=== PATIENT | female | born 1960 | race Caucasian/White ===

== ENCOUNTER 2018-02-17 20:31 | Emergency (ER) | payer BC ==
[2018-02-17 20:50] VITALS: BP 180/86; PULSE 92; RESP 16; TEMP 97
--- NOTE | 2018-02-17 21:31 | XR ---
EXAMINATION TYPE: XR ankle complete RT DATE OF EXAM: 02/17/2018 COMPARISON: NONE HISTORY: Ankle pain TECHNIQUE: 3 views FINDINGS: Ankle mortise is anatomic. I see no fracture nor dislocation. Joint spaces are normal. Ther e are no pathologic calcifications. IMPRESSION: Negative right ankle exam.
--- NOTE | 2018-02-17 21:41 | ED ---
General Adult HPI - General Chief complaint: Extremity Injury, Lower Stated complaint: foot injury Time Seen by Provider: 02/17/18 21:01 Source: patient, RN notes reviewed Mode of arrival: ambulatory Limitations: no limitations - History of Present Illness Initial comments: Patient is a 57-year-old female presenting to the emergency room today with chief complaint of an injury to the right ankle that occurred just prior to arrival. She states she stepped in a hole rolling the right ankle. Patient states that she has had some pain to the lateral aspect. She denies any other injury or complaint. Patient denies any recent fever, chills, shortness of breath, chest pain, back pain, abdominal pain, nausea or vomiting, headaches or visual changes, or any other complaints. - Related Data Previous Rx's Medication Instructions Recorded Cyclobenzaprine [Flexeril] 1 - 2 tab PO TID #20 tablet 11/07/15 Ibuprofen [Motrin] 600 mg PO Q6HR PRN #40 day 11/07/15 Ibuprofen [Motrin] 600 mg PO Q6HR PRN #40 day 02/17/18 Allergies Allergy/AdvReac Type Severity Reaction Status Date / Time No Known Allergies Allergy Verified 02/17/18 20:50 Review of Systems ROS Statement: Those systems with pertinent positive or pertinent negative responses have been documented in the HPI. ROS Other: All systems not noted in ROS Statement are negative. Past Medical History Past Medical History: No Reported History History of Any Multi-Drug Resistant Organisms: None Reported Additional Past Surgical History / Comment(s): ovary removed Past Psychological History: No Psychological Hx Reported Smoking Status: Current every day smoker Past Alcohol Use History: None Reported Past Drug Use History: None Reported General Exam - General Exam Comments Initial Comments: General: The patient is awake and alert, in no distress, and does not appear acutely ill. Neck: The neck is supple, there is no tenderness or JVD. Cardiovascular: There is a regular rate and rhythm. No murmur, rub or gallop is appreciated. Respiratory: Lungs are clear to auscultation, respirations are non-labored, breath sounds are equal. No wheezes, stridor, rales, or rhonchi. Musculoskeletal: Patient does have some mild swelling to the lateral aspect of the right ankle. She has some mild tenderness over the lateral malleolus. No tenderness down into the right foot. No tenderness to the right knee. Increased tenderness to the right ATFL. Sensations intact. Pulses equal 2+. Neurological: A&O x 3. CN II-XII intact, There are no obvious motor or sensory deficits. Coordination appears grossly intact. Speech is normal. Skin: Skin is warm and dry and no rashes or lesions are noted. Psychiatric: Normal mood and affect. Limitations: no limitations Course Vital Signs 02/17/18 20:47 Temperature 97 F L Pulse Rate 92 Respiratory 16 Rate Blood Pressure 180/86 O2 Sat by Pulse 97 Oximetry Medical Decision Making - Medical Decision Making Patient's x-rays negative. Patient is tender in the ATFL. Advised ankle sprain. Advised to use John wrap. Advised follow-up in 7-10 days for repeat x- rays. Disposition Clinical Impression: Ankle sprain Disposition: HOME SELF-CARE Condition: Good Instructions: Ankle Sprain (ED) Additional Instructions: Please use John wrap on up and moving around. Please do not sleep with this on. Please continue to ice elevate the affected area at least 4 times daily for 20 minutes at a time. Please use ibuprofen for pain. Please follow-up in 7-10 days for repeat x-rays if symptoms persist. Please treatments or for any other concerns. Prescriptions: Ibuprofen [Motrin] 600 mg PO Q6HR PRN #40 day PRN Reason: Pain Referrals: Tim Johnson MD [Primary Care Provider] - 1-2 days Time of Disposition: 21:40
== END 2018-02-17 21:50 | disposition home or self-care (01) ==
LOC: EC 20:31
DX: S93.401A Sprain of unspecified ligament of right ankle, initial encounter (principal); F17.200 Nicotine dependence, unspecified, uncomplicated; X50.1XXA Overexertion from prolonged static or awkward postures, initial encounter
CPT/HCPCS: 99283

== ENCOUNTER 2018-04-25 23:08 | Emergency (ER) | payer BC ==
[2018-04-25 23:23] VITALS: RESP 18
[2018-04-25] MEDS ORDERED: KETOROLAC 60 MG/2 ML VIAL IM STA (23:24)
--- NOTE | 2018-04-25 23:27 | ED ---
General Adult HPI - General Chief complaint: Abdominal Pain Stated complaint: Abd Pain Time Seen by Provider: 04/25/18 23:15 Source: patient, RN notes reviewed Mode of arrival: ambulatory Limitations: no limitations - History of Present Illness Initial comments: This is a 57-year-old female presents emergency Department complaining of right lateral rib pain. Patient states started about 3 days ago after she moved some furniture work. Patient states the pain seems be getting worse not better. Patient denies any shortness of breath patient denies any fever chills. Patient states the pain is worse when she lies flat but when she standing she has no pain at all. Patient states pressing on the ribs also hurts. Patient denies any abdominal pain patient denies nausea vomiting diarrhea. Patient denies any rashes or redness. Patient denies any recollection of direct trauma to that area.patient denies any anterior chest pain - Related Data Previous Rx's Medication Instructions Recorded Cyclobenzaprine [Flexeril] 1 - 2 tab PO TID #20 tablet 11/07/15 Ibuprofen [Motrin] 600 mg PO Q6HR PRN #40 day 11/07/15 Ibuprofen [Motrin] 600 mg PO Q6HR PRN #40 day 02/17/18 Cyclobenzaprine [Flexeril] 10 mg PO TID #20 tab 04/26/18 Ibuprofen [Motrin] 600 mg PO Q6HR PRN #20 tab 04/26/18 Allergies Allergy/AdvReac Type Severity Reaction Status Date / Time No Known Allergies Allergy Verified 04/25/18 23:23 Review of Systems ROS Statement: Those systems with pertinent positive or pertinent negative responses have been documented in the HPI. ROS Other: All systems not noted in ROS Statement are negative. Past Medical History Past Medical History: No Reported History History of Any Multi-Drug Resistant Organisms: None Reported Additional Past Surgical History / Comment(s): ovary removed Past Psychological History: No Psychological Hx Reported Smoking Status: Current every day smoker Past Alcohol Use History: None Reported Past Drug Use History: None Reported General Exam - General Exam Comments Initial Comments: GENERAL: Patient is well-developed and well-nourished. Patient is nontoxic and well- hydrated and is in mild distress. ENT: Neck is soft and supple. No significant lymphadenopathy is noted. Oropharynx is clear. Moist mucous membranes. Neck has full range of motion without eliciting any pain. EYES: The sclera were anicteric and conjunctiva were pink and moist. Extraocular movements were intact and pupils were equal round and reactive to light. Eyelids were unremarkable. PULMONARY: Unlabored respirations. Good breath sounds bilaterally. No audible rales rhonchi or wheezing was noted. CARDIOVASCULAR: There is a regular rate and rhythm without any murmurs gallops or rubs. Patient has tenderness along the lateral right chest wall. No swelling bruising or rashes noted ABDOMEN: Soft and nontender with normal bowel sounds. No palpable organomegaly was noted. There is no palpable pulsatile mass. SKIN: Skin is clear with no lesions or rashes and otherwise unremarkable. NEUROLOGIC: Patient is alert and oriented x3. Cranial nerves II through XII are grossly intact. Motor and sensory are also intact. Normal speech, volume and content. Symmetrical smile. MUSCULOSKELETAL: Normal extremities with adequate strength and full range of motion. No lower extremity swelling or edema. No calf tenderness. LYMPHATICS: No significant lymphadenopathy is noted PSYCHIATRIC: Normal psychiatric evaluation. Normal interpersonal interactions appears functionally intact in deals appropriately with others. No signs of depression. No signs of anxiety. Limitations: no limitations Course Vital Signs 04/25/18 23:18 Temperature 97.6 F Pulse Rate 114 H Respiratory 18 Rate Blood Pressure 158/81 O2 Sat by Pulse 94 L Oximetry Medical Decision Making - Medical Decision Making X-ray shows no acute abnormality. Patient states the Toradol helped her she again denies any chest pain shortness of breath fever chills cough. Disposition Clinical Impression: Chest wall pain Disposition: HOME SELF-CARE Condition: Good Instructions: Chest Wall Pain (ED) Prescriptions: Cyclobenzaprine [Flexeril] 10 mg PO TID #20 tab Ibuprofen [Motrin] 600 mg PO Q6HR PRN #20 tab PRN Reason: For pain Is patient prescribed a controlled substance at d/c from ED?: No Referrals: None,Stated [Primary Care Provider] - 1-2 days Time of Disposition: 00:32
[2018-04-26] MEDS ORDERED: CYCLOBENZAPRINE 10MG STARTER 3 TAB BTL PO STA (00:33)
[2018-04-26] MEDS ORDERED: ACET/COD 300 MG/30 MG STARTER PACK 6 TAB BTL PO STA (00:33)
--- NOTE | 2018-04-26 00:34 | XR ---
EXAMINATION TYPE: XR chest 2V DATE OF EXAM: 04/26/2018 COMPARISON: 08/11/2012 HISTORY: Right upper quadrant pain. Difficulty breathing TECHNIQUE: Frontal and lateral views of the chest are obtained. FINDINGS: There is a wedge-shaped 4 cm infiltrate at the right costophrenic angle. The other lung fi elds are clear. Heart and mediastinum are normal. There is no heart failure. Bony thorax is intact. IMPRESSION: Right lower lobe pneumonia. Normal heart. Pneumonia appears new compared to old exam. Mi nimal scarring noted in the pleura at the right lung apex.
[2018-04-26 00:37] VITALS: BP 153/85; PULSE 96; TEMP 98.1
== END 2018-04-26 00:47 | disposition home or self-care (01) ==
LOC: EC 23:08
DX: R07.89 Other chest pain (principal); R07.81 Pleurodynia; F17.200 Nicotine dependence, unspecified, uncomplicated
CPT/HCPCS: 71046; 99284; 96372; J1885

== ENCOUNTER 2018-05-01 16:48 | Inpatient (IN) | payer BC ==
[2018-05-01] MEDS ORDERED: KETOROLAC 30 MG/ML 1 ML VIAL IVP STA (17:46)
[2018-05-01] MEDS ORDERED: ACETAMINOPHEN TAB 500 MG TAB PO STA (17:46)
[2018-05-01] MEDS ORDERED: SODIUM CHLORIDE 0.9% 1,000 ML IV ONE (17:46)
[2018-05-01] MEDS ORDERED: IPRATROPIUM-ALBUTEROL 3 ML NEB INHALATION STA (17:46)
--- NOTE | 2018-05-01 18:03 | ED ---
Chest Pain HPI - General Chief Complaint: Chest Pain Stated Complaint: chest muscle pain Time Seen by Provider: 05/01/18 17:40 Source: patient Mode of arrival: wheelchair Limitations: no limitations - History of Present Illness Initial Comments: 57-year-old female patient presents to the emergency department today for evaluation of chest pain and shortness of breath. Patient states that she has been having symptoms since Saturday. States that she was seen and evaluated here and diagnosed with chest wall pain given ibuprofen and muscle relaxers. Patient states that she is out of those medications and her pain has worsened. States it is mostly on the right side that wraps around to her back. States she has been coughing up yellow sputum. States that she feels like she is having muscle spasms. She states that she has a headache today and has had chills. She denies any sweats, nausea, or vomiting. Denies abdominal pain. Patient denies any recent rash, diarrhea, constipation, back pain, numbness, tingling, dizziness, weakness, hematuria, dysuria, urinary urgency, urinary frequency, headache, visual changes, or any other complaints. - Related Data Previous Rx's Medication Instructions Recorded Cyclobenzaprine [Flexeril] 10 mg PO TID #20 tab 04/26/18 Ibuprofen [Motrin] 600 mg PO Q6HR PRN #20 tab 04/26/18 Allergies Allergy/AdvReac Type Severity Reaction Status Date / Time No Known Allergies Allergy Verified 05/01/18 17:56 Review of Systems ROS Statement: Those systems with pertinent positive or pertinent negative responses have been documented in the HPI. ROS Other: All systems not noted in ROS Statement are negative. EKG Findings - EKG Comments: EKG Findings:: EKG obtained at 1709 shows sinus tachycardia with a right bundle branch block. Ventricular rate is 121, KS interval 168, QR bahai 126, QT 304, QTC 431. Past Medical History Past Medical History: No Reported History History of Any Multi-Drug Resistant Organisms: None Reported Additional Past Surgical History / Comment(s): ovary removed Past Psychological History: No Psychological Hx Reported Smoking Status: Current every day smoker Past Alcohol Use History: None Reported Past Drug Use History: None Reported General Exam Limitations: no limitations General appearance: alert, in no apparent distress, other (This is a thin appearing adult female patient appears in mild respiratory distress. Vital signs upon presentation are temperature 100.6F oral, pulse 117, respirations 36 , blood pressure 145/83, pulse ox 90% on room air.) Eye exam: Present: normal appearance, PERRL, EOMI. Absent: scleral icterus, conjunctival injection, periorbital swelling ENT exam: Present: normal exam, normal oropharynx, mucous membranes moist Respiratory exam: Present: respiratory distress (Mild), wheezes (Tight expiratory wheezing noted throughout all posterior lung crawley), chest wall tenderness, other (Tachypnea). Absent: normal lung sounds bilaterally, rales, rhonchi, stridor Cardiovascular Exam: Present: normal rhythm, tachycardia, normal heart sounds. Absent: systolic murmur, diastolic murmur, rubs, gallop, clicks GI/Abdominal exam: Present: soft, normal bowel sounds. Absent: distended, tenderness, guarding, rebound, rigid Neurological exam: Present: alert, oriented X3, CN II-XII intact Psychiatric exam: Present: normal affect, normal mood Skin exam: Present: warm, dry, intact, normal color. Absent: rash Course Vital Signs 05/01/18 05/01/18 05/01/18 16:53 17:32 17:37 Temperature 99.4 F 100.6 F H Pulse Rate 117 H 123 H Respiratory 18 36 H Rate Blood Pressure 145/83 O2 Sat by Pulse 90 L Oximetry 05/01/18 05/01/18 05/01/18 18:09 18:17 18:50 Temperature Pulse Rate 118 H 121 H 114 H Respiratory 22 22 34 H Rate Blood Pressure 139/92 O2 Sat by Pulse 92 L Oximetry Chest Pain MDM - MDM 57-year-old female patient presented to the emergency department today for evaluation of right-sided chest pain and shortness of breath. Patient is febrile, tachycardic and tachypneic upon presentation. Tight expiratory wheezing was noted throughout all posterior lung crawley. A chest x-ray was obtained and did show right-sided pneumonia with pleural effusion. EKG showed sinus tachycardia with a right bundle branch block. Labs did show an elevated white blood cell count, normal lactic acid. Patient also had a mild elevation of her liver enzymes and elevated alk phos, we will obtain abdominal ultrasound in the morning. Patient was started on IV Rocephin and Levaquin. Given antipyretic medication. She'll be admitted to Dr. Marina. We will consult pulmonology. Patient was updated regarding findings and planned she is agreeable. RADIOLOGY:Two-view x-ray of the chest was obtained. There is moderate right pleural effusion. There is probably consolidation in the right lower lobe. Left lung is clear. There is no heart failure. There are chest leads. Heart size is normal. There is mild pleural thickening at the lung apices. Impression by Dr. Matt shows significant increased consolidation in pleural fluid in the right lower lobe compared to last exam. No heart failure. Disposition Clinical Impression: Pneumonia involving right lung, Pleural effusion, right Disposition: ADMITTED IP TO THIS HOSP Condition: Serious Referrals: None,Stated [Primary Care Provider] - 1-2 days Decision to Admit Reason: Admit from EC Decision Date: 05/01/18 Decision Time: 19:39
[2018-05-01] MEDS ORDERED: MORPHINE SULFATE 2 MG/ML SYRINGE IVP STA (18:04)
[2018-05-01] MEDS ORDERED: methylPREDNISolone SOD SUCCI 125 MG/2 ML VIAL IV STA (18:10)
[2018-05-01] MEDS ORDERED: LEVOFLOXACIN 750MG-D5W PMX 750 MG in DEXTROSE/WATER 1 150ML.BAG IVPB STA (18:10)
[2018-05-01] MEDS ORDERED: cefTRIAXone IN SWFI 1,000 MG/10 ML SYRINGE IVP STA (18:13)
--- NOTE | 2018-05-01 18:22 | XR ---
EXAMINATION TYPE: XR chest 2V DATE OF EXAM: 05/01/2018 COMPARISON: 04/26/2018 HISTORY: Chest pain TECHNIQUE: Frontal and lateral views of the chest are obtained. FINDINGS: There is moderate right pleural effusion. There is probably consolidation in the right low er lobe. Left lung is clear. There is no heart failure. There are chest leads. Heart size is normal. There is mild pleural thickening at the lung apices. IMPRESSION: There is significant increased consolidation and pleural fluid in the right lower lobe c ompared to last exam. No heart failure.
[2018-05-01 18:42] LABS: Basophils # (A) 0.1 k/uL (0-0.2); Basophils % (A) 0 %; Eosinophils # (A) 0.2 k/uL (0-0.7); Eosinophils % (A) 1 %; HCT 38.6 % (34.0-46.0); HGB 13.2 gm/dL (11.4-16.0); Lymphocytes # (A) 0.8 k/uL (1.0-4.8); Lymphocytes % (A) 5 %; MCHC 34.1 g/dL (31.0-37.0); MCV 90.9 fL (80.0-100.0); Mean Platelet Volume 7.1; Monocytes # (A) 0.6 k/uL (0-1.0); Monocytes % (A) 3 %; Neutrophils # (A) 15.4 k/uL (1.3-7.7); Neutrophils % (A) 90 %; Platelet Count 489 k/uL (150-450); RBC 4.25 m/uL (3.80-5.40); RDW 12.9 % (11.5-15.5); WBC 17.1 k/uL (3.8-10.6)
[2018-05-01 19:21] LABS: ALT 97 U/L (9-52); AST 53 U/L (14-36); Alkaline Phosphatase 301 U/L (38-126); Anion Gap 13 mmol/L; Blood Urea Nitrogen 13 mg/dL (7-17); Calcium 8.8 mg/dL (8.4-10.2); Carbon Dioxide 24 mmol/L (22-30); Chloride 99 mmol/L (98-107); Glucose 101 mg/dL (74-99); INR 1.1 (<1.2); Potassium 3.8 mmol/L (3.5-5.1); Prothrombin Time 10.7 sec (9.0-12.0); Sodium 136 mmol/L (137-145); Total Bilirubin 0.6 mg/dL (0.2-1.3); Total Protein 5.7 g/dL (6.3-8.2)
[2018-05-01] MEDS ORDERED: NALOXONE 0.4 MG/ML 1 ML VIAL IV PRN (19:23)
[2018-05-01] MEDS ORDERED: ACETAMINOPHEN TAB 325 MG TAB PO PRN (19:31)
[2018-05-01 19:32] LABS: Creatine Kinase 52 U/L (30-135)
[2018-05-01 19:45] LABS: Creatine Kinase MB 0.4 ng/mL (0.0-2.4); Troponin I <0.012 ng/mL (0.000-0.034)
[2018-05-01] MEDS ORDERED: IPRATROPIUM-ALBUTEROL 3 ML NEB INHALATION PRN (21:24)
[2018-05-01] MEDS ORDERED: TEMAZEPAM 15 MG CAP PO PRN (21:24)
[2018-05-01] MEDS ORDERED: IBUPROFEN 600 MG TAB PO PRN (21:27)
[2018-05-01] MEDS: SODIUM CHLORIDE 0.9% 1,000 ML IV SCH (21:33)
[2018-05-01] MEDS: HEPARIN SODIUM,PORCINE 5,000 UNIT/ML 1 ML VIAL SQ SCH (21:56)
[2018-05-01] MEDS: CYCLOBENZAPRINE 10 MG TAB PO SCH (21:56)
[2018-05-01] MEDS ORDERED: AZITHROMYCIN 500 MG in DEXTROSE 5% IN WATER 250 ML IVPB SCH ×2 (22:00)
--- NOTE | 2018-05-01 22:16 | HP ---
HISTORY AND PHYSICAL DATE OF SERVICE: 05/01/2018 CHIEF COMPLAINT: Cough with sputum, muscle spasms, chest pain. HISTORY OF PRESENT ILLNESS: This 57-year-old woman with a past medical past history of oophorectomy, otherwise no other significant medical issues, not being followed by any primary physician, has not been feeling well over the past several days. The patient initially had a soreness of the chest and muscle pain spasms. The patient was taking ibuprofen for the same. The patient had increasing cough with yellow sputum. The patient also has muscle spasms. Because of increasing complaints, patient came to [facility] and was admitted for further evaluation and treatment. There is no history of fevers or rigors. No history of headache, loss of consciousness or seizures. Chest x-ray showed multilobular pneumonia on the right side with significant parapneumonic effusion also. Patient admitted for further evaluation and treatment. Patient is a smoker. There is no history any headache, loss of consciousness or seizures. PAST MEDICAL HISTORY: History of oophorectomy. MEDICATIONS: Prior to admission, include Motrin and Flexeril. ALLERGIES: None. FAMILY HISTORY: No history of heart disease or strokes in the family. SOCIAL HISTORY: History of smoking on a daily basis. No history of alcohol intake. REVIEW OF SYSTEMS: ENT: No diminished hearing or vision. CARDIOVASCULAR: As mentioned. RESPIRATORY: As mentioned earlier. GI: No nausea and vomiting. : No dysuria or hematuria. NERVOUS SYSTEM: No numbness or weakness. ALLERGY: No history of asthma or hayfever. MUSCULOSKELETAL: As mentioned earlier. HEMATOLOGY: No history of anemia. ENDOCRINE: No history of diabetes, hypothyroidism. CONSTITUTIONAL: As mentioned. DERMATOLOGY: Negative. RHEUMATOLOGY: Negative. PSYCHIATRY: As mentioned earlier. PHYSICAL EXAMINATION: Alert oriented x2. Pulse is 114, blood pressure 130/92, respirations 34, temperature 98.2, pulse ox 98% on 2 L. HEENT: Conjunctivae normal. Oral mucosa moist moist. NECK: No jugular venous distention. No lymph node enlargement. Breathing efforts are markedly increased. CARDIOVASCULAR SYSTEM: S1 and S2. No S3 or S4. RESPIRATORY: Breath sounds diminished at the bases. Bilateral scattered rhonchi and crackles. Expiratory wheezing also present. ABDOMEN: Soft, nontender. No mass palpable. LEGS: No edema, no swelling. NERVOUS SYSTEM: Higher functions as mentioned earlier. Moves all 4 limbs. No focal motor or sensory deficits. LYMPHATICS: No masses in the neck, axillae or groin. SKIN: No ulcer, rash, bleeding. LABS: WBC 17.1, hemoglobin 13.2, sodium is 136, AST 53, ALT is 97. ASSESSMENT: 1. Acute right lower lobe multifocal pneumonia with parapneumonic effusion and possible sepsis. 2. Increased WBC. 3. Hyponatremia. 4. Increased AST and ALT; rule out hepatitis. 5. History of oophorectomy. 6. History of nicotine dependence. RECOMMENDATIONS AND DISCUSSION: This 57-year-old woman who presented with multiple complicated medical issues. We will monitor the patient closely. Continue the current management and symptomatic treatment. We will initiate broad-spectrum IV antibiotics in the form IV Rocephin and Zithromax. Obtain cultures including sputum cultures. The possibility of mycoplasma and Legionella pneumonia will also being excluded. We will consult Dr. Kyle for evaluation and help with treatment. I would also recommend a CT scan of the chest because of the extensive nature of the pneumonia. Otherwise, DVT prophylaxis, symptomatic treatment, bronchodilators, ensure oxygenation. See orders for details. Overall prognosis is extremely guarded. Smoking cessation has been advised. The patient understands. Further recommendations to follow. MMODL / IJN: [id number] /
[2018-05-02] MEDS: KETOROLAC 30 MG/ML 1 ML VIAL IVP PRN (05:30)
[2018-05-02 05:39] LABS: Appearance,Urine Clear (Clear); Bilirubin,Urine Negative (Negative); Blood,Urine Small (Negative); Color,Urine Yellow; Glucose,Urine (UA) Negative (Negative); Ketones,Urine Negative (Negative); Leukocyte Esterase,Urine Negative (Negative); Mucus,Urine Occasional /hpf; Nitrite,Urine Negative (Negative); PH, Urine 5.5 (5.0-8.0); Protein,Urine Negative (Negative); RBC,Urine 1 /hpf (0-5); Specific Gravity,Urine 1.006 (1.001-1.035); Squamous Epithelial Cell,Urine 1 /hpf (0-4); Urobilinogen,Urine <2.0 mg/dL (<2.0); WBC,Urine 2 /hpf (0-5)
[2018-05-02 05:49] LABS: Amphetamine Screen,Urine Detected (NotDetected); Barbiturate Screen,Urine Not Detected (NotDetected); Benzodiazepines Screen,Urine Not Detected (NotDetected); Cocaine Screen,Urine Not Detected (NotDetected); Methadone Screen, Urine Not Detected (NotDetected); Opiate Screen,Urine Detected (NotDetected); Oxycodone Screen, Urine Not Detected (NotDetected); Phencyclidine Screen,Urine Not Detected (NotDetected); Tricyclic Antidepressant,Urine Not Detected (NotDetected); Urn Cannabinoid Scrn Not Detected (NotDetected)
[2018-05-02] MEDS: IPRATROPIUM-ALBUTEROL 3 ML NEB INHALATION SCH ×4 (07:27→19:45)
[2018-05-02] MEDS ORDERED: BUDESONIDE 1 MG/2 ML NEBU INHALATION SCH (08:00)
[2018-05-02] MEDS ORDERED: FORMOTEROL FUMARATE 20 MCG/2 ML NEBU INHALATION SCH (08:00)
--- NOTE | 2018-05-02 08:46 | US ---
EXAMINATION TYPE: US liver DATE OF EXAM: 05/02/2018 COMPARISON: NONE CLINICAL HISTORY: high lft- include gall bladder also. EXAM MEASUREMENTS: Liver Length: 14.8 cm Gallbladder Wall: 0.4 cm CBD: 0.6 cm Right Kidney: 10.7 x 5.2 x 4.8 cm Technically difficult study causing limitations, patient has SOB, shaking and is unable to hold her b reath well. Pancreas: partially obscured by bowel gas, portions visualized wnl Liver: wnl Gallbladder: wall appears thickened, limited visualization Evidence for sonographic Holcomb's sign: CBD: wnl Right Kidney: lower pole obscured by overlying bowel gas Large loculated pleural effusion noted. IMPRESSION: 1. Limited examination. 2. Large pleural effusion. 3. Thickening of the gallbladder wall. Correlate for acute cholecystitis.
[2018-05-02 09:09] LABS: Basophils # (A) 0.1 k/uL (0-0.2); Basophils % (A) 0 %; Eosinophils % (A) 0 %; HCT 40.1 % (34.0-46.0); HGB 12.9 gm/dL (11.4-16.0); Hypochromasia Slight; Lymphocytes # (A) 1.3 k/uL (1.0-4.8); Lymphocytes % (A) 6 %; MCHC 32.2 g/dL (31.0-37.0); Monocytes # (A) 0.6 k/uL (0-1.0); Monocytes % (A) 3 %; Neutrophils # (A) 18.7 k/uL (1.3-7.7); Neutrophils % (A) 90 %; Platelet Count 424 k/uL (150-450); RBC 4.17 m/uL (3.80-5.40); RDW 12.7 % (11.5-15.5); WBC 20.9 k/uL (3.8-10.6)
[2018-05-02 09:32] LABS: ALT 90 U/L (9-52); AST 37 U/L (14-36); Albumin 3.1 g/dL (3.5-5.0); Alkaline Phosphatase 281 U/L (38-126); Anion Gap 16 mmol/L; Blood Urea Nitrogen 17 mg/dL (7-17); Calcium 9.3 mg/dL (8.4-10.2); Carbon Dioxide 20 mmol/L (22-30); Chloride 106 mmol/L (98-107); Glucose 130 mg/dL (74-99); Sodium 142 mmol/L (137-145); Total Bilirubin 0.6 mg/dL (0.2-1.3); Total Protein 6.2 g/dL (6.3-8.2)
[2018-05-02] MEDS ORDERED: RX INFO: IV CONTRAST WAS GIVEN 1 EACH MISC MISCELLANE PRN (09:34)
[2018-05-02] MEDS: NICOTINE 14MG/24HR PATCH TRANSDERM SCH (09:39)
[2018-05-02] MEDS: CYCLOBENZAPRINE 10 MG TAB PO SCH ×3 (09:39→21:04)
[2018-05-02] MEDS: PANTOPRAZOLE 40 MG TABLET PO SCH (09:39)
[2018-05-02] MEDS: cefTRIAXone IN SWFI 1,000 MG/10 ML SYRINGE IVP SCH (09:39)
[2018-05-02] MEDS: HEPARIN SODIUM,PORCINE 5,000 UNIT/ML 1 ML VIAL SQ SCH ×2 (09:39→21:07)
[2018-05-02] MEDS: SODIUM CHLORIDE 0.9% 1,000 ML IV SCH ×2 (09:40→23:34)
[2018-05-02] MEDS: HYDROcodone/APAP 5-325MG 1 EACH TAB PO PRN ×2 (09:55→19:46)
--- NOTE | 2018-05-02 12:08 | CT ---
EXAMINATION TYPE: CT chest w con DATE OF EXAM: 05/02/2018 COMPARISON: Chest CT August 14, 2012. Chest x-rays April 26 and May 01, 2018. Liver ultrasound April 122017 HISTORY: Pneumonia. Right lung opacity/effusion. CT DLP: 582 mGycm. Automated Exposure Control for Dose Reduction was Utilized. TECHNIQUE: CT scan of the thorax is performed following with IV Contrast, patient injected with 100 ml mL of Isovue 300. FINDINGS: LUNGS: There is background underlying mild to moderate emphysematous change most prominent in right u pper lobe redemonstrated. There is moderate size nonsimple right pleural effusion with anterior and l ateral component in the right lung base. There is associated compressive atelectasis inferiorly and c entrally extending to right hilar region. There is more dependent moderate right pleural fluid collec tion in the upper lung with associated compressive atelectasis. Left lower lung shows dependent atele ctasis and/or consolidation near diaphragm with tiny effusion. No pneumothorax is seen bilaterally. T racheobronchial tree is patent. MEDIASTINUM: There are prominent but subcentimeter paratracheal, pericarinal, subcarinal, and right h ilar lymph nodes. No cardiomegaly or pericardial effusion is seen. Coronary artery calcification i s seen which is noted marker for coronary artery disease. OTHER: There is slight S-shaped scoliosis present. Mild multilevel spurring and spine is present. IMPRESSION: Over last several x-rays there is worsening moderate right-sided pleural fluid collection which does not completely layer dependently with associated atelectasis and/or consolidation on back ground of mild to moderate underlying emphysematous change. Favor infectious etiology
[2018-05-02] MEDS ORDERED: VANCOMYCIN 1,250 MG in SODIUM CHLORIDE 0.9% 250 ML IVPB STA (12:46)
[2018-05-02] MEDS ORDERED: VANCOMYCIN IV PER PHARMACY 1 EACH MISC MISCELLANE PRN (12:46)
[2018-05-02] MEDS ORDERED: LIDOCAINE 2% INJ 20 MG/ML (20 ML MDV) SQ STA (12:53)
[2018-05-02] MEDS ORDERED: LIDOCAINE 2% (PF) 20 MG/ML 2 ML AMP SQ STA (12:57)
[2018-05-02] MEDS ORDERED: LORazepam 0.5 MG TAB PO PRN (13:21)
[2018-05-02] MEDS ORDERED: LORazepam 2 MG/ML INJ IV STA (13:22)
[2018-05-02] MEDS: SYMBICORT 160-4.5 MCG INHALER INHALATION SCH ×2 (13:48→19:45)
--- NOTE | 2018-05-02 15:11 | PCN ---
PROCEDURE NOTE PREOPERATIVE DIAGNOSIS: Pneumonia with parapneumonic effusion. POSTOPERATIVE DIAGNOSIS: Pneumonia with parapneumonic effusion. PROCEDURE: Right-sided thoracentesis. PROCEDURE DESCRIPTION: A time-out was completed verifying correct patient, procedure, site, positioning , and implant (s) or special equipment if applicable. Ultrasound guidance was not used and appropriate fluid pocket was identified and marked. Patient was positioned, prepped and draped in usual sterile fashion. Lidocaine was used to anesthetize the area. A thoracentesis catheter was introduced into the pleural space and fluid was removed. Blood loss was none. A chest x-ray was ordered to evaluate for pneumothorax and will follow. Total Fluid Removed: 450 mL Color of Fluid: Turbid, dark yellowish pleural fluid Fluid @@was/was not sent for appropriate laboratory tests. Patient tolerated the procedure well and there were no bedside complications. MMODL / IJN: [id number] /
--- NOTE | 2018-05-02 15:24 | P.CNPUL ---
History of Present Illness Consult date: 05/02/18 Reason for consult: dyspnea, COPD, pneumonia History of present illness: 57-year-old female patient a chronic smoker who presented to [facility] department she days back. Pleuritic severe right-sided chest pain. The patient was told to have some soreness of the chest and muscle spasm and she was given ibuprofen. Subsequently she started having chills no documented temperature and she was comfortable not increased yellowish sputum. Her pain progressively got worse and started developing worsening shortness of breath. For that reason she came into the hospital and repeat chest x-ray was done that showed increased opacity in the right lower lobe in addition to multilobar pneumonia involving the right lung. There was evidence of parapneumonic effusion. No altered mentation. No signs of any septicemia. No hypotension. No signs of any respiratory failure. Based on x-ray findings, I ordered a CAT scan of the chest and I found a moderate amount of right sided pleural fluid collection which does not completely layer dependently and this suggests some degree of loculation in addition to some background mild to moderate underlying emphysematous change. The patient has some compressive atelectasis of the right lung base area. Based on all this, I performed a bedside thoracentesis and a total of 4 50 mL of turbid dark yellowish pleural fluid was aspirated without any major difficulties. The fluid was sent for analysis., This patient a combination of Rocephin and vancomycin for now. Her pain is subsided and patient is having less of a pleuritic chest pain on the right. No hemoptysis. Patient's urine drug screen is positive for opiates, amphetamine and methamphetamine. Urinalysis is negative. The white cell count is at 20.9. 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 No sick contacts. As mentioned she is smoking and she does not utilize any form of respiratory medications. Mild chronic exertional dyspnea. Review of Systems Constitutional: Reports chills, Reports fatigue, Reports lethargy Eyes: denies blurred vision, denies bulging eye, denies decreased vision Ears: deny: decreased hearing, ear discharge, earache, tinnitus Ears, nose, mouth and throat: Denies headache, Denies sore throat Cardiovascular: Reports dyspnea on exertion, Reports shortness of breath Respiratory: Reports cough, Reports dyspnea, Reports respiratory infections Gastrointestinal: Denies abdominal pain, Denies diarrhea, Denies nausea, Denies vomiting Genitourinary: Denies dysuria, Denies hematuria Musculoskeletal: Denies myalgias Musculoskeletal: absent: ankle pain, ankle stiffness, ankle swelling Integumentary: Denies pruritus, Denies rash Neurological: Denies numbness, Denies weakness Psychiatric: Denies anxiety, Denies depression Endocrine: Denies fatigue, Denies weight change Hematologic/Lymphatic: Reports as per HPI Allergic/Immunologic: Reports as per HPI Past Medical History Past Medical History: No Reported History, COPD History of Any Multi-Drug Resistant Organisms: None Reported Additional Past Surgical History / Comment(s): ovary removed Past Anesthesia/Blood Transfusion Reactions: No Reported Reaction Past Psychological History: No Psychological Hx Reported Smoking Status: Current every day smoker Past Alcohol Use History: None Reported Past Drug Use History: None Reported Medications and Allergies Home Medications Medication Instructions Recorded Confirmed Type Cyclobenzaprine [Flexeril] 10 mg PO TID #20 tab 04/26/18 05/01/18 Rx Ibuprofen [Motrin] 600 mg PO Q6HR PRN #20 tab 04/26/18 05/01/18 Rx Allergies Allergy/AdvReac Type Severity Reaction Status Date / Time No Known Allergies Allergy Verified 05/01/18 17:56 Physical Exam Vitals: Vital Signs Temp Pulse Pulse Resp BP BP Pulse Ox 05/02/18 15:08 97.4 F L 115 H 20 159/67 92 L 05/02/18 12:10 100 05/02/18 11:59 100 05/02/18 08:00 90 18 05/02/18 07:47 92 05/02/18 07:41 104 H 05/02/18 07:27 96 05/02/18 06:28 98.2 F 90 18 133/77 90 L 05/01/18 21:02 97.1 F L 96 18 113/59 92 L 05/01/18 19:51 98.9 F 107 H 21 119/70 94 L 05/01/18 18:50 114 H 34 H 139/92 92 L 05/01/18 18:17 121 H 22 05/01/18 18:09 118 H 22 05/01/18 17:37 100.6 F H 123 H 05/01/18 17:32 36 H 05/01/18 16:53 99.4 F 117 H 18 145/83 90 L Intake and Output 05/02/18 05/02/18 05/02/18 06:59 14:59 22:59 Intake Total 0 400 Output Total 1800 Balance -1800 400 Intake: Oral 0 400 Output: Urine 1800 Other: # Voids 3 Weight 71 kg Gen. appearance she is calm and comfortable likely distress Head exam was generally normal. There was no scleral icterus or corneal arcus. Mucous membranes were moist. Neck was supple and without jugular venous distension, thyromegaly, or carotid bruits. Carotids were easily palpable bilaterally. There was no adenopathy. Lungs sounds are showing marked diminished breath on the right lung base along with dullness to percussion. Minimal crackles in the lung bases bilaterally more so on the right. No wheezes. No rhonchi. Abdominal exam revealed normal bowel sounds. The abdomen was soft, non-tender, and without masses, organomegaly, or appreciable enlargement of the abdominal aorta Examination of the extremities revealed easily palpable radial, femoral and pedal pulses. There was no cyanosis, clubbing or edema. Examination of the skin revealed no evidence of significant rashes, suspicious appearing nevi or other concerning lesions. Neurologically awake and alert and there is no focal neurological deficits. Results - Laboratory Findings CBC and BMP: 05/02/18 08:25 05/02/18 08:25 PT/INR, D-dimer PT 10.7 sec (9.0-12.0) 05/01/18 18:44 INR 1.1 (<1.2) 05/01/18 18:44 Abnormal lab findings: Abnormal Labs 05/01/18 05/01/18 05/02/18 18:25 18:44 05:28 WBC 17.1 H Plt Count 489 H Neutrophils # 15.4 H Lymphocytes # 0.8 L Sodium 136 L Carbon Dioxide Glucose 101 H AST 53 H ALT 97 H Alkaline Phosphatase 301 H Total Protein 5.7 L Albumin 3.0 L Urine Blood Small H Urine Mucus Occasional H Urine Opiates Screen Detected H Ur Amphetamines Screen Detected H U Methamphetamines Scrn Detected H 05/02/18 05/02/18 08:25 08:25 WBC 20.9 H Plt Count Neutrophils # 18.7 H Lymphocytes # Sodium Carbon Dioxide 20 L Glucose 130 H AST 37 H ALT 90 H Alkaline Phosphatase 281 H Total Protein 6.2 L Albumin 3.1 L Urine Blood Urine Mucus Urine Opiates Screen Ur Amphetamines Screen U Methamphetamines Scrn - Diagnostic Findings Chest x-ray: image reviewed CT scan - chest: image reviewed Assessment and Plan Plan: 1 Extensive right lung multilobar pneumonia, likely bacterial, acute, complicated by development of parapneumonic effusion with early loculations and compressive atelectasis 2 acute hypoxic respiratory failure secondary to above 3 acute leukocytosis secondary to above 4 COPD 5 urine drug screen for opiates, amphetamine and methamphetamine's 6 abnormal LFTs 7 smoker Plan Very much concerned of a pneumococcal pneumonia with parapneumonic effusion. There is early loculation of the right-sided pleural effusion. A thoracentesis was done and the pleural fluid was cloudy him a possibly complicated. A total of 450 mL of fluid was aspirated from the right lung without any complication. Chest x-ray still pending. Continue Rocephin and vancomycin. Consider repeating the CAT scan within next 48 hours and assess the need for further drainage being a percutaneous with small bore chest tubes or even thoracoscopy needed. We'll continue to follow. Extremities to the patient and she understands. We'll be awaiting results of the pleural fluid culture. Send blood culture. Send sputum culture. Provide the patient incentive spirometer. We'll continue to follow.
--- NOTE | 2018-05-02 15:34 | XR ---
EXAMINATION TYPE: XR chest 1V portable DATE OF EXAM: 05/02/2018 COMPARISON: 05/01/2018 INDICATION: Status post right thoracentesis TECHNIQUE: Single frontal view of the chest is obtained. FINDINGS: The heart size is indistinct. The pulmonary vasculature is normal. There appears to be increasing right pleural effusion. No pneumothorax is evident. IMPRESSION: 1. Right pleural effusion appears increased on the right. No pneumothorax is evident.
[2018-05-02 15:40] LABS: Appearance,BF Bloody; Nucleated Cells, Body Fluid 1500 /uL; RBC, Body Fluid 10100 /uL
[2018-05-02 15:45] LABS: Mononuclear WBC,Body Fluid 7 %; Polynuclear WBC,Body Fluid 89 %; Total Cells Counted,Body Fluid 100
[2018-05-02] MEDS ORDERED: LORazepam 2 MG/ML INJ IV PRN (16:01)
--- NOTE | 2018-05-02 17:24 | P.PN ---
Subjective Progress Note Date: 05/02/18 Progress note being dictated for Dr. Marina Interval history: This 57-year-old female admitted with right lower lobe multifocal pneumonia with parapneumonic effusion, possible sepsis, elevated LFTs and multiple other medical issues. Evaluated by pulmonary with recommendations noted. Drug screen positive for opiates, amphetamines and methamphetamines. Significant shakiness, denies alcohol consumption/abuse. Sodium improved. WBC up to 20, and steroids. Chest x-ray reports increasing right pleural effusion. Liver ultrasound Limited study secondary to patient's shaking, shortness of breath, reporting large pleural effusion, thickening of gallbladder wall, possible acute cholecystitis. Chest CT reporting worsening moderate right-sided pleural effusion collection/loculation with associated compressive atelectasis and/or consolidation, suspect infectious etiology, mild- to-moderate emphysematous change. Underwent right-sided thoracentesis with 450 MLS cloudy dark yellow pleural fluid removed. Tolerated procedure well. Pain improved. Maintained on vancomycin and Rocephin. Review of systems: CONSTITUTIONAL: No fever, positive fatigue. HEENT: No recent visual problems or hearing problems. Denied any sore throat. CARDIOVASCULAR: No chest pain, orthopnea, PND, no palpitations, no syncope. PULMONARY: Short of breath ,Positive exertional dyspnea, GASTROINTESTINAL: No diarrhea, no nausea, no vomiting, no abdominal pain. Normoactive bowel sounds. NEUROLOGICAL: No headaches, no weakness, no numbness. HEMATOLOGICAL: Denies any bleeding or petechiae. GENITOURINARY: Denies any burning micturition, frequency, or urgency. MUSCULOSKELETAL/RHEUMATOLOGICAL: Denies any joint pain, swelling, or any muscle pain. ENDOCRINE: Denies any polyuria or polydipsia. PSYCHIATRIC: No anxiety, no depression The rest of the 14 point review of systems is negative Active Medications Acetaminophen (Tylenol Tab) 650 mg PO Q6HR PRN PRN Reason: Mild Pain or Fever > 100.5 Hydrocodone Bitart/Acetaminophen (Schulter 5-325) 1 each PO Q6HR PRN PRN Reason: Moderate Pain Last Admin: 05/02/18 09:55 Dose: 1 each Albuterol/Ipratropium (Duoneb 0.5 Mg-3 Mg/3 Ml Soln) 3 ml INHALATION RT-QID CHRISTINE Last Admin: 05/02/18 15:48 Dose: 3 ml Albuterol/Ipratropium (Duoneb 0.5 Mg-3 Mg/3 Ml Soln) 3 ml INHALATION RT-TID PRN PRN Reason: Shortness Of Breath Or Wheezing Alprazolam (Xanax) 0.25 mg PO TID PRN PRN Reason: Anxiety Budesonide/Formoterol Fumarate (Symbicort 160-4.5 Mcg Inhaler) 2 puff INHALATION RT-BID [facility] Last Admin: 05/02/18 13:48 Dose: Not Given Ceftriaxone Sodium (Rocephin) 1,000 mg IVP Q24HR [facility] Last Admin: 05/02/18 09:39 Dose: 1,000 mg Cyclobenzaprine HCl (Flexeril) 10 mg PO TID [facility] Last Admin: 05/02/18 15:42 Dose: 10 mg Heparin Sodium (Porcine) (Heparin) 5,000 unit SQ Q12HR [facility] Last Admin: 05/02/18 09:39 Dose: 5,000 unit Sodium Chloride (Saline 0.9%) 1,000 mls @ 75 mls/hr IV .[id number] [facility] Last Admin: 05/02/18 09:40 Dose: 75 mls/hr Vancomycin HCl 1,250 mg/ (Sodium Chloride) 250 mls @ 125 mls/hr IVPB Q12H [facility] Ketorolac Tromethamine (Toradol) 30 mg IVP Q6HR PRN PRN Reason: Moderate Pain Stop: 05/06/18 19:32 Last Admin: 05/02/18 05:30 Dose: 30 mg Lorazepam (Ativan) 1 mg IV Q4HR PRN PRN Reason: Anxiety Miscellaneous Information (Rx Info: Iv Contrast Was Given) 1 each MISCELLANE DAILY PRN PRN Reason: Per Protocol Stop: 05/04/18 09:34 Naloxone HCl (Narcan) 0.2 mg IV Q2M PRN PRN Reason: Opioid Reversal Nicotine (Habitrol 14mg/24hr Patch) 1 patch TRANSDERM DAILY [facility] Last Admin: 05/02/18 09:39 Dose: 1 patch Pantoprazole Sodium (Protonix) 40 mg PO [id number] [facility] Last Admin: 05/02/18 09:39 Dose: 40 mg Temazepam (Restoril) 15 mg PO HS PRN PRN Reason: Insomnia Objective - Vital Signs Vital signs: Vital Signs Temp 97.4 F L 05/02/18 15:08 Pulse 115 H 05/02/18 15:08 Resp 20 05/02/18 15:08 BP 159/67 05/02/18 15:08 Pulse Ox 92 L 05/02/18 15:08 Intake & Output 05/01/18 05/02/18 05/02/18 18:59 06:59 18:59 Intake Total 0 400 Output Total 1800 Balance -1800 400 Weight 65.771 kg 71 kg Intake: Oral 0 400 Output: Urine 1800 Other: # Voids 0 3 - Labs CBC & Chem 7: 05/02/18 08:25 05/02/18 08:25 Labs: Abnormal Lab Results - Last 24 Hours (Table) 05/01/18 05/01/18 05/02/18 Range/Units 18:25 18:44 05:28 WBC 17.1 H (3.8-10.6) k/uL Plt Count 489 H (150-450) k/uL Neutrophils # 15.4 H (1.3-7.7) k/uL Lymphocytes # 0.8 L (1.0-4.8) k/uL Sodium 136 L (137-145) mmol/L Carbon Dioxide (22-30) mmol/L Glucose 101 H (74-99) mg/dL AST 53 H (14-36) U/L ALT 97 H (9-52) U/L Alkaline Phosphatase 301 H (38-126) U/L Total Protein 5.7 L (6.3-8.2) g/dL Albumin 3.0 L (3.5-5.0) g/dL Urine Blood Small H (Negative) Urine Mucus Occasional H (None) /hpf Urine Opiates Screen Detected H (NotDetected) Ur Amphetamines Screen Detected H (NotDetected) U Methamphetamines Scrn Detected H (NotDetected) 05/02/18 05/02/18 Range/Units 08:25 08:25 WBC 20.9 H (3.8-10.6) k/uL Plt Count (150-450) k/uL Neutrophils # 18.7 H (1.3-7.7) k/uL Lymphocytes # (1.0-4.8) k/uL Sodium (137-145) mmol/L Carbon Dioxide 20 L (22-30) mmol/L Glucose 130 H (74-99) mg/dL AST 37 H (14-36) U/L ALT 90 H (9-52) U/L Alkaline Phosphatase 281 H (38-126) U/L Total Protein 6.2 L (6.3-8.2) g/dL Albumin 3.1 L (3.5-5.0) g/dL Urine Blood (Negative) Urine Mucus (None) /hpf Urine Opiates Screen (NotDetected) Ur Amphetamines Screen (NotDetected) U Methamphetamines Scrn (NotDetected) Microbiology - Last 24 Hours (Table) 05/02/18 05:28 Urine Culture - Preliminary Urine,Clean Catch Assessment and Plan Assessment: 1. Acute extensive right lower lobe multifocal pneumonia with parapneumonic effusion, compressive atelectasis and possible sepsis. Chest CT reporting worsening moderate right-sided pleural effusion collection/loculation with associated compressive atelectasis and/or consolidation, suspect infectious etiology, [id number] emphysematous change.Status post right paracentesis. 2. Leukocytosis secondary to the above 3. Acute hypoxic respiratory failure secondary to #1 4. Elevated LFTs, rule out hepatitis 5. Ongoing nicotine dependence 6. Drug screen positive for opiates, amphetamines and methamphetamines Plan: Continue on current medication regime ,monitoring and symptomatic treatment. Maintain IV antibiotics of vancomycin and Rocephin. Pleural fluid cultures pending. Follow-up CT pending. Perforomist and Pulmicort discontinued , given patient's significant shakiness. Symbicort added to med regime. Denies alcohol abuse/consumption. PRN Ativan added to med regime for anxiety. Aggressive pulmonary toileting with incentive spirometer reinforced. Follow closely with pulmonary. The impression and plan of care has been dictated as directed. : I performed a history and examination of this patient, discussed the same with the dictator. I agree with the dictator's note ,documented as a scribe. Any additional findings or plans will be noted.
[2018-05-02 17:54] LABS: Hepatitis A Antibody IgM Non-Reactive (Non-Reactive); Hepatitis B Core IgM Non-Reactive (Non-Reactive)
[2018-05-02 18:45] LABS: Total Protein, Body Fluid 4200 mg/dL
[2018-05-02] MEDS ORDERED: LEVOFLOXACIN 750MG-D5W PMX 750 MG in DEXTROSE/WATER 1 150ML.BAG IVPB SCH (19:00)
[2018-05-02] MEDS: ALPRAZolam 0.25 MG TAB PO PRN (21:04)
[2018-05-02] MEDS: VANCOMYCIN 1,250 MG in SODIUM CHLORIDE 0.9% 250 ML IVPB SCH (23:39)
[2018-05-03] MEDS: ALPRAZolam 0.25 MG TAB PO PRN ×2 (06:25→20:47)
[2018-05-03] MEDS: HYDROcodone/APAP 5-325MG 1 EACH TAB PO PRN ×2 (06:26→20:46)
[2018-05-03] MEDS: KETOROLAC 30 MG/ML 1 ML VIAL IVP PRN (07:01)
[2018-05-03] MEDS: METOPROLOL TARTRATE 12.5 MG TAB PO SCH ×2 (07:38→20:47)
[2018-05-03] MEDS: NICOTINE 14MG/24HR PATCH TRANSDERM SCH (08:03)
[2018-05-03] MEDS: PANTOPRAZOLE 40 MG TABLET PO SCH (08:03)
[2018-05-03] MEDS: CYCLOBENZAPRINE 10 MG TAB PO SCH ×3 (08:04→20:46)
[2018-05-03] MEDS: HEPARIN SODIUM,PORCINE 5,000 UNIT/ML 1 ML VIAL SQ SCH ×2 (08:04→20:47)
[2018-05-03] MEDS: cefTRIAXone IN SWFI 1,000 MG/10 ML SYRINGE IVP SCH (08:04)
[2018-05-03] MEDS: IPRATROPIUM-ALBUTEROL 3 ML NEB INHALATION SCH ×4 (08:32→19:19)
[2018-05-03] MEDS: SYMBICORT 160-4.5 MCG INHALER INHALATION SCH ×2 (08:33→19:19)
[2018-05-03 08:53] LABS: Anion Gap 7 mmol/L; Blood Urea Nitrogen 15 mg/dL (7-17); Calcium 8.1 mg/dL (8.4-10.2); Carbon Dioxide 25 mmol/L (22-30); Chloride 108 mmol/L (98-107); Glucose 99 mg/dL (74-99); Potassium 3.6 mmol/L (3.5-5.1); Sodium 140 mmol/L (137-145)
[2018-05-03] MEDS ORDERED: METOPROLOL TARTRATE 12.5 MG TAB PO SCH (09:00)
[2018-05-03 09:01] LABS: Basophils % (A) 0 %; Eosinophils # (A) 0.2 k/uL (0-0.7); Eosinophils % (A) 1 %; HCT 32.1 % (34.0-46.0); HGB 10.7 gm/dL (11.4-16.0); Lymphocytes % (A) 6 %; MCH 30.6 pg (25.0-35.0); MCHC 33.4 g/dL (31.0-37.0); MCV 91.6 fL (80.0-100.0); Monocytes # (A) 0.8 k/uL (0-1.0); Monocytes % (A) 5 %; Neutrophils # (A) 14.7 k/uL (1.3-7.7); Neutrophils % (A) 88 %; Platelet Count 403 k/uL (150-450); RBC 3.51 m/uL (3.80-5.40); WBC 16.8 k/uL (3.8-10.6)
--- NOTE | 2018-05-03 11:44 | P.PN ---
Subjective Progress Note Date: 05/03/18 Principal diagnosis: 57-year-old female patient a chronic smoker who presented to [facility] department she days back. Pleuritic severe right-sided chest pain. The patient was told to have some soreness of the chest and muscle spasm and she was given ibuprofen. Subsequently she started having chills no documented temperature and she was comfortable not increased yellowish sputum. Her pain progressively got worse and started developing worsening shortness of breath. For that reason she came into the hospital and repeat chest x-ray was done that showed increased opacity in the right lower lobe in addition to multilobar pneumonia involving the right lung. There was evidence of parapneumonic effusion. No altered mentation. No signs of any septicemia. No hypotension. No signs of any respiratory failure. Based on x-ray findings, I ordered a CAT scan of the chest and I found a moderate amount of right sided pleural fluid collection which does not completely layer dependently and this suggests some degree of loculation in addition to some background mild to moderate underlying emphysematous change. The patient has some compressive atelectasis of the right lung base area. Based on all this, I performed a bedside thoracentesis and a total of 4 50 mL of turbid dark yellowish pleural fluid was aspirated without any major difficulties. The fluid was sent for analysis., This patient a combination of Rocephin and vancomycin for now. Her pain is subsided and patient is having less of a pleuritic chest pain on the right. No hemoptysis. Patient's urine drug screen is positive for opiates, amphetamine and methamphetamine. Urinalysis is negative. The white cell count is at 20.9. 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 No sick contacts. As mentioned she is smoking and she does not utilize any form of respiratory medications. Mild chronic exertional dyspnea. The patient is seen again today 05/03/2018 in follow-up on the regular medical floor. She is currently resting quite comfortably in bed. She did have significant pain and shortness of breath while being up to the bathroom earlier this morning. Her pain is currently well controlled. She denies any worsening shortness of breath. Still dyspneic with minimal exertion. He is currently maintaining O2 saturations in the low 90s on 3 L/m per nasal cannula. She's been afebrile. Slightly tachycardic. Pleural fluid analysis is exudative in nature. Cultures are pending. She is currently on vancomycin and ceftriaxone. Objective - Vital Signs Vital signs: Vital Signs Temp 98.6 F 05/03/18 05:51 Pulse 101 H 05/03/18 08:45 Resp 18 05/03/18 08:33 BP 152/79 05/03/18 05:51 Pulse Ox 90 L 05/03/18 05:51 Intake & Output 05/02/18 05/03/18 05/03/18 18:59 06:59 18:59 Intake Total 400 Balance 400 Intake: Oral 400 Other: # Voids 3 1 - Exam GENERAL EXAM: Alert, active, comfortable in no apparent distress. HEAD: Normocephalic. EYES: Normal reaction of pupils, equal size. NOSE: Clear with pink turbinates. THROAT: No erythema or exudates. NECK: No masses, no JVD. CHEST: No chest wall deformity. LUNGS: Diminished in the right lung base. Few scattered rhonchi. CVS: S1 and S2 normal with no audible murmur, regular rhythm. ABDOMEN: No hepatosplenomegaly, normal bowel sounds, no guarding or rigidity. SPINE: No scoliosis or deformity SKIN: No rashes CENTRAL NERVOUS SYSTEM: No focal deficits, tone is normal in all 4 extremities. EXTREMITIES: There is no peripheral edema. No clubbing, no cyanosis. Peripheral pulses are intact. - Labs CBC & Chem 7: 05/03/18 08:25 05/03/18 08:25 Labs: Abnormal Lab Results - Last 24 Hours (Table) 05/03/18 05/03/18 Range/Units 08:25 08:25 WBC 16.8 H (3.8-10.6) k/uL RBC 3.51 L (3.80-5.40) m/uL Hgb 10.7 L (11.4-16.0) gm/dL Hct 32.1 L (34.0-46.0) % Neutrophils # 14.7 H (1.3-7.7) k/uL Chloride 108 H (98-107) mmol/L Calcium 8.1 L (8.4-10.2) mg/dL Microbiology - Last 24 Hours (Table) 05/02/18 05:28 Urine Culture - Final Urine,Clean Catch 05/02/18 13:45 Gram Stain - Preliminary Pleural Fluid Body Fluid Culture - Preliminary 05/01/18 18:25 Blood Culture - Preliminary Blood No Growth after 24 hours Assessment and Plan Assessment: Assessment: 1 Extensive right lung multilobar pneumonia, likely bacterial, acute, complicated by development of parapneumonic effusion with early loculations and compressive atelectasis 2 acute hypoxic respiratory failure secondary to above 3 acute leukocytosis secondary to above 4 COPD 5 urine drug screen for opiates, amphetamine and methamphetamine's 6 abnormal LFTs 7 smoker Plan: The patient was seen and evaluated by Dr. Kyle. She is improved today as compared to yesterday. She did have some difficulty settling back down after being up to the bathroom secondary to significant pain and shortness of breath. She may need to be transferred up to the selective care unit. We'll continue to follow her closely. We'll continue with current antibiotics including vancomycin and Rocephin. Continue bronchodilators. We will increase her activity as tolerated. We'll repeat a chest x-ray in the a.m. We'll continue to follow. I, the cosigning physician, performed a history & physical examination of the patient. Lungs sounds scattered rhonchi, diminished in the right base. Maintaining good O2 saturations in the 90s on 2 L/m per nasal cannula I discussed the assessment and plan of care with my nurse practitioner, Melody Monterroso. I attest to the above note as dictated by her.
[2018-05-03] MEDS: SODIUM CHLORIDE 0.9% 1,000 ML IV SCH (12:52)
[2018-05-03] MEDS: VANCOMYCIN 1,250 MG in SODIUM CHLORIDE 0.9% 250 ML IVPB SCH (12:52)
--- NOTE | 2018-05-03 14:38 | XR ---
EXAMINATION TYPE: XR chest 2V DATE OF EXAM: 05/03/2018 COMPARISON: 05/02/2018 HISTORY: 57-year-old female intermittent respiratory distress TECHNIQUE: AP and lateral views FINDINGS: Increasing opacification throughout the right hemithorax. A meniscus is seen at the midlung level. Sm all left pleural effusion new from prior. Mild diffuse interstitial prominence. Right heart margin ob scured by adjacent pleural parenchymal disease. IMPRESSION: Worsening moderate to large right pleural effusion with underlying atelectasis and/or consolidation. New small left pleural effusion with adjacent atelectasis and/or consolidation.
--- NOTE | 2018-05-03 20:57 | PN ---
PROGRESS NOTE DATE OF SERVICE: 05/03/2018 This 57-year-old woman who was admitted with acute extensive right lower lobe pneumonia also had a pleural effusion. The patient also had a CT scan which showed moderate right-sided pleural effusion. During the thoracocentesis, about 450 mL of turbid dark yellowish fluid was aspirated by Dr. Kyle. The fluid cultures are pending at this time. The increased, seems to be an exudate at this time. The patient also has respiratory difficulty this morning. Hepatitis panel is negative. LFTs are elevated. PAST MEDICAL HISTORY: Reviewed. REVIEW OF SYSTEMS: CARDIOVASCULAR SYSTEM: No angina or palpitations. RESPIRATORY: As mentioned earlier. GI: As mentioned earlier. : No nausea or vomiting. NERVOUS: No numbness or weakness. CURRENT MEDICATIONS ARE: Reviewed and include: 1. Tylenol 650 q.6h p.r.n. 2. [place] 5 mg p.o. daily. 3. DuoNeb q.i.d. and p.r.n. 4. Xanax 0.5 t.i.d. 5. Symbicort 160/4.5 2 puffs b.i.d. 6. Rocephin 1 g daily. 7. Flexeril 10 mg daily. 8. Heparin 5000 daily. 9. Ativan. 10.Lopressor. 11.Narcan. 12.Protonix. 13.Restoril. 14.Vancomycin. PHYSICAL EXAM: Patient is alert, oriented x3. The pulse is 107. Blood pressure 168/91, respiration 18, temperature 98.4, pulse ox 96% on room air. HEENT: Conjunctivae normal. Oral mucosa moist. NECK is no jugular venous distention. No carotid bruit. No lymph node enlargement. CARDIOVASCULAR: S1, S2 muffled. RESPIRATORY: Breath sounds diminished in the bases. Bilateral scattered rhonchi and crackles. ABDOMEN is soft, nontender. No mass palpable. LEGS: No edema. No swelling. CENTRAL NERVOUS SYSTEM: Higher functions as mentioned earlier. Moves all 4 limbs, no focal motor or sensory deficits. Lymphatics: No lymph nodes palpable in the neck, axillae or groin. SKIN: No ulcer, rash or bleeding. LABS: At this time shows WBC 16.8, hemoglobin 10.7. ASSESSMENT: 1. Acute extensive right lower pneumonia multifocal with parapneumonic effusion with compressive atelectasis with possible sepsis present on admission. 2. Status post right thoracocentesis and pleural fluid drainage. 3. Leukocytosis. 4. Acute hypoxic respiratory failure. 5. Elevated LFTs, improving. 6. Ongoing continued nicotine dependence. 7. Drug screen positive for opiates, amphetamines, methamphetamines. RECOMMENDATIONS AND DISCUSSION: Recommend to continue current medications, management and symptomatic treatment. Otherwise, at this time, I would recommend continue the bronchodilators. Continue with broad-spectrum IV antibiotics. Follow the cultures. Guarded prognosis because of multiple complex medical issues. Further recommendations to follow. MMODL / IJN: [id number] / MTDD
--- NOTE | 2018-05-03 21:44 | XR ---
EXAMINATION TYPE: XR chest 1V portable DATE OF EXAM: 05/03/2018 Comparison: Earlier today Clinical History: 57 year-old female shortness of breath, difficulty in breathing Findings: Right heart margin and obscured by adjacent pleural parenchymal disease. Continued moderate to large right pleural effusion with a prominent hazy density extending up to the apex. Overall aeration is re latively similar. A small left pleural effusion with prominent retrocardiac opacity also remains. Impression: 1. Continued moderate to large right pleural effusion with atelectasis and consolidation throughout t he right lung. 2. Continued small left pleural effusion with prominent retrocardiac atelectasis and/or consolidation .
[2018-05-03 21:50] LABS: Glucose,Whole Blood 102 mg/dL (75-99)
[2018-05-03 21:59] LABS: Basophils % (A) 0 %; Eosinophils # (A) 0.2 k/uL (0-0.7); Eosinophils % (A) 1 %; HCT 34.9 % (34.0-46.0); HGB 11.6 gm/dL (11.4-16.0); Lymphocytes # (A) 1.5 k/uL (1.0-4.8); Lymphocytes % (A) 8 %; MCH 30.4 pg (25.0-35.0); MCHC 33.2 g/dL (31.0-37.0); MCV 91.5 fL (80.0-100.0); Mean Platelet Volume 6.7; Monocytes # (A) 0.9 k/uL (0-1.0); Monocytes % (A) 5 %; Neutrophils # (A) 15.7 k/uL (1.3-7.7); Neutrophils % (A) 85 %; Platelet Count 493 k/uL (150-450); RBC 3.81 m/uL (3.80-5.40); RDW 12.9 % (11.5-15.5); WBC 18.5 k/uL (3.8-10.6)
[2018-05-03 22:05] LABS: Alkaline Phosphatase 232 U/L (38-126); Anion Gap 11 mmol/L; Blood Urea Nitrogen 11 mg/dL (7-17); Carbon Dioxide 23 mmol/L (22-30); Chloride 105 mmol/L (98-107); Glucose 100 mg/dL (74-99); Magnesium 1.8 mg/dL (1.6-2.3); Potassium 3.3 mmol/L (3.5-5.1); Sodium 139 mmol/L (137-145)
[2018-05-03] MEDS: DILTIAZEM 50 MG in SODIUM CHLORIDE 0.9% 40 ML IV SCH (23:09)
[2018-05-03 23:13] LABS: ABG Base Excess 1.5 mmol/L; ABG HCO3 25 mmol/L (21-25); ABG Oxygen Saturation 95.2 % (94-97); ABG PCO2 33 mmHg (35-45); ABG PH 7.49 (7.35-7.45); ABG PO2 70 mmHg (83-108); ABG TCO2 26 mmol/L (19-24)
[2018-05-04] MEDS: LEVOFLOXACIN 750MG-D5W PMX 750 MG in DEXTROSE/WATER 1 150ML.BAG IVPB SCH ×2 (00:50→22:35)
[2018-05-04] MEDS: VANCOMYCIN 1,250 MG in SODIUM CHLORIDE 0.9% 250 ML IVPB SCH ×3 (00:59→21:10)
[2018-05-04] MEDS: PIPERACILLIN-TAZOBACTAM 3.375 GM in DEXTROSE/WATER 1 50ML.BAG IVPB SCH ×4 (02:00→23:00)
[2018-05-04 04:51] LABS: Basophils % (A) 0 %; Eosinophils # (A) 0.2 k/uL (0-0.7); Eosinophils % (A) 1 %; HCT 31.2 % (34.0-46.0); HGB 10.2 gm/dL (11.4-16.0); Lymphocytes # (A) 1.3 k/uL (1.0-4.8); Lymphocytes % (A) 7 %; MCH 30.4 pg (25.0-35.0); MCHC 32.7 g/dL (31.0-37.0); Mean Platelet Volume 6.8; Monocytes # (A) 0.9 k/uL (0-1.0); Monocytes % (A) 5 %; Neutrophils # (A) 16.1 k/uL (1.3-7.7); Neutrophils % (A) 86 %; Platelet Count 464 k/uL (150-450); RBC 3.35 m/uL (3.80-5.40); RDW 13.3 % (11.5-15.5); WBC 18.7 k/uL (3.8-10.6)
[2018-05-04 04:55] LABS: Anion Gap 7 mmol/L; Blood Urea Nitrogen 12 mg/dL (7-17); Calcium 8.2 mg/dL (8.4-10.2); Carbon Dioxide 23 mmol/L (22-30); Chloride 107 mmol/L (98-107); Glucose 111 mg/dL (74-99); Sodium 137 mmol/L (137-145)
[2018-05-04] MEDS: SYMBICORT 160-4.5 MCG INHALER INHALATION SCH ×2 (07:13→19:12)
[2018-05-04] MEDS: IPRATROPIUM-ALBUTEROL 3 ML NEB INHALATION SCH ×4 (07:13→19:12)
--- NOTE | 2018-05-04 07:24 | XR ---
EXAMINATION TYPE: XR chest 1V portable DATE OF EXAM: 05/04/2018 Comparison: 05/03/2018 Clinical History: 57-year-old female Right pleural effusion Findings: Right heart margin remains obscured by adjacent pleural and parenchymal disease. Continued moderate t o large right pleural effusion with additional hazy density extending throughout the right lung. Geena lar small left pleural effusion with prominent retrocardiac opacity. Impression: 1. Overall stable exam with moderate to large right pleural effusion with atelectasis and consolidati on throughout the remainder of the right lung. 2. Also, continued small left pleural effusion with dense retrocardiac atelectasis and/or consolidati on.
[2018-05-04] MEDS: METOPROLOL TARTRATE 12.5 MG TAB PO SCH ×2 (08:22→21:08)
[2018-05-04] MEDS: HEPARIN SODIUM,PORCINE 5,000 UNIT/ML 1 ML VIAL SQ SCH ×2 (08:22→21:08)
[2018-05-04] MEDS: CYCLOBENZAPRINE 10 MG TAB PO SCH ×3 (08:22→21:18)
[2018-05-04] MEDS: NICOTINE 14MG/24HR PATCH TRANSDERM SCH (08:22)
[2018-05-04] MEDS: HYDROcodone/APAP 5-325MG 1 EACH TAB PO PRN ×2 (08:23→17:29)
[2018-05-04] MEDS: PANTOPRAZOLE 40 MG TABLET PO SCH (08:23)
[2018-05-04] MEDS ORDERED: LIDOCAINE 1% INJ 10MG/ML (20 ML MDV) SQ ONE (10:20)
--- NOTE | 2018-05-04 10:37 | CT ---
EXAMINATION TYPE: CT chest wo con DATE OF EXAM: 05/04/2018 COMPARISON: 05/02/2018 HISTORY: 57-year-old female increasing Pleural effusion TECHNIQUE: Contiguous axial scanning of the chest without IV contrast. Coronal and sagittal reconstru ctions performed. CT DLP: 635 mGycm Automated exposure control for dose reduction was used. FINDINGS: Heart is normal size with trace pericardial thickening/fluid. Mass effect causing slight leftward dis placement of the heart. Mild coronary vessel calcifications. Aorta normal caliber with mild atherosclerotic arch calcifications and conventional arch vessel branc fabi anatomy. A few scattered prominent mediastinal lymph nodes measure up to 9 mm in the precarinal region. No he dence of thoracic lymphadenopathy by CT size criteria. Redemonstrated right-sided pleural effusion. This is moderate to large in size, slightly increased as compared to 05/02/2018. The effusion appears complex and loculated with scalloped margins and causes collapse of the right middle and right lower lobes. There is also prominent segmental atelectasis of the right upper lobe adjacent to the pleural effusion. A focal area of slight hyperdensity at the posterior right base effusion, axial image 50. Some hetero geneous density within the fluid anteriorly and laterally, for example, axial image 41 could potentia lly represent some hemorrhage. Small left pleural effusion with adjacent segmental atelectasis of the posterior basilar left lower l obe. Some patchy groundglass is present in the lingula and scattered within the left upper lobe. Background of COPD. Calcified granulomas within the spleen. Bones: No osseous destructive process. IMPRESSION: 1. COMPLEX LOCULATED APPEARING MODERATE TO LARGE RIGHT-SIDED PLEURAL EFFUSION. THIS IS SLIGHTLY INCRE ASED FROM 05/02/2018. THERE MAY BE SOME NEW HEMORRHAGE INTO THE FLUID, REFER TO AXIAL IMAGES 41 AND 50 . 2. THE EFFUSION CAUSES CONTINUED COLLAPSE OF THE RIGHT MIDDLE AND RIGHT LOWER LOBES. 3. NEW SMALL LEFT PLEURAL EFFUSION WITH PROMINENT ADJACENT ATELECTASIS. 4. NEW PATCHY GROUNDGLASS INFILTRATES WITHIN THE LINGULA AND LEFT UPPER LOBE. CORRELATE TO EXCLUDE IN FECTIOUS INFILTRATES.
[2018-05-04] MEDS ORDERED: VANCOMYCIN TROUGH DUE 1 EACH MISC MISCELLANE ONE (12:00)
--- NOTE | 2018-05-04 13:12 | XR ---
EXAMINATION TYPE: XR chest 1V portable DATE OF EXAM: 05/04/2018 COMPARISON: CT chest 05/04/2018, chest x-ray 05/04/2018 earlier exam INDICATION: Previous abnormal chest. Chest tube placement TECHNIQUE: Single frontal view of the chest is obtained. FINDINGS: The heart size is normal. The pulmonary vasculature is normal. There is a moderate right pleural effusion. Small left pleural effusion is present. Findings appear s imilar to comparison. IMPRESSION: 1. Moderate right and small left pleural effusions. No pneumothorax is evident. Chest tube is not pre sent on this examination.
[2018-05-04] MEDS: DILTIAZEM 50 MG in SODIUM CHLORIDE 0.9% 40 ML IV SCH ×2 (13:42→21:19)
--- NOTE | 2018-05-04 13:58 | P.PN ---
Subjective Progress Note Date: 05/04/18 57-year-old female patient a chronic smoker who presented to [facility] department she days back. Pleuritic severe right-sided chest pain. The patient was told to have some soreness of the chest and muscle spasm and she was given ibuprofen. Subsequently she started having chills no documented temperature and she was comfortable not increased yellowish sputum. Her pain progressively got worse and started developing worsening shortness of breath. For that reason she came into the hospital and repeat chest x-ray was done that showed increased opacity in the right lower lobe in addition to multilobar pneumonia involving the right lung. There was evidence of parapneumonic effusion. No altered mentation. No signs of any septicemia. No hypotension. No signs of any respiratory failure. Based on x-ray findings, I ordered a CAT scan of the chest and I found a moderate amount of right sided pleural fluid collection which does not completely layer dependently and this suggests some degree of loculation in addition to some background mild to moderate underlying emphysematous change. The patient has some compressive atelectasis of the right lung base area. Based on all this, I performed a bedside thoracentesis and a total of 4 50 mL of turbid dark yellowish pleural fluid was aspirated without any major difficulties. The fluid was sent for analysis., This patient a combination of Rocephin and vancomycin for now. Her pain is subsided and patient is having less of a pleuritic chest pain on the right. No hemoptysis. Patient's urine drug screen is positive for opiates, amphetamine and methamphetamine. Urinalysis is negative. The white cell count is at 20.9. 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 No sick contacts. As mentioned she is smoking and she does not utilize any form of respiratory medications. Mild chronic exertional dyspnea. The patient is seen again today 05/03/2018 in follow-up on the regular medical floor. She is currently resting quite comfortably in bed. She did have significant pain and shortness of breath while being up to the bathroom earlier this morning. Her pain is currently well controlled. She denies any worsening shortness of breath. Still dyspneic with minimal exertion. He is currently maintaining O2 saturations in the low 90s on 3 L/m per nasal cannula. She's been afebrile. Slightly tachycardic. Pleural fluid analysis is exudative in nature. Cultures are pending. She is currently on vancomycin and ceftriaxone. On 05/04/2018 and seeing this patient for a follow-up. The patient has an extensive right lung pneumonia with a complicated loculated parapneumonic effusion. The patient was being covered with a combination of Rocephin and vancomycin. Note that the patient was in the medical floor and overnight the patient got transferred to the ICU as the patient was becoming more short of breath, hypoxic, tachycardic and hypoxic. The patient is currently on 10 L of oxygen nasal cannula. Overnight the patient became tachycardic and she was having runs of SVT. She was placed on Cardizem drip at 5 g and hours and currently heart rate in the mid 90s. She remains in a sinus mechanism. Her chest x-ray was done yesterday and this morning and it shows extensive consolidation in addition to pleural effusion which is loculated in the right lung occupying the lower two thirds of the lung base. Based on this, the patient was brought in in terms of antibiotic coverage and the patient was placed on a combination of Zosyn and Levaquin and vancomycin. The patient had another CAT scan of the chest that showed complex loculated appearing moderate to large right-sided pleural effusion and this has slightly increased from the previous CAT scan of 05/02/2018. The right middle lobe and the right lower lobe is extensively collapse. Is a small left-sided pleural effusion in addition. The patient had a another thoracentesis and ICU and a total of 450 mL of turbid dark exudative pleural effusion was drained from the right lung. No complications. No pneumothorax. No positive cultures from the pleural fluid noted in the blood. Consultation was placed oral thoracic surgery regarding the possibility of a video-assisted thoracoscopic evaluation and decortication. Mentation is well-preserved the patient is alert and awake. Appetite is diminished. No altered mentation. No nausea or vomiting. Chest pain is subsided compared to yesterday. The patient short of breath with limited amount of activity. She is not using excessive muscle breathing at rest. Objective - Vital Signs Vital signs: Vital Signs Temp 98 F 05/04/18 12:00 Pulse 103 H 05/04/18 13:00 Resp 22 05/04/18 13:00 BP 135/67 05/04/18 13:00 Pulse Ox 99 05/04/18 13:00 Intake & Output 05/03/18 05/04/18 05/04/18 18:59 06:59 18:59 Intake Total 520 170 Output Total 0 500 Balance 520 -330 Weight 76.4 kg Intake: IV 520 120 Levofloxacin 750Mg-D5w 100 Pmx 750 mg In Dextrose/ Water 1 150ml.bag @ 100 mls/hr IVPB Q24H [facility] Rx#: [id number] NS KVO 120 70 Piperacillin-Tazobactam 3 50 50 .375 gm In Dextrose/Water 1 50ml.bag @ 12.5 mls/hr IVPB Q8HR [facility] Rx#: [id number] Vancomycin 1,250 mg In 250 Sodium Chloride 0.9% 250 ml @ 125 mls/hr IVPB Q12H [facility] Rx#:[id number] Intake, IV Titration 50 Amount Diltiazem 50 mg In Sodium 50 Chloride 0.9% 40 ml @ 5 MG/HR 5 mls/hr IV .Q10H [facility] Rx#:[id number] Output: Chest Tube Drainage 500 Right Posterior Chest 500 Urine 0 Other: Voiding Method Bedpan # Voids 2 0 1 - Exam GENERAL EXAM: Alert, active, comfortable in no apparent distress. HEAD: Normocephalic. EYES: Normal reaction of pupils, equal size. NOSE: Clear with pink turbinates. THROAT: No erythema or exudates. NECK: No masses, no JVD. CHEST: No chest wall deformity. LUNGS: Diminished in the right lung base. Few scattered rhonchi. The patient has dullness to percussion marked diminished breath sounds in the mid and the right lower lung field CVS: S1 and S2 normal with no audible murmur, regular rhythm. ABDOMEN: No hepatosplenomegaly, normal bowel sounds, no guarding or rigidity. SPINE: No scoliosis or deformity SKIN: No rashes CENTRAL NERVOUS SYSTEM: No focal deficits, tone is normal in all 4 extremities. EXTREMITIES: There is no peripheral edema. No clubbing, no cyanosis. Peripheral pulses are intact. - Labs CBC & Chem 7: 05/04/18 04:05 05/04/18 04:05 Labs: Abnormal Lab Results - Last 24 Hours (Table) 05/03/18 05/03/18 05/03/18 Range/Units 21:31 21:31 21:47 WBC 18.5 H (3.8-10.6) k/uL RBC (3.80-5.40) m/uL Hgb (11.4-16.0) gm/dL Hct (34.0-46.0) % Plt Count 493 H (150-450) k/uL Neutrophils # 15.7 H (1.3-7.7) k/uL ABG pH (7.35-7.45) ABG pCO2 (35-45) mmHg ABG pO2 (83-108) mmHg ABG Total CO2 (19-24) mmol/L Potassium 3.3 L (3.5-5.1) mmol/L Glucose 100 H (74-99) mg/dL POC Glucose (mg/dL) 102 H (75-99) mg/dL Calcium 8.0 L (8.4-10.2) mg/dL Alkaline Phosphatase 232 H (38-126) U/L 05/03/18 05/04/18 05/04/18 Range/Units 23:02 04:05 04:05 WBC 18.7 H (3.8-10.6) k/uL RBC 3.35 L (3.80-5.40) m/uL Hgb 10.2 L (11.4-16.0) gm/dL Hct 31.2 L (34.0-46.0) % Plt Count 464 H (150-450) k/uL Neutrophils # 16.1 H (1.3-7.7) k/uL ABG pH 7.49 H (7.35-7.45) ABG pCO2 33 L (35-45) mmHg ABG pO2 70 L (83-108) mmHg ABG Total CO2 26 H (19-24) mmol/L Potassium (3.5-5.1) mmol/L Glucose 111 H (74-99) mg/dL POC Glucose (mg/dL) (75-99) mg/dL Calcium 8.2 L (8.4-10.2) mg/dL Alkaline Phosphatase (38-126) U/L Microbiology - Last 24 Hours (Table) 05/03/18 14:10 Gram Stain - Preliminary Sputum Sputum Culture - Preliminary 05/01/18 18:25 Blood Culture - Preliminary Blood No Growth after 48 hours 05/02/18 13:45 Gram Stain - Preliminary Pleural Fluid Body Fluid Culture - Preliminary 05/02/18 05:28 Urine Culture - Final Urine,Clean Catch Assessment and Plan Plan: 1 right lung multilobar pneumonia, likely bacterial, acute, complicated by development of parapneumonic effusion with early loculations and compressive atelectasis. The patient of the initial thoracentesis that confirmed the presence of an exudate with high LDH and protein and the total amount of fluid removed was 450 mL. I repeated this thoracentesis today and another pocket of 450 mL of pleural fluid was again aspirated. Reviewed the CAT scan of the chest. There is a complex loculated pleural effusion on the right and the patient would likely need a surgical intervention, video-assisted thoracoscopic surgery with possible decortication. A consultation will be placed for thoracic surgery. Meanwhile the patient will be continued on a combination of Zosyn, Levaquin and vancomycin. While the cultures of been negative for now. 2 acute hypoxic respiratory failure secondary to above with worsening of the oxygenation status over the past 24 hours. 3 acute leukocytosis secondary to above 4 COPD 5 urine drug screen for opiates, amphetamine and methamphetamine's 6 abnormal LFTs 7 smoker 8 sinus tachycardia currently on a Cardizem drip at 5 mg an hour. Plan Very much concerned of a pneumococcal pneumonia with parapneumonic effusion. There is early loculation of the right-sided pleural effusion. I have performed 2 separate thoracentesis and a combined amount of fluid of 900 mL was aspirated which is turbid dark yellowish thick and viscous in nature. The LDH and the protein is elevated and the fluid and this is a complicated parapneumonic effusion. Will need a surgical evaluation for possible video- assisted thoracoscopic surgery. The pigtail catheter itself will not be enough to drain this parapneumonic effusion on the right. Continue on high flow oxygen. Continue same antibiotic coverage. Keep Cardizem drip for another 24 hours. We'll continue to follow. The patient will be staying in the intensive care units for now.
--- NOTE | 2018-05-04 14:51 | P.GSCN ---
History of Present Illness Consult date: 05/04/18 Reason for Consult: loculated right pleural effusion, extensive right lung multilobar pneumonia. Requesting physician: Puma Kyle History of present illness: The cystic 57-year-old female who does not follow with the primary care physician on a regular basis. She has a past medical history significant for tobacco dependence smokes about 1-1/2 packs of cigarettes per day and history of right oophorectomy. Recently the patient has had complaints of right chest muscle spasms, progressive shortness of breath, nausea, headache, chills and fever of 101.6F. She denies any complaints of vomiting, diarrhea, rash, visual disturbances, dizziness or syncope. She reports on 04/25/2018 she presented to [facility] emergency department with complaints of right-sided chest pain, progressive shortness of breath, productive cough and right chest muscle spasms. Subsequentlu she was discharged home with NSAIDs. She continued to have complaints of right chest wall pain with muscle spasms and progressive shortness of breath. Subsequently she presented to the emergency department on 05/01/2016 with the above mentioned complaints. A chest x-ray was completed which showed significant increased consolidation and pleural fluid in the right lower lobe. For further evaluation the patient underwent a CT scan of her chest which demonstrated a worsening moderate right- sided pleural effusion which does not completely layer dependently and was suggestive of some degree of loculation. She was subsequently seen by Dr. Kyle from pulmonary medicine and underwent a bedside thoracentesis with 450 mL of turbid dark yellowish fluid aspirated, with her pleural fluid analysis being exudative in nature. Pleural fluid cultures remain pending. Her admission labs showed a WBC count of 17.1, AST 53, ALT 97, and alkaline phosphatase 301. A urine drug screen was also completed which showed to be positive for opiates, amphetamine, and methamphetamine. Due to the above mentioned presenting symptoms, chest x-ray and computed tomography scan results a consult was placed for Dr. Kim from cardiothoracic surgery to evaluate the patient for potential VATS with decortication. Review of Systems A 14 point review of systems was completed and was negative except as mentioned in HPI. Past Medical History Past Medical History: No Reported History, COPD History of Any Multi-Drug Resistant Organisms: None Reported Additional Past Surgical History / Comment(s): Right oophorectomy, right chest cyst removal. Past Anesthesia/Blood Transfusion Reactions: No Reported Reaction Past Psychological History: No Psychological Hx Reported Smoking Status: Current every day smoker (Smokes about 1-1/2 packs per day.) Past Alcohol Use History: None Reported Past Drug Use History: None Reported - Past Family History Mother Family Medical History: Diabetes Mellitus, Hyperlipidemia, Hypertension, Pneumonia Additional Family Medical History / Comment(s): Past week at age 74 from complications from pneumonia Father Family Medical History: Diabetes Mellitus, Myocardial Infarction ([place]) (Past weight age 45 from a myocardial infarction.) Son(s) Family Medical History: Pulmonary Embolus (Past awake at age 26 from pulmonary embolus) Medications and Allergies Home Medications Medication Instructions Recorded Confirmed Type Cyclobenzaprine [Flexeril] 10 mg PO TID #20 tab 04/26/18 05/01/18 Rx Ibuprofen [Motrin] 600 mg PO Q6HR PRN #20 tab 04/26/18 05/01/18 Rx Allergies Allergy/AdvReac Type Severity Reaction Status Date / Time No Known Allergies Allergy Verified 05/01/18 17:56 Surgical - Exam Vital Signs Temp Pulse Resp BP Pulse Ox 99.4 F 117 H 18 145/83 90 L 05/01/18 16:53 05/01/18 16:53 05/01/18 16:53 05/01/18 16:53 05/01/18 16:53 - General No acute distress. well developed, well nourished, no distress, no pain - Eyes PERRL, normal ocular movement - ENT normal pinna, normal nares, normal mucosa, no hearing loss, no congestion, poor custodial - Neck Neck is supple, no lymphadenopathy. no masses, no bruits, no venous distension - Respiratory Lung sounds with few scattered rhonchi, diminished to her right lower lobe. Respirations are symmetrical and nonlabored. Oxygen saturation are 95% on 8 L high flow nasal cannula. - Cardiovascular Regular rhythm with tachycardic rate. S1 and S2 present, negative for S3, gallop or murmur. Bedside telemetry showing sinus tachycardia heart rate 107. No edema present. - Abdomen Abdomen is soft, nontender and nondistended. No organomegaly. No guarding or rigidity. Active bowel sounds all 4 abdominal quadrants. - Genitourinary Deferred - Rectum Deferred - Integumentary Skin is warm and dry. No clubbing or cyanosis present. No Rashes or abnormal pigmentation present. no rash, no growths, no abnormal pigmentation - Neurologic normal coordination, normal sensation - Musculoskeletal normal gait, normal posture - Psychiatric oriented to time, oriented to person, oriented to place, speech is normal, memory intact Results - Labs 05/04/18 04:05 05/04/18 04:05 Abnormal Lab Results - Last 24 Hours (Table) 05/03/18 05/03/18 05/03/18 Range/Units 21:31 21:31 21:47 WBC 18.5 H (3.8-10.6) k/uL RBC (3.80-5.40) m/uL Hgb (11.4-16.0) gm/dL Hct (34.0-46.0) % Plt Count 493 H (150-450) k/uL Neutrophils # 15.7 H (1.3-7.7) k/uL ABG pH (7.35-7.45) ABG pCO2 (35-45) mmHg ABG pO2 (83-108) mmHg ABG Total CO2 (19-24) mmol/L Potassium 3.3 L (3.5-5.1) mmol/L Glucose 100 H (74-99) mg/dL POC Glucose (mg/dL) 102 H (75-99) mg/dL Calcium 8.0 L (8.4-10.2) mg/dL Alkaline Phosphatase 232 H (38-126) U/L 05/03/18 05/04/18 05/04/18 Range/Units 23:02 04:05 04:05 WBC 18.7 H (3.8-10.6) k/uL RBC 3.35 L (3.80-5.40) m/uL Hgb 10.2 L (11.4-16.0) gm/dL Hct 31.2 L (34.0-46.0) % Plt Count 464 H (150-450) k/uL Neutrophils # 16.1 H (1.3-7.7) k/uL ABG pH 7.49 H (7.35-7.45) ABG pCO2 33 L (35-45) mmHg ABG pO2 70 L (83-108) mmHg ABG Total CO2 26 H (19-24) mmol/L Potassium (3.5-5.1) mmol/L Glucose 111 H (74-99) mg/dL POC Glucose (mg/dL) (75-99) mg/dL Calcium 8.2 L (8.4-10.2) mg/dL Alkaline Phosphatase (38-126) U/L Microbiology - Last 24 Hours (Table) 05/03/18 14:10 Gram Stain - Preliminary Sputum Sputum Culture - Preliminary 05/01/18 18:25 Blood Culture - Preliminary Blood No Growth after 48 hours 05/02/18 13:45 Gram Stain - Preliminary Pleural Fluid Body Fluid Culture - Preliminary 05/02/18 05:28 Urine Culture - Final Urine,Clean Catch Diabetes panel 05/03/18 05/04/18 Range/Units 21:31 04:05 Sodium 139 137 (137-145) mmol/L Potassium 3.3 L 4.0 (3.5-5.1) mmol/L Chloride 105 107 (98-107) mmol/L Carbon Dioxide 23 23 (22-30) mmol/L BUN 11 12 (7-17) mg/dL Creatinine 0.67 0.60 (0.52-1.04) mg/dL Glucose 100 H 111 H (74-99) mg/dL Calcium 8.0 L 8.2 L (8.4-10.2) mg/dL Alkaline Phosphatase 232 H (38-126) U/L Calcium panel 05/03/18 05/04/18 Range/Units 21:31 04:05 Calcium 8.0 L 8.2 L (8.4-10.2) mg/dL Phosphorus 4.0 (2.5-4.5) mg/dL Pituitary panel 05/03/18 05/04/18 Range/Units 21:31 04:05 Sodium 139 137 (137-145) mmol/L Potassium 3.3 L 4.0 (3.5-5.1) mmol/L Chloride 105 107 (98-107) mmol/L Carbon Dioxide 23 23 (22-30) mmol/L BUN 11 12 (7-17) mg/dL Creatinine 0.67 0.60 (0.52-1.04) mg/dL Glucose 100 H 111 H (74-99) mg/dL Calcium 8.0 L 8.2 L (8.4-10.2) mg/dL Adrenal panel 05/03/18 05/04/18 Range/Units 21:31 04:05 Sodium 139 137 (137-145) mmol/L Potassium 3.3 L 4.0 (3.5-5.1) mmol/L Chloride 105 107 (98-107) mmol/L Carbon Dioxide 23 23 (22-30) mmol/L BUN 11 12 (7-17) mg/dL Creatinine 0.67 0.60 (0.52-1.04) mg/dL Glucose 100 H 111 H (74-99) mg/dL Calcium 8.0 L 8.2 L (8.4-10.2) mg/dL Alkaline Phosphatase 232 H (38-126) U/L - Imaging Chest x-ray: report reviewed, image reviewed CT scan - chest: report reviewed, image reviewed US - abdomen: report reviewed Assessment and Plan (1) COPD (chronic obstructive pulmonary disease) Current Visit: Yes Status: Acute Code(s): J44.9 - CHRONIC OBSTRUCTIVE PULMONARY DISEASE, UNSPECIFIED SNOMED Code(s): 88171242 (2) Leukocytosis (leucocytosis) Current Visit: Yes Status: Acute Code(s): D72.829 - ELEVATED WHITE BLOOD CELL COUNT, UNSPECIFIED SNOMED Code(s): 607884684 (3) Elevated LFTs Current Visit: Yes Status: Acute Code(s): R94.5 - ABNORMAL RESULTS OF LIVER FUNCTION STUDIES SNOMED Code(s): 164508719 (4) Nicotine dependence with current use Current Visit: Yes Status: Acute Code(s): F17.200 - NICOTINE DEPENDENCE, UNSPECIFIED, UNCOMPLICATED SNOMED Code(s): 297646366 (5) Pleural effusion, right Current Visit: Yes Status: Acute Code(s): J90 - PLEURAL EFFUSION, NOT ELSEWHERE CLASSIFIED SNOMED Code(s): 80503509 (6) Pneumonia involving right lung Current Visit: Yes Status: Acute Code(s): J18.9 - PNEUMONIA, UNSPECIFIED ORGANISM SNOMED Code(s): 533576348 (7) Chest wall pain Current Visit: No Status: Acute Code(s): R07.89 - OTHER CHEST PAIN SNOMED Code(s): 763537949 Plan: The patient was seen and examined. Her chart diagnostics were reviewed. Dr. Kim has discussed the case with Dr. Kyle. She underwent a right thoracentesis performed by Dr. Kyle today with 500 mL of cloudy turbid fluid removed. Importance of smoking cessation was discussed with the patient. The patient will be made nothing by mouth after midnight. She will be placed on the schedule for right video-assisted thoracoscopic surgery possible right thoracotomy with decortication to be performed by Dr. Shyanne Kim. Thank you Dr. Kyle for this consult and we look for to working with you in the care of your patient. Time with Patient: Greater than 30
--- NOTE | 2018-05-04 16:52 | PN ---
PROGRESS NOTE DATE OF SERVICE: 05/04/2018 This 57-year-old woman was admitted with significant pneumonia and as well as parapneumonic effusion also has features of complex loculated pleural effusion on the right. VATS procedure was recommended by Dr. Kyle. Cultures are pending at this time. This morning the patient took a turn for the worse. The patient has significant respiratory difficulty. The patient is transferred to ICU. Patient is given bronchodilators and the patient is on high-dose IV steroids also. Patient closely monitored. The cultures are negative so far as mentioned earlier. PAST MEDICAL HISTORY: Reviewed. REVIEW OF SYSTEMS: CARDIOVASCULAR: No angina or palpitations. RESPIRATORY: As mentioned earlier. GI: No nausea or vomiting. : No dysuria. NERVOUS SYSTEM: No numbness or weakness. ALLERGY/Immunology: No asthma or hayfever. Musculoskeletal as mentioned earlier. CURRENT MEDICATIONS ARE: Reviewed and include: 1. Tylenol 650 q.6h p.r.n. 2. [place] 5 mg q.6h. 3. DuoNeb q.i.d. and p.r.n. 4. Xanax 0.5 t.i.d. 5. Symbicort 160/4.5 2 puffs b.i.d. 6. Flexeril 10 mg p.o. t.i.d. 7. Cardizem drip. 8. Heparin. 9. Toradol. 10.Levaquin 750 daily. 11.Ativan. 12.Lopressor. 13.Narcan. 14.Habitrol 14 daily. 15.Zosyn 3.375 IV q8 hours. 16.Vancomycin IV. PHYSICAL EXAM: Patient is alert, oriented x3, pulse 101 blood pressure 133/60, respirations 21, temperature 98 degrees, pulse ox 94% on 8 L nasal cannula. HEENT: Conjunctivae normal. Oral mucosa moist. Neck is no jugular venous distention. No carotid bruit. No lymph node enlargement. Cardiovascular: S1, S2 muffled. Respiratory: Breath sounds diminished in the bases. Bilateral scattered rhonchi and crackles. ABDOMEN: Soft, nontender. No mass palpable. Legs: No edema. No swelling. Nervous system: Higher functions as mentioned earlier. Moves all four extremities. No focal motor and or sensory deficit. Lymphatics: No lymph nodes palpable in the neck, axilla or groin. Skin: No ulcer, rash, bleeding. LABS: At this time shows WBC 18.3, hemoglobin 10.3. ABGs noted. The pH is 7.49, pCO2 33. Cultures negative. Vancomycin level noted. NT proBNP level is only 1110. ASSESSMENT: 1. Acute extensive right middle lobe pneumonia with multifocal with parapneumonic effusion with possible empyema which is loculated with acute hypoxic respiratory failure and as well as sepsis present on admission. 2. Compressive atelectasis. 3. Status post right thoracocentesis and pleural fluid drainage. 4. Leukocytosis. 5. Elevated LFTs, improving. 6. Ongoing continued nicotine dependence. 7. Drug screen positive for opiates, amphetamines and methamphetamines. RECOMMENDATIONS AND DISCUSSION: Recommend to continue current medications, management and symptomatic treatment. Otherwise, continue with bronchodilators. Continue the antibiotics. Patient is on a combination of multiple antibiotics currently including Zosyn and vancomycin. Cardiothoracic Surgery has been consulted for possible VATS procedure. Closely follow with Dr. Kyle. BNP and a 2D echo was ordered to rule out the possibility of fluid overload. Prognosis guarded because of multiple complex medical issues. Further recommendations to follow. See orders for details. Discussed with the patient at length. MMODL / IJN: [id number] /
--- NOTE | 2018-05-05 00:25 | OP ---
OPERATIVE REPORT PROCEDURE: Thoracentesis. INDICATION: Right pleural effusion. A time-out was completed verifying correct patient, procedure, site, positioning, and implant (s) or special equipment if applicable. Ultrasound guidance was not used and appropriate fluid pocket was identified and marked. Patient was positioned, prepped and draped in usual sterile fashion. Lidocaine was used to anesthetize the area. A Thoracentesis catheter was introduced into the pleural space and fluid was removed. Blood loss was none. A chest x-ray was ordered to evaluate for pneumothorax. Total Fluid Removed 400 mL. Color of Fluid was dark, turbid, and yellowish in color. Fluid sent for appropriate laboratory tests. Patient tolerated the procedure well and there were no complications. Chest x-ray showed no pneumothorax. MMODL / IJN: [id number] /
[2018-05-05] MEDS: HYDROcodone/APAP 5-325MG 1 EACH TAB PO PRN (03:45)
[2018-05-05 04:00] LABS: Mycoplasma IgM Antibody 0.37 INDEX (<=0.90)
[2018-05-05 04:54] LABS: Basophils % (A) 0 %; Eosinophils # (A) 0.4 k/uL (0-0.7); Eosinophils % (A) 3 %; HGB 10.6 gm/dL (11.4-16.0); Lymphocytes # (A) 1.6 k/uL (1.0-4.8); Lymphocytes % (A) 11 %; MCH 29.9 pg (25.0-35.0); MCHC 32.2 g/dL (31.0-37.0); Mean Platelet Volume 6.8; Monocytes # (A) 0.9 k/uL (0-1.0); Monocytes % (A) 6 %; Neutrophils % (A) 79 %; Platelet Count 492 k/uL (150-450); RBC 3.55 m/uL (3.80-5.40); RDW 13.2 % (11.5-15.5); WBC 15.2 k/uL (3.8-10.6)
[2018-05-05 05:11] LABS: Anion Gap 8 mmol/L; Blood Urea Nitrogen 14 mg/dL (7-17); Calcium 8.5 mg/dL (8.4-10.2); Carbon Dioxide 24 mmol/L (22-30); Chloride 105 mmol/L (98-107); Glucose 102 mg/dL (74-99); Phosphorus 3.8 mg/dL (2.5-4.5); Potassium 3.6 mmol/L (3.5-5.1); Sodium 137 mmol/L (137-145)
[2018-05-05] MEDS: VANCOMYCIN 1,250 MG in SODIUM CHLORIDE 0.9% 250 ML IVPB SCH ×3 (05:59→20:39)
[2018-05-05] MEDS: DILTIAZEM 50 MG in SODIUM CHLORIDE 0.9% 40 ML IV SCH ×2 (06:39→15:51)
[2018-05-05] MEDS ORDERED: Potassium Replacement Protocol 1 EACH MISC MISCELLANE PRN (07:28)
[2018-05-05] MEDS: SYMBICORT 160-4.5 MCG INHALER INHALATION SCH ×2 (07:40→20:15)
[2018-05-05] MEDS: IPRATROPIUM-ALBUTEROL 3 ML NEB INHALATION SCH ×4 (07:40→20:15)
--- NOTE | 2018-05-05 07:47 | XR ---
EXAMINATION TYPE: XR chest 1V DATE OF EXAM: 05/05/2018 COMPARISON: 05/04/2018 INDICATION: Right pleural effusion TECHNIQUE: Single frontal view of the chest is obtained. FINDINGS: The heart size is normal. The pulmonary vasculature is normal. There is a moderate right pleural effusion which appears stable from comparison. Minimal left pleural effusion is present. IMPRESSION: 1. Stable right and minimal left pleural effusions.
[2018-05-05] MEDS: PIPERACILLIN-TAZOBACTAM 3.375 GM in DEXTROSE/WATER 1 50ML.BAG IVPB SCH ×2 (07:52→16:49)
[2018-05-05] MEDS: PANTOPRAZOLE 40 MG TABLET PO SCH (07:52)
[2018-05-05] MEDS: METOPROLOL TARTRATE 12.5 MG TAB PO SCH ×2 (08:03→20:50)
[2018-05-05] MEDS: HEPARIN SODIUM,PORCINE 5,000 UNIT/ML 1 ML VIAL SQ SCH ×2 (08:03→20:39)
[2018-05-05] MEDS: NICOTINE 14MG/24HR PATCH TRANSDERM SCH (08:03)
[2018-05-05] MEDS: CYCLOBENZAPRINE 10 MG TAB PO SCH ×3 (08:03→23:00)
[2018-05-05] MEDS ORDERED: LIDOCAINE 2% SYG (PF) 100 MG/5 ML ONE (08:23)
[2018-05-05] MEDS ORDERED: MIDAZOLAM 2 MG/2 ML VIAL ONE (08:23)
[2018-05-05] MEDS ORDERED: VECURONIUM 10 MG VIAL IV ONE (08:23)
[2018-05-05] MEDS ORDERED: LIDOCAINE 1% INJ 10MG/ML (20 ML MDV) ONE (08:23)
[2018-05-05] MEDS ORDERED: GLYCOPYRROLATE 0.2 MG/ML 2 ML VIAL ONE (08:23)
[2018-05-05] MEDS ORDERED: fentaNYL (PF) 50 MCG/ML 2 ML AMP ONE (08:23)
[2018-05-05] MEDS ORDERED: HYDROmorphone (PF) 1 MG/ML ONE (08:23)
[2018-05-05] MEDS ORDERED: SUCCINYLCHOLINE CHLORIDE 100 MG/5 ML SYR IV ONE (08:23)
[2018-05-05] MEDS ORDERED: ePHEDrine SULFATE/0.9% NACL/PF 50 MG/5 ML SYRINGE IV ONE (08:23)
[2018-05-05] MEDS ORDERED: NEOSTIGMINE 1 MG/ML 10 ML VIAL ONE (08:23)
[2018-05-05] MEDS ORDERED: PROPOFOL 10 MG/ML 20 ML VIAL IV ONE (08:23)
[2018-05-05] MEDS ORDERED: PHENYLEPHRINE-0.9% NACL SYG 1 MG/10 ML SYRINGE ONE (08:23)
[2018-05-05] MEDS ORDERED: LACTATED RINGERS 1,000 ML IV ONE ×4 (09:18→13:30)
[2018-05-05] MEDS ORDERED: diphenhydrAMINE 50 MG/ML 1 ML VIAL IVP PRN (12:57)
[2018-05-05] MEDS ORDERED: NALOXONE 0.4 MG/ML 1 ML VIAL IV PRN (12:57)
[2018-05-05] MEDS ORDERED: NALBUPHINE 10 MG/ML VIAL (10ML MDV) IV PRN (12:57)
--- NOTE | 2018-05-05 13:05 | P.PN ---
Progress Note - Text A T6 epidural catheter was placed in the operating room at the end of surgery. Please see anesthetic record for procedure particular's. 10 mL of 0.25% ropivacaine was given as a bolus dose after catheter placement while still in the operating room.
[2018-05-05] MEDS ORDERED: BISACODYL 10 MG SUPP RECTAL PRN (13:27)
[2018-05-05] MEDS: PHENYLEPHRINE 40 MG in SODIUM CHLORIDE 0.9% 250 ML IV SCH ×2 (13:30→14:30)
--- NOTE | 2018-05-05 13:54 | XR ---
EXAMINATION TYPE: XR chest 1V DATE OF EXAM: 05/05/2018 COMPARISON: 05/05/2018 INDICATION: Postop thoracotomy TECHNIQUE: Single frontal view of the chest is obtained. FINDINGS: The heart size is normal. The pulmonary vasculature is normal. Small left pleural effusion is present. Right pleural effusion may be present. 2 right-sided chest tu bes are present. There is increased lung markings to the right lower lobe along the minor fissure. Ri ght pleural effusion is largely resolved. IMPRESSION: 1. 2 right-sided chest tubes. No pneumothorax is evident. Pleural effusion is largely resolved. Infil trate remains present. 2. Small left pleural effusion.
[2018-05-05] MEDS: ROPIVACAINE 400 MG, HYDROMORPHONE (PF) 5 MG in SODIUM CHLORIDE 0.9% 170 ML EPIDURAL PRN ×2 (14:30→16:00)
[2018-05-05] MEDS: POTASSIUM BICARBONATE/CIT AC 20 MEQ TABLET.EFF NG-TUBE SCH ×2 (14:58→15:03)
[2018-05-05] MEDS: DEXTROSE 5%-0.45% NACL 1,000 ML IV SCH (15:04)
[2018-05-05 15:50] LABS: INR 1.1 (<1.2); Partial Thromboplastin Time 23.7 sec (22.0-30.0); Prothrombin Time 10.5 sec (9.0-12.0)
--- NOTE | 2018-05-05 15:59 | P.PN ---
Subjective Progress Note Date: 05/05/18 Principal diagnosis: Right lung multilobar pneumonia, likely bacterial, complicated by development of a parapneumonic effusion with early loculations and compressive atelectasis, status post right thoracentesis with drainage of 500 amount of cloudy turbid fluid, postop day 1, and status post right VATS with decortication, postop day 0 57-year-old female patient a chronic smoker who presented to [facility] department she days back. Pleuritic severe right-sided chest pain. The patient was told to have some soreness of the chest and muscle spasm and she was given ibuprofen. Subsequently she started having chills no documented temperature and she was comfortable not increased yellowish sputum. Her pain progressively got worse and started developing worsening shortness of breath. For that reason she came into the hospital and repeat chest x-ray was done that showed increased opacity in the right lower lobe in addition to multilobar pneumonia involving the right lung. There was evidence of parapneumonic effusion. No altered mentation. No signs of any septicemia. No hypotension. No signs of any respiratory failure. Based on x-ray findings, I ordered a CAT scan of the chest and I found a moderate amount of right sided pleural fluid collection which does not completely layer dependently and this suggests some degree of loculation in addition to some background mild to moderate underlying emphysematous change. The patient has some compressive atelectasis of the right lung base area. Based on all this, I performed a bedside thoracentesis and a total of 4 50 mL of turbid dark yellowish pleural fluid was aspirated without any major difficulties. The fluid was sent for analysis., This patient a combination of Rocephin and vancomycin for now. Her pain is subsided and patient is having less of a pleuritic chest pain on the right. No hemoptysis. Patient's urine drug screen is positive for opiates, amphetamine and methamphetamine. Urinalysis is negative. The white cell count is at 20.9. 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 No sick contacts. As mentioned she is smoking and she does not utilize any form of respiratory medications. Mild chronic exertional dyspnea. The patient is seen again today 05/03/2018 in follow-up on the regular medical floor. She is currently resting quite comfortably in bed. She did have significant pain and shortness of breath while being up to the bathroom earlier this morning. Her pain is currently well controlled. She denies any worsening shortness of breath. Still dyspneic with minimal exertion. He is currently maintaining O2 saturations in the low 90s on 3 L/m per nasal cannula. She's been afebrile. Slightly tachycardic. Pleural fluid analysis is exudative in nature. Cultures are pending. She is currently on vancomycin and ceftriaxone. On 05/04/2018 and seeing this patient for a follow-up. The patient has an extensive right lung pneumonia with a complicated loculated parapneumonic effusion. The patient was being covered with a combination of Rocephin and vancomycin. Note that the patient was in the medical floor and overnight the patient got transferred to the ICU as the patient was becoming more short of breath, hypoxic, tachycardic and hypoxic. The patient is currently on 10 L of oxygen nasal cannula. Overnight the patient became tachycardic and she was having runs of SVT. She was placed on Cardizem drip at 5 g and hours and currently heart rate in the mid 90s. She remains in a sinus mechanism. Her chest x-ray was done yesterday and this morning and it shows extensive consolidation in addition to pleural effusion which is loculated in the right lung occupying the lower two thirds of the lung base. Based on this, the patient was brought in in terms of antibiotic coverage and the patient was placed on a combination of Zosyn and Levaquin and vancomycin. The patient had another CAT scan of the chest that showed complex loculated appearing moderate to large right-sided pleural effusion and this has slightly increased from the previous CAT scan of 05/02/2018. The right middle lobe and the right lower lobe is extensively collapse. Is a small left-sided pleural effusion in addition. The patient had a another thoracentesis and ICU and a total of 450 mL of turbid dark exudative pleural effusion was drained from the right lung. No complications. No pneumothorax. No positive cultures from the pleural fluid noted in the blood. Consultation was placed oral thoracic surgery regarding the possibility of a video-assisted thoracoscopic evaluation and decortication. Mentation is well-preserved the patient is alert and awake. Appetite is diminished. No altered mentation. No nausea or vomiting. Chest pain is subsided compared to yesterday. The patient short of breath with limited amount of activity. She is not using excessive muscle breathing at rest. On 05/05/2018 patient seen again in follow-up in the recovery room, she is status post right video-assisted thoracoscopy with decortication extensive right -sided pneumonia with parapneumonic loculated pleural effusion, postop day 0. She is somnolent, but easily arousable to verbal stimuli, she is currently on a simple mask, with FiO2 of 8 L, pulse ox of 92%, her pain is under reasonable control, and there is an epidural catheter in place. Postop patient became slightly hypotensive, and a liter of IV fluids, and Carlos-Synephrine drip is infusing at a rate of 2.6 mics per minute. Patient has 2 right-sided chest tubes to wall suction, and there is small amount of serosanguineous output, no air leak noted. Lung sounds are coarse scattered rhonchi. She denies afebrile , pleural fluid cultures are still pending, blood, sputum, and urine cultures are negative thus far. Patient continues on empiric antibiotics in the form of Levaquin, Zosyn and vancomycin. On nebulized bronchodilators, Symbicort. Follow-up chest x-ray post decortication was reviewed by Dr. Garza and showed 2 right-sided chest tubes, no pneumothorax, pleural effusion is largely resolved , infiltrate remains present, and a small left pleural effusion noted. Patient is awaiting transfer to a bed in the intensive care. Objective - Vital Signs Vital signs: Vital Signs Temp 98 F 05/05/18 13:00 Pulse 74 05/05/18 14:30 Resp 16 05/05/18 14:15 BP 114/63 05/05/18 14:30 Pulse Ox 16 L 05/05/18 14:30 Intake & Output 05/04/18 05/05/18 05/05/18 18:59 06:59 18:59 Intake Total 227.5 077.108 4812 Output Total 500 450 735 Balance -272.5 423.748 4995 Weight 74.9 kg Intake: IV 177.5 655.0 1999 Levofloxacin 750Mg-D5w 150 Pmx 750 mg In Dextrose/ Water 1 150ml.bag @ 100 mls/hr IVPB Q24H [facility] Rx#: [id number] NS KVO 90 80 40 Piperacillin-Tazobactam 3 87.5 50.0 .375 gm In Dextrose/Water 1 50ml.bag @ 12.5 mls/hr IVPB Q8HR [facility] Rx#: [id number] Vancomycin 1,250 mg In 375 Sodium Chloride 0.9% 250 ml @ 125 mls/hr IVPB Q12H [facility] Rx#:[id number] Intake, IV Titration 50 84.750 Amount Diltiazem 50 mg In Sodium 50 84.750 Chloride 0.9% 40 ml @ 5 MG/HR 5 mls/hr IV .Q10H [facility] Rx#:[id number] Output: Chest Tube Drainage 500 Right Posterior Chest 500 Urine 450 535 Estimated Blood Loss 200 Other: Voiding Method Bedpan Bedpan Bedpan # Voids 1 1 - Exam GENERAL EXAM: Somnolent, but easily arousable to verbal stimuli, currently on a simple oxygen mask, comfortable in no apparent distress. HEAD: Normocephalic. EYES: Normal reaction of pupils, equal size. NOSE: Clear with pink turbinates. THROAT: No erythema or exudates. NECK: No masses, no JVD. CHEST: No chest wall deformity. 2 right-sided chest tubes to wall suction with thin serosanguineous output, no evidence of air leak noted LUNGS: Coarse scattered rhonchi bilaterally, overall improved aeration noted on the right side compared to yesterday's exam. CVS: S1 and S2 normal with no audible murmur, regular rhythm. ABDOMEN: No hepatosplenomegaly, normal bowel sounds, no guarding or rigidity. SPINE: No scoliosis or deformity SKIN: No rashes CENTRAL NERVOUS SYSTEM: No focal deficits, tone is normal in all 4 extremities. EXTREMITIES: There is no peripheral edema. No clubbing, no cyanosis. Peripheral pulses are int - Labs CBC & Chem 7: 05/05/18 04:42 05/05/18 04:42 Labs: Abnormal Lab Results - Last 24 Hours (Table) 05/05/18 05/05/18 Range/Units 04:42 04:42 WBC 15.2 H (3.8-10.6) k/uL RBC 3.55 L (3.80-5.40) m/uL Hgb 10.6 L (11.4-16.0) gm/dL Hct 33.0 L (34.0-46.0) % Plt Count 492 H (150-450) k/uL Neutrophils # 12.0 H (1.3-7.7) k/uL Glucose 102 H (74-99) mg/dL Microbiology - Last 24 Hours (Table) 05/03/18 14:10 Gram Stain - Final Sputum Sputum Culture - Final 05/01/18 18:25 Blood Culture - Preliminary Blood No Growth after 72 hours 05/02/18 13:45 Gram Stain - Preliminary Pleural Fluid Body Fluid Culture - Preliminary Assessment and Plan Plan: Assessment: 1 right lung multilobar pneumonia, likely bacterial, acute, complicated by development of parapneumonic effusion with early loculations and compressive atelectasis, patient is status post right-sided video-assisted thoracoscopy decortication, stop day 0. Patient status post 2 right-sided thoracentesis, would removal of a total of 900 mL of parapneumonic pleural effusion fluid, pleural fluid cultures and other cultures are negative thus far, patient is empirically covered with a combination of Levaquin, Zosyn and vancomycin 2 acute hypoxic respiratory failure secondary to above with worsening of the oxygenation status over the past 24 hours. 3 acute leukocytosis secondary to above 4 COPD 5 urine drug screen for opiates, amphetamine and methamphetamine's 6 abnormal LFTs 7 smoker 8 sinus tachycardia currently on a Cardizem drip at 5 mg an hour. Plan Continue with current antibiotic coverage, until the final culture results are available. Maintain pain control, encourage deep breathing and coughing, incentive spirometry to the bedside. Patient has received a liter of lactated Ringer's IV bolus for postop hypotension, and is currently on Carlos-Synephrine drip, Melissa close hemodynamic monitoring, urine output. Monitor fever pattern, monitor mental status, labs, renal profile, electrolytes. Denies GI and DVT prophylaxis, monitor chest tube output, daily chest x-rays. Continue nebulized bronchodilators, continue to follow. I performed a history & physical examination of the patient and discussed their management with my nurse practitioner, Marissa Smith. I reviewed the nurse practitioner's note and agree with the documented findings and plan of care. Lung sounds are positive for scattered rhonchi bilaterally. The findings and the impression was discussed with the patient. I attest to the documentation by the nurse practitioner. Time with Patient: Greater than 30
--- NOTE | 2018-05-05 16:38 | OP ---
OPERATIVE REPORT DATE OF SURGERY: 05/05/2018 SURGEON: Dr. Shyanne Kim. LAW WRITER: Juancho Avila PREOPERATIVE DIAGNOSIS: Right-sided empyema. POSTOPERATIVE DIAGNOSIS: Right-sided empyema. PROCEDURE: Right thoracotomy for total right pleural and pulmonary decortication. INDICATION FOR PROCEDURE: The patient is a 57-year-old lady, a smoker with COPD, who presented with a one-week history of pleuritic chest pain. The patient was tapped twice by Pulmonary and she has been on antibiotic with consolidation and fluid in her right chest seen on CT scan. The patient is brought in today for decortication. We will start with a video thoracoscopic approach to assess the feasibility with potential conversion if needed. She understood the risks and agreed to proceed. DESCRIPTION OF PROCEDURE: The patient received a dose of Zosyn preoperatively. General double-lumen endotracheal anesthesia was induced uneventfully. The patient was placed in the left lateral decubitus position and all pressure points were padded. Axillary roll was placed. Position was held with a ayala bag. Sequential compression stockings were applied to both lower extremities. The chest and abdomen were prepped and draped using ChloraPrep. Ioban was used to cover the skin. The right lung was deflated and we initially accessed the pleural cavity with a small incision of around 1.5 cm at the level of the 7th intercostal space mid axillary line. Digital exploration revealed no adhesion at that level, and that allowed me to inserted a 10.5 pleural port. A 10 mm zero-degree thoracoscope was inserted and it appeared immediately that we were dealing with an advanced empyema with thick peels on the chest wall and the lungs which were adherent. I was able to free things anteriorly and was able to have an access incision at the level of the 5th intercostal space, anterior axillary line. Through that I was able to liberate part of the lungs. We made room posteriorly for another access incision at the level of the first intercostal space, posterior axillary line. With that, despite around 15 to 20 minutes basically suctioning the pleura and decorticating the chest wall, it was apparent up front that we needed to convert to a formal thoracotomy for decortication of the lung, as the peel was very friable and diffuse. So again we used the thoracoscope at this point to get to the part that would be hard to see in an open technique. The lung was all freed and the space between the right upper lobe and the right middle lobe was freed as well as the right middle lobe and the right lower lobe. However, right lower lobe was very adherent to the diaphragm. At this point we connected the anterior and posterior incision for a lateral thoracotomy. Access was obtained through the 5th intercostal space. A Tuffier retractor was used. I was able with digital dissection to basically free the middle lobe medially, and using sharp and blunt dissection I was able to free the right lower lobe from the diaphragm. At this point we proceeded with a tedious but almost complete decortication of the right middle lobe and the right lower lobe. The right upper lobe had minimal involvement and the pleura was not thickened. Thorough irrigation was performed. Expansion of the lung was controlled the posterior sulcus was well filled up. We placed a 28-Tristanian chest tube posteriorly with additional holes in its base via the camera port and I placed an anterior 28-Tristanian chest tube via separate stab incision, and both were affixed to the skin. Subsequently we approximated the rib with 4 intercostal Vicryl suture interrupted. The muscle layer was closed with a running Vicryl 0. Vicryl 2-0 for the subcutaneous tissue and Vicryl 4-0 for the skin in a subcuticular manner. The patient tolerated the procedure well and her saturation was around 90% with a PEEP of 10 and FiO2 of 100%. The patient will have an epidural placed before she is weaned and extubated. DEISY / EMORYN: [id number] /
[2018-05-05] MEDS ORDERED: MORPHINE SULFATE 2 MG/ML SYRINGE IVP PRN (19:33)
--- NOTE | 2018-05-05 19:49 | PN ---
PROGRESS NOTE DATE OF SERVICE: 05/05/2018 This 57-year-old woman who was admitted with acute extensive right middle lobe pneumonia also had significant pleural effusion which was loculated. The patient underwent VATS procedure as well as chest tube insertion by Dr. Kim. The patient underwent thoracotomy and decortication of the lung. The patient was extubated. Patient is being closely monitored in ICU at this time. Past medical history reviewed. REVIEW OF SYSTEMS: CARDIOVASCULAR SYSTEM: As mentioned earlier. RESPIRATORY SYSTEM: As mentioned earlier. GI: No nausea, vomiting. : No dysuria or retention. NERVOUS SYSTEM: No numbness, weakness. CURRENT MEDICATIONS: Current medications are reviewed and include: 1. Tylenol 650 q.6 p.r.n. 2. Annawan 5 mg q.6. 3. DuoNeb q.i.d. and p.r.n. 4. Xanax 0.25 t.i.d. 5. Dulcolax. 6. Symbicort 160/4.5 two puffs b.i.d. 7. Flexeril 10 mg daily. 8. IV fluids. 9. Diltiazem. 10.Benadryl 25 mg q.6 p.r.n. 11.Heparin 5000 units subcutaneously b.i.d. 12.Toradol 30 mg IV q.6. 13.Levaquin 750 IV daily. 14.Ativan 1 mg q.4 p.r.n. 15.Lopressor 12.5 mg daily. 16.Vancomycin IV. 17.Nubain. 18.Narcan . 19.Zofran. 20.Protonix 40 daily. 21.Phenylephrine. 22.Zosyn 3.375 IV q.8. 23.Ropivacaine. 24.Vancomycin. PHYSICAL EXAMINATION: Patient is alert, oriented x2. Pulse 80, blood pressure 130/72, respiration 18, temperature 97.9, pulse ox 92% on 15 L. HEENT: Conjunctivae normal. Oral mucosa moist. NECK: No jugular venous distention. No carotid bruit. No lymph node enlargement. CARDIOVASCULAR SYSTEM: S1, S2 muffled. RESPIRATORY SYSTEM: Breath sounds diminished at the bases. A few scattered rhonchi and crackles. Expiratory wheezing also present. Status post thoracotomy and decortication. Has [address] ABDOMEN: Soft, nontender. No mass palpable. LEGS: No edema. No swelling. NERVOUS SYSTEM: Higher functions as mentioned earlier. Moves all 4 limbs. No focal motor or sensory deficit. LYMPHATICS: No lymph node palpable in neck, axillae or groin. SKIN: No ulcer, rash, bleeding. LABS: WBC 15.2, hemoglobin 10.6. ASSESSMENT: 1. Acute extensive right middle lobe pneumonia, multi-focal, with parapneumonic effusion with possible empyema which is loculated with acute hypoxic respiratory failure as well as sepsis, present on admission. 2. Status post decortication and chest tube drainage. 3. Compressive atelectasis. 4. Leukocytosis. 5. Elevated liver function tests. 6. Continued ongoing nicotine dependence. 7. Drug screen positive for opiates, amphetamines and methamphetamines. RECOMMENDATIONS AND DISCUSSION: I would recommend to continue current medications, continue broad-spectrum IV antibiotics. Continue with the bronchodilators. Ensure oxygenation. Closely follow with Dr. Hester in ICU. Guarded prognosis because of multiple complex medical issues. Further recommendations to follow. MMODL / IJN: [id number] / WING
[2018-05-05] MEDS: LEVOFLOXACIN 750MG-D5W PMX 750 MG in DEXTROSE/WATER 1 150ML.BAG IVPB SCH (23:00)
[2018-05-06] MEDS: PIPERACILLIN-TAZOBACTAM 3.375 GM in DEXTROSE/WATER 1 50ML.BAG IVPB SCH ×3 (02:05→16:40)
[2018-05-06] MEDS ORDERED: VANCOMYCIN TROUGH DUE 1 EACH MISC MISCELLANE ONE (04:00)
[2018-05-06 04:22] LABS: Basophils % (A) 0 %; Eosinophils % (A) 0 %; HGB 9.3 gm/dL (11.4-16.0); Lymphocytes % (A) 6 %; MCHC 32.1 g/dL (31.0-37.0); MCV 93.5 fL (80.0-100.0); Mean Platelet Volume 7.7; Monocytes # (A) 0.8 k/uL (0-1.0); Monocytes % (A) 5 %; Neutrophils # (A) 13.4 k/uL (1.3-7.7); Neutrophils % (A) 88 %; Platelet Count 448 k/uL (150-450); RBC 3.11 m/uL (3.80-5.40); RDW 13.4 % (11.5-15.5); WBC 15.4 k/uL (3.8-10.6)
[2018-05-06 04:30] LABS: Anion Gap 7 mmol/L; Blood Urea Nitrogen 18 mg/dL (7-17); Calcium 8.2 mg/dL (8.4-10.2); Carbon Dioxide 27 mmol/L (22-30); Chloride 103 mmol/L (98-107); Glucose 129 mg/dL (74-99); Magnesium 2.2 mg/dL (1.6-2.3); Phosphorus 4.6 mg/dL (2.5-4.5); Potassium 4.5 mmol/L (3.5-5.1); Sodium 137 mmol/L (137-145)
[2018-05-06] MEDS: VANCOMYCIN 1,250 MG in SODIUM CHLORIDE 0.9% 250 ML IVPB SCH (04:58)
--- NOTE | 2018-05-06 07:35 | P.PN ---
Progress Note - Text 05/06 720 am 57-year-old female status post open thoracotomy by Dr. wiseman. Patient has an epidural for postop pain control running at 3 mL an hour. She has a VAS of 0 at rest. Plan to continue epidural infusion
--- NOTE | 2018-05-06 08:08 | XR ---
EXAMINATION TYPE: XR chest 1V DATE OF EXAM: 05/06/2018 HISTORY: Shortness of breath. COMPARISON: 05/05/2018 TECHNIQUE: Single view of the chest is submitted. FINDINGS: Demonstrated are scattered senescent parenchymal change. Right-sided chest tubes are unchanged in position . No evidence for sizable pneumothorax. Patchy basilar infiltrates persist although appear to be improving as does pulmonary venous congestio n and small effusions. The heart is stable. Hilar and mediastinal structures are within normal limits. Degenerative changes are seen of the dorsal spine. IMPRESSION: 1. Right-sided chest tubes are unchanged in position . No evidence for sizable pneumothorax. Patchy basilar infiltrates persist although appear to be improving as does pulmonary venous congestio n and small effusions.
[2018-05-06] MEDS: DILTIAZEM 50 MG in SODIUM CHLORIDE 0.9% 40 ML IV SCH ×3 (08:25→21:44)
[2018-05-06] MEDS: NICOTINE 14MG/24HR PATCH TRANSDERM SCH (08:32)
[2018-05-06] MEDS: ALPRAZolam 0.25 MG TAB PO PRN (08:32)
[2018-05-06] MEDS: CYCLOBENZAPRINE 10 MG TAB PO SCH ×2 (08:33→16:39)
[2018-05-06] MEDS: HEPARIN SODIUM,PORCINE 5,000 UNIT/ML 1 ML VIAL SQ SCH ×2 (08:33→20:21)
[2018-05-06] MEDS: METOPROLOL TARTRATE 12.5 MG TAB PO SCH ×2 (08:33→20:21)
[2018-05-06] MEDS: PANTOPRAZOLE 40 MG TABLET PO SCH (08:34)
[2018-05-06] MEDS: SYMBICORT 160-4.5 MCG INHALER INHALATION SCH ×2 (08:36→20:30)
[2018-05-06] MEDS: IPRATROPIUM-ALBUTEROL 3 ML NEB INHALATION SCH ×4 (08:36→20:30)
--- NOTE | 2018-05-06 10:13 | P.PN ---
Subjective Progress Note Date: 05/06/18 Principal diagnosis: Multilobar pneumonia and parapneumonic effusion requiring video assisted thoracoscopic decortication. Postoperative day #1 57-year-old female patient a chronic smoker who presented to [facility] department she days back. Pleuritic severe right-sided chest pain. The patient was told to have some soreness of the chest and muscle spasm and she was given ibuprofen. Subsequently she started having chills no documented temperature and she was comfortable not increased yellowish sputum. Her pain progressively got worse and started developing worsening shortness of breath. For that reason she came into the hospital and repeat chest x-ray was done that showed increased opacity in the right lower lobe in addition to multilobar pneumonia involving the right lung. There was evidence of parapneumonic effusion. No altered mentation. No signs of any septicemia. No hypotension. No signs of any respiratory failure. Based on x-ray findings, I ordered a CAT scan of the chest and I found a moderate amount of right sided pleural fluid collection which does not completely layer dependently and this suggests some degree of loculation in addition to some background mild to moderate underlying emphysematous change. The patient has some compressive atelectasis of the right lung base area. Based on all this, I performed a bedside thoracentesis and a total of 4 50 mL of turbid dark yellowish pleural fluid was aspirated without any major difficulties. The fluid was sent for analysis., This patient a combination of Rocephin and vancomycin for now. Her pain is subsided and patient is having less of a pleuritic chest pain on the right. No hemoptysis. Patient's urine drug screen is positive for opiates, amphetamine and methamphetamine. Urinalysis is negative. The white cell count is at 20.9. 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 No sick contacts. As mentioned she is smoking and she does not utilize any form of respiratory medications. Mild chronic exertional dyspnea. The patient is seen again today 05/03/2018 in follow-up on the regular medical floor. She is currently resting quite comfortably in bed. She did have significant pain and shortness of breath while being up to the bathroom earlier this morning. Her pain is currently well controlled. She denies any worsening shortness of breath. Still dyspneic with minimal exertion. He is currently maintaining O2 saturations in the low 90s on 3 L/m per nasal cannula. She's been afebrile. Slightly tachycardic. Pleural fluid analysis is exudative in nature. Cultures are pending. She is currently on vancomycin and ceftriaxone. On 05/04/2018 and seeing this patient for a follow-up. The patient has an extensive right lung pneumonia with a complicated loculated parapneumonic effusion. The patient was being covered with a combination of Rocephin and vancomycin. Note that the patient was in the medical floor and overnight the patient got transferred to the ICU as the patient was becoming more short of breath, hypoxic, tachycardic and hypoxic. The patient is currently on 10 L of oxygen nasal cannula. Overnight the patient became tachycardic and she was having runs of SVT. She was placed on Cardizem drip at 5 g and hours and currently heart rate in the mid 90s. She remains in a sinus mechanism. Her chest x-ray was done yesterday and this morning and it shows extensive consolidation in addition to pleural effusion which is loculated in the right lung occupying the lower two thirds of the lung base. Based on this, the patient was brought in in terms of antibiotic coverage and the patient was placed on a combination of Zosyn and Levaquin and vancomycin. The patient had another CAT scan of the chest that showed complex loculated appearing moderate to large right-sided pleural effusion and this has slightly increased from the previous CAT scan of 05/02/2018. The right middle lobe and the right lower lobe is extensively collapse. Is a small left-sided pleural effusion in addition. The patient had a another thoracentesis and ICU and a total of 450 mL of turbid dark exudative pleural effusion was drained from the right lung. No complications. No pneumothorax. No positive cultures from the pleural fluid noted in the blood. Consultation was placed oral thoracic surgery regarding the possibility of a video-assisted thoracoscopic evaluation and decortication. Mentation is well-preserved the patient is alert and awake. Appetite is diminished. No altered mentation. No nausea or vomiting. Chest pain is subsided compared to yesterday. The patient short of breath with limited amount of activity. She is not using excessive muscle breathing at rest. On 05/05/2018 patient seen again in follow-up in the recovery room, she is status post right video-assisted thoracoscopy with decortication extensive right -sided pneumonia with parapneumonic loculated pleural effusion, postop day 0. She is somnolent, but easily arousable to verbal stimuli, she is currently on a simple mask, with FiO2 of 8 L, pulse ox of 92%, her pain is under reasonable control, and there is an epidural catheter in place. Postop patient became slightly hypotensive, and a liter of IV fluids, and Carlos-Synephrine drip is infusing at a rate of 2.6 mics per minute. Patient has 2 right-sided chest tubes to wall suction, and there is small amount of serosanguineous output, no air leak noted. Lung sounds are coarse scattered rhonchi. She denies afebrile , pleural fluid cultures are still pending, blood, sputum, and urine cultures are negative thus far. Patient continues on empiric antibiotics in the form of Levaquin, Zosyn and vancomycin. On nebulized bronchodilators, Symbicort. Follow-up chest x-ray post decortication was reviewed by Dr. Garza and showed 2 right-sided chest tubes, no pneumothorax, pleural effusion is largely resolved , infiltrate remains present, and a small left pleural effusion noted. Patient is awaiting transfer to a bed in the intensive care. Patient was reevaluated today on 05/06/2018, doing well, on nasal cannula, in no distress. T-max is 98.1, vital signs are stable. WBC count is down to 15.4 hemoglobin is 9.3 electrolytes and renal profile are normal. Chest x-ray showed right sided chest tubes in position, no evidence of pneumothorax, patchy basilar infiltrates persist. Patient feels much better today compared to how she felt in the last few days. Breathing easier, and in no distress. Objective - Vital Signs Vital signs: Vital Signs Temp 98.1 F 05/06/18 08:00 Pulse 89 05/06/18 09:00 Resp 29 H 05/06/18 09:00 BP 122/67 05/06/18 09:00 Pulse Ox 96 05/06/18 09:00 Intake & Output 05/05/18 05/06/18 05/06/18 18:59 06:59 18:59 Intake Total 2175.0 1533.0 464 Output Total 1180 725 167 Balance 995.0 808.0 297 Weight 79.1 kg Intake: IV 2175.0 1233.0 284 0.9 Normal saline for 33 9 pressure bag Dextrose 5%-0.45% NaCl 1, 150 600 150 000 ml @ 50 mls/hr IV . Q20H [facility] Rx#:[id number] Levofloxacin 750Mg-D5w 150 Pmx 750 mg In Dextrose/ Water 1 150ml.bag @ 100 mls/hr IVPB Q24H [facility] Rx#: [id number] NS KVO 40 Piperacillin-Tazobactam 3 25.0 75.0 .375 gm In Dextrose/Water 1 50ml.bag @ 12.5 mls/hr IVPB Q8HR [facility] Rx#: [id number] Vancomycin 1,250 mg In 375 125 Sodium Chloride 0.9% 250 ml @ 125 mls/hr IVPB Q12H [facility] Rx#:[id number] Oral 300 180 Output: Chest Tube Drainage 170 140 40 Chest Tube Right 70 10 Posterior Chest Right Posterior Chest 170 70 30 Urine 810 585 127 Estimated Blood Loss 200 Other: Voiding Method Indwelling Catheter Indwelling Catheter ABP, PAP, CO, CI - Last Documented Arterial Blood Pressure 114/47 - Exam GENERAL EXAM: Awake, comfortable, in no distress. HEAD: Normocephalic. EYES: Normal reaction of pupils, equal size. NOSE: Clear with pink turbinates. THROAT: No erythema or exudates. NECK: No masses, no JVD. CHEST: No chest wall deformity. 2 right-sided chest tubes to wall suction with thin serosanguineous output, no evidence of air leak noted LUNGS: Coarse scattered rhonchi bilaterally, overall improved aeration noted on the right side compared to yesterday's exam. CVS: S1 and S2 normal with no audible murmur, regular rhythm. ABDOMEN: No hepatosplenomegaly, normal bowel sounds, no guarding or rigidity. SPINE: No scoliosis or deformity SKIN: No rashes CENTRAL NERVOUS SYSTEM: No focal deficits, tone is normal in all 4 extremities. EXTREMITIES: There is no peripheral edema. No clubbing, no cyanosis. Peripheral pulses are int - Labs CBC & Chem 7: 05/06/18 04:12 05/06/18 04:12 Labs: Abnormal Lab Results - Last 24 Hours (Table) 05/06/18 05/06/18 Range/Units 04:12 04:12 WBC 15.4 H (3.8-10.6) k/uL RBC 3.11 L (3.80-5.40) m/uL Hgb 9.3 L (11.4-16.0) gm/dL Hct 29.0 L (34.0-46.0) % Neutrophils # 13.4 H (1.3-7.7) k/uL BUN 18 H (7-17) mg/dL Glucose 129 H (74-99) mg/dL Calcium 8.2 L (8.4-10.2) mg/dL Phosphorus 4.6 H (2.5-4.5) mg/dL Microbiology - Last 24 Hours (Table) 05/05/18 12:00 Gram Stain - Preliminary Lung - Right Tissue Culture - Preliminary 05/01/18 18:25 Blood Culture - Preliminary Blood No Growth after 96 hours 05/05/18 12:00 Anaerobic Culture - Preliminary Lung - Right 05/03/18 14:10 Gram Stain - Final Sputum Sputum Culture - Final Assessment and Plan Assessment: 1 right lung multilobar pneumonia, likely gram-negative in nature, complicated by development of parapneumonic effusion with early loculations and compressive atelectasis, patient is status post right-sided video-assisted thoracoscopy decortication, stop day 1. Patient status post 2 right-sided thoracentesis, would removal of a total of 900 mL of parapneumonic pleural effusion fluid, pleural fluid cultures and other cultures are negative thus far, patient is empirically covered with a combination of Levaquin, Zosyn and vancomycin 2 acute hypoxic respiratory failure secondary to above, improving 3 acute leukocytosis secondary to above, improving 4 COPD 5 urine drug screen for opiates, amphetamine and methamphetamine's 6 abnormal LFTs 7 smoker 8 sinus tachycardia currently on a Cardizem drip at 5 mg an hour. Plan continue present supportive care measures, antibiotics, bronchodilators, incentive spirometry, GI and DVT prophylaxis, likely transfer out of the ICU in the next 24 hours. Time with Patient: Less than 30
--- NOTE | 2018-05-06 11:19 | ECHOF ---
Referral Reason:chf MEASUREMENTS -------- HEIGHT: 175.3 cm WEIGHT: 74.8 kg BP: 133/66 RVIDd: 2.4 cm (< 3.3) IVSd: 1.0 cm (0.6 - 1.1) LVIDd: 3.5 cm (3.9 - 5.3) LVPWd: 1.0 cm (0.6 - 1.1) IVSs: 1.4 cm LVIDs: 2.6 cm LVPWs: 1.4 cm LAESV Index (A-L): 26.71 ml/m Ao Diam: 3.4 cm (2.0 - 3.7) AV Cusp: 2.2 cm (1.5 - 2.6) LA Diam: 2.9 cm (2.7 - 3.8) EPSS: 0.3 cm MV E Keven: 1.03 m/s MV DecT: 305 ms MV A Keven: 1.27 m/s MV E/A Ratio: 0.82 RAP: 5.00 mmHg RVSP: 21.01 mmHg MV EF SLOPE: 121.51 mm/s (70 - 150) MV EXCURSION: 2.35 cm (> 18.000) FINDINGS -------- Resting bradycardia (HR<60bpm). This was a technically adequate study. The left ventricular size is normal. Left ventricular wall thickness is normal. Overall left vent ricular systolic function is low-normal with, an EF between 50 - 55 %. The right ventricle is normal in size and function. Normal LA size by volume 22+/-6 ml/m2. The right atrium is normal in size. Aortic valve is trileaflet and is mildly thickened. There is no evidence of aortic regurgitation. There is no evidence of aortic stenosis. The mitral valve leaflets are mildly thickened. There is trace to mild mitral regurgitation. Trace tricuspid regurgitation present. Right ventricular systolic pressure is normal at < 35 mmHg. There is no evidence of pulmonary hypertension. The pulmonic valve was not well visualized. The aortic root size is normal. Normal inferior vena cava with normal inspiratory collapse consistent with estimated right atrial pre ssure of 5 mmHg. There is no pericardial effusion. CONCLUSIONS -------- 1. Resting bradycardia (HR<60bpm). 2. This was a technically adequate study. 3. The left ventricular size is normal. 4. Left ventricular wall thickness is normal. 5. Overall left ventricular systolic function is low-normal with, an EF between 50 - 55 %. 6. Normal LA size by volume 22+/-6 ml/m2. 7. Aortic valve is trileaflet and is mildly thickened. 8. The mitral valve leaflets are mildly thickened. 9. There is trace to mild mitral regurgitation. 10. Trace tricuspid regurgitation present. 11. Right ventricular systolic pressure is normal at < 35 mmHg. 12. There is no evidence of pulmonary hypertension. 13. The pulmonic valve was not well visualized. 14. The aortic root size is normal. 15. There is no pericardial effusion. PHLEBOTOMY COORDINATOR: Vin Sanon RDCS
--- NOTE | 2018-05-06 11:44 | P.PN ---
Subjective Progress Note Date: 05/06/18 Principal diagnosis: Right-sided empyema, loculated right pleural effusion with extensive right lung multilobular pneumonia, history of tobacco dependence smokes about 1-1-1/2 packs of cigarettes per day. POD #1 right thoracotomy for total right pleural and pulmonary decortication. The patient is laying in bed with her head elevated. She is in no acute distress. She denies any complaints of shortness of breath at this time. She currently rates her pain 0 out of 10 on the pain scale. She is achieving 750 mL with encouragement on her incentive spirometry. Her epidural remains in place at 3 mL per hour. Objective - Vital Signs Vital signs: Vital Signs Temp 98.1 F 05/06/18 08:00 Pulse 96 05/06/18 10:00 Resp 16 05/06/18 10:00 BP 122/64 05/06/18 10:00 Pulse Ox 91 L 05/06/18 10:00 Intake & Output 05/05/18 05/06/18 05/06/18 18:59 06:59 18:59 Intake Total 2175.0 1533.0 529.5 Output Total 1180 725 222 Balance 995.0 808.0 307.5 Weight 79.1 kg Intake: IV 2175.0 1233.0 349.5 0.9 Normal saline for 33 12 pressure bag Dextrose 5%-0.45% NaCl 1, 150 600 200 000 ml @ 50 mls/hr IV . Q20H [facility] Rx#:[id number] Levofloxacin 750Mg-D5w 150 Pmx 750 mg In Dextrose/ Water 1 150ml.bag @ 100 mls/hr IVPB Q24H [facility] Rx#: [id number] NS KVO 40 Piperacillin-Tazobactam 3 25.0 75.0 12.5 .375 gm In Dextrose/Water 1 50ml.bag @ 12.5 mls/hr IVPB Q8HR [facility] Rx#: [id number] Vancomycin 1,250 mg In 375 125 Sodium Chloride 0.9% 250 ml @ 125 mls/hr IVPB Q12H [facility] Rx#:[id number] Oral 300 180 Output: Chest Tube Drainage 170 140 50 Chest Tube Right 70 20 Posterior Chest Right Posterior Chest 170 70 30 Urine 810 585 172 Estimated Blood Loss 200 Other: Voiding Method Indwelling Catheter Indwelling Catheter Indwelling Catheter ABP, PAP, CO, CI - Last Documented Arterial Blood Pressure 123/52 - Constitutional General appearance: Present: cooperative, no acute distress - Respiratory Details: Lung sounds with few scattered rhonchi throughout, diminished her right lobes. Respirations are symmetrical and nonlabored. Right pleural anterior and posterior chest tubes in place to low continuous wall suction -20 cm H2O. No air leak present. Chest tubes are draining thin serosanguineous drainage. Anterior chest tube drained 50 mL in the last 8 hours, 270 mL since surgery. Posterior chest tube drained 40 mL in the last 8 hours, 270 mL since surgery. She is achieving 750 mL on her incentive spirometry. Oxygen saturation are 94% on 4 L nasal cannula. - Cardiovascular Details: Regular rhythm and rate. S1 and S2 present, negative for S3, gallop or murmur. Bedside telemetry showing normal sinus rhythm heart rate 88. Sequential compression devices in place to her bilateral lower extremities. No edema present. - Gastrointestinal Gastrointestinal Comment(s): Abdomen is soft, nontender and nondistended. Hypoactive bowel sounds all 4 abdominal quadrants. Passing flatus. Tolerating oral intake. No guarding or rigidity. No organomegaly. - Genitourinary Genitourinary Comment(s): Alicea catheter for accurate I&O. Draining clear yellow urine. 425 ml output in the last 8 hours. - Integumentary Integumentary Comment(s): Skin is warm and dry. No clubbing or cyanosis present. Right thoracotomy incision clean dry and approximated. Scant serosanguineous drainage. No rashes or abnormal pigmentation present. - Neurologic Neurologic: Present: CNII-XII intact - Musculoskeletal Musculoskeletal: Present: gait normal, strength equal bilaterally - Psychiatric Psychiatric: Present: A&O x's 3, appropriate affect, intact judgment & insight - Allied health notes Allied health notes reviewed: nursing - Labs CBC & Chem 7: 05/06/18 04:12 05/06/18 04:12 Labs: Abnormal Lab Results - Last 24 Hours (Table) 05/06/18 05/06/18 Range/Units 04:12 04:12 WBC 15.4 H (3.8-10.6) k/uL RBC 3.11 L (3.80-5.40) m/uL Hgb 9.3 L (11.4-16.0) gm/dL Hct 29.0 L (34.0-46.0) % Neutrophils # 13.4 H (1.3-7.7) k/uL BUN 18 H (7-17) mg/dL Glucose 129 H (74-99) mg/dL Calcium 8.2 L (8.4-10.2) mg/dL Phosphorus 4.6 H (2.5-4.5) mg/dL Microbiology - Last 24 Hours (Table) 05/02/18 13:45 Gram Stain - Preliminary Pleural Fluid Body Fluid Culture - Preliminary Alpha Hemolytic Streptococcus 05/05/18 12:00 Gram Stain - Preliminary Lung - Right Tissue Culture - Preliminary 05/01/18 18:25 Blood Culture - Preliminary Blood No Growth after 96 hours 05/05/18 12:00 Anaerobic Culture - Preliminary Lung - Right 05/03/18 14:10 Gram Stain - Final Sputum Sputum Culture - Final - Imaging and Cardiology Chest x-ray: report reviewed, image reviewed Assessment and Plan (1) COPD (chronic obstructive pulmonary disease) Current Visit: Yes Status: Acute Code(s): J44.9 - CHRONIC OBSTRUCTIVE PULMONARY DISEASE, UNSPECIFIED SNOMED Code(s): 75944031 (2) Leukocytosis (leucocytosis) Current Visit: Yes Status: Acute Code(s): D72.829 - ELEVATED WHITE BLOOD CELL COUNT, UNSPECIFIED SNOMED Code(s): 475413535 (3) Elevated LFTs Current Visit: Yes Status: Acute Code(s): R94.5 - ABNORMAL RESULTS OF LIVER FUNCTION STUDIES SNOMED Code(s): 043412260 (4) Nicotine dependence with current use Current Visit: Yes Status: Acute Code(s): F17.200 - NICOTINE DEPENDENCE, UNSPECIFIED, UNCOMPLICATED SNOMED Code(s): 553760304 (5) Pleural effusion, right Current Visit: Yes Status: Acute Code(s): J90 - PLEURAL EFFUSION, NOT ELSEWHERE CLASSIFIED SNOMED Code(s): 15700232 (6) Pneumonia involving right lung Current Visit: Yes Status: Acute Code(s): J18.9 - PNEUMONIA, UNSPECIFIED ORGANISM SNOMED Code(s): 047187787 (7) Chest wall pain Current Visit: No Status: Acute Code(s): R07.89 - OTHER CHEST PAIN SNOMED Code(s): 068705030 Plan: 1. We will keep her right pleural chest tubes in place. We will place her chest tubes to water seal. 2. Encourage use of her incentive spirometry every hour while awake. 3. Continue epidural managed by anesthesia. 4. Pain control per when necessary orders. 5. GI and DVT prophylaxis. Continue sequential compression devices. 6. Increase activity as tolerated. PT and OT consulted. 7. May transferred to [address] [place] [address] care per cardiothoracic standpoint when okay with intensive care service. 8. Antibiotic management per pulmonary care service. 9. Pleural cytology results pending. 10. Further recommendations to follow based on patient's clinical course. Time with Patient: Greater than 30
[2018-05-06] MEDS: DEXTROSE 5%-0.45% NACL 1,000 ML IV SCH (13:28)
[2018-05-06] MEDS: VANCOMYCIN 1,500 MG in SODIUM CHLORIDE 0.9% 250 ML IVPB SCH ×2 (13:30→20:25)
[2018-05-06] MEDS: HYDROcodone/APAP 5-325MG 1 EACH TAB PO PRN (17:26)
[2018-05-06] MEDS: LEVOFLOXACIN 750 MG TAB PO SCH (20:21)
[2018-05-07] MEDS: CYCLOBENZAPRINE 10 MG TAB PO SCH ×4 (00:40→22:02)
[2018-05-07] MEDS: PIPERACILLIN-TAZOBACTAM 3.375 GM in DEXTROSE/WATER 1 50ML.BAG IVPB SCH ×3 (00:58→16:20)
--- NOTE | 2018-05-07 07:22 | XR ---
EXAMINATION TYPE: XR chest 1V DATE OF EXAM: 05/07/2018 CLINICAL HISTORY: Difficulty breathing and pleural effusion progress study. TECHNIQUE: Single AP portable upright view of the chest is obtained. COMPARISON: Chest x-ray from one day earlier and older studies. CT chest May 04, 2018 FINDINGS: There is background of chronic emphysematous change with parenchymal fibrosis bilaterally. There is redemonstration of small left pleural effusion with associated left basilar atelectasis and /or infiltrate. There is persistent small to moderate-sized right pleural fluid collection with assoc iated right basilar atelectasis and/or infiltrate. 2 right-sided chest tubes are redemonstrated proje cting superiorly. No sizable pneumothorax is seen. There is moderate biapical pleural/parenchymal sca rring. Osseous structures are demineralized. Cardiac silhouette size is stable and within normal limi ts. IMPRESSION: Overall stable findings from one day earlier, chronic emphysematous changes with parenc hymal fibrosis bilaterally, persistent small to moderate right greater than left inferior pleural flu id collections with associated bibasilar atelectasis and/or infiltrates. 2 right-sided chest tubes wi thout sizable pneumothorax.
[2018-05-07] MEDS ORDERED: IPRATROPIUM-ALBUTEROL 3 ML NEB ONE (09:00)
[2018-05-07] MEDS ORDERED: NICOTINE 14MG/24HR PATCH TRANSDERM ONE (09:00)
[2018-05-07] MEDS ORDERED: CYCLOBENZAPRINE 10 MG TAB ONE (09:00)
[2018-05-07] MEDS ORDERED: SYMBICORT 160-4.5 MCG INHALER INHALATION ONE (09:00)
[2018-05-07] MEDS ORDERED: PANTOPRAZOLE 40 MG TABLET PO ONE (09:00)
[2018-05-07] MEDS ORDERED: HEPARIN SODIUM,PORCINE 5,000 UNIT/ML 1 ML VIAL ONE (09:00)
[2018-05-07] MEDS ORDERED: HYDROcodone/APAP 5-325MG 1 EACH TAB ONE (09:00)
[2018-05-07] MEDS ORDERED: METOPROLOL TARTRATE 12.5 MG TAB ONE (09:00)
[2018-05-07] MEDS: VANCOMYCIN 1,500 MG in SODIUM CHLORIDE 0.9% 250 ML IVPB SCH ×3 (10:52→21:57)
[2018-05-07] MEDS: DEXTROSE 5%-0.45% NACL 1,000 ML IV SCH (10:52)
[2018-05-07] MEDS: DILTIAZEM 50 MG in SODIUM CHLORIDE 0.9% 40 ML IV SCH ×2 (10:52→17:35)
[2018-05-07] MEDS: SYMBICORT 160-4.5 MCG INHALER INHALATION SCH ×2 (10:52→19:42)
[2018-05-07] MEDS: PANTOPRAZOLE 40 MG TABLET PO SCH (10:52)
[2018-05-07] MEDS: IPRATROPIUM-ALBUTEROL 3 ML NEB INHALATION SCH ×4 (10:52→19:36)
[2018-05-07] MEDS: METOPROLOL TARTRATE 12.5 MG TAB PO SCH ×2 (10:53→20:51)
[2018-05-07] MEDS: NICOTINE 14MG/24HR PATCH TRANSDERM SCH (10:53)
[2018-05-07] MEDS: HEPARIN SODIUM,PORCINE 5,000 UNIT/ML 1 ML VIAL SQ SCH ×2 (10:53→20:54)
[2018-05-07 11:01] LABS: Calcium 8.4 mg/dL (8.4-10.2); Magnesium 2.1 mg/dL (1.6-2.3); Phosphorus 3.5 mg/dL (2.5-4.5); Potassium 4.2 mmol/L (3.5-5.1)
--- NOTE | 2018-05-07 11:01 | P.PN ---
Progress Note - Text Date: 05/07/2018 Time: 712 The patient is status post right thoracic decortication, postoperative day number 2 The patient has no complaints of nausea vomiting or headache. The patient does not complain of any lower extremity numbness or weakness. The epidural is running at[3] mL per hour. VAS 0-10. The epidural will be maintained and adjusted as needed.
--- NOTE | 2018-05-07 11:02 | P.PN ---
Subjective Progress Note Date: 05/07/18 Principal diagnosis: Multilobar pneumonia and parapneumonic effusion requiring video assisted thoracoscopic decortication. Postoperative day #2 57-year-old female patient a chronic smoker who presented to [facility] department she days back. Pleuritic severe right-sided chest pain. The patient was told to have some soreness of the chest and muscle spasm and she was given ibuprofen. Subsequently she started having chills no documented temperature and she was comfortable not increased yellowish sputum. Her pain progressively got worse and started developing worsening shortness of breath. For that reason she came into the hospital and repeat chest x-ray was done that showed increased opacity in the right lower lobe in addition to multilobar pneumonia involving the right lung. There was evidence of parapneumonic effusion. No altered mentation. No signs of any septicemia. No hypotension. No signs of any respiratory failure. Based on x-ray findings, I ordered a CAT scan of the chest and I found a moderate amount of right sided pleural fluid collection which does not completely layer dependently and this suggests some degree of loculation in addition to some background mild to moderate underlying emphysematous change. The patient has some compressive atelectasis of the right lung base area. Based on all this, I performed a bedside thoracentesis and a total of 4 50 mL of turbid dark yellowish pleural fluid was aspirated without any major difficulties. The fluid was sent for analysis., This patient a combination of Rocephin and vancomycin for now. Her pain is subsided and patient is having less of a pleuritic chest pain on the right. No hemoptysis. Patient's urine drug screen is positive for opiates, amphetamine and methamphetamine. Urinalysis is negative. The white cell count is at 20.9. 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 No sick contacts. As mentioned she is smoking and she does not utilize any form of respiratory medications. Mild chronic exertional dyspnea. The patient is seen again today 05/03/2018 in follow-up on the regular medical floor. She is currently resting quite comfortably in bed. She did have significant pain and shortness of breath while being up to the bathroom earlier this morning. Her pain is currently well controlled. She denies any worsening shortness of breath. Still dyspneic with minimal exertion. He is currently maintaining O2 saturations in the low 90s on 3 L/m per nasal cannula. She's been afebrile. Slightly tachycardic. Pleural fluid analysis is exudative in nature. Cultures are pending. She is currently on vancomycin and ceftriaxone. On 05/04/2018 and seeing this patient for a follow-up. The patient has an extensive right lung pneumonia with a complicated loculated parapneumonic effusion. The patient was being covered with a combination of Rocephin and vancomycin. Note that the patient was in the medical floor and overnight the patient got transferred to the ICU as the patient was becoming more short of breath, hypoxic, tachycardic and hypoxic. The patient is currently on 10 L of oxygen nasal cannula. Overnight the patient became tachycardic and she was having runs of SVT. She was placed on Cardizem drip at 5 g and hours and currently heart rate in the mid 90s. She remains in a sinus mechanism. Her chest x-ray was done yesterday and this morning and it shows extensive consolidation in addition to pleural effusion which is loculated in the right lung occupying the lower two thirds of the lung base. Based on this, the patient was brought in in terms of antibiotic coverage and the patient was placed on a combination of Zosyn and Levaquin and vancomycin. The patient had another CAT scan of the chest that showed complex loculated appearing moderate to large right-sided pleural effusion and this has slightly increased from the previous CAT scan of 05/02/2018. The right middle lobe and the right lower lobe is extensively collapse. Is a small left-sided pleural effusion in addition. The patient had a another thoracentesis and ICU and a total of 450 mL of turbid dark exudative pleural effusion was drained from the right lung. No complications. No pneumothorax. No positive cultures from the pleural fluid noted in the blood. Consultation was placed oral thoracic surgery regarding the possibility of a video-assisted thoracoscopic evaluation and decortication. Mentation is well-preserved the patient is alert and awake. Appetite is diminished. No altered mentation. No nausea or vomiting. Chest pain is subsided compared to yesterday. The patient short of breath with limited amount of activity. She is not using excessive muscle breathing at rest. On 05/05/2018 patient seen again in follow-up in the recovery room, she is status post right video-assisted thoracoscopy with decortication extensive right -sided pneumonia with parapneumonic loculated pleural effusion, postop day 0. She is somnolent, but easily arousable to verbal stimuli, she is currently on a simple mask, with FiO2 of 8 L, pulse ox of 92%, her pain is under reasonable control, and there is an epidural catheter in place. Postop patient became slightly hypotensive, and a liter of IV fluids, and Carlos-Synephrine drip is infusing at a rate of 2.6 mics per minute. Patient has 2 right-sided chest tubes to wall suction, and there is small amount of serosanguineous output, no air leak noted. Lung sounds are coarse scattered rhonchi. She denies afebrile , pleural fluid cultures are still pending, blood, sputum, and urine cultures are negative thus far. Patient continues on empiric antibiotics in the form of Levaquin, Zosyn and vancomycin. On nebulized bronchodilators, Symbicort. Follow-up chest x-ray post decortication was reviewed by Dr. Garza and showed 2 right-sided chest tubes, no pneumothorax, pleural effusion is largely resolved , infiltrate remains present, and a small left pleural effusion noted. Patient is awaiting transfer to a bed in the intensive care. Patient was reevaluated today on 05/06/2018, doing well, on nasal cannula, in no distress. T-max is 98.1, vital signs are stable. WBC count is down to 15.4 hemoglobin is 9.3 electrolytes and renal profile are normal. Chest x-ray showed right sided chest tubes in position, no evidence of pneumothorax, patchy basilar infiltrates persist. Patient feels much better today compared to how she felt in the last few days. Breathing easier, and in no distress. Patient was reevaluated today on 05/07/2018, remains in the ICU, but she is hemodynamically stable, on nasal cannula, in no distress, chest x-ray showed significant improvement in her right lung expansion, no evidence of pneumothorax , no evidence of subcu emphysema, continues to have chest tubes [address], minimal amount of bloody drainage noted in the chest tubes. Labs were reviewed chest x-ray was reviewed. Electrolytes are being corrected accordingly. Objective - Vital Signs Vital signs: Vital Signs Temp 97.8 F 05/07/18 08:00 Pulse 82 05/07/18 10:00 Resp 23 05/07/18 10:00 BP 150/69 05/07/18 10:00 Pulse Ox 96 05/07/18 10:00 Intake & Output 05/06/18 05/07/18 05/07/18 18:59 06:59 18:59 Intake Total 1286.0 462.5 795.0 Output Total 595 490 610 Balance 691.0 -27.5 185.0 Intake: IV 836.0 462.5 95.0 0.9 Normal saline for 36 pressure bag Dextrose 5%-0.45% NaCl 1, 350 450 70 000 ml @ 50 mls/hr IV . Q20H [facility] Rx#:[id number] Piperacillin-Tazobactam 3 75.0 12.5 25.0 .375 gm In Dextrose/Water 1 50ml.bag @ 12.5 mls/hr IVPB Q8HR [facility] Rx#: [id number] Vancomycin 1,250 mg In 125 Sodium Chloride 0.9% 250 ml @ 125 mls/hr IVPB Q12H [facility] Rx#:[id number] Vancomycin 1,500 mg In 250 Sodium Chloride 0.9% 250 ml @ 125 mls/hr IVPB Q8H [facility] Rx#:[id number] Oral 450 700 Output: Chest Tube Drainage 130 0 50 Chest Tube Anterior Chest 10 0 40 Chest Tube Posterior 70 0 10 Chest Chest Tube Right 20 Posterior Chest Right Posterior Chest 30 Urine 465 490 560 Other: Voiding Method Indwelling Catheter Indwelling Catheter ABP, PAP, CO, CI - Last Documented Arterial Blood Pressure 105/48 - Exam GENERAL EXAM: Awake, comfortable, in no distress. HEAD: Normocephalic. Atraumatic. EYES: Normal reaction of pupils, equal size. NOSE: Clear with pink turbinates. THROAT: No erythema or exudates. NECK: No masses, no JVD. CHEST: No chest wall deformity. 2 right-sided chest tubes to wall suction with thin serosanguineous output, no evidence of air leak noted LUNGS: Coarse scattered rhonchi bilaterally, CVS: S1 and S2 normal with no audible murmur, regular rhythm. ABDOMEN: No hepatosplenomegaly, normal bowel sounds, no guarding or rigidity. SPINE: No scoliosis or deformity SKIN: No rashes CENTRAL NERVOUS SYSTEM: No focal deficits, tone is normal in all 4 extremities. EXTREMITIES: There is no peripheral edema. No clubbing, no cyanosis. Peripheral pulses are int - Labs CBC & Chem 7: 05/06/18 04:12 05/06/18 04:12 Labs: Microbiology - Last 24 Hours (Table) 05/05/18 12:00 Gram Stain - Preliminary Lung - Right Tissue Culture - Preliminary 05/01/18 18:25 Blood Culture - Preliminary Blood No Growth after 120 hours 05/02/18 13:45 Gram Stain - Preliminary Pleural Fluid Body Fluid Culture - Preliminary Alpha Hemolytic Streptococcus Assessment and Plan Assessment: 1 right lung multilobar pneumonia, likely gram-negative in nature, complicated by development of parapneumonic effusion with early loculations and compressive atelectasis, patient is status post right-sided video-assisted thoracoscopy decortication, postoperative day #2. Patient status post 2 right-sided thoracentesis, would removal of a total of 900 mL of parapneumonic pleural effusion fluid, pleural fluid positive for alphahemolytic strep, patient remains on Zosyn and vancomycin as well as Levaquin. Culture from the surgical specimen is pending. 2 acute hypoxic respiratory failure secondary to above, improving 3 acute leukocytosis secondary to above, improving 4 COPD 5 urine drug screen for opiates, amphetamine and methamphetamine's 6 abnormal LFTs 7 smoker 8 sinus tachycardia currently on a Cardizem drip at 5 mg an hour. Plan continue present supportive care measures, antibiotics, bronchodilators, incentive spirometry, GI and DVT prophylaxis, patient can be transferred out of the ICU to a monitor bed on selective. Time with Patient: Less than 30
[2018-05-07 11:43] LABS: Basophils # (A) 0.1 k/uL (0-0.2); Basophils % (A) 1 %; Eosinophils # (A) 0.2 k/uL (0-0.7); Eosinophils % (A) 2 %; HCT 31.3 % (34.0-46.0); HGB 9.9 gm/dL (11.4-16.0); Hypochromasia Slight; Lymphocytes # (A) 1.7 k/uL (1.0-4.8); Lymphocytes % (A) 16 %; MCHC 31.6 g/dL (31.0-37.0); Mean Platelet Volume 8.6; Monocytes % (A) 9 %; Neutrophils # (A) 7.4 k/uL (1.3-7.7); Neutrophils % (A) 71 %; Platelet Count 340 k/uL (150-450); RDW 13.4 % (11.5-15.5); WBC 10.5 k/uL (3.8-10.6)
--- NOTE | 2018-05-07 13:45 | P.PN ---
Subjective Progress Note Date: 05/07/18 Principal diagnosis: Right-sided empyema, loculated right pleural effusion with extensive right lung multilobular pneumonia, history of tobacco dependence smokes about 1-1-1/2 packs of cigarettes per day. POD #2 right thoracotomy for total right pleural and pulmonary decortication. The patient is laying in bed with her head elevated. She is in no acute distress. She denies any complaints of shortness of breath or pain at this time. She reports that her pain has been well controlled. She is achieving 750 mL with encouragement on her incentive spirometry. Her epidural remains in place at 3 mL per hour. Objective - Vital Signs Vital signs: Vital Signs Temp 98 F 05/07/18 00:00 Pulse 79 05/07/18 02:00 Resp 14 05/07/18 02:00 BP 125/65 05/07/18 02:00 Pulse Ox 96 05/07/18 02:00 Intake & Output 05/06/18 05/07/18 05/07/18 18:59 06:59 18:59 Intake Total 1286.0 462.5 Output Total 595 490 Balance 691.0 -27.5 Intake: IV 836.0 462.5 0.9 Normal saline for 36 pressure bag Dextrose 5%-0.45% NaCl 1, 350 450 000 ml @ 50 mls/hr IV . Q20H [facility] Rx#:[id number] Piperacillin-Tazobactam 3 75.0 12.5 .375 gm In Dextrose/Water 1 50ml.bag @ 12.5 mls/hr IVPB Q8HR [facility] Rx#: [id number] Vancomycin 1,250 mg In 125 Sodium Chloride 0.9% 250 ml @ 125 mls/hr IVPB Q12H [facility] Rx#:[id number] Vancomycin 1,500 mg In 250 Sodium Chloride 0.9% 250 ml @ 125 mls/hr IVPB Q8H [facility] Rx#:[id number] Oral 450 Output: Chest Tube Drainage 130 0 Chest Tube Anterior Chest 10 0 Chest Tube Posterior 70 0 Chest Chest Tube Right 20 Posterior Chest Right Posterior Chest 30 Urine 465 490 Other: Voiding Method Indwelling Catheter Indwelling Catheter ABP, PAP, CO, CI - Last Documented Arterial Blood Pressure 105/48 - Constitutional General appearance: Present: cooperative, no acute distress - Respiratory Details: Lung sounds are essentially clear throughout, diminished her her right lower lobe. Respirations are symmetrical and nonlabored. Oxygen saturation are 97% on 4 L nasal cannula. She is achieving 750 mL on her incentive spirometry. Right anterior and posterior chest tubes remained to low continuous wall suction -20 cm H2O. They are draining thin serosanguineous drainage. No air leak present. Anterior right pleural chest tube drained 40 mL in the last 24 hours, posterior right pleural chest tube drained 200 mL in the last 24 hours. - Cardiovascular Details: Regular rhythm and rate. S1 and S2 present, negative for S3, gallop or murmur. Bedside telemetry showing normal sinus rhythm with bundle branch block heart rate 80. No edema present. Knee-high sequential compression devices in place to her bilateral lower extremities. - Gastrointestinal Gastrointestinal Comment(s): Abdomen is soft, nontender and nondistended. Active bowel sounds all 4 abdominal quadrants. Tolerating oral intake. Passing flatus. No organomegaly. No palpable masses. - Genitourinary Genitourinary Comment(s): Alicea catheter for accurate I&O. Draining clear yellow urine. 1250 mL output in the last 8 hours. - Integumentary Integumentary Comment(s): Skin is warm and dry. No clubbing or cyanosis present. Right thoracotomy incision clean dry and approximated. Scant serosanguineous drainage. No redness present. No rash or abnormal pigmentation present. - Neurologic Neurologic: Present: CNII-XII intact - Musculoskeletal Musculoskeletal: Present: gait normal, strength equal bilaterally - Psychiatric Psychiatric: Present: A&O x's 3, appropriate affect, intact judgment & insight - Allied health notes Allied health notes reviewed: nursing - Labs CBC & Chem 7: 05/06/18 04:12 05/06/18 04:12 Labs: Microbiology - Last 24 Hours (Table) 05/05/18 12:00 Gram Stain - Preliminary Lung - Right Tissue Culture - Preliminary 05/01/18 18:25 Blood Culture - Preliminary Blood No Growth after 120 hours 05/02/18 13:45 Gram Stain - Preliminary Pleural Fluid Body Fluid Culture - Preliminary Alpha Hemolytic Streptococcus - Imaging and Cardiology Chest x-ray: report reviewed, image reviewed Assessment and Plan (1) COPD (chronic obstructive pulmonary disease) Current Visit: Yes Status: Acute Code(s): J44.9 - CHRONIC OBSTRUCTIVE PULMONARY DISEASE, UNSPECIFIED SNOMED Code(s): 26878248 (2) Leukocytosis (leucocytosis) Current Visit: Yes Status: Acute Code(s): D72.829 - ELEVATED WHITE BLOOD CELL COUNT, UNSPECIFIED SNOMED Code(s): 045582438 (3) Elevated LFTs Current Visit: Yes Status: Acute Code(s): R94.5 - ABNORMAL RESULTS OF LIVER FUNCTION STUDIES SNOMED Code(s): 274413310 (4) Nicotine dependence with current use Current Visit: Yes Status: Acute Code(s): F17.200 - NICOTINE DEPENDENCE, UNSPECIFIED, UNCOMPLICATED SNOMED Code(s): 939228252 (5) Pleural effusion, right Current Visit: Yes Status: Acute Code(s): J90 - PLEURAL EFFUSION, NOT ELSEWHERE CLASSIFIED SNOMED Code(s): 76841749 (6) Pneumonia involving right lung Current Visit: Yes Status: Acute Code(s): J18.9 - PNEUMONIA, UNSPECIFIED ORGANISM SNOMED Code(s): 715409163 (7) Chest wall pain Current Visit: No Status: Acute Code(s): R07.89 - OTHER CHEST PAIN SNOMED Code(s): 392168270 Plan: 1. We will remove her right anterior chest tube, we will keep her posterior chest tube in place to water seal. 2. Encourage use of her incentive spirometry every hour while awake. 3. Continue epidural managed by anesthesia. 4. Pain control per when necessary orders. 5. GI and DVT prophylaxis. Continue sequential compression devices. 6. Increase activity as tolerated. PT and OT following. 7. May transferred to [address] [place] [address] per cardiothoracic standpoint when okay with intensive care service. 8. Antibiotic management per pulmonary care service. 9. Pleural cytology results show dense acute inflammatory cells consistent with empyema. No cytologically malignant cells were identified. 10. We will discontinue her Alicea catheter. 11. Further recommendations to follow based on patient's clinical course. Time with Patient: Greater than 30
[2018-05-07] MEDS: HYDROcodone/APAP 5-325MG 1 EACH TAB PO PRN ×2 (16:26→20:52)
[2018-05-07] MEDS: ALPRAZolam 0.25 MG TAB PO PRN (18:15)
--- NOTE | 2018-05-07 20:42 | P.PN ---
Subjective Progress Note Date: 05/06/18 Progress note being dictated for Dr. Marina Interval history: This 57-year-old female admitted with right lower lobe multifocal pneumonia with parapneumonic effusion, possible sepsis, elevated LFTs and multiple other medical issues. Evaluated by pulmonary with recommendations noted. Drug screen positive for opiates, amphetamines and methamphetamines. Significant shakiness, denies alcohol consumption/abuse. Sodium improved. WBC up to 20, and steroids. Chest x-ray reports increasing right pleural effusion. Liver ultrasound Limited study secondary to patient's shaking, shortness of breath, reporting large pleural effusion, thickening of gallbladder wall, possible acute cholecystitis. Chest CT reporting worsening moderate right-sided pleural effusion collection/loculation with associated compressive atelectasis and/or consolidation, suspect infectious etiology, mild- to-moderate emphysematous change. Underwent right-sided thoracentesis with 450 MLS cloudy dark yellow pleural fluid removed. Tolerated procedure well. Pain improved. Maintained on vancomycin and Rocephin. Review of systems: CONSTITUTIONAL: No fever, positive fatigue. HEENT: No recent visual problems or hearing problems. Denied any sore throat. CARDIOVASCULAR: No chest pain, orthopnea, PND, no palpitations, no syncope. PULMONARY: Short of breath ,Positive exertional dyspnea, GASTROINTESTINAL: No diarrhea, no nausea, no vomiting, no abdominal pain. Normoactive bowel sounds. NEUROLOGICAL: No headaches, no weakness, no numbness. HEMATOLOGICAL: Denies any bleeding or petechiae. GENITOURINARY: Denies any burning micturition, frequency, or urgency. MUSCULOSKELETAL/RHEUMATOLOGICAL: Denies any joint pain, swelling, or any muscle pain. ENDOCRINE: Denies any polyuria or polydipsia. PSYCHIATRIC: No anxiety, no depression The rest of the 14 point review of systems is negative Active Medications Acetaminophen (Tylenol Tab) 650 mg PO Q6HR PRN PRN Reason: Mild Pain or Fever > 100.5 Hydrocodone Bitart/Acetaminophen ([place] 5-325) 1 each PO Q6HR PRN PRN Reason: Moderate Pain Last Admin: 05/02/18 09:55 Dose: 1 each Albuterol/Ipratropium (Duoneb 0.5 Mg-3 Mg/3 Ml Soln) 3 ml INHALATION RT-QID [facility] Last Admin: 05/02/18 15:48 Dose: 3 ml Albuterol/Ipratropium (Duoneb 0.5 Mg-3 Mg/3 Ml Soln) 3 ml INHALATION RT-TID PRN PRN Reason: Shortness Of Breath Or Wheezing Alprazolam (Xanax) 0.25 mg PO TID PRN PRN Reason: Anxiety Budesonide/Formoterol Fumarate (Symbicort 160-4.5 Mcg Inhaler) 2 puff INHALATION RT-BID [facility] Last Admin: 05/02/18 13:48 Dose: Not Given Ceftriaxone Sodium (Rocephin) 1,000 mg IVP Q24HR [facility] Last Admin: 05/02/18 09:39 Dose: 1,000 mg Cyclobenzaprine HCl (Flexeril) 10 mg PO TID [facility] Last Admin: 05/02/18 15:42 Dose: 10 mg Heparin Sodium (Porcine) (Heparin) 5,000 unit SQ Q12HR [facility] Last Admin: 05/02/18 09:39 Dose: 5,000 unit Sodium Chloride (Saline 0.9%) 1,000 mls @ 75 mls/hr IV .[id number] [facility] Last Admin: 05/02/18 09:40 Dose: 75 mls/hr Vancomycin HCl 1,250 mg/ (Sodium Chloride) 250 mls @ 125 mls/hr IVPB Q12H [facility] Ketorolac Tromethamine (Toradol) 30 mg IVP Q6HR PRN PRN Reason: Moderate Pain Stop: 05/06/18 19:32 Last Admin: 05/02/18 05:30 Dose: 30 mg Lorazepam (Ativan) 1 mg IV Q4HR PRN PRN Reason: Anxiety Miscellaneous Information (Rx Info: Iv Contrast Was Given) 1 each MISCELLANE DAILY PRN PRN Reason: Per Protocol Stop: 05/04/18 09:34 Naloxone HCl (Narcan) 0.2 mg IV Q2M PRN PRN Reason: Opioid Reversal Nicotine (Habitrol 14mg/24hr Patch) 1 patch TRANSDERM DAILY [facility] Last Admin: 05/02/18 09:39 Dose: 1 patch Pantoprazole Sodium (Protonix) 40 mg PO AC-BRKFST [facility] Last Admin: 05/02/18 09:39 Dose: 40 mg Temazepam (Restoril) 15 mg PO HS PRN PRN Reason: Insomnia 05/06/2018 chest x-ray reporting persistence patchy bibasilar infiltrates. Maintained on nebulized bronchodilators, triple antibiotics of Levaquin, Zosyn and vancomycin. Afebrile. Breathing better. Chest tubes to waterseal.Pain controlled on epidural pump. Maintaining O2 sats of mid 90s on 4 L nasal cannula. Review of Systems: CV: As mentioned earlier RESP: As mentioned earlier GI: No nausea, vomiting : No dysuria or retention NERVOUS SYS: No numbness, weakness Active Medications Acetaminophen (Tylenol Tab) 650 mg PO Q6HR PRN PRN Reason: Mild Pain or Fever > 100.5 Hydrocodone Bitart/Acetaminophen ([place] 5-325) 1 each PO Q6HR PRN PRN Reason: Moderate Pain Last Admin: 05/07/18 16:26 Dose: 1 each Albuterol/Ipratropium (Duoneb 0.5 Mg-3 Mg/3 Ml Soln) 3 ml INHALATION RT-QID [facility] Last Admin: 05/07/18 19:36 Dose: 3 ml Albuterol/Ipratropium (Duoneb 0.5 Mg-3 Mg/3 Ml Soln) 3 ml INHALATION RT-TID PRN PRN Reason: Shortness Of Breath Or Wheezing Alprazolam (Xanax) 0.25 mg PO TID PRN PRN Reason: Anxiety Last Admin: 05/07/18 18:15 Dose: 0.25 mg Bisacodyl (Dulcolax) 10 mg RECTAL DAILY PRN PRN Reason: Constipation Budesonide/Formoterol Fumarate (Symbicort 160-4.5 Mcg Inhaler) 2 puff INHALATION RT-BID [facility] Last Admin: 05/07/18 19:42 Dose: 2 puff Cyclobenzaprine HCl (Flexeril) 10 mg PO TID [facility] Last Admin: 05/07/18 16:25 Dose: 10 mg Diphenhydramine HCl (Benadryl) 25 mg IVP Q6HR PRN PRN Reason: Itching Heparin Sodium (Porcine) (Heparin) 5,000 unit SQ Q12HR [facility] Last Admin: 05/07/18 10:53 Dose: Not Given Piperacillin/Tazobactam/ (Dextrose 3.375 gm/ IV Solution) 50 mls @ 12.5 mls/hr IVPB Q8HR [facility] Last Admin: 05/07/18 16:20 Dose: 12.5 mls/hr Ropivacaine 400 mg/Hydromorphone HCl 5 mg/ Sodium Chloride 250 mls @ 0 mls/hr EPIDURAL .Q0M PRN; Protocol PRN Reason: Pain Control Last Admin: 05/05/18 16:00 Dose: 3 mls/hr Phenylephrine HCl 40 mg/ (Sodium Chloride) 254 mls @ 0 mls/hr IV .Q0M [facility]RISTINE; Protocol Last Admin: 05/05/18 14:30 Dose: 10 mls Vancomycin HCl 1,500 mg/ (Sodium Chloride) 250 mls @ 125 mls/hr IVPB Q8H [facility] Last Admin: 05/07/18 13:47 Dose: 125 mls/hr Lactulose (Cephulac) 20 gm PO HS PRN PRN Reason: CONSTIPATION Levofloxacin (Levaquin) 750 mg PO HS [facility] Last Admin: 05/06/18 20:21 Dose: 750 mg Metoprolol Tartrate (Lopressor) 12.5 mg PO BID [facility] Last Admin: 05/07/18 10:53 Dose: Not Given Miscellaneous Information (Potassium Per Protocol) 1 each MISCELLANE DAILY PRN ; Protocol PRN Reason: Per Protocol Miscellaneous Information (Vancomycin Trough Due) 0 each MISCELLANE DIRECTED ONE Stop: 05/08/18 04:01 Morphine Sulfate (Morphine Sulfate (Inj)) 4 mg IVP Q4H PRN PRN Reason: Severe Pain Last Admin: 05/05/18 20:37 Dose: 4 mg Morphine Sulfate (Morphine Sulfate (Inj)) 2 mg IVP Q4HR PRN PRN Reason: Moderate Pain Naloxone HCl (Narcan) 0.2 mg IV Q2M PRN PRN Reason: Opioid Reversal Nicotine (Habitrol 14mg/24hr Patch) 1 patch TRANSDERM DAILY [facility] Last Admin: 05/07/18 10:53 Dose: Not Given Ondansetron HCl (Zofran) 4 mg IVP Q8HR PRN PRN Reason: Nausea And Vomiting Pantoprazole Sodium (Protonix) 40 mg PO AC-BRKFST [facility] Last Admin: 05/07/18 10:52 Dose: Not Given Temazepam (Restoril) 15 mg PO HS PRN PRN Reason: Insomnia Last Admin: 05/04/18 18:04 Dose: 15 mg Objective - Vital Signs Vital signs: Vital Signs Temp 98.1 F 05/06/18 16:00 Pulse 94 05/06/18 17:00 Resp 28 H 05/06/18 17:00 BP 123/62 05/06/18 17:00 Pulse Ox 89 L 05/06/18 17:00 Intake & Output 05/05/18 05/06/18 05/06/18 18:59 06:59 18:59 Intake Total 2175.0 1533.0 1220.5 Output Total 1180 725 540 Balance 995.0 808.0 680.5 Weight 79.1 kg Intake: IV 2175.0 1233.0 770.5 0.9 Normal saline for 33 33 pressure bag Dextrose 5%-0.45% NaCl 1, 150 600 300 000 ml @ 50 mls/hr IV . Q20H [facility] Rx#:[id number] Levofloxacin 750Mg-D5w 150 Pmx 750 mg In Dextrose/ Water 1 150ml.bag @ 100 mls/hr IVPB Q24H [facility] Rx#: [id number] NS KVO 40 Piperacillin-Tazobactam 3 25.0 75.0 62.5 .375 gm In Dextrose/Water 1 50ml.bag @ 12.5 mls/hr IVPB Q8HR [facility] Rx#: [id number] Vancomycin 1,250 mg In 375 125 Sodium Chloride 0.9% 250 ml @ 125 mls/hr IVPB Q12H [facility] Rx#:[id number] Vancomycin 1,500 mg In 250 Sodium Chloride 0.9% 250 ml @ 125 mls/hr IVPB Q8H [facility] Rx#:[id number] Oral 300 450 Output: Chest Tube Drainage 170 140 110 Chest Tube Anterior Chest 10 Chest Tube Posterior 50 Chest Chest Tube Right 70 20 Posterior Chest Right Posterior Chest 170 70 30 Urine 810 585 430 Estimated Blood Loss 200 Other: Voiding Method Indwelling Catheter Indwelling Catheter Indwelling Catheter ABP, PAP, CO, CI - Last Documented Arterial Blood Pressure 105/48 - Exam PHYSICAL EXAM: VITAL SIGNS: As above GENERAL: Sitting up in bed, tired appearing HEENT: Conjunctivae normal. eyes normal. Oral mucosa moist NECK: No JVD. No thyroid enlargement. No LNs CARDIOVASCULAR: S1, S2 muffled. No murmur RESPIRATION: Breath sounds diminished in the bases. coarse rhonchi, no crackles. Right-sided chest tubes 2 with serosanguineous drainage ABDOMEN: Soft, nontender . No guarding. no masses palpable. No ascites, No hepatosplenomegaly.Bowel sounds heard. LEGS: No edema. no swelling PSYCHIATRY: Alert and oriented -3, mood and affect normal. NERVOUS SYSTEM: Cranial N 2-12 grossly normal. Moves all 4 limbs. Diffuse weakness No focal deficits. No sensory deficit. No signs of cerebellar dysfucntion. Skin: no ulcer no rash Joints: No active swelling. No inflammation. Lymphatic system. No LN neck axilla or groin. - Labs CBC & Chem 7: 05/07/18 10:28 05/07/18 10:28 Labs: Abnormal Lab Results - Last 24 Hours (Table) 05/06/18 05/06/18 Range/Units 04:12 04:12 WBC 15.4 H (3.8-10.6) k/uL RBC 3.11 L (3.80-5.40) m/uL Hgb 9.3 L (11.4-16.0) gm/dL Hct 29.0 L (34.0-46.0) % Neutrophils # 13.4 H (1.3-7.7) k/uL BUN 18 H (7-17) mg/dL Glucose 129 H (74-99) mg/dL Calcium 8.2 L (8.4-10.2) mg/dL Phosphorus 4.6 H (2.5-4.5) mg/dL Microbiology - Last 24 Hours (Table) 05/02/18 13:45 Gram Stain - Preliminary Pleural Fluid Body Fluid Culture - Preliminary Alpha Hemolytic Streptococcus 05/05/18 12:00 Gram Stain - Preliminary Lung - Right Tissue Culture - Preliminary 05/01/18 18:25 Blood Culture - Preliminary Blood No Growth after 96 hours 05/05/18 12:00 Anaerobic Culture - Preliminary Lung - Right Assessment and Plan Assessment: 1. Sepsis secondary to Acute extensive right lower lobe multifocal pneumonia with parapneumonic effusion, possible empyema, loculated , compressive atelectasis present on admission. Chest CT reporting worsening moderate right- sided pleural effusion collection/loculation with associated compressive atelectasis and/or consolidation, suspect infectious etiology, [id number] emphysematous change.Status post right paracentesis. 2. Status post decortication and chest tube drainage 2. Leukocytosis secondary to #1 3. Acute hypoxic respiratory failure secondary to #1 4. Elevated LFTs 5. Ongoing nicotine dependence 6. Drug screen positive for opiates, amphetamines and methamphetamines Plan: Continue on current medication regime ,monitoring and symptomatic treatment. Maintain nebulized bronchodilators, antibiotics. Pleural cytology pending. Aggressive pulmonary toileting with incentive spirometer reinforced. Follow closely with pulmonary, cardiothoracic surgery. Potential transfer out of ICU tomorrow. Prognosis guarded given multiple complex medical issues. The impression and plan of care has been dictated as directed. : I performed a history and examination of this patient, discussed the same with the dictator. I agree with the dictator's note ,documented as a scribe. Any additional findings or plans will be noted.
[2018-05-07] MEDS: LEVOFLOXACIN 750 MG TAB PO SCH (20:51)
[2018-05-07] MEDS ORDERED: LACTULOSE 20 GM/30 ML CUP PO PRN (21:00)
[2018-05-08] MEDS: PIPERACILLIN-TAZOBACTAM 3.375 GM in DEXTROSE/WATER 1 50ML.BAG IVPB SCH ×3 (00:47→19:44)
[2018-05-08] MEDS ORDERED: VANCOMYCIN TROUGH DUE 1 EACH MISC MISCELLANE ONE (04:00)
[2018-05-08 04:51] LABS: Basophils # (A) 0.1 k/uL (0-0.2); Basophils % (A) 1 %; Eosinophils # (A) 0.3 k/uL (0-0.7); Eosinophils % (A) 3 %; HCT 28.9 % (34.0-46.0); HGB 9.1 gm/dL (11.4-16.0); Lymphocytes # (A) 1.6 k/uL (1.0-4.8); Lymphocytes % (A) 16 %; MCH 29.5 pg (25.0-35.0); MCHC 31.5 g/dL (31.0-37.0); MCV 93.6 fL (80.0-100.0); Mean Platelet Volume 6.7; Monocytes # (A) 0.8 k/uL (0-1.0); Monocytes % (A) 8 %; Neutrophils # (A) 6.6 k/uL (1.3-7.7); Neutrophils % (A) 70 %; Platelet Count 462 k/uL (150-450); RBC 3.08 m/uL (3.80-5.40); RDW 13.5 % (11.5-15.5); WBC 9.4 k/uL (3.8-10.6)
[2018-05-08 04:54] LABS: Calcium 8.5 mg/dL (8.4-10.2); Magnesium 2.2 mg/dL (1.6-2.3); Potassium 4.3 mmol/L (3.5-5.1)
[2018-05-08] MEDS: VANCOMYCIN 1,500 MG in SODIUM CHLORIDE 0.9% 250 ML IVPB SCH ×2 (05:19→21:07)
[2018-05-08] MEDS: HYDROcodone/APAP 5-325MG 1 EACH TAB PO PRN ×2 (07:08→17:15)
--- NOTE | 2018-05-08 07:32 | XR ---
EXAMINATION TYPE: XR chest 1V DATE OF EXAM: 05/08/2018 COMPARISON: 05/07/2018 HISTORY: SOB, Follow Up FINDINGS: One of 2 right-sided chest tubes has been removed. Single chest tube remains in place. Less than 10% right-sided pneumothorax persists. No change in bibasilar opacities. Stable appearance of the cardio-mediastinal structures at this time. Pleural effusion unchanged. IMPRESSION: 1. Essentially Stable portable chest. Removal of one right-sided chest tube. Clinical correlation a nd follow up until resolution is recommended.
[2018-05-08] MEDS: IPRATROPIUM-ALBUTEROL 3 ML NEB INHALATION SCH ×4 (07:53→19:06)
[2018-05-08] MEDS: SYMBICORT 160-4.5 MCG INHALER INHALATION SCH ×2 (07:53→19:06)
[2018-05-08] MEDS: NICOTINE 14MG/24HR PATCH TRANSDERM SCH (08:55)
[2018-05-08] MEDS: CYCLOBENZAPRINE 10 MG TAB PO SCH ×3 (08:56→21:06)
[2018-05-08] MEDS: METOPROLOL TARTRATE 12.5 MG TAB PO SCH (08:56)
[2018-05-08] MEDS: HEPARIN SODIUM,PORCINE 5,000 UNIT/ML 1 ML VIAL SQ SCH ×2 (08:56→21:06)
[2018-05-08] MEDS: PANTOPRAZOLE 40 MG TABLET PO SCH (09:04)
--- NOTE | 2018-05-08 09:17 | P.PN ---
Subjective Progress Note Date: 05/07/18 Progress note being dictated for Dr. Marina Interval history: This 57-year-old female admitted with right lower lobe multifocal pneumonia with parapneumonic effusion, possible sepsis, elevated LFTs and multiple other medical issues. Evaluated by pulmonary with recommendations noted. Drug screen positive for opiates, amphetamines and methamphetamines. Significant shakiness, denies alcohol consumption/abuse. Sodium improved. WBC up to 20, and steroids. Chest x-ray reports increasing right pleural effusion. Liver ultrasound Limited study secondary to patient's shaking, shortness of breath, reporting large pleural effusion, thickening of gallbladder wall, possible acute cholecystitis. Chest CT reporting worsening moderate right-sided pleural effusion collection/loculation with associated compressive atelectasis and/or consolidation, suspect infectious etiology, mild- to-moderate emphysematous change. Underwent right-sided thoracentesis with 450 MLS cloudy dark yellow pleural fluid removed. Tolerated procedure well. Pain improved. Maintained on vancomycin and Rocephin. Review of systems: CONSTITUTIONAL: No fever, positive fatigue. HEENT: No recent visual problems or hearing problems. Denied any sore throat. CARDIOVASCULAR: No chest pain, orthopnea, PND, no palpitations, no syncope. PULMONARY: Short of breath ,Positive exertional dyspnea, GASTROINTESTINAL: No diarrhea, no nausea, no vomiting, no abdominal pain. Normoactive bowel sounds. NEUROLOGICAL: No headaches, no weakness, no numbness. HEMATOLOGICAL: Denies any bleeding or petechiae. GENITOURINARY: Denies any burning micturition, frequency, or urgency. MUSCULOSKELETAL/RHEUMATOLOGICAL: Denies any joint pain, swelling, or any muscle pain. ENDOCRINE: Denies any polyuria or polydipsia. PSYCHIATRIC: No anxiety, no depression The rest of the 14 point review of systems is negative Active Medications Acetaminophen (Tylenol Tab) 650 mg PO Q6HR PRN PRN Reason: Mild Pain or Fever > 100.5 Hydrocodone Bitart/Acetaminophen ([place] 5-325) 1 each PO Q6HR PRN PRN Reason: Moderate Pain Last Admin: 05/02/18 09:55 Dose: 1 each Albuterol/Ipratropium (Duoneb 0.5 Mg-3 Mg/3 Ml Soln) 3 ml INHALATION RT-QID [facility] Last Admin: 05/02/18 15:48 Dose: 3 ml Albuterol/Ipratropium (Duoneb 0.5 Mg-3 Mg/3 Ml Soln) 3 ml INHALATION RT-TID PRN PRN Reason: Shortness Of Breath Or Wheezing Alprazolam (Xanax) 0.25 mg PO TID PRN PRN Reason: Anxiety Budesonide/Formoterol Fumarate (Symbicort 160-4.5 Mcg Inhaler) 2 puff INHALATION RT-BID [facility] Last Admin: 05/02/18 13:48 Dose: Not Given Ceftriaxone Sodium (Rocephin) 1,000 mg IVP Q24HR [facility] Last Admin: 05/02/18 09:39 Dose: 1,000 mg Cyclobenzaprine HCl (Flexeril) 10 mg PO TID [facility] Last Admin: 05/02/18 15:42 Dose: 10 mg Heparin Sodium (Porcine) (Heparin) 5,000 unit SQ Q12HR [facility] Last Admin: 05/02/18 09:39 Dose: 5,000 unit Sodium Chloride (Saline 0.9%) 1,000 mls @ 75 mls/hr IV .[id number] [facility] Last Admin: 05/02/18 09:40 Dose: 75 mls/hr Vancomycin HCl 1,250 mg/ (Sodium Chloride) 250 mls @ 125 mls/hr IVPB Q12H [facility] Ketorolac Tromethamine (Toradol) 30 mg IVP Q6HR PRN PRN Reason: Moderate Pain Stop: 05/06/18 19:32 Last Admin: 05/02/18 05:30 Dose: 30 mg Lorazepam (Ativan) 1 mg IV Q4HR PRN PRN Reason: Anxiety Miscellaneous Information (Rx Info: Iv Contrast Was Given) 1 each MISCELLANE DAILY PRN PRN Reason: Per Protocol Stop: 05/04/18 09:34 Naloxone HCl (Narcan) 0.2 mg IV Q2M PRN PRN Reason: Opioid Reversal Nicotine (Habitrol 14mg/24hr Patch) 1 patch TRANSDERM DAILY [facility] Last Admin: 05/02/18 09:39 Dose: 1 patch Pantoprazole Sodium (Protonix) 40 mg PO AC-BRKFST [facility] Last Admin: 05/02/18 09:39 Dose: 40 mg Temazepam (Restoril) 15 mg PO HS PRN PRN Reason: Insomnia 05/06/2018 chest x-ray reporting persistence patchy bibasilar infiltrates. Maintained on nebulized bronchodilators, triple antibiotics of Levaquin, Zosyn and vancomycin. Afebrile. Breathing better. Chest tubes to waterseal.Pain controlled on epidural pump. Maintaining O2 sats of mid 90s on 4 L nasal cannula. Review of Systems: CV: As mentioned earlier RESP: As mentioned earlier GI: No nausea, vomiting : No dysuria or retention NERVOUS SYS: No numbness, weakness Active Medications Acetaminophen (Tylenol Tab) 650 mg PO Q6HR PRN PRN Reason: Mild Pain or Fever > 100.5 Hydrocodone Bitart/Acetaminophen ([place] 5-325) 1 each PO Q6HR PRN PRN Reason: Moderate Pain Last Admin: 05/07/18 16:26 Dose: 1 each Albuterol/Ipratropium (Duoneb 0.5 Mg-3 Mg/3 Ml Soln) 3 ml INHALATION RT-QID [facility] Last Admin: 05/07/18 19:36 Dose: 3 ml Albuterol/Ipratropium (Duoneb 0.5 Mg-3 Mg/3 Ml Soln) 3 ml INHALATION RT-TID PRN PRN Reason: Shortness Of Breath Or Wheezing Alprazolam (Xanax) 0.25 mg PO TID PRN PRN Reason: Anxiety Last Admin: 05/07/18 18:15 Dose: 0.25 mg Bisacodyl (Dulcolax) 10 mg RECTAL DAILY PRN PRN Reason: Constipation Budesonide/Formoterol Fumarate (Symbicort 160-4.5 Mcg Inhaler) 2 puff INHALATION RT-BID [facility] Last Admin: 05/07/18 19:42 Dose: 2 puff Cyclobenzaprine HCl (Flexeril) 10 mg PO TID [facility] Last Admin: 05/07/18 16:25 Dose: 10 mg Diphenhydramine HCl (Benadryl) 25 mg IVP Q6HR PRN PRN Reason: Itching Heparin Sodium (Porcine) (Heparin) 5,000 unit SQ Q12HR [facility] Last Admin: 05/07/18 10:53 Dose: Not Given Piperacillin/Tazobactam/ (Dextrose 3.375 gm/ IV Solution) 50 mls @ 12.5 mls/hr IVPB Q8HR [facility] Last Admin: 05/07/18 16:20 Dose: 12.5 mls/hr Ropivacaine 400 mg/Hydromorphone HCl 5 mg/ Sodium Chloride 250 mls @ 0 mls/hr EPIDURAL .Q0M PRN; Protocol PRN Reason: Pain Control Last Admin: 05/05/18 16:00 Dose: 3 mls/hr Phenylephrine HCl 40 mg/ (Sodium Chloride) 254 mls @ 0 mls/hr IV .Q0M [facility]; Protocol Last Admin: 05/05/18 14:30 Dose: 10 mls Vancomycin HCl 1,500 mg/ (Sodium Chloride) 250 mls @ 125 mls/hr IVPB Q8H [facility] Last Admin: 05/07/18 13:47 Dose: 125 mls/hr Lactulose (Cephulac) 20 gm PO HS PRN PRN Reason: CONSTIPATION Levofloxacin (Levaquin) 750 mg PO HS [facility] Last Admin: 05/06/18 20:21 Dose: 750 mg Metoprolol Tartrate (Lopressor) 12.5 mg PO BID [facility] Last Admin: 05/07/18 10:53 Dose: Not Given Miscellaneous Information (Potassium Per Protocol) 1 each MISCELLANE DAILY PRN ; Protocol PRN Reason: Per Protocol Miscellaneous Information (Vancomycin Trough Due) 0 each MISCELLANE DIRECTED ONE Stop: 05/08/18 04:01 Morphine Sulfate (Morphine Sulfate (Inj)) 4 mg IVP Q4H PRN PRN Reason: Severe Pain Last Admin: 05/05/18 20:37 Dose: 4 mg Morphine Sulfate (Morphine Sulfate (Inj)) 2 mg IVP Q4HR PRN PRN Reason: Moderate Pain Naloxone HCl (Narcan) 0.2 mg IV Q2M PRN PRN Reason: Opioid Reversal Nicotine (Habitrol 14mg/24hr Patch) 1 patch TRANSDERM DAILY [facility] Last Admin: 05/07/18 10:53 Dose: Not Given Ondansetron HCl (Zofran) 4 mg IVP Q8HR PRN PRN Reason: Nausea And Vomiting Pantoprazole Sodium (Protonix) 40 mg PO AC-BRKFST [facility] Last Admin: 05/07/18 10:52 Dose: Not Given Temazepam (Restoril) 15 mg PO HS PRN PRN Reason: Insomnia Last Admin: 05/04/18 18:04 Dose: 15 mg 05/07/18 chest using minimal drainage. Chest x-ray reporting stable, persistence monitor moderate right greater than left inferior pleural fluid collections with bibasilar atelectasis/infiltrates, no evidence of pneumothorax. Pleural cytology reporting dense acute inflammatory cells consistent with empyema. No cytologically malignant cells identified. Sitting up in chair, await transfer to telemetry floor. Review of Systems: CV: As mentioned earlier RESP: As mentioned earlier GI: No nausea, vomiting : No dysuria or retention NERVOUS SYS: No numbness, weakness Active Medications Acetaminophen (Tylenol Tab) 650 mg PO Q6HR PRN PRN Reason: Mild Pain or Fever > 100.5 Hydrocodone Bitart/Acetaminophen ([place] 5-325) 1 each PO Q6HR PRN PRN Reason: Moderate Pain Last Admin: 05/07/18 16:26 Dose: 1 each Albuterol/Ipratropium (Duoneb 0.5 Mg-3 Mg/3 Ml Soln) 3 ml INHALATION RT-QID [facility] Last Admin: 05/07/18 19:36 Dose: 3 ml Albuterol/Ipratropium (Duoneb 0.5 Mg-3 Mg/3 Ml Soln) 3 ml INHALATION RT-TID PRN PRN Reason: Shortness Of Breath Or Wheezing Alprazolam (Xanax) 0.25 mg PO TID PRN PRN Reason: Anxiety Last Admin: 05/07/18 18:15 Dose: 0.25 mg Bisacodyl (Dulcolax) 10 mg RECTAL DAILY PRN PRN Reason: Constipation Budesonide/Formoterol Fumarate (Symbicort 160-4.5 Mcg Inhaler) 2 puff INHALATION RT-BID [facility] Last Admin: 05/07/18 19:42 Dose: 2 puff Cyclobenzaprine HCl (Flexeril) 10 mg PO TID [facility] Last Admin: 05/07/18 16:25 Dose: 10 mg Diphenhydramine HCl (Benadryl) 25 mg IVP Q6HR PRN PRN Reason: Itching Heparin Sodium (Porcine) (Heparin) 5,000 unit SQ Q12HR [facility] Last Admin: 05/07/18 10:53 Dose: Not Given Piperacillin/Tazobactam/ (Dextrose 3.375 gm/ IV Solution) 50 mls @ 12.5 mls/hr IVPB Q8HR [facility] Last Admin: 05/07/18 16:20 Dose: 12.5 mls/hr Ropivacaine 400 mg/Hydromorphone HCl 5 mg/ Sodium Chloride 250 mls @ 0 mls/hr EPIDURAL .Q0M PRN; Protocol PRN Reason: Pain Control Last Admin: 05/05/18 16:00 Dose: 3 mls/hr Phenylephrine HCl 40 mg/ (Sodium Chloride) 254 mls @ 0 mls/hr IV .Q0M [facility]; Protocol Last Admin: 05/05/18 14:30 Dose: 10 mls Vancomycin HCl 1,500 mg/ (Sodium Chloride) 250 mls @ 125 mls/hr IVPB Q8H [facility] Last Admin: 05/07/18 13:47 Dose: 125 mls/hr Lactulose (Cephulac) 20 gm PO HS PRN PRN Reason: CONSTIPATION Levofloxacin (Levaquin) 750 mg PO HS [facility] Last Admin: 05/06/18 20:21 Dose: 750 mg Metoprolol Tartrate (Lopressor) 12.5 mg PO BID [facility] Last Admin: 05/07/18 10:53 Dose: Not Given Miscellaneous Information (Potassium Per Protocol) 1 each MISCELLANE DAILY PRN ; Protocol PRN Reason: Per Protocol Miscellaneous Information (Vancomycin Trough Due) 0 each MISCELLANE DIRECTED ONE Stop: 05/08/18 04:01 Morphine Sulfate (Morphine Sulfate (Inj)) 4 mg IVP Q4H PRN PRN Reason: Severe Pain Last Admin: 05/05/18 20:37 Dose: 4 mg Morphine Sulfate (Morphine Sulfate (Inj)) 2 mg IVP Q4HR PRN PRN Reason: Moderate Pain Naloxone HCl (Narcan) 0.2 mg IV Q2M PRN PRN Reason: Opioid Reversal Nicotine (Habitrol 14mg/24hr Patch) 1 patch TRANSDERM DAILY [facility] Last Admin: 05/07/18 10:53 Dose: Not Given Ondansetron HCl (Zofran) 4 mg IVP Q8HR PRN PRN Reason: Nausea And Vomiting Pantoprazole Sodium (Protonix) 40 mg PO AC-BRKFST [facility] Last Admin: 05/07/18 10:52 Dose: Not Given Temazepam (Restoril) 15 mg PO HS PRN PRN Reason: Insomnia Last Admin: 05/04/18 18:04 Dose: 15 mg Objective - Vital Signs Vital signs: Vital Signs Temp 97.8 F 05/07/18 16:00 Pulse 81 05/07/18 19:46 Resp 22 05/07/18 19:00 BP 146/68 05/07/18 19:00 Pulse Ox 98 05/07/18 19:00 Intake & Output 05/07/18 05/07/18 05/08/18 06:59 18:59 06:59 Intake Total 462.5 1867.0 12.5 Output Total 490 1030 0 Balance -27.5 837.0 12.5 Weight 78 kg Intake: IV 462.5 405.0 12.5 Dextrose 5%-0.45% NaCl 1, 450 80 000 ml @ 50 mls/hr IV . Q20H [facility] Rx#:[id number] Piperacillin-Tazobactam 3 12.5 75.0 12.5 .375 gm In Dextrose/Water 1 50ml.bag @ 12.5 mls/hr IVPB Q8HR [facility] Rx#: [id number] Vancomycin 1,500 mg In 250 Sodium Chloride 0.9% 250 ml @ 125 mls/hr IVPB Q8H [facility] Rx#:[id number] Oral 1462 Output: Chest Tube Drainage 0 90 0 Chest Tube Anterior Chest 0 40 Chest Tube Posterior 0 50 0 Chest Urine 490 940 Other: Voiding Method Indwelling Catheter Toilet # Voids 1 0 ABP, PAP, CO, CI - Last Documented Arterial Blood Pressure 105/48 - Exam PHYSICAL EXAM: VITAL SIGNS: As above GENERAL: Sitting up in chair, tired appearing HEENT: Conjunctivae normal. eyes normal. Oral mucosa moist NECK: No JVD. No thyroid enlargement. No LNs CARDIOVASCULAR: S1, S2 muffled. No murmur RESPIRATION: Breath sounds diminished in the bases. coarse rhonchi, no crackles. Right-sided chest tubes 2 with serosanguineous drainage ABDOMEN: Soft, nontender . No guarding. no masses palpable. No ascites, No hepatosplenomegaly.Bowel sounds heard. LEGS: No edema. no swelling PSYCHIATRY: Alert and oriented -3, mood and affect normal. NERVOUS SYSTEM: Cranial N 2-12 grossly normal. Moves all 4 limbs. Diffuse weakness No focal deficits. No sensory deficit. No signs of cerebellar dysfucntion. Skin: no ulcer no rash Joints: No active swelling. No inflammation. Lymphatic system. No LN neck axilla or groin. - Labs CBC & Chem 7: 05/08/18 04:21 05/08/18 04:21 Labs: Abnormal Lab Results - Last 24 Hours (Table) 05/07/18 05/07/18 Range/Units 10:28 10:28 RBC 3.30 L (3.80-5.40) m/uL Hgb 9.9 L (11.4-16.0) gm/dL Hct 31.3 L (34.0-46.0) % BUN 28 H (7-17) mg/dL Microbiology - Last 24 Hours (Table) 05/01/18 18:25 Blood Culture - Final Blood No Growth after 144 hours 05/05/18 12:00 Anaerobic Culture - Preliminary Lung - Right 05/02/18 13:45 Gram Stain - Final Pleural Fluid Body Fluid Culture - Final Alpha Hemolytic Streptococcus 05/05/18 12:00 Gram Stain - Preliminary Lung - Right Tissue Culture - Preliminary Assessment and Plan Assessment: 1. Sepsis secondary to Acute extensive right lower lobe multifocal pneumonia with parapneumonic effusion, possible empyema, loculated , compressive atelectasis present on admission. Chest CT reporting worsening moderate right- sided pleural effusion collection/loculation with associated compressive atelectasis and/or consolidation, suspect infectious etiology, [id number] emphysematous change.Status post right paracentesis. 2. Status post decortication and chest tube drainage. Pleural fluid positive for alphahemolytic strep. Pleural cytology reporting dense acute inflammatory cells consistent with empyema. No cytologically malignant cells identified. 2. Leukocytosis secondary to #1 3. Acute hypoxic respiratory failure secondary to #1 4. Elevated LFTs 5. Ongoing nicotine dependence 6. Drug screen positive for opiates, amphetamines and methamphetamines Plan: Continue on current medication regime ,monitoring and symptomatic treatment. Maintain nebulized bronchodilators, antibiotics. Aggressive pulmonary toileting with incentive spirometer reinforced. Cleared for transfer out of ICU to telemetry as per lens block gauger. Prognosis guarded given multiple complex medical issues. The impression and plan of care has been dictated as directed. : I performed a history and examination of this patient, discussed the same with the dictator. I agree with the dictator's note ,documented as a scribe. Any additional findings or plans will be noted.
--- NOTE | 2018-05-08 10:22 | P.PN ---
Subjective Progress Note Date: 05/08/18 Principal diagnosis: Right-sided empyema, loculated right pleural effusion with extensive right lung multilobar pneumonia, current tobacco dependence. POD #3 right thoracotomy for total right pleural and pulmonary decortication. The patient is currently sitting up in bed in no acute distress. She denies pain, complains of shortness of breath with increased activity. No new complaints. Objective - Vital Signs Vital signs: Vital Signs Temp 98 F 05/08/18 00:00 Pulse 88 05/08/18 08:08 Resp 23 05/08/18 07:00 BP 127/64 05/08/18 07:00 Pulse Ox 95 05/08/18 07:53 Intake & Output 05/07/18 05/08/18 05/08/18 18:59 06:59 18:59 Intake Total 1867.0 600.0 125 Output Total 1030 820 Balance 837.0 -220.0 125 Weight 78 kg Intake: IV 405.0 600.0 125 Dextrose 5%-0.45% NaCl 1, 80 100 000 ml @ 50 mls/hr IV . Q20H [facility] Rx#:[id number] Piperacillin-Tazobactam 3 75.0 75.0 .375 gm In Dextrose/Water 1 50ml.bag @ 12.5 mls/hr IVPB Q8HR [facility] Rx#: [id number] Vancomycin 1,500 mg In 250 425 125 Sodium Chloride 0.9% 250 ml @ 125 mls/hr IVPB Q8H [facility] Rx#:[id number] Oral 1462 Output: Chest Tube Drainage 90 20 Chest Tube Anterior Chest 40 Chest Tube Posterior 50 20 Chest Urine 940 800 Other: Voiding Method Toilet Toilet # Voids 1 0 ABP, PAP, CO, CI - Last Documented Arterial Blood Pressure 105/48 - Constitutional General appearance: Present: cooperative, no acute distress - Respiratory Details: Lungs sounds diminished bilaterally. Respirations even, nonlabored. Currently on 6 L nasal cannula with oxygen saturation 96%. Able to achieve 750 mL on her incentive spirometry. Right posterior pleural chest tube to waterseal, 20 mL serous drainage overnight, 100 mL last 24 hours, no air leak present. - Cardiovascular Details: S1, S2 present. Regular rate and rhythm, sinus rhythm on telemetry. Palpable peripheral pulses bilaterally. No edema present. No calf pain or tenderness noted. SCDs present. - Gastrointestinal Gastrointestinal Comment(s): Abdomen soft, nontender, nondistended. Active bowel sounds 4 quadrants. Tolerating diet. - Genitourinary Genitourinary Comment(s): [place] discontinued yesterday. Continues to void clear, yellow urine. - Integumentary Integumentary Comment(s): Skin is warm and dry with evidence of good perfusion. Right lateral chest tube sites covered with dry intact dressing. - Neurologic Neurologic: Present: CNII-XII intact - Musculoskeletal Musculoskeletal: Present: gait normal, strength equal bilaterally - Psychiatric Psychiatric: Present: A&O x's 3, appropriate affect, intact judgment & insight - Allied health notes Allied health notes reviewed: nursing - Labs CBC & Chem 7: 05/08/18 04:21 05/08/18 04:21 Labs: Abnormal Lab Results - Last 24 Hours (Table) 05/07/18 05/07/18 05/08/18 Range/Units 10:28 10:28 04:21 RBC 3.30 L 3.08 L (3.80-5.40) m/uL Hgb 9.9 L 9.1 L (11.4-16.0) gm/dL Hct 31.3 L 28.9 L (34.0-46.0) % Plt Count 462 H (150-450) k/uL BUN 28 H (7-17) mg/dL Phosphorus (2.5-4.5) mg/dL Vancomycin Trough ug/mL 05/08/18 05/08/18 Range/Units 04:21 04:21 RBC (3.80-5.40) m/uL Hgb (11.4-16.0) gm/dL Hct (34.0-46.0) % Plt Count (150-450) k/uL BUN 25 H (7-17) mg/dL Phosphorus 5.0 H (2.5-4.5) mg/dL Vancomycin Trough 33.1 H* ug/mL Microbiology - Last 24 Hours (Table) 05/01/18 18:25 Blood Culture - Final Blood No Growth after 144 hours 05/05/18 12:00 Anaerobic Culture - Preliminary Lung - Right 05/02/18 13:45 Gram Stain - Final Pleural Fluid Body Fluid Culture - Final Alpha Hemolytic Streptococcus 05/05/18 12:00 Gram Stain - Preliminary Lung - Right Tissue Culture - Preliminary - Imaging and Cardiology Chest x-ray: report reviewed, image reviewed Assessment and Plan (1) COPD (chronic obstructive pulmonary disease) Current Visit: Yes Status: Chronic Code(s): J44.9 - CHRONIC OBSTRUCTIVE PULMONARY DISEASE, UNSPECIFIED SNOMED Code(s): 07083269 (2) Nicotine dependence with current use Current Visit: Yes Status: Chronic Code(s): F17.200 - NICOTINE DEPENDENCE, UNSPECIFIED, UNCOMPLICATED SNOMED Code(s): 870498931 (3) Pleural effusion, right Current Visit: Yes Status: Acute Code(s): J90 - PLEURAL EFFUSION, NOT ELSEWHERE CLASSIFIED SNOMED Code(s): 31254341 (4) Pneumonia involving right lung Current Visit: Yes Status: Acute Code(s): J18.9 - PNEUMONIA, UNSPECIFIED ORGANISM SNOMED Code(s): 150627605 Plan: 1. Will discontinue her right posterior chest tube. Follow-up chest x-ray in the morning. 2. Wean O2 as tolerated. Encourage incentive spirometry use 10 times every hour. 3. Encourage smoking cessation. 4. Pain control with ordered medications. 5. Bronchodilators, antibiotics per pulmonology. 6. GI/DVT prophylaxis. 7. Increase activity, ambulate in hallway. 8. Patient may be transferred to E. selective care from our standpoint. 9. More recommendations to follow. Time with Patient: Greater than 30
--- NOTE | 2018-05-08 10:37 | P.PN ---
Progress Note - Text Date: 05/08/2018 Time: 10:38 The patient is status post, right thoracic decortication, postoperative day number[3] The patient has no complaints of nausea vomiting or headache. The patient does not complain of any lower extremity numbness or weakness. The epidural is presently not running. The epidural will be discontinued this a.m. Pain meds will be provided the patient by the service.
[2018-05-08] MEDS: MORPHINE SULFATE 2 MG/ML SYRINGE IVP PRN ×2 (10:49→19:37)
--- NOTE | 2018-05-08 12:46 | P.PN ---
Subjective Progress Note Date: 05/08/18 Principal diagnosis: Multilobar pneumonia and parapneumonic effusion requiring video assisted thoracoscopic decortication. Postoperative day #3 57-year-old female patient a chronic smoker who presented to [facility] department she days back. Pleuritic severe right-sided chest pain. The patient was told to have some soreness of the chest and muscle spasm and she was given ibuprofen. Subsequently she started having chills no documented temperature and she was comfortable not increased yellowish sputum. Her pain progressively got worse and started developing worsening shortness of breath. For that reason she came into the hospital and repeat chest x-ray was done that showed increased opacity in the right lower lobe in addition to multilobar pneumonia involving the right lung. There was evidence of parapneumonic effusion. No altered mentation. No signs of any septicemia. No hypotension. No signs of any respiratory failure. Based on x-ray findings, I ordered a CAT scan of the chest and I found a moderate amount of right sided pleural fluid collection which does not completely layer dependently and this suggests some degree of loculation in addition to some background mild to moderate underlying emphysematous change. The patient has some compressive atelectasis of the right lung base area. Based on all this, I performed a bedside thoracentesis and a total of 4 50 mL of turbid dark yellowish pleural fluid was aspirated without any major difficulties. The fluid was sent for analysis., This patient a combination of Rocephin and vancomycin for now. Her pain is subsided and patient is having less of a pleuritic chest pain on the right. No hemoptysis. Patient's urine drug screen is positive for opiates, amphetamine and methamphetamine. Urinalysis is negative. The white cell count is at 20.9. 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 No sick contacts. As mentioned she is smoking and she does not utilize any form of respiratory medications. Mild chronic exertional dyspnea. The patient is seen again today 05/03/2018 in follow-up on the regular medical floor. She is currently resting quite comfortably in bed. She did have significant pain and shortness of breath while being up to the bathroom earlier this morning. Her pain is currently well controlled. She denies any worsening shortness of breath. Still dyspneic with minimal exertion. He is currently maintaining O2 saturations in the low 90s on 3 L/m per nasal cannula. She's been afebrile. Slightly tachycardic. Pleural fluid analysis is exudative in nature. Cultures are pending. She is currently on vancomycin and ceftriaxone. On 05/04/2018 and seeing this patient for a follow-up. The patient has an extensive right lung pneumonia with a complicated loculated parapneumonic effusion. The patient was being covered with a combination of Rocephin and vancomycin. Note that the patient was in the medical floor and overnight the patient got transferred to the ICU as the patient was becoming more short of breath, hypoxic, tachycardic and hypoxic. The patient is currently on 10 L of oxygen nasal cannula. Overnight the patient became tachycardic and she was having runs of SVT. She was placed on Cardizem drip at 5 g and hours and currently heart rate in the mid 90s. She remains in a sinus mechanism. Her chest x-ray was done yesterday and this morning and it shows extensive consolidation in addition to pleural effusion which is loculated in the right lung occupying the lower two thirds of the lung base. Based on this, the patient was brought in in terms of antibiotic coverage and the patient was placed on a combination of Zosyn and Levaquin and vancomycin. The patient had another CAT scan of the chest that showed complex loculated appearing moderate to large right-sided pleural effusion and this has slightly increased from the previous CAT scan of 05/02/2018. The right middle lobe and the right lower lobe is extensively collapse. Is a small left-sided pleural effusion in addition. The patient had a another thoracentesis and ICU and a total of 450 mL of turbid dark exudative pleural effusion was drained from the right lung. No complications. No pneumothorax. No positive cultures from the pleural fluid noted in the blood. Consultation was placed oral thoracic surgery regarding the possibility of a video-assisted thoracoscopic evaluation and decortication. Mentation is well-preserved the patient is alert and awake. Appetite is diminished. No altered mentation. No nausea or vomiting. Chest pain is subsided compared to yesterday. The patient short of breath with limited amount of activity. She is not using excessive muscle breathing at rest. On 05/05/2018 patient seen again in follow-up in the recovery room, she is status post right video-assisted thoracoscopy with decortication extensive right -sided pneumonia with parapneumonic loculated pleural effusion, postop day 0. She is somnolent, but easily arousable to verbal stimuli, she is currently on a simple mask, with FiO2 of 8 L, pulse ox of 92%, her pain is under reasonable control, and there is an epidural catheter in place. Postop patient became slightly hypotensive, and a liter of IV fluids, and Carlos-Synephrine drip is infusing at a rate of 2.6 mics per minute. Patient has 2 right-sided chest tubes to wall suction, and there is small amount of serosanguineous output, no air leak noted. Lung sounds are coarse scattered rhonchi. She denies afebrile , pleural fluid cultures are still pending, blood, sputum, and urine cultures are negative thus far. Patient continues on empiric antibiotics in the form of Levaquin, Zosyn and vancomycin. On nebulized bronchodilators, Symbicort. Follow-up chest x-ray post decortication was reviewed by Dr. Garza and showed 2 right-sided chest tubes, no pneumothorax, pleural effusion is largely resolved , infiltrate remains present, and a small left pleural effusion noted. Patient is awaiting transfer to a bed in the intensive care. Patient was reevaluated today on 05/06/2018, doing well, on nasal cannula, in no distress. T-max is 98.1, vital signs are stable. WBC count is down to 15.4 hemoglobin is 9.3 electrolytes and renal profile are normal. Chest x-ray showed right sided chest tubes in position, no evidence of pneumothorax, patchy basilar infiltrates persist. Patient feels much better today compared to how she felt in the last few days. Breathing easier, and in no distress. Patient was reevaluated today on 05/07/2018, remains in the ICU, but she is hemodynamically stable, on nasal cannula, in no distress, chest x-ray showed significant improvement in her right lung expansion, no evidence of pneumothorax , no evidence of subcu emphysema, continues to have chest tubes [address], minimal amount of bloody drainage noted in the chest tubes. Labs were reviewed chest x-ray was reviewed. Electrolytes are being corrected accordingly. Patient was reevaluated today on 04/30/2018, doing well, one of the chest tubes was removed, one remains, patient is relatively asymptomatic, no cough no wheezing no shortness of breath. Cultures from the surgical specimen/pleural fluid, remains negative so far. Patient is still on antibiotics empirically. All labs including CBC and basic metabolic profile were reviewed. Objective - Vital Signs Vital signs: Vital Signs Temp 98 F 05/08/18 12:00 Pulse 107 H 05/08/18 12:00 Resp 23 05/08/18 12:00 BP 156/72 05/08/18 12:00 Pulse Ox 74 L 05/08/18 12:00 Intake & Output 05/07/18 05/08/18 05/08/18 18:59 06:59 18:59 Intake Total 1867.0 600.0 371.6 Output Total 1030 820 950 Balance 837.0 -220.0 -578.4 Weight 78 kg 78 kg Intake: IV 405.0 600.0 175 Dextrose 5%-0.45% NaCl 1, 80 100 000 ml @ 50 mls/hr IV . Q20H [facility] Rx#:[id number] NS KVO 50 Piperacillin-Tazobactam 3 75.0 75.0 .375 gm In Dextrose/Water 1 50ml.bag @ 12.5 mls/hr IVPB Q8HR [facility] Rx#: [id number] Vancomycin 1,500 mg In 250 425 125 Sodium Chloride 0.9% 250 ml @ 125 mls/hr IVPB Q8H [facility] Rx#:[id number] Intake, IV Titration 196.6 Amount Ropivacaine 400 mg 196.6 Hydromorphone (Pf) 5 mg In Sodium Chloride 0.9% 170 ml @ Per Protocol EPIDURAL .Q0M PRN Rx#: [id number] Oral 1462 Output: Chest Tube Drainage 90 20 Chest Tube Anterior Chest 40 Chest Tube Posterior 50 20 Chest Urine 940 800 950 Other: Voiding Method Toilet Toilet # Voids 1 0 ABP, PAP, CO, CI - Last Documented Arterial Blood Pressure 105/48 - Exam GENERAL EXAM: Awake, comfortable, in no distress. HEAD: Normocephalic. Atraumatic. EYES: Normal reaction of pupils, equal size. NOSE: Clear with pink turbinates. THROAT: No erythema or exudates. NECK: No masses, no JVD. CHEST: No chest wall deformity. One right-sided chest tube to wall suction with thin serosanguineous output, no evidence of air leak noted LUNGS: Coarse scattered rhonchi bilaterally, CVS: S1 and S2 normal with no audible murmur, regular rhythm. ABDOMEN: No hepatosplenomegaly, normal bowel sounds, no guarding or rigidity. SPINE: No scoliosis or deformity SKIN: No rashes CENTRAL NERVOUS SYSTEM: No focal deficits, tone is normal in all 4 extremities. EXTREMITIES: There is no peripheral edema. No clubbing, no cyanosis. Peripheral pulses are int - Labs CBC & Chem 7: 05/08/18 04:21 05/08/18 04:21 Labs: Abnormal Lab Results - Last 24 Hours (Table) 05/07/18 05/08/18 05/08/18 Range/Units 10:28 04:21 04:21 RBC 3.08 L (3.80-5.40) m/uL Hgb 9.1 L (11.4-16.0) gm/dL Hct 28.9 L (34.0-46.0) % Plt Count 462 H (150-450) k/uL BUN 28 H 25 H (7-17) mg/dL Phosphorus 5.0 H (2.5-4.5) mg/dL Vancomycin Trough ug/mL 05/08/18 Range/Units 04:21 RBC (3.80-5.40) m/uL Hgb (11.4-16.0) gm/dL Hct (34.0-46.0) % Plt Count (150-450) k/uL BUN (7-17) mg/dL Phosphorus (2.5-4.5) mg/dL Vancomycin Trough 33.1 H* ug/mL Microbiology - Last 24 Hours (Table) 05/05/18 12:00 Gram Stain - Preliminary Lung - Right Tissue Culture - Preliminary 05/01/18 18:25 Blood Culture - Final Blood No Growth after 144 hours 05/05/18 12:00 Anaerobic Culture - Preliminary Lung - Right 05/02/18 13:45 Gram Stain - Final Pleural Fluid Body Fluid Culture - Final Alpha Hemolytic Streptococcus Assessment and Plan Assessment: 1 right lung multilobar pneumonia, likely gram-negative in nature, complicated by development of parapneumonic effusion with early loculations and compressive atelectasis, patient is status post right-sided video-assisted thoracoscopy decortication, postoperative day #3. Patient status post 2 right-sided thoracentesis, would removal of a total of 900 mL of parapneumonic pleural effusion fluid, pleural fluid positive for alphahemolytic strep, patient remains on Zosyn and vancomycin as well as Levaquin. Culture from the surgical specimen is pending. 2 acute hypoxic respiratory failure secondary to above, improving 3 acute leukocytosis secondary to above, improving 4 COPD 5 urine drug screen for opiates, amphetamine and methamphetamine's 6 abnormal LFTs 7 smoker 8 sinus tachycardia currently on a Cardizem drip at 5 mg an hour. Plan continue present supportive care measures, antibiotics, bronchodilators, incentive spirometry, GI and DVT prophylaxis, patient can be transferred out of the ICU to a monitor bed on selective. Time with Patient: Less than 30
[2018-05-08] MEDS ORDERED: METOPROLOL TARTRATE 12.5 MG TAB PO STA (16:14)
--- NOTE | 2018-05-08 17:05 | P.PN ---
Subjective Progress Note Date: 05/08/18 Progress note being dictated for Dr. Garcia. Interval history: This 57-year-old female admitted with right lower lobe multifocal pneumonia with parapneumonic effusion, possible sepsis, elevated LFTs and multiple other medical issues. Evaluated by pulmonary with recommendations noted. Drug screen positive for opiates, amphetamines and methamphetamines. Significant shakiness, denies alcohol consumption/abuse. Sodium improved. WBC up to 20, and steroids. Chest x-ray reports increasing right pleural effusion. Liver ultrasound Limited study secondary to patient's shaking, shortness of breath, reporting large pleural effusion, thickening of gallbladder wall, possible acute cholecystitis. Chest CT reporting worsening moderate right-sided pleural effusion collection/loculation with associated compressive atelectasis and/or consolidation, suspect infectious etiology, mild- to-moderate emphysematous change. Underwent right-sided thoracentesis with 450 MLS cloudy dark yellow pleural fluid removed. Tolerated procedure well. Pain improved. Maintained on vancomycin and Rocephin. Review of systems: CONSTITUTIONAL: No fever, positive fatigue. HEENT: No recent visual problems or hearing problems. Denied any sore throat. CARDIOVASCULAR: No chest pain, orthopnea, PND, no palpitations, no syncope. PULMONARY: Short of breath ,Positive exertional dyspnea, GASTROINTESTINAL: No diarrhea, no nausea, no vomiting, no abdominal pain. Normoactive bowel sounds. NEUROLOGICAL: No headaches, no weakness, no numbness. HEMATOLOGICAL: Denies any bleeding or petechiae. GENITOURINARY: Denies any burning micturition, frequency, or urgency. MUSCULOSKELETAL/RHEUMATOLOGICAL: Denies any joint pain, swelling, or any muscle pain. ENDOCRINE: Denies any polyuria or polydipsia. PSYCHIATRIC: No anxiety, no depression The rest of the 14 point review of systems is negative Active Medications Acetaminophen (Tylenol Tab) 650 mg PO Q6HR PRN PRN Reason: Mild Pain or Fever > 100.5 Hydrocodone Bitart/Acetaminophen (Dunlap 5-325) 1 each PO Q6HR PRN PRN Reason: Moderate Pain Last Admin: 05/02/18 09:55 Dose: 1 each Albuterol/Ipratropium (Duoneb 0.5 Mg-3 Mg/3 Ml Soln) 3 ml INHALATION RT-QID [facility] Last Admin: 05/02/18 15:48 Dose: 3 ml Albuterol/Ipratropium (Duoneb 0.5 Mg-3 Mg/3 Ml Soln) 3 ml INHALATION RT-TID PRN PRN Reason: Shortness Of Breath Or Wheezing Alprazolam (Xanax) 0.25 mg PO TID PRN PRN Reason: Anxiety Budesonide/Formoterol Fumarate (Symbicort 160-4.5 Mcg Inhaler) 2 puff INHALATION RT-BID [facility] Last Admin: 05/02/18 13:48 Dose: Not Given Ceftriaxone Sodium (Rocephin) 1,000 mg IVP Q24HR [facility] Last Admin: 05/02/18 09:39 Dose: 1,000 mg Cyclobenzaprine HCl (Flexeril) 10 mg PO TID [facility] Last Admin: 05/02/18 15:42 Dose: 10 mg Heparin Sodium (Porcine) (Heparin) 5,000 unit SQ Q12HR [facility] Last Admin: 05/02/18 09:39 Dose: 5,000 unit Sodium Chloride (Saline 0.9%) 1,000 mls @ 75 mls/hr IV .[id number] [facility] Last Admin: 05/02/18 09:40 Dose: 75 mls/hr Vancomycin HCl 1,250 mg/ (Sodium Chloride) 250 mls @ 125 mls/hr IVPB Q12H [facility] Ketorolac Tromethamine (Toradol) 30 mg IVP Q6HR PRN PRN Reason: Moderate Pain Stop: 05/06/18 19:32 Last Admin: 05/02/18 05:30 Dose: 30 mg Lorazepam (Ativan) 1 mg IV Q4HR PRN PRN Reason: Anxiety Miscellaneous Information (Rx Info: Iv Contrast Was Given) 1 each MISCELLANE DAILY PRN PRN Reason: Per Protocol Stop: 05/04/18 09:34 Naloxone HCl (Narcan) 0.2 mg IV Q2M PRN PRN Reason: Opioid Reversal Nicotine (Habitrol 14mg/24hr Patch) 1 patch TRANSDERM DAILY [facility] Last Admin: 05/02/18 09:39 Dose: 1 patch Pantoprazole Sodium (Protonix) 40 mg PO AC-BRKFST [facility] Last Admin: 05/02/18 09:39 Dose: 40 mg Temazepam (Restoril) 15 mg PO HS PRN PRN Reason: Insomnia 05/06/2018 chest x-ray reporting persistence patchy bibasilar infiltrates. Maintained on nebulized bronchodilators, triple antibiotics of Levaquin, Zosyn and vancomycin. Afebrile. Breathing better. Chest tubes to waterseal.Pain controlled on epidural pump. Maintaining O2 sats of mid 90s on 4 L nasal cannula. Review of Systems: CV: As mentioned earlier RESP: As mentioned earlier GI: No nausea, vomiting : No dysuria or retention NERVOUS SYS: No numbness, weakness Active Medications Acetaminophen (Tylenol Tab) 650 mg PO Q6HR PRN PRN Reason: Mild Pain or Fever > 100.5 Hydrocodone Bitart/Acetaminophen (Dunlap 5-325) 1 each PO Q6HR PRN PRN Reason: Moderate Pain Last Admin: 05/07/18 16:26 Dose: 1 each Albuterol/Ipratropium (Duoneb 0.5 Mg-3 Mg/3 Ml Soln) 3 ml INHALATION RT-QID [facility] Last Admin: 05/07/18 19:36 Dose: 3 ml Albuterol/Ipratropium (Duoneb 0.5 Mg-3 Mg/3 Ml Soln) 3 ml INHALATION RT-TID PRN PRN Reason: Shortness Of Breath Or Wheezing Alprazolam (Xanax) 0.25 mg PO TID PRN PRN Reason: Anxiety Last Admin: 05/07/18 18:15 Dose: 0.25 mg Bisacodyl (Dulcolax) 10 mg RECTAL DAILY PRN PRN Reason: Constipation Budesonide/Formoterol Fumarate (Symbicort 160-4.5 Mcg Inhaler) 2 puff INHALATION RT-BID [facility] Last Admin: 05/07/18 19:42 Dose: 2 puff Cyclobenzaprine HCl (Flexeril) 10 mg PO TID [facility] Last Admin: 05/07/18 16:25 Dose: 10 mg Diphenhydramine HCl (Benadryl) 25 mg IVP Q6HR PRN PRN Reason: Itching Heparin Sodium (Porcine) (Heparin) 5,000 unit SQ Q12HR [facility] Last Admin: 05/07/18 10:53 Dose: Not Given Piperacillin/Tazobactam/ (Dextrose 3.375 gm/ IV Solution) 50 mls @ 12.5 mls/hr IVPB Q8HR [facility] Last Admin: 05/07/18 16:20 Dose: 12.5 mls/hr Ropivacaine 400 mg/Hydromorphone HCl 5 mg/ Sodium Chloride 250 mls @ 0 mls/hr EPIDURAL .Q0M PRN; Protocol PRN Reason: Pain Control Last Admin: 05/05/18 16:00 Dose: 3 mls/hr Phenylephrine HCl 40 mg/ (Sodium Chloride) 254 mls @ 0 mls/hr IV .Q0M CHRISTINE; Protocol Last Admin: 05/05/18 14:30 Dose: 10 mls Vancomycin HCl 1,500 mg/ (Sodium Chloride) 250 mls @ 125 mls/hr IVPB Q8H [facility] Last Admin: 05/07/18 13:47 Dose: 125 mls/hr Lactulose (Cephulac) 20 gm PO HS PRN PRN Reason: CONSTIPATION Levofloxacin (Levaquin) 750 mg PO HS [facility] Last Admin: 05/06/18 20:21 Dose: 750 mg Metoprolol Tartrate (Lopressor) 12.5 mg PO BID [facility] Last Admin: 05/07/18 10:53 Dose: Not Given Miscellaneous Information (Potassium Per Protocol) 1 each MISCELLANE DAILY PRN ; Protocol PRN Reason: Per Protocol Miscellaneous Information (Vancomycin Trough Due) 0 each MISCELLANE DIRECTED ONE Stop: 05/08/18 04:01 Morphine Sulfate (Morphine Sulfate (Inj)) 4 mg IVP Q4H PRN PRN Reason: Severe Pain Last Admin: 05/05/18 20:37 Dose: 4 mg Morphine Sulfate (Morphine Sulfate (Inj)) 2 mg IVP Q4HR PRN PRN Reason: Moderate Pain Naloxone HCl (Narcan) 0.2 mg IV Q2M PRN PRN Reason: Opioid Reversal Nicotine (Habitrol 14mg/24hr Patch) 1 patch TRANSDERM DAILY [facility] Last Admin: 05/07/18 10:53 Dose: Not Given Ondansetron HCl (Zofran) 4 mg IVP Q8HR PRN PRN Reason: Nausea And Vomiting Pantoprazole Sodium (Protonix) 40 mg PO AC-BRKFST [facility] Last Admin: 05/07/18 10:52 Dose: Not Given Temazepam (Restoril) 15 mg PO HS PRN PRN Reason: Insomnia Last Admin: 05/04/18 18:04 Dose: 15 mg 05/07/18 chest using minimal drainage. Chest x-ray reporting stable, persistence monitor moderate right greater than left inferior pleural fluid collections with bibasilar atelectasis/infiltrates, no evidence of pneumothorax. Pleural cytology reporting dense acute inflammatory cells consistent with empyema. No cytologically malignant cells identified. Sitting up in chair, await transfer to telemetry floor. Review of Systems: CV: As mentioned earlier RESP: As mentioned earlier GI: No nausea, vomiting : No dysuria or retention NERVOUS SYS: No numbness, weakness Active Medications Acetaminophen (Tylenol Tab) 650 mg PO Q6HR PRN PRN Reason: Mild Pain or Fever > 100.5 Hydrocodone Bitart/Acetaminophen (Dunlap 5-325) 1 each PO Q6HR PRN PRN Reason: Moderate Pain Last Admin: 05/07/18 16:26 Dose: 1 each Albuterol/Ipratropium (Duoneb 0.5 Mg-3 Mg/3 Ml Soln) 3 ml INHALATION RT-QID [facility] Last Admin: 05/07/18 19:36 Dose: 3 ml Albuterol/Ipratropium (Duoneb 0.5 Mg-3 Mg/3 Ml Soln) 3 ml INHALATION RT-TID PRN PRN Reason: Shortness Of Breath Or Wheezing Alprazolam (Xanax) 0.25 mg PO TID PRN PRN Reason: Anxiety Last Admin: 05/07/18 18:15 Dose: 0.25 mg Bisacodyl (Dulcolax) 10 mg RECTAL DAILY PRN PRN Reason: Constipation Budesonide/Formoterol Fumarate (Symbicort 160-4.5 Mcg Inhaler) 2 puff INHALATION RT-BID [facility] Last Admin: 05/07/18 19:42 Dose: 2 puff Cyclobenzaprine HCl (Flexeril) 10 mg PO TID [facility] Last Admin: 05/07/18 16:25 Dose: 10 mg Diphenhydramine HCl (Benadryl) 25 mg IVP Q6HR PRN PRN Reason: Itching Heparin Sodium (Porcine) (Heparin) 5,000 unit SQ Q12HR [facility] Last Admin: 05/07/18 10:53 Dose: Not Given Piperacillin/Tazobactam/ (Dextrose 3.375 gm/ IV Solution) 50 mls @ 12.5 mls/hr IVPB Q8HR [facility] Last Admin: 05/07/18 16:20 Dose: 12.5 mls/hr Ropivacaine 400 mg/Hydromorphone HCl 5 mg/ Sodium Chloride 250 mls @ 0 mls/hr EPIDURAL .Q0M PRN; Protocol PRN Reason: Pain Control Last Admin: 05/05/18 16:00 Dose: 3 mls/hr Phenylephrine HCl 40 mg/ (Sodium Chloride) 254 mls @ 0 mls/hr IV .Q0M [facility]INE; Protocol Last Admin: 05/05/18 14:30 Dose: 10 mls Vancomycin HCl 1,500 mg/ (Sodium Chloride) 250 mls @ 125 mls/hr IVPB Q8H [facility] Last Admin: 05/07/18 13:47 Dose: 125 mls/hr Lactulose (Cephulac) 20 gm PO HS PRN PRN Reason: CONSTIPATION Levofloxacin (Levaquin) 750 mg PO HS [facility] Last Admin: 05/06/18 20:21 Dose: 750 mg Metoprolol Tartrate (Lopressor) 12.5 mg PO BID [facility] Last Admin: 05/07/18 10:53 Dose: Not Given Miscellaneous Information (Potassium Per Protocol) 1 each MISCELLANE DAILY PRN ; Protocol PRN Reason: Per Protocol Miscellaneous Information (Vancomycin Trough Due) 0 each MISCELLANE DIRECTED ONE Stop: 05/08/18 04:01 Morphine Sulfate (Morphine Sulfate (Inj)) 4 mg IVP Q4H PRN PRN Reason: Severe Pain Last Admin: 05/05/18 20:37 Dose: 4 mg Morphine Sulfate (Morphine Sulfate (Inj)) 2 mg IVP Q4HR PRN PRN Reason: Moderate Pain Naloxone HCl (Narcan) 0.2 mg IV Q2M PRN PRN Reason: Opioid Reversal Nicotine (Habitrol 14mg/24hr Patch) 1 patch TRANSDERM DAILY [facility] Last Admin: 05/07/18 10:53 Dose: Not Given Ondansetron HCl (Zofran) 4 mg IVP Q8HR PRN PRN Reason: Nausea And Vomiting Pantoprazole Sodium (Protonix) 40 mg PO AC-BRKFST [facility] Last Admin: 05/07/18 10:52 Dose: Not Given Temazepam (Restoril) 15 mg PO HS PRN PRN Reason: Insomnia Last Admin: 05/04/18 18:04 Dose: 15 mg 05/08/2018 epidural discontinued, pain controlled. Maintained on empiric antibiotics. Pleural fluid cultures currently negative. Right-sided posterior Chest tube 1 removed today. IS up to 750 Denies chest pain, palpitations or increased shortness of breath. Objective - Vital Signs Vital signs: Vital Signs Temp 99 F 05/08/18 16:00 Pulse 97 05/08/18 16:00 Resp 22 05/08/18 16:00 BP 179/72 05/08/18 16:00 Pulse Ox 92 L 05/08/18 16:00 Intake & Output 05/07/18 05/08/18 05/08/18 18:59 06:59 18:59 Intake Total 1867.0 600.0 451.6 Output Total 1030 820 950 Balance 837.0 -220.0 -498.4 Weight 78 kg 78.1 kg Intake: IV 405.0 600.0 255 Dextrose 5%-0.45% NaCl 1, 80 100 000 ml @ 50 mls/hr IV . Q20H [facility] Rx#:[id number] NS KVO 80 Piperacillin-Tazobactam 3 75.0 75.0 50 .375 gm In Dextrose/Water 1 50ml.bag @ 12.5 mls/hr IVPB Q8HR [facility] Rx#: [id number] Vancomycin 1,500 mg In 250 425 125 Sodium Chloride 0.9% 250 ml @ 125 mls/hr IVPB Q8H [facility] Rx#:[id number] Intake, IV Titration 196.6 Amount Ropivacaine 400 mg 196.6 Hydromorphone (Pf) 5 mg In Sodium Chloride 0.9% 170 ml @ Per Protocol EPIDURAL .Q0M PRN Rx#: [id number] Oral 1462 Output: Chest Tube Drainage 90 20 Chest Tube Anterior Chest 40 Chest Tube Posterior 50 20 Chest Urine 940 800 950 Other: Voiding Method Toilet Toilet Toilet # Voids 1 0 1 ABP, PAP, CO, CI - Last Documented Arterial Blood Pressure 105/48 - Exam PHYSICAL EXAM: VITAL SIGNS: As above GENERAL: Sitting up in chair, tired appearing HEENT: Conjunctivae normal. eyes normal. Oral mucosa moist NECK: No JVD. No thyroid enlargement. No LNs CARDIOVASCULAR: S1, S2 muffled. No murmur RESPIRATION: Breath sounds diminished in the bases. coarse rhonchi, no crackles. Right-sided chest tubes 1 with serosanguineous drainage ABDOMEN: Soft, nontender . No guarding. no masses palpable. No ascites, No hepatosplenomegaly.Bowel sounds heard. LEGS: No edema. no swelling PSYCHIATRY: Alert and oriented -3, mood and affect normal. NERVOUS SYSTEM: Cranial N 2-12 grossly normal. Moves all 4 limbs. Diffuse weakness No focal deficits. No sensory deficit. No signs of cerebellar dysfucntion. Skin: no ulcer no rash Joints: No active swelling. No inflammation. Lymphatic system. No LN neck axilla or groin. - Labs CBC & Chem 7: 05/08/18 04:21 05/08/18 04:21 Labs: Abnormal Lab Results - Last 24 Hours (Table) 05/08/18 05/08/18 05/08/18 Range/Units 04:21 04:21 04:21 RBC 3.08 L (3.80-5.40) m/uL Hgb 9.1 L (11.4-16.0) gm/dL Hct 28.9 L (34.0-46.0) % Plt Count 462 H (150-450) k/uL BUN 25 H (7-17) mg/dL Phosphorus 5.0 H (2.5-4.5) mg/dL Vancomycin Trough 33.1 H* ug/mL Microbiology - Last 24 Hours (Table) 05/05/18 12:00 Gram Stain - Preliminary Lung - Right Tissue Culture - Preliminary 05/01/18 18:25 Blood Culture - Final Blood No Growth after 144 hours 05/05/18 12:00 Anaerobic Culture - Preliminary Lung - Right Assessment and Plan Assessment: 1. Sepsis secondary to Acute extensive right lower lobe multifocal pneumonia with parapneumonic effusion, possible empyema, loculated , compressive atelectasis present on admission. Chest CT reporting worsening moderate right- sided pleural effusion collection/loculation with associated compressive atelectasis and/or consolidation, suspect infectious etiology, [id number] emphysematous change.Status post right paracentesis. 2. Status post decortication and chest tube drainage. Pleural fluid positive for alphahemolytic strep. Pleural cytology reporting dense acute inflammatory cells consistent with empyema. No cytologically malignant cells identified. 2. Leukocytosis secondary to #1 3. Acute hypoxic respiratory failure secondary to #1 4. Elevated LFTs 5. Ongoing nicotine dependence 6. Drug screen positive for opiates, amphetamines and methamphetamines Plan: Continue on current medication regime ,monitoring and symptomatic treatment. Maintain nebulized bronchodilators, antibiotics. Aggressive pulmonary toileting with incentive spirometer reinforced. Smoking cessation reinforced .awaiting telemetry bed. Prognosis guarded given multiple complex medical issues. The impression and plan of care has been dictated as directed. : I performed a history and examination of this patient, discussed the same with the dictator. I agree with the dictator's note ,documented as a scribe. Any additional findings or plans will be noted.
[2018-05-08] MEDS: amLODIPine 5 MG TAB PO SCH (18:57)
[2018-05-08] MEDS: LEVOFLOXACIN 750 MG TAB PO SCH (21:06)
[2018-05-08] MEDS: METOPROLOL TARTRATE 25 MG TAB PO SCH (21:07)
[2018-05-08] MEDS: ALPRAZolam 0.25 MG TAB PO PRN (21:08)
[2018-05-09] MEDS: PIPERACILLIN-TAZOBACTAM 3.375 GM in DEXTROSE/WATER 1 50ML.BAG IVPB SCH ×3 (04:00→20:46)
--- NOTE | 2018-05-09 07:47 | XR ---
EXAMINATION TYPE: XR chest 2V DATE OF EXAM: 05/09/2018 COMPARISON: 05/08/2018 HISTORY: 57 year-old female post chest tube removal TECHNIQUE: Frontal and lateral views FINDINGS: Heart normal size. Aorta within normal limits. Mild diffuse interstitial prominence. Small to moderat e effusions are unchanged. Interval removal of right-sided chest tube. Probably some fluid tracking u p to the right apex. Previously seen trace right-sided pneumothorax no longer identified. However, th ere is some air lucency anteriorly on the lateral view. IMPRESSION: 1. Stable small to moderate pleural effusions with adjacent atelectasis and/or consolidation. 2. Right-sided chest tube removal. The previous right apical pneumothorax has resolved. However, ther e is air lucency seen behind the sternum on the lateral view and a small anterior pneumothorax is not excluded.
[2018-05-09] MEDS: NICOTINE 14MG/24HR PATCH TRANSDERM SCH (07:56)
[2018-05-09] MEDS: PANTOPRAZOLE 40 MG TABLET PO SCH (07:56)
[2018-05-09] MEDS: amLODIPine 5 MG TAB PO SCH (07:57)
[2018-05-09] MEDS: METOPROLOL TARTRATE 25 MG TAB PO SCH ×2 (07:58→20:46)
[2018-05-09] MEDS: CYCLOBENZAPRINE 10 MG TAB PO SCH ×3 (07:58→20:46)
[2018-05-09] MEDS: HEPARIN SODIUM,PORCINE 5,000 UNIT/ML 1 ML VIAL SQ SCH ×2 (07:58→20:46)
[2018-05-09] MEDS: SYMBICORT 160-4.5 MCG INHALER INHALATION SCH ×2 (08:29→19:52)
[2018-05-09] MEDS: IPRATROPIUM-ALBUTEROL 3 ML NEB INHALATION SCH ×4 (08:29→19:52)
--- NOTE | 2018-05-09 09:02 | P.PN ---
Subjective Progress Note Date: 05/09/18 Principal diagnosis: Right-sided empyema, loculated right pleural effusion with extensive right lung multilobar pneumonia, current tobacco dependence. POD #4 right thoracotomy for total right pleural and pulmonary decortication. The patient is currently sitting up in bed in no acute distress. States pain is controlled, complains of shortness of breath with increased activity. No new complaints. Objective - Vital Signs Vital signs: Vital Signs Temp 99.2 F 05/09/18 04:00 Pulse 94 05/09/18 08:39 Resp 23 05/09/18 04:00 BP 153/73 05/09/18 04:00 Pulse Ox 94 L 05/09/18 08:30 Intake & Output 05/08/18 05/09/18 05/09/18 18:59 06:59 18:59 Intake Total 491.6 390 Output Total 950 400 Balance -458.4 -10 Weight 78.1 kg 76.5 kg Intake: IV 295 390 NS KVO 120 90 Piperacillin-Tazobactam 3 50 50 .375 gm In Dextrose/Water 1 50ml.bag @ 12.5 mls/hr IVPB Q8HR [facility] Rx#: [id number] Vancomycin 1,500 mg In 125 250 Sodium Chloride 0.9% 250 ml @ 125 mls/hr IVPB Q8H [facility] Rx#:[id number] Intake, IV Titration 196.6 Amount Ropivacaine 400 mg 196.6 Hydromorphone (Pf) 5 mg In Sodium Chloride 0.9% 170 ml @ Per Protocol EPIDURAL .Q0M PRN Rx#: [id number] Output: Urine 950 400 Other: Voiding Method Toilet Toilet # Voids 1 1 ABP, PAP, CO, CI - Last Documented Arterial Blood Pressure 105/48 - Constitutional General appearance: Present: cooperative, no acute distress - Respiratory Details: Lungs sounds diminished bilaterally. Respirations even, nonlabored. Currently on 6 L nasal cannula with oxygen saturation 94%. Able to achieve 500-750 mL on her incentive spirometry. - Cardiovascular Details: S1, S2 present. Regular rate and rhythm, sinus rhythm on telemetry. Palpable peripheral pulses bilaterally. No edema present. No calf pain or tenderness noted. SCDs present. - Gastrointestinal Gastrointestinal Comment(s): Abdomen soft, nontender, nondistended. Active bowel sounds 4 quadrants. Tolerating diet. - Genitourinary Genitourinary Comment(s): Continues to void clear, yellow urine. - Integumentary Integumentary Comment(s): Skin is warm and dry with evidence of good perfusion. Right lateral chest incisions covered with dry intact dressing. - Neurologic Neurologic: Present: CNII-XII intact - Musculoskeletal Musculoskeletal: Present: gait normal, strength equal bilaterally - Psychiatric Psychiatric: Present: A&O x's 3, appropriate affect, intact judgment & insight - Allied health notes Allied health notes reviewed: nursing - Labs CBC & Chem 7: 05/08/18 04:21 05/08/18 04:21 Labs: Microbiology - Last 24 Hours (Table) 05/05/18 12:00 Gram Stain - Preliminary Lung - Right Tissue Culture - Preliminary - Imaging and Cardiology Chest x-ray: report reviewed, image reviewed Assessment and Plan (1) COPD (chronic obstructive pulmonary disease) Current Visit: Yes Status: Chronic Code(s): J44.9 - CHRONIC OBSTRUCTIVE PULMONARY DISEASE, UNSPECIFIED SNOMED Code(s): 34532160 (2) Nicotine dependence with current use Current Visit: Yes Status: Chronic Code(s): F17.200 - NICOTINE DEPENDENCE, UNSPECIFIED, UNCOMPLICATED SNOMED Code(s): 936145635 (3) Pleural effusion, right Current Visit: Yes Status: Acute Code(s): J90 - PLEURAL EFFUSION, NOT ELSEWHERE CLASSIFIED SNOMED Code(s): 74339889 (4) Pneumonia involving right lung Current Visit: Yes Status: Acute Code(s): J18.9 - PNEUMONIA, UNSPECIFIED ORGANISM SNOMED Code(s): 111525134 Plan: 1. Wean O2 as tolerated. Encourage incentive spirometry use 10 times every hour. 2. Will continue to monitor daily x-rays. 3. Encourage smoking cessation. 4. Pain control with ordered medications. 5. Bronchodilators, antibiotics per pulmonology. 6. GI/DVT prophylaxis. 7. Increase activity, ambulate in hallway. 8. Patient may be transferred to [facility] from our standpoint. 9. Will continue to monitor patient's progress. Time with Patient: Greater than 30
[2018-05-09] MEDS ORDERED: FUROSEMIDE 10 MG/ML 2 ML VIAL IV STA (09:20)
--- NOTE | 2018-05-09 10:02 | P.PN ---
Subjective Progress Note Date: 05/09/18 Principal diagnosis: Multilobar pneumonia and parapneumonic effusion requiring video assisted thoracoscopic decortication. Postoperative day #4 57-year-old female patient a chronic smoker who presented to [facility] department she days back. Pleuritic severe right-sided chest pain. The patient was told to have some soreness of the chest and muscle spasm and she was given ibuprofen. Subsequently she started having chills no documented temperature and she was comfortable not increased yellowish sputum. Her pain progressively got worse and started developing worsening shortness of breath. For that reason she came into the hospital and repeat chest x-ray was done that showed increased opacity in the right lower lobe in addition to multilobar pneumonia involving the right lung. There was evidence of parapneumonic effusion. No altered mentation. No signs of any septicemia. No hypotension. No signs of any respiratory failure. Based on x-ray findings, I ordered a CAT scan of the chest and I found a moderate amount of right sided pleural fluid collection which does not completely layer dependently and this suggests some degree of loculation in addition to some background mild to moderate underlying emphysematous change. The patient has some compressive atelectasis of the right lung base area. Based on all this, I performed a bedside thoracentesis and a total of 4 50 mL of turbid dark yellowish pleural fluid was aspirated without any major difficulties. The fluid was sent for analysis., This patient a combination of Rocephin and vancomycin for now. Her pain is subsided and patient is having less of a pleuritic chest pain on the right. No hemoptysis. Patient's urine drug screen is positive for opiates, amphetamine and methamphetamine. Urinalysis is negative. The white cell count is at 20.9. 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 No sick contacts. As mentioned she is smoking and she does not utilize any form of respiratory medications. Mild chronic exertional dyspnea. The patient is seen again today 05/03/2018 in follow-up on the regular medical floor. She is currently resting quite comfortably in bed. She did have significant pain and shortness of breath while being up to the bathroom earlier this morning. Her pain is currently well controlled. She denies any worsening shortness of breath. Still dyspneic with minimal exertion. He is currently maintaining O2 saturations in the low 90s on 3 L/m per nasal cannula. She's been afebrile. Slightly tachycardic. Pleural fluid analysis is exudative in nature. Cultures are pending. She is currently on vancomycin and ceftriaxone. On 05/04/2018 and seeing this patient for a follow-up. The patient has an extensive right lung pneumonia with a complicated loculated parapneumonic effusion. The patient was being covered with a combination of Rocephin and vancomycin. Note that the patient was in the medical floor and overnight the patient got transferred to the ICU as the patient was becoming more short of breath, hypoxic, tachycardic and hypoxic. The patient is currently on 10 L of oxygen nasal cannula. Overnight the patient became tachycardic and she was having runs of SVT. She was placed on Cardizem drip at 5 g and hours and currently heart rate in the mid 90s. She remains in a sinus mechanism. Her chest x-ray was done yesterday and this morning and it shows extensive consolidation in addition to pleural effusion which is loculated in the right lung occupying the lower two thirds of the lung base. Based on this, the patient was brought in in terms of antibiotic coverage and the patient was placed on a combination of Zosyn and Levaquin and vancomycin. The patient had another CAT scan of the chest that showed complex loculated appearing moderate to large right-sided pleural effusion and this has slightly increased from the previous CAT scan of 05/02/2018. The right middle lobe and the right lower lobe is extensively collapse. Is a small left-sided pleural effusion in addition. The patient had a another thoracentesis and ICU and a total of 450 mL of turbid dark exudative pleural effusion was drained from the right lung. No complications. No pneumothorax. No positive cultures from the pleural fluid noted in the blood. Consultation was placed oral thoracic surgery regarding the possibility of a video-assisted thoracoscopic evaluation and decortication. Mentation is well-preserved the patient is alert and awake. Appetite is diminished. No altered mentation. No nausea or vomiting. Chest pain is subsided compared to yesterday. The patient short of breath with limited amount of activity. She is not using excessive muscle breathing at rest. On 05/05/2018 patient seen again in follow-up in the recovery room, she is status post right video-assisted thoracoscopy with decortication extensive right -sided pneumonia with parapneumonic loculated pleural effusion, postop day 0. She is somnolent, but easily arousable to verbal stimuli, she is currently on a simple mask, with FiO2 of 8 L, pulse ox of 92%, her pain is under reasonable control, and there is an epidural catheter in place. Postop patient became slightly hypotensive, and a liter of IV fluids, and Carlos-Synephrine drip is infusing at a rate of 2.6 mics per minute. Patient has 2 right-sided chest tubes to wall suction, and there is small amount of serosanguineous output, no air leak noted. Lung sounds are coarse scattered rhonchi. She denies afebrile , pleural fluid cultures are still pending, blood, sputum, and urine cultures are negative thus far. Patient continues on empiric antibiotics in the form of Levaquin, Zosyn and vancomycin. On nebulized bronchodilators, Symbicort. Follow-up chest x-ray post decortication was reviewed by Dr. Garza and showed 2 right-sided chest tubes, no pneumothorax, pleural effusion is largely resolved , infiltrate remains present, and a small left pleural effusion noted. Patient is awaiting transfer to a bed in the intensive care. Patient was reevaluated today on 05/06/2018, doing well, on nasal cannula, in no distress. T-max is 98.1, vital signs are stable. WBC count is down to 15.4 hemoglobin is 9.3 electrolytes and renal profile are normal. Chest x-ray showed right sided chest tubes in position, no evidence of pneumothorax, patchy basilar infiltrates persist. Patient feels much better today compared to how she felt in the last few days. Breathing easier, and in no distress. Patient was reevaluated today on 05/07/2018, remains in the ICU, but she is hemodynamically stable, on nasal cannula, in no distress, chest x-ray showed significant improvement in her right lung expansion, no evidence of pneumothorax , no evidence of subcu emphysema, continues to have chest tubes [address], minimal amount of bloody drainage noted in the chest tubes. Labs were reviewed chest x-ray was reviewed. Electrolytes are being corrected accordingly. Patient was reevaluated today on 05/08/2018, doing well, one of the chest tubes was removed, one remains, patient is relatively asymptomatic, no cough no wheezing no shortness of breath. Cultures from the surgical specimen/pleural fluid, remains negative so far. Patient is still on antibiotics empirically. All labs including CBC and basic metabolic profile were reviewed. Reevaluated today on 05/09/2018, patient continues to do well, however her x-ray is showing bilateral pleural effusions and mild interstitial edema. Patient tells me that she is a bit depressed, would like to be discharged home as soon as possible, but clearly she is not ready for discharge at this point. Patient did have previous history of depression, hence I suggested adding Celexa 40 mg daily and this will be added today. For her chest x-ray I recommended Lasix 20 mg IV push 1, may have to consider a maintenance dose of Lasix. Remains on a high flow nasal cannula, O2 saturation is in the low 90s. CBC is relatively normal hemoglobin is 9.1 WBC count is 9.4 lites are normal renal profile is normal Objective - Vital Signs Vital signs: Vital Signs Temp 99.2 F 05/09/18 04:00 Pulse 102 H 05/09/18 09:00 Resp 29 H 05/09/18 09:00 BP 170/75 05/09/18 09:00 Pulse Ox 88 L 05/09/18 09:00 Intake & Output 05/08/18 05/09/18 05/09/18 18:59 06:59 18:59 Intake Total 491.6 390 Output Total 950 400 Balance -458.4 -10 Weight 78.1 kg 76.5 kg Intake: IV 295 390 NS KVO 120 90 Piperacillin-Tazobactam 3 50 50 .375 gm In Dextrose/Water 1 50ml.bag @ 12.5 mls/hr IVPB Q8HR [facility] Rx#: [id number] Vancomycin 1,500 mg In 125 250 Sodium Chloride 0.9% 250 ml @ 125 mls/hr IVPB Q8H [facility] Rx#:[id number] Intake, IV Titration 196.6 Amount Ropivacaine 400 mg 196.6 Hydromorphone (Pf) 5 mg In Sodium Chloride 0.9% 170 ml @ Per Protocol EPIDURAL .Q0M PRN Rx#: [id number] Output: Urine 950 400 Other: Voiding Method Toilet Toilet # Voids 1 1 ABP, PAP, CO, CI - Last Documented Arterial Blood Pressure 105/48 - Exam GENERAL EXAM: Awake, comfortable, in no distress. Slightly depressed. HEAD: Normocephalic. Atraumatic. EYES: Normal reaction of pupils, equal size. NOSE: Clear with pink turbinates. THROAT: No erythema or exudates. NECK: No masses, no JVD. CHEST: No chest wall deformity. Both chest tubes have been removed. LUNGS: Coarse scattered rhonchi bilaterally, diminished breath sounds at the bases especially at the right base. CVS: S1 and S2 normal with no audible murmur, regular rhythm. ABDOMEN: No hepatosplenomegaly, normal bowel sounds, no guarding or rigidity. SPINE: No scoliosis or deformity SKIN: No rashes CENTRAL NERVOUS SYSTEM: No focal deficits, tone is normal in all 4 extremities. EXTREMITIES: There is no peripheral edema. No clubbing, no cyanosis. Peripheral pulses are int Psychiatric: Slightly depressed, but denies any suicidal or homicidal thoughts. - Labs CBC & Chem 7: 05/08/18 04:21 05/08/18 04:21 Labs: Microbiology - Last 24 Hours (Table) 05/05/18 12:00 Gram Stain - Preliminary Lung - Right Tissue Culture - Preliminary Assessment and Plan Assessment: 1 right lung multilobar pneumonia, likely gram-negative in nature, complicated by development of parapneumonic effusion with early loculations and compressive atelectasis, patient is status post right-sided video-assisted thoracoscopy decortication, postoperative day #4. Patient status post 2 right-sided thoracentesis, would removal of a total of 900 mL of parapneumonic pleural effusion fluid, pleural fluid positive for alphahemolytic strep, patient remains on Zosyn and vancomycin as well as Levaquin. Culture from the surgical specimen is pending. 2 acute hypoxic respiratory failure secondary to above, improving 3 acute leukocytosis secondary to above, improving 4 COPD 5 urine drug screen for opiates, amphetamine and methamphetamine's 6 abnormal LFTs 7 smoker 8 sinus tachycardia currently on a Cardizem drip at 5 mg an hour. 10 bilateral pleural effusions, hence I recommended Lasix 20 mg IV push 1, based on clinical response, may keep on a maintenance dose of diuretics. Fluids at present are at KVO. 11 suspect mild component of depression, hence Celexa was added at 40 mg by mouth daily at bedtime. Plan continue present supportive care measures, antibiotics, bronchodilators, incentive spirometry, GI and DVT prophylaxis, diuretics, antidepressant, titrate FiO2 as tolerated and keep saturation above 90%. Time with Patient: Less than 30
[2018-05-09] MEDS: CITALOPRAM HYDROBROMIDE 20 MG TAB PO SCH (10:27)
[2018-05-09] MEDS: ONDANSETRON 4 MG/2 ML VIAL IVP PRN (12:33)
[2018-05-09] MEDS: VANCOMYCIN 1,500 MG in SODIUM CHLORIDE 0.9% 250 ML IVPB SCH (14:36)
--- NOTE | 2018-05-09 18:20 | P.PN ---
Subjective Progress Note Date: 05/09/18 Progress note being dictated for Dr. Garcia. Interval history: This 57-year-old female admitted with right lower lobe multifocal pneumonia with parapneumonic effusion, possible sepsis, elevated LFTs and multiple other medical issues. Evaluated by pulmonary with recommendations noted. Drug screen positive for opiates, amphetamines and methamphetamines. Significant shakiness, denies alcohol consumption/abuse. Sodium improved. WBC up to 20, and steroids. Chest x-ray reports increasing right pleural effusion. Liver ultrasound Limited study secondary to patient's shaking, shortness of breath, reporting large pleural effusion, thickening of gallbladder wall, possible acute cholecystitis. Chest CT reporting worsening moderate right-sided pleural effusion collection/loculation with associated compressive atelectasis and/or consolidation, suspect infectious etiology, mild- to-moderate emphysematous change. Underwent right-sided thoracentesis with 450 MLS cloudy dark yellow pleural fluid removed. Tolerated procedure well. Pain improved. Maintained on vancomycin and Rocephin. Review of systems: CONSTITUTIONAL: No fever, positive fatigue. HEENT: No recent visual problems or hearing problems. Denied any sore throat. CARDIOVASCULAR: No chest pain, orthopnea, PND, no palpitations, no syncope. PULMONARY: Short of breath ,Positive exertional dyspnea, GASTROINTESTINAL: No diarrhea, no nausea, no vomiting, no abdominal pain. Normoactive bowel sounds. NEUROLOGICAL: No headaches, no weakness, no numbness. HEMATOLOGICAL: Denies any bleeding or petechiae. GENITOURINARY: Denies any burning micturition, frequency, or urgency. MUSCULOSKELETAL/RHEUMATOLOGICAL: Denies any joint pain, swelling, or any muscle pain. ENDOCRINE: Denies any polyuria or polydipsia. PSYCHIATRIC: No anxiety, no depression The rest of the 14 point review of systems is negative Active Medications Acetaminophen (Tylenol Tab) 650 mg PO Q6HR PRN PRN Reason: Mild Pain or Fever > 100.5 Hydrocodone Bitart/Acetaminophen ([place] 5-325) 1 each PO Q6HR PRN PRN Reason: Moderate Pain Last Admin: 05/02/18 09:55 Dose: 1 each Albuterol/Ipratropium (Duoneb 0.5 Mg-3 Mg/3 Ml Soln) 3 ml INHALATION RT-QID [facility] Last Admin: 05/02/18 15:48 Dose: 3 ml Albuterol/Ipratropium (Duoneb 0.5 Mg-3 Mg/3 Ml Soln) 3 ml INHALATION RT-TID PRN PRN Reason: Shortness Of Breath Or Wheezing Alprazolam (Xanax) 0.25 mg PO TID PRN PRN Reason: Anxiety Budesonide/Formoterol Fumarate (Symbicort 160-4.5 Mcg Inhaler) 2 puff INHALATION RT-BID [facility] Last Admin: 05/02/18 13:48 Dose: Not Given Ceftriaxone Sodium (Rocephin) 1,000 mg IVP Q24HR [facility] Last Admin: 05/02/18 09:39 Dose: 1,000 mg Cyclobenzaprine HCl (Flexeril) 10 mg PO TID [facility] Last Admin: 05/02/18 15:42 Dose: 10 mg Heparin Sodium (Porcine) (Heparin) 5,000 unit SQ Q12HR [facility] Last Admin: 05/02/18 09:39 Dose: 5,000 unit Sodium Chloride (Saline 0.9%) 1,000 mls @ 75 mls/hr IV .[id number] [facility] Last Admin: 05/02/18 09:40 Dose: 75 mls/hr Vancomycin HCl 1,250 mg/ (Sodium Chloride) 250 mls @ 125 mls/hr IVPB Q12H [facility] Ketorolac Tromethamine (Toradol) 30 mg IVP Q6HR PRN PRN Reason: Moderate Pain Stop: 05/06/18 19:32 Last Admin: 05/02/18 05:30 Dose: 30 mg Lorazepam (Ativan) 1 mg IV Q4HR PRN PRN Reason: Anxiety Miscellaneous Information (Rx Info: Iv Contrast Was Given) 1 each MISCELLANE DAILY PRN PRN Reason: Per Protocol Stop: 05/04/18 09:34 Naloxone HCl (Narcan) 0.2 mg IV Q2M PRN PRN Reason: Opioid Reversal Nicotine (Habitrol 14mg/24hr Patch) 1 patch TRANSDERM DAILY [facility] Last Admin: 05/02/18 09:39 Dose: 1 patch Pantoprazole Sodium (Protonix) 40 mg PO AC-BRKFST [facility] Last Admin: 05/02/18 09:39 Dose: 40 mg Temazepam (Restoril) 15 mg PO HS PRN PRN Reason: Insomnia 05/06/2018 chest x-ray reporting persistence patchy bibasilar infiltrates. Maintained on nebulized bronchodilators, triple antibiotics of Levaquin, Zosyn and vancomycin. Afebrile. Breathing better. Chest tubes to waterseal.Pain controlled on epidural pump. Maintaining O2 sats of mid 90s on 4 L nasal cannula. Review of Systems: CV: As mentioned earlier RESP: As mentioned earlier GI: No nausea, vomiting : No dysuria or retention NERVOUS SYS: No numbness, weakness Active Medications Acetaminophen (Tylenol Tab) 650 mg PO Q6HR PRN PRN Reason: Mild Pain or Fever > 100.5 Hydrocodone Bitart/Acetaminophen ([place] 5-325) 1 each PO Q6HR PRN PRN Reason: Moderate Pain Last Admin: 05/07/18 16:26 Dose: 1 each Albuterol/Ipratropium (Duoneb 0.5 Mg-3 Mg/3 Ml Soln) 3 ml INHALATION RT-QID [facility] Last Admin: 05/07/18 19:36 Dose: 3 ml Albuterol/Ipratropium (Duoneb 0.5 Mg-3 Mg/3 Ml Soln) 3 ml INHALATION RT-TID PRN PRN Reason: Shortness Of Breath Or Wheezing Alprazolam (Xanax) 0.25 mg PO TID PRN PRN Reason: Anxiety Last Admin: 05/07/18 18:15 Dose: 0.25 mg Bisacodyl (Dulcolax) 10 mg RECTAL DAILY PRN PRN Reason: Constipation Budesonide/Formoterol Fumarate (Symbicort 160-4.5 Mcg Inhaler) 2 puff INHALATION RT-BID [facility] Last Admin: 05/07/18 19:42 Dose: 2 puff Cyclobenzaprine HCl (Flexeril) 10 mg PO TID [facility] Last Admin: 05/07/18 16:25 Dose: 10 mg Diphenhydramine HCl (Benadryl) 25 mg IVP Q6HR PRN PRN Reason: Itching Heparin Sodium (Porcine) (Heparin) 5,000 unit SQ Q12HR [facility] Last Admin: 05/07/18 10:53 Dose: Not Given Piperacillin/Tazobactam/ (Dextrose 3.375 gm/ IV Solution) 50 mls @ 12.5 mls/hr IVPB Q8HR [facility] Last Admin: 05/07/18 16:20 Dose: 12.5 mls/hr Ropivacaine 400 mg/Hydromorphone HCl 5 mg/ Sodium Chloride 250 mls @ 0 mls/hr EPIDURAL .Q0M PRN; Protocol PRN Reason: Pain Control Last Admin: 05/05/18 16:00 Dose: 3 mls/hr Phenylephrine HCl 40 mg/ (Sodium Chloride) 254 mls @ 0 mls/hr IV .Q0M [facility]; Protocol Last Admin: 05/05/18 14:30 Dose: 10 mls Vancomycin HCl 1,500 mg/ (Sodium Chloride) 250 mls @ 125 mls/hr IVPB Q8H [facility] Last Admin: 05/07/18 13:47 Dose: 125 mls/hr Lactulose (Cephulac) 20 gm PO HS PRN PRN Reason: CONSTIPATION Levofloxacin (Levaquin) 750 mg PO HS [facility] Last Admin: 05/06/18 20:21 Dose: 750 mg Metoprolol Tartrate (Lopressor) 12.5 mg PO BID [facility] Last Admin: 05/07/18 10:53 Dose: Not Given Miscellaneous Information (Potassium Per Protocol) 1 each MISCELLANE DAILY PRN ; Protocol PRN Reason: Per Protocol Miscellaneous Information (Vancomycin Trough Due) 0 each MISCELLANE DIRECTED ONE Stop: 05/08/18 04:01 Morphine Sulfate (Morphine Sulfate (Inj)) 4 mg IVP Q4H PRN PRN Reason: Severe Pain Last Admin: 05/05/18 20:37 Dose: 4 mg Morphine Sulfate (Morphine Sulfate (Inj)) 2 mg IVP Q4HR PRN PRN Reason: Moderate Pain Naloxone HCl (Narcan) 0.2 mg IV Q2M PRN PRN Reason: Opioid Reversal Nicotine (Habitrol 14mg/24hr Patch) 1 patch TRANSDERM DAILY [facility] Last Admin: 05/07/18 10:53 Dose: Not Given Ondansetron HCl (Zofran) 4 mg IVP Q8HR PRN PRN Reason: Nausea And Vomiting Pantoprazole Sodium (Protonix) 40 mg PO AC-BRKFST [facility] Last Admin: 05/07/18 10:52 Dose: Not Given Temazepam (Restoril) 15 mg PO HS PRN PRN Reason: Insomnia Last Admin: 05/04/18 18:04 Dose: 15 mg 05/07/18 chest using minimal drainage. Chest x-ray reporting stable, persistence monitor moderate right greater than left inferior pleural fluid collections with bibasilar atelectasis/infiltrates, no evidence of pneumothorax. Pleural cytology reporting dense acute inflammatory cells consistent with empyema. No cytologically malignant cells identified. Sitting up in chair, await transfer to telemetry floor. Review of Systems: CV: As mentioned earlier RESP: As mentioned earlier GI: No nausea, vomiting : No dysuria or retention NERVOUS SYS: No numbness, weakness Active Medications Acetaminophen (Tylenol Tab) 650 mg PO Q6HR PRN PRN Reason: Mild Pain or Fever > 100.5 Hydrocodone Bitart/Acetaminophen ([place] 5-325) 1 each PO Q6HR PRN PRN Reason: Moderate Pain Last Admin: 05/07/18 16:26 Dose: 1 each Albuterol/Ipratropium (Duoneb 0.5 Mg-3 Mg/3 Ml Soln) 3 ml INHALATION RT-QID [facility] Last Admin: 05/07/18 19:36 Dose: 3 ml Albuterol/Ipratropium (Duoneb 0.5 Mg-3 Mg/3 Ml Soln) 3 ml INHALATION RT-TID PRN PRN Reason: Shortness Of Breath Or Wheezing Alprazolam (Xanax) 0.25 mg PO TID PRN PRN Reason: Anxiety Last Admin: 05/07/18 18:15 Dose: 0.25 mg Bisacodyl (Dulcolax) 10 mg RECTAL DAILY PRN PRN Reason: Constipation Budesonide/Formoterol Fumarate (Symbicort 160-4.5 Mcg Inhaler) 2 puff INHALATION RT-BID [facility] Last Admin: 05/07/18 19:42 Dose: 2 puff Cyclobenzaprine HCl (Flexeril) 10 mg PO TID [facility] Last Admin: 05/07/18 16:25 Dose: 10 mg Diphenhydramine HCl (Benadryl) 25 mg IVP Q6HR PRN PRN Reason: Itching Heparin Sodium (Porcine) (Heparin) 5,000 unit SQ Q12HR [facility] Last Admin: 05/07/18 10:53 Dose: Not Given Piperacillin/Tazobactam/ (Dextrose 3.375 gm/ IV Solution) 50 mls @ 12.5 mls/hr IVPB Q8HR [facility] Last Admin: 05/07/18 16:20 Dose: 12.5 mls/hr Ropivacaine 400 mg/Hydromorphone HCl 5 mg/ Sodium Chloride 250 mls @ 0 mls/hr EPIDURAL .Q0M PRN; Protocol PRN Reason: Pain Control Last Admin: 05/05/18 16:00 Dose: 3 mls/hr Phenylephrine HCl 40 mg/ (Sodium Chloride) 254 mls @ 0 mls/hr IV .Q0M [facility]; Protocol Last Admin: 05/05/18 14:30 Dose: 10 mls Vancomycin HCl 1,500 mg/ (Sodium Chloride) 250 mls @ 125 mls/hr IVPB Q8H [facility] Last Admin: 05/07/18 13:47 Dose: 125 mls/hr Lactulose (Cephulac) 20 gm PO HS PRN PRN Reason: CONSTIPATION Levofloxacin (Levaquin) 750 mg PO HS [facility] Last Admin: 05/06/18 20:21 Dose: 750 mg Metoprolol Tartrate (Lopressor) 12.5 mg PO BID [facility] Last Admin: 05/07/18 10:53 Dose: Not Given Miscellaneous Information (Potassium Per Protocol) 1 each MISCELLANE DAILY PRN ; Protocol PRN Reason: Per Protocol Miscellaneous Information (Vancomycin Trough Due) 0 each MISCELLANE DIRECTED ONE Stop: 05/08/18 04:01 Morphine Sulfate (Morphine Sulfate (Inj)) 4 mg IVP Q4H PRN PRN Reason: Severe Pain Last Admin: 05/05/18 20:37 Dose: 4 mg Morphine Sulfate (Morphine Sulfate (Inj)) 2 mg IVP Q4HR PRN PRN Reason: Moderate Pain Naloxone HCl (Narcan) 0.2 mg IV Q2M PRN PRN Reason: Opioid Reversal Nicotine (Habitrol 14mg/24hr Patch) 1 patch TRANSDERM DAILY [facility] Last Admin: 05/07/18 10:53 Dose: Not Given Ondansetron HCl (Zofran) 4 mg IVP Q8HR PRN PRN Reason: Nausea And Vomiting Pantoprazole Sodium (Protonix) 40 mg PO AC-BRKFST [facility] Last Admin: 05/07/18 10:52 Dose: Not Given Temazepam (Restoril) 15 mg PO HS PRN PRN Reason: Insomnia Last Admin: 05/04/18 18:04 Dose: 15 mg 05/08/2018 epidural discontinued, pain controlled. Maintained on empiric antibiotics. Pleural fluid cultures currently negative. Right-sided posterior Chest tube 1 removed today. IS up to 750 Denies chest pain, palpitations or increased shortness of breath. 05/09/18 maintaining O2 sats in the 90s on 6 L high flow nasal cannula. chest x- ray reporting resolution of right apical pneumothorax, bilateral pleural effusions. Received a dose of Lasix. Depressed, anxious for discharge. Objective - Vital Signs Vital signs: Vital Signs Temp 98.1 F 05/09/18 16:00 Pulse 86 05/09/18 16:19 Resp 20 05/09/18 16:05 BP 150/66 05/09/18 16:00 Pulse Ox 95 05/09/18 16:05 Intake & Output 05/08/18 05/09/18 05/09/18 18:59 06:59 18:59 Intake Total 491.6 390 340 Output Total 950 400 700 Balance -458.4 -10 -360 Weight 78.1 kg 76.5 kg Intake: IV 295 390 340 NS KVO 120 90 40 Piperacillin-Tazobactam 3 50 .375 gm In Dextrose/Water 1 50ml.bag @ 12.5 mls/hr IVPB Q8H [facility] Rx#: [id number] Piperacillin-Tazobactam 3 50 50 .375 gm In Dextrose/Water 1 50ml.bag @ 12.5 mls/hr IVPB Q8HR [facility] Rx#: [id number] Vancomycin 1,500 mg In 250 Sodium Chloride 0.9% 250 ml @ 125 mls/hr IVPB Q16H [facility] Rx#:[id number] Vancomycin 1,500 mg In 125 250 Sodium Chloride 0.9% 250 ml @ 125 mls/hr IVPB Q8H [facility] Rx#:[id number] Intake, IV Titration 196.6 Amount Ropivacaine 400 mg 196.6 Hydromorphone (Pf) 5 mg In Sodium Chloride 0.9% 170 ml @ Per Protocol EPIDURAL .Q0M PRN Rx#: [id number] Output: Urine 950 400 700 Other: Voiding Method Toilet Toilet Toilet Bedside Commode # Voids 1 1 ABP, PAP, CO, CI - Last Documented Arterial Blood Pressure 105/48 - Exam PHYSICAL EXAM: VITAL SIGNS: As above GENERAL: Sitting up in chair, tired, depressed appearing HEENT: Conjunctivae normal. eyes normal. Oral mucosa moist NECK: No JVD. No thyroid enlargement. No LNs CARDIOVASCULAR: S1, S2 muffled. No murmur RESPIRATION: Breath sounds diminished in the bases. coarse rhonchi, no crackles. ABDOMEN: Soft, nontender . No guarding. no masses palpable. No ascites, No hepatosplenomegaly.Bowel sounds heard. LEGS: No edema. no swelling PSYCHIATRY: Alert and oriented -3, mood and affect , depressed-denies any suicidal thoughts, plans or intent. NERVOUS SYSTEM: Cranial N 2-12 grossly normal. Moves all 4 limbs. Diffuse weakness No focal deficits. No sensory deficit. No signs of cerebellar dysfucntion. Skin: no ulcer no rash Joints: No active swelling. No inflammation. Lymphatic system. No LN neck axilla or groin. - Labs CBC & Chem 7: 05/08/18 04:21 05/08/18 04:21 Labs: Microbiology - Last 24 Hours (Table) 05/05/18 12:00 Anaerobic Culture - Final Lung - Right Assessment and Plan Assessment: 1. Sepsis secondary to Acute extensive right lower lobe multifocal pneumonia with alphahemolytic strep, with parapneumonic effusion, possible empyema, loculated , compressive atelectasis present on admission. Chest CT reporting worsening moderate right-sided pleural effusion collection/loculation with associated compressive atelectasis and/or consolidation, [id number] emphysematous change.Status post right paracentesis. 2. Status post decortication and chest tube drainage. Pleural fluid positive for alphahemolytic strep. Pleural cytology reporting dense acute inflammatory cells consistent with empyema. No cytologically malignant cells identified. 2. Leukocytosis secondary to #1 3. Acute hypoxic respiratory failure secondary to #1 4. Elevated LFTs 5. Ongoing nicotine dependence 6. Drug screen positive for opiates, amphetamines and methamphetamines 9. Possible mild Depression 10. anemia, possible chronic Plan: Continue on current medication regime ,monitoring and symptomatic treatment. Celexa added to med regime Maintain nebulized bronchodilators, antibiotics. Aggressive pulmonary toileting with incentive spirometer reinforced. awaiting telemetry bed. Prognosis guarded given multiple complex medical issues. The impression and plan of care has been dictated as directed. : I performed a history and examination of this patient, discussed the same with the dictator. I agree with the dictator's note ,documented as a scribe. Any additional findings or plans will be noted.
[2018-05-09] MEDS: ALPRAZolam 0.25 MG TAB PO PRN ×2 (18:45→22:23)
[2018-05-09] MEDS: LEVOFLOXACIN 750 MG TAB PO SCH (20:46)
[2018-05-10 04:46] LABS: HCT 28.6 % (34.0-46.0); MCH 29.4 pg (25.0-35.0); MCHC 31.5 g/dL (31.0-37.0); MCV 93.3 fL (80.0-100.0); Mean Platelet Volume 6.5; Platelet Count 499 k/uL (150-450); RBC 3.06 m/uL (3.80-5.40); RDW 13.6 % (11.5-15.5); WBC 12.7 k/uL (3.8-10.6)
[2018-05-10] MEDS: PIPERACILLIN-TAZOBACTAM 3.375 GM in DEXTROSE/WATER 1 50ML.BAG IVPB SCH ×3 (05:00→20:18)
[2018-05-10 05:07] LABS: Calcium 8.7 mg/dL (8.4-10.2); Potassium 3.9 mmol/L (3.5-5.1)
[2018-05-10] MEDS: VANCOMYCIN 1,500 MG in SODIUM CHLORIDE 0.9% 250 ML IVPB SCH ×2 (05:50→21:43)
[2018-05-10] MEDS ORDERED: FUROSEMIDE 10 MG/ML 2 ML VIAL IV ONE (07:44)
--- NOTE | 2018-05-10 07:52 | XR ---
EXAMINATION TYPE: XR chest 2V DATE OF EXAM: 05/10/2018 COMPARISON: Prior chest x-ray 05/09/2018 HISTORY: Abnormal chest x-ray, pleural effusion TECHNIQUE: Frontal and lateral views of the chest are obtained. FINDINGS: Bibasilar effusions persist. Interstitium is increased. No pneumothorax. Heart size is par tially obscured. No pneumothorax. There are overlying cardiac leads. IMPRESSION: Correlate to exclude pulmonary venous hypertension and interstitial edema. Possible basi lar atelectasis versus pneumonia, correlate. Follow-up recommended.
[2018-05-10] MEDS: NICOTINE 14MG/24HR PATCH TRANSDERM SCH (08:13)
[2018-05-10] MEDS: PANTOPRAZOLE 40 MG TABLET PO SCH (08:13)
[2018-05-10] MEDS: HEPARIN SODIUM,PORCINE 5,000 UNIT/ML 1 ML VIAL SQ SCH ×2 (08:13→20:18)
[2018-05-10] MEDS: CITALOPRAM HYDROBROMIDE 20 MG TAB PO SCH (08:13)
[2018-05-10] MEDS: IPRATROPIUM-ALBUTEROL 3 ML NEB INHALATION SCH ×4 (08:52→18:58)
[2018-05-10] MEDS: SYMBICORT 160-4.5 MCG INHALER INHALATION SCH ×2 (08:52→18:56)
[2018-05-10] MEDS: METOPROLOL TARTRATE 25 MG TAB PO SCH ×2 (09:23→20:18)
[2018-05-10] MEDS: amLODIPine 5 MG TAB PO SCH (09:23)
[2018-05-10] MEDS: CYCLOBENZAPRINE 10 MG TAB PO SCH ×3 (09:23→21:44)
--- NOTE | 2018-05-10 09:30 | P.PN ---
Subjective Progress Note Date: 05/10/18 Principal diagnosis: Right-sided empyema, loculated right pleural effusion with extensive right lung multilobar pneumonia, current tobacco dependence. POD #5 right thoracotomy for total right pleural and pulmonary decortication. The patient is currently sitting up in bed in no acute distress. States pain is controlled, complains of shortness of breath with increased activity. No new complaints. States she thinks she is going home on Saturday and feels ready to do so. Objective - Vital Signs Vital signs: Vital Signs Temp 98.8 F 05/10/18 09:19 Pulse 92 05/10/18 09:19 Resp 23 05/10/18 09:19 BP 159/70 05/10/18 09:19 Pulse Ox 93 L 05/10/18 09:19 Intake & Output 05/09/18 05/10/18 05/10/18 18:59 06:59 18:59 Intake Total 340 50 Output Total 700 Balance -360 50 Weight 76.1 kg Intake: IV 340 50 NS KVO 40 Piperacillin-Tazobactam 3 50 50 .375 gm In Dextrose/Water 1 50ml.bag @ 12.5 mls/hr IVPB Q8H [facility] Rx#: [id number] Vancomycin 1,500 mg In 250 Sodium Chloride 0.9% 250 ml @ 125 mls/hr IVPB Q16H [facility] Rx#:[id number] Output: Urine 700 Other: Voiding Method Toilet Toilet Bedside Commode Bedside Commode # Voids 3 ABP, PAP, CO, CI - Last Documented Arterial Blood Pressure 105/48 - Constitutional General appearance: Present: cooperative, no acute distress - Respiratory Details: Lungs sounds diminished bilaterally. Respirations even, nonlabored. Currently on 6 L nasal cannula with oxygen saturation 96%. Able to achieve 750 mL on her incentive spirometry. - Cardiovascular Details: S1, S2 present. Regular rate and rhythm, sinus rhythm on telemetry. Palpable peripheral pulses bilaterally. No edema present. No calf pain or tenderness noted. SCDs present. - Gastrointestinal Gastrointestinal Comment(s): Abdomen soft, nontender, nondistended. Active bowel sounds 4 quadrants. Tolerating diet. - Genitourinary Genitourinary Comment(s): Continues to void clear, yellow urine. - Integumentary Integumentary Comment(s): Skin is warm and dry with evidence of good perfusion. Right lateral chest incisions covered with dry intact dressing. - Neurologic Neurologic: Present: CNII-XII intact - Musculoskeletal Musculoskeletal: Present: gait normal, strength equal bilaterally - Psychiatric Psychiatric: Present: A&O x's 3, appropriate affect, intact judgment & insight - Allied health notes Allied health notes reviewed: nursing - Labs CBC & Chem 7: 05/10/18 04:14 05/10/18 04:14 Labs: Abnormal Lab Results - Last 24 Hours (Table) 05/10/18 05/10/18 Range/Units 04:14 04:14 WBC 12.7 H (3.8-10.6) k/uL RBC 3.06 L (3.80-5.40) m/uL Hgb 9.0 L (11.4-16.0) gm/dL Hct 28.6 L (34.0-46.0) % Plt Count 499 H (150-450) k/uL Carbon Dioxide 34 H (22-30) mmol/L Microbiology - Last 24 Hours (Table) 05/05/18 12:00 Anaerobic Culture - Final Lung - Right - Imaging and Cardiology Chest x-ray: report reviewed, image reviewed Assessment and Plan (1) COPD (chronic obstructive pulmonary disease) Current Visit: Yes Status: Chronic Code(s): J44.9 - CHRONIC OBSTRUCTIVE PULMONARY DISEASE, UNSPECIFIED SNOMED Code(s): 69293546 (2) Nicotine dependence with current use Current Visit: Yes Status: Chronic Code(s): F17.200 - NICOTINE DEPENDENCE, UNSPECIFIED, UNCOMPLICATED SNOMED Code(s): 353513694 (3) Pleural effusion, right Current Visit: Yes Status: Acute Code(s): J90 - PLEURAL EFFUSION, NOT ELSEWHERE CLASSIFIED SNOMED Code(s): 20640478 (4) Pneumonia involving right lung Current Visit: Yes Status: Acute Code(s): J18.9 - PNEUMONIA, UNSPECIFIED ORGANISM SNOMED Code(s): 821229140 Plan: 1. Wean O2 as tolerated. Encourage incentive spirometry use 10 times every hour. 2. Will continue to monitor daily x-rays. 3. Encourage smoking cessation. 4. Pain control with ordered medications. 5. Bronchodilators, antibiotics per pulmonology. 6. GI/DVT prophylaxis. 7. Increase activity, ambulate in hallway. 8. Patient may be transferred to [facility]. [facility] care from our standpoint. 9. Will continue to monitor patient's progress. Patient will need to follow- up with Dr. Kim upon discharge from hospital. Time with Patient: Greater than 30
[2018-05-10] MEDS: ONDANSETRON 4 MG/2 ML VIAL IVP PRN (09:36)
--- NOTE | 2018-05-10 10:18 | P.PN ---
Subjective Progress Note Date: 05/10/18 Principal diagnosis: Multilobar pneumonia and parapneumonic effusion requiring video assisted thoracoscopic decortication. Postoperative day #5 57-year-old female patient a chronic smoker who presented to [facility] department she days back. Pleuritic severe right-sided chest pain. The patient was told to have some soreness of the chest and muscle spasm and she was given ibuprofen. Subsequently she started having chills no documented temperature and she was comfortable not increased yellowish sputum. Her pain progressively got worse and started developing worsening shortness of breath. For that reason she came into the hospital and repeat chest x-ray was done that showed increased opacity in the right lower lobe in addition to multilobar pneumonia involving the right lung. There was evidence of parapneumonic effusion. No altered mentation. No signs of any septicemia. No hypotension. No signs of any respiratory failure. Based on x-ray findings, I ordered a CAT scan of the chest and I found a moderate amount of right sided pleural fluid collection which does not completely layer dependently and this suggests some degree of loculation in addition to some background mild to moderate underlying emphysematous change. The patient has some compressive atelectasis of the right lung base area. Based on all this, I performed a bedside thoracentesis and a total of 4 50 mL of turbid dark yellowish pleural fluid was aspirated without any major difficulties. The fluid was sent for analysis., This patient a combination of Rocephin and vancomycin for now. Her pain is subsided and patient is having less of a pleuritic chest pain on the right. No hemoptysis. Patient's urine drug screen is positive for opiates, amphetamine and methamphetamine. Urinalysis is negative. The white cell count is at 20.9. 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 No sick contacts. As mentioned she is smoking and she does not utilize any form of respiratory medications. Mild chronic exertional dyspnea. The patient is seen again today 05/03/2018 in follow-up on the regular medical floor. She is currently resting quite comfortably in bed. She did have significant pain and shortness of breath while being up to the bathroom earlier this morning. Her pain is currently well controlled. She denies any worsening shortness of breath. Still dyspneic with minimal exertion. He is currently maintaining O2 saturations in the low 90s on 3 L/m per nasal cannula. She's been afebrile. Slightly tachycardic. Pleural fluid analysis is exudative in nature. Cultures are pending. She is currently on vancomycin and ceftriaxone. On 05/04/2018 and seeing this patient for a follow-up. The patient has an extensive right lung pneumonia with a complicated loculated parapneumonic effusion. The patient was being covered with a combination of Rocephin and vancomycin. Note that the patient was in the medical floor and overnight the patient got transferred to the ICU as the patient was becoming more short of breath, hypoxic, tachycardic and hypoxic. The patient is currently on 10 L of oxygen nasal cannula. Overnight the patient became tachycardic and she was having runs of SVT. She was placed on Cardizem drip at 5 g and hours and currently heart rate in the mid 90s. She remains in a sinus mechanism. Her chest x-ray was done yesterday and this morning and it shows extensive consolidation in addition to pleural effusion which is loculated in the right lung occupying the lower two thirds of the lung base. Based on this, the patient was brought in in terms of antibiotic coverage and the patient was placed on a combination of Zosyn and Levaquin and vancomycin. The patient had another CAT scan of the chest that showed complex loculated appearing moderate to large right-sided pleural effusion and this has slightly increased from the previous CAT scan of 05/02/2018. The right middle lobe and the right lower lobe is extensively collapse. Is a small left-sided pleural effusion in addition. The patient had a another thoracentesis and ICU and a total of 450 mL of turbid dark exudative pleural effusion was drained from the right lung. No complications. No pneumothorax. No positive cultures from the pleural fluid noted in the blood. Consultation was placed oral thoracic surgery regarding the possibility of a video-assisted thoracoscopic evaluation and decortication. Mentation is well-preserved the patient is alert and awake. Appetite is diminished. No altered mentation. No nausea or vomiting. Chest pain is subsided compared to yesterday. The patient short of breath with limited amount of activity. She is not using excessive muscle breathing at rest. On 05/05/2018 patient seen again in follow-up in the recovery room, she is status post right video-assisted thoracoscopy with decortication extensive right -sided pneumonia with parapneumonic loculated pleural effusion, postop day 0. She is somnolent, but easily arousable to verbal stimuli, she is currently on a simple mask, with FiO2 of 8 L, pulse ox of 92%, her pain is under reasonable control, and there is an epidural catheter in place. Postop patient became slightly hypotensive, and a liter of IV fluids, and Carlos-Synephrine drip is infusing at a rate of 2.6 mics per minute. Patient has 2 right-sided chest tubes to wall suction, and there is small amount of serosanguineous output, no air leak noted. Lung sounds are coarse scattered rhonchi. She denies afebrile , pleural fluid cultures are still pending, blood, sputum, and urine cultures are negative thus far. Patient continues on empiric antibiotics in the form of Levaquin, Zosyn and vancomycin. On nebulized bronchodilators, Symbicort. Follow-up chest x-ray post decortication was reviewed by Dr. Garza and showed 2 right-sided chest tubes, no pneumothorax, pleural effusion is largely resolved , infiltrate remains present, and a small left pleural effusion noted. Patient is awaiting transfer to a bed in the intensive care. Patient was reevaluated today on 05/06/2018, doing well, on nasal cannula, in no distress. T-max is 98.1, vital signs are stable. WBC count is down to 15.4 hemoglobin is 9.3 electrolytes and renal profile are normal. Chest x-ray showed right sided chest tubes in position, no evidence of pneumothorax, patchy basilar infiltrates persist. Patient feels much better today compared to how she felt in the last few days. Breathing easier, and in no distress. Patient was reevaluated today on 05/07/2018, remains in the ICU, but she is hemodynamically stable, on nasal cannula, in no distress, chest x-ray showed significant improvement in her right lung expansion, no evidence of pneumothorax , no evidence of subcu emphysema, continues to have chest tubes [address], minimal amount of bloody drainage noted in the chest tubes. Labs were reviewed chest x-ray was reviewed. Electrolytes are being corrected accordingly. Patient was reevaluated today on 05/08/2018, doing well, one of the chest tubes was removed, one remains, patient is relatively asymptomatic, no cough no wheezing no shortness of breath. Cultures from the surgical specimen/pleural fluid, remains negative so far. Patient is still on antibiotics empirically. All labs including CBC and basic metabolic profile were reviewed. Reevaluated today on 05/09/2018, patient continues to do well, however her x-ray is showing bilateral pleural effusions and mild interstitial edema. Patient tells me that she is a bit depressed, would like to be discharged home as soon as possible, but clearly she is not ready for discharge at this point. Patient did have previous history of depression, hence I suggested adding Celexa 40 mg daily and this will be added today. For her chest x-ray I recommended Lasix 20 mg IV push 1, may have to consider a maintenance dose of Lasix. Remains on a high flow nasal cannula, O2 saturation is in the low 90s. CBC is relatively normal hemoglobin is 9.1 WBC count is 9.4 lites are normal renal profile is normal Reevaluated today on 05/10/2018, patient is doing better today, breathing easier , her mood is even better compared to yesterday. Patient is down to 6 L nasal cannula, and her O2 saturation is in the mid 90s. Chest x-ray continues to show bilateral pleural effusions, hence more Lasix was given today. CBC is relatively normal, basic metabolic profile is relatively normal. Patient is relatively asymptomatic. Objective - Vital Signs Vital signs: Vital Signs Temp 98.8 F 05/10/18 09:19 Pulse 92 05/10/18 09:19 Resp 23 05/10/18 09:19 BP 159/70 05/10/18 09:19 Pulse Ox 88 L 05/10/18 09:35 Intake & Output 05/09/18 05/10/18 05/10/18 18:59 06:59 18:59 Intake Total 340 50 Output Total 700 Balance -360 50 Weight 76.1 kg Intake: IV 340 50 NS KVO 40 Piperacillin-Tazobactam 3 50 50 .375 gm In Dextrose/Water 1 50ml.bag @ 12.5 mls/hr IVPB Q8H [facility] Rx#: [id number] Vancomycin 1,500 mg In 250 Sodium Chloride 0.9% 250 ml @ 125 mls/hr IVPB Q16H [facility] Rx#:[id number] Output: Urine 700 Other: Voiding Method Toilet Toilet Bedside Commode Bedside Commode # Voids 3 2 ABP, PAP, CO, CI - Last Documented Arterial Blood Pressure 105/48 - Exam GENERAL EXAM: Awake, comfortable, in no distress. HEAD: Normocephalic. Atraumatic. EYES: Normal reaction of pupils, equal size. NOSE: Clear with pink turbinates. THROAT: No erythema or exudates. NECK: No masses, no JVD. CHEST: No chest wall deformity. Both chest tubes have been removed. LUNGS: Coarse scattered rhonchi bilaterally, diminished breath sounds at the bases especially at the right base. CVS: S1 and S2 normal with no audible murmur, regular rhythm. ABDOMEN: No hepatosplenomegaly, normal bowel sounds, no guarding or rigidity. SPINE: No scoliosis or deformity SKIN: No rashes CENTRAL NERVOUS SYSTEM: No focal deficits, tone is normal in all 4 extremities. EXTREMITIES: There is no peripheral edema. No clubbing, no cyanosis. Peripheral pulses are intact Psychiatric: Normal mood, affect, and mental status examination. - Labs CBC & Chem 7: 05/10/18 04:14 05/10/18 04:14 Labs: Abnormal Lab Results - Last 24 Hours (Table) 05/10/18 05/10/18 Range/Units 04:14 04:14 WBC 12.7 H (3.8-10.6) k/uL RBC 3.06 L (3.80-5.40) m/uL Hgb 9.0 L (11.4-16.0) gm/dL Hct 28.6 L (34.0-46.0) % Plt Count 499 H (150-450) k/uL Carbon Dioxide 34 H (22-30) mmol/L Microbiology - Last 24 Hours (Table) 05/05/18 12:00 Anaerobic Culture - Final Lung - Right Assessment and Plan Assessment: 1 right lung multilobar pneumonia, likely gram-negative in nature, complicated by development of parapneumonic effusion with early loculations and compressive atelectasis, patient is status post right-sided video-assisted thoracoscopy decortication, postoperative day #4. Patient status post 2 right-sided thoracentesis, would removal of a total of 900 mL of parapneumonic pleural effusion fluid, pleural fluid positive for alphahemolytic strep, patient remains on Zosyn and vancomycin as well as Levaquin. Culture from the surgical specimen is pending. 2 acute hypoxic respiratory failure secondary to above, improving 3 acute leukocytosis secondary to above, improving 4 COPD 5 urine drug screen for opiates, amphetamine and methamphetamine's 6 abnormal LFTs 7 smoker 8 sinus tachycardia currently on a Cardizem drip at 5 mg an hour. 10 bilateral pleural effusions, hence I recommended Lasix 20 mg IV push 1, based on clinical response, may keep on a maintenance dose of diuretics. Fluids at present are at KVO. 11 suspect mild component of depression, hence Celexa was added at 40 mg by mouth daily at bedtime. Plan continue present supportive care measures, antibiotics, bronchodilators, incentive spirometry, GI and DVT prophylaxis, diuretics, antidepressant, titrate FiO2 as tolerated and keep saturation above 90%. Time with Patient: Less than 30
--- NOTE | 2018-05-10 15:22 | P.PN ---
Subjective 57-year-old female admitted with right lower lobe multifocal pneumonia with parapneumonic effusion, possible sepsis, elevated LFTs and multiple other medical issues. Evaluated by pulmonary with recommendations noted. Drug screen positive for opiates, amphetamines and methamphetamines. Significant shakiness, denies alcohol consumption/abuse. Sodium improved. WBC up to 20, and steroids. Chest x-ray reports increasing right pleural effusion. Liver ultrasound Limited study secondary to patient's shaking, shortness of breath, reporting large pleural effusion, thickening of gallbladder wall, possible acute cholecystitis. Chest CT reporting worsening moderate right-sided pleural effusion collection/loculation with associated compressive atelectasis and/or consolidation, suspect infectious etiology, [id number] emphysematous change. Underwent right-sided thoracentesis with 450 MLS cloudy dark yellow pleural fluid removed. Tolerated procedure well. Pain improved. Maintained on vancomycin and Rocephin. 05/10/2018 Patient clinically looks better but remains on 6 L of onset which is being tapered down. Possibly of discharge in couple days. Patient is on both Zosyn and vancomycin probably both of these can be discontinued and patient can be started on Rocephin but I'll do that once I discuss with the pulmonary. Constitutional: Denied any fatigue denied any fever. Cardio vascular: denied any chest pain, palpitations Gastrointestinal denied any nausea vomiting Pulmonary: Denied any shortness of breath cough Neurologic denied any new focal deficits Objective - Vital Signs Vital signs: Vital Signs Temp 98.3 F 05/10/18 12:16 Pulse 76 05/10/18 12:47 Resp 22 05/10/18 12:16 BP 128/75 05/10/18 14:00 Pulse Ox 96 05/10/18 14:00 Intake & Output 05/09/18 05/10/18 05/10/18 18:59 06:59 18:59 Intake Total 340 50 50 Output Total 700 900 Balance -360 50 -850 Weight 76.1 kg 76.1 kg Intake: IV 340 50 50 NS KVO 40 Piperacillin-Tazobactam 3 50 50 50 .375 gm In Dextrose/Water 1 50ml.bag @ 12.5 mls/hr IVPB Q8H [facility] Rx#: [id number] Vancomycin 1,500 mg In 250 Sodium Chloride 0.9% 250 ml @ 125 mls/hr IVPB Q16H [facility] Rx#:[id number] Output: Urine 700 900 Other: Voiding Method Toilet Toilet Toilet Bedside Commode Bedside Commode # Voids 3 2 ABP, PAP, CO, CI - Last Documented Arterial Blood Pressure 105/48 - Exam PHYSICAL EXAMINATION: GENERAL: The patient is alert and oriented x3, not in any acute distress. Well developed, well nourished. HEENT: Pupils are round and equally reacting to light. EOMI. No scleral icterus. No conjunctival pallor. Normocephalic, atraumatic. No pharyngeal erythema. No thyromegaly. CARDIOVASCULAR: S1 and S2 present. No murmurs, rubs, or gallops. PULMONARY: Mildly decreased air entry into bilateral lower lung crawley minimal expiratory wheezing was appreciated. ABDOMEN: Soft, nontender, nondistended, normoactive bowel sounds. No palpable organomegaly. MUSCULOSKELETAL: No joint swelling or deformity. EXTREMITIES: No cyanosis, clubbing, or pedal edema. NEUROLOGICAL: Gross neurological examination did not reveal any focal deficits. SKIN: No rashes. - Labs CBC & Chem 7: 05/10/18 04:14 05/10/18 04:14 Labs: Abnormal Lab Results - Last 24 Hours (Table) 05/10/18 05/10/18 Range/Units 04:14 04:14 WBC 12.7 H (3.8-10.6) k/uL RBC 3.06 L (3.80-5.40) m/uL Hgb 9.0 L (11.4-16.0) gm/dL Hct 28.6 L (34.0-46.0) % Plt Count 499 H (150-450) k/uL Carbon Dioxide 34 H (22-30) mmol/L Microbiology - Last 24 Hours (Table) 05/05/18 12:00 Gram Stain - Preliminary Lung - Right Tissue Culture - Preliminary Alpha Hemolytic Streptococcus 05/05/18 12:00 Anaerobic Culture - Final Lung - Right Assessment and Plan Plan: -Sepsis secondary to right lower lobe pneumonia parapneumonic effusion loculated status post decortication procedure. For empyema. -Acute hypoxic respiratory failure secondary to assessment #1 --Acute hypoxic respiratory failure secondary to pneumonia which is improving -Drug abuse: Counseling was provided -Depression -Anemia of chronic disease
[2018-05-10] MEDS: ALPRAZolam 0.25 MG TAB PO PRN (20:18)
[2018-05-10] MEDS: LEVOFLOXACIN 750 MG TAB PO SCH (20:18)
[2018-05-11] MEDS: PIPERACILLIN-TAZOBACTAM 3.375 GM in DEXTROSE/WATER 1 50ML.BAG IVPB SCH ×3 (03:25→21:22)
[2018-05-11] MEDS: PANTOPRAZOLE 40 MG TABLET PO SCH (06:32)
--- NOTE | 2018-05-11 07:46 | P.PN ---
Subjective Progress Note Date: 05/11/18 Principal diagnosis: Right-sided empyema, loculated right pleural effusion with extensive right lung multilobar pneumonia, current tobacco dependence. POD #6 right thoracotomy for total right pleural and pulmonary decortication. The patient is currently sitting up in bed in no acute distress. States pain is controlled, complains of shortness of breath with increased activity, oxygen being weaned down. No new complaints. Was transferred out of ICU to [address] [place] [address] yesterday. Objective - Vital Signs Vital signs: Vital Signs Temp 98.4 F 05/11/18 03:30 Pulse 80 05/11/18 03:30 Resp 18 05/11/18 03:30 BP 147/69 05/11/18 03:30 Pulse Ox 95 05/11/18 03:30 Intake & Output 05/10/18 05/11/18 05/11/18 18:59 06:59 18:59 Intake Total 50 50 Output Total 900 Balance -850 50 Weight 76.1 kg 68.4 kg Intake: IV 50 50 Piperacillin-Tazobactam 3 50 50 .375 gm In Dextrose/Water 1 50ml.bag @ 12.5 mls/hr IVPB Q8H [facility] Rx#: [id number] Output: Urine 900 Other: Voiding Method Toilet Toilet # Voids 2 1 ABP, PAP, CO, CI - Last Documented Arterial Blood Pressure 105/48 - Constitutional General appearance: Present: cooperative, no acute distress - Respiratory Details: Lungs sounds diminished bilaterally, right greater than left. Respirations even , nonlabored. Currently on 5 L nasal cannula with oxygen saturation 95%. Able to achieve 750 mL on her incentive spirometry. - Cardiovascular Details: S1, S2 present. Regular rate and rhythm, sinus rhythm on telemetry. Palpable peripheral pulses bilaterally. No edema present. No calf pain or tenderness noted. SCDs present. - Gastrointestinal Gastrointestinal Comment(s): Abdomen soft, nontender, nondistended. Active bowel sounds 4 quadrants. Tolerating diet. - Genitourinary Genitourinary Comment(s): Continues to void clear, yellow urine. - Integumentary Integumentary Comment(s): Skin is warm and dry with evidence of good perfusion. Right lateral chest incisions well approximated. - Neurologic Neurologic: Present: CNII-XII intact - Musculoskeletal Musculoskeletal: Present: gait normal, strength equal bilaterally - Psychiatric Psychiatric: Present: A&O x's 3, appropriate affect, intact judgment & insight - Allied health notes Allied health notes reviewed: nursing - Labs CBC & Chem 7: 05/10/18 04:14 05/10/18 04:14 Labs: Microbiology - Last 24 Hours (Table) 05/05/18 12:00 Gram Stain - Preliminary Lung - Right Tissue Culture - Preliminary Alpha Hemolytic Streptococcus - Imaging and Cardiology Chest x-ray: image reviewed Assessment and Plan (1) COPD (chronic obstructive pulmonary disease) Current Visit: Yes Status: Chronic Code(s): J44.9 - CHRONIC OBSTRUCTIVE PULMONARY DISEASE, UNSPECIFIED SNOMED Code(s): 15338309 (2) Nicotine dependence with current use Current Visit: Yes Status: Chronic Code(s): F17.200 - NICOTINE DEPENDENCE, UNSPECIFIED, UNCOMPLICATED SNOMED Code(s): 549366116 (3) Pleural effusion, right Current Visit: Yes Status: Acute Code(s): J90 - PLEURAL EFFUSION, NOT ELSEWHERE CLASSIFIED SNOMED Code(s): 37315813 (4) Pneumonia involving right lung Current Visit: Yes Status: Acute Code(s): J18.9 - PNEUMONIA, UNSPECIFIED ORGANISM SNOMED Code(s): 622043597 Plan: 1. Wean O2 as tolerated. Encourage incentive spirometry use 10 times every hour. 2. Will continue to monitor daily x-rays. 3. Encourage smoking cessation. 4. Pain control with ordered medications. 5. Bronchodilators, antibiotics per pulmonology. 6. GI/DVT prophylaxis. 7. Increase activity, ambulate in hallway. 8. Will continue to monitor patient's progress. Patient will need to follow- up with Dr. Kim upon discharge from hospital. Time with Patient: Greater than 30
--- NOTE | 2018-05-11 08:23 | XR ---
EXAMINATION TYPE: XR chest 2V DATE OF EXAM: 05/11/2018 COMPARISON: Prior chest x-ray 05/10/2018 HISTORY: Status post thoracotomy TECHNIQUE: Frontal and lateral views of the chest are obtained. FINDINGS: Findings are stable. IMPRESSION: Basilar effusions and associated atelectasis. No pneumothorax. Correlate to exclude pneu monia. Interstitial pattern persists.
[2018-05-11] MEDS: METOPROLOL TARTRATE 25 MG TAB PO SCH ×2 (08:31→20:46)
[2018-05-11] MEDS: NICOTINE 14MG/24HR PATCH TRANSDERM SCH (08:31)
[2018-05-11] MEDS: amLODIPine 5 MG TAB PO SCH (08:31)
[2018-05-11] MEDS: HEPARIN SODIUM,PORCINE 5,000 UNIT/ML 1 ML VIAL SQ SCH ×2 (08:31→20:46)
[2018-05-11] MEDS: CITALOPRAM HYDROBROMIDE 20 MG TAB PO SCH (08:31)
[2018-05-11] MEDS: CYCLOBENZAPRINE 10 MG TAB PO SCH ×3 (08:32→20:46)
[2018-05-11] MEDS: ONDANSETRON 4 MG/2 ML VIAL IVP PRN (08:32)
[2018-05-11] MEDS: IPRATROPIUM-ALBUTEROL 3 ML NEB INHALATION SCH ×4 (08:33→19:52)
[2018-05-11] MEDS: SYMBICORT 160-4.5 MCG INHALER INHALATION SCH ×2 (08:33→19:52)
[2018-05-11] MEDS: ALPRAZolam 0.25 MG TAB PO PRN ×2 (08:34→18:27)
--- NOTE | 2018-05-11 12:16 | P.PN ---
Subjective Progress Note Date: 05/11/18 Principal diagnosis: Multilobar pneumonia and parapneumonic effusion requiring video assisted thoracoscopic decortication. Postoperative day # 6 57-year-old female patient a chronic smoker who presented to [facility] department she days back. Pleuritic severe right-sided chest pain. The patient was told to have some soreness of the chest and muscle spasm and she was given ibuprofen. Subsequently she started having chills no documented temperature and she was comfortable not increased yellowish sputum. Her pain progressively got worse and started developing worsening shortness of breath. For that reason she came into the hospital and repeat chest x-ray was done that showed increased opacity in the right lower lobe in addition to multilobar pneumonia involving the right lung. There was evidence of parapneumonic effusion. No altered mentation. No signs of any septicemia. No hypotension. No signs of any respiratory failure. Based on x-ray findings, I ordered a CAT scan of the chest and I found a moderate amount of right sided pleural fluid collection which does not completely layer dependently and this suggests some degree of loculation in addition to some background mild to moderate underlying emphysematous change. The patient has some compressive atelectasis of the right lung base area. Based on all this, I performed a bedside thoracentesis and a total of 4 50 mL of turbid dark yellowish pleural fluid was aspirated without any major difficulties. The fluid was sent for analysis., This patient a combination of Rocephin and vancomycin for now. Her pain is subsided and patient is having less of a pleuritic chest pain on the right. No hemoptysis. Patient's urine drug screen is positive for opiates, amphetamine and methamphetamine. Urinalysis is negative. The white cell count is at 20.9. 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 No sick contacts. As mentioned she is smoking and she does not utilize any form of respiratory medications. Mild chronic exertional dyspnea. The patient is seen again today 05/03/2018 in follow-up on the regular medical floor. She is currently resting quite comfortably in bed. She did have significant pain and shortness of breath while being up to the bathroom earlier this morning. Her pain is currently well controlled. She denies any worsening shortness of breath. Still dyspneic with minimal exertion. He is currently maintaining O2 saturations in the low 90s on 3 L/m per nasal cannula. She's been afebrile. Slightly tachycardic. Pleural fluid analysis is exudative in nature. Cultures are pending. She is currently on vancomycin and ceftriaxone. On 05/04/2018 and seeing this patient for a follow-up. The patient has an extensive right lung pneumonia with a complicated loculated parapneumonic effusion. The patient was being covered with a combination of Rocephin and vancomycin. Note that the patient was in the medical floor and overnight the patient got transferred to the ICU as the patient was becoming more short of breath, hypoxic, tachycardic and hypoxic. The patient is currently on 10 L of oxygen nasal cannula. Overnight the patient became tachycardic and she was having runs of SVT. She was placed on Cardizem drip at 5 g and hours and currently heart rate in the mid 90s. She remains in a sinus mechanism. Her chest x-ray was done yesterday and this morning and it shows extensive consolidation in addition to pleural effusion which is loculated in the right lung occupying the lower two thirds of the lung base. Based on this, the patient was brought in in terms of antibiotic coverage and the patient was placed on a combination of Zosyn and Levaquin and vancomycin. The patient had another CAT scan of the chest that showed complex loculated appearing moderate to large right-sided pleural effusion and this has slightly increased from the previous CAT scan of 05/02/2018. The right middle lobe and the right lower lobe is extensively collapse. Is a small left-sided pleural effusion in addition. The patient had a another thoracentesis and ICU and a total of 450 mL of turbid dark exudative pleural effusion was drained from the right lung. No complications. No pneumothorax. No positive cultures from the pleural fluid noted in the blood. Consultation was placed oral thoracic surgery regarding the possibility of a video-assisted thoracoscopic evaluation and decortication. Mentation is well-preserved the patient is alert and awake. Appetite is diminished. No altered mentation. No nausea or vomiting. Chest pain is subsided compared to yesterday. The patient short of breath with limited amount of activity. She is not using excessive muscle breathing at rest. On 05/05/2018 patient seen again in follow-up in the recovery room, she is status post right video-assisted thoracoscopy with decortication extensive right -sided pneumonia with parapneumonic loculated pleural effusion, postop day 0. She is somnolent, but easily arousable to verbal stimuli, she is currently on a simple mask, with FiO2 of 8 L, pulse ox of 92%, her pain is under reasonable control, and there is an epidural catheter in place. Postop patient became slightly hypotensive, and a liter of IV fluids, and Carlos-Synephrine drip is infusing at a rate of 2.6 mics per minute. Patient has 2 right-sided chest tubes to wall suction, and there is small amount of serosanguineous output, no air leak noted. Lung sounds are coarse scattered rhonchi. She denies afebrile , pleural fluid cultures are still pending, blood, sputum, and urine cultures are negative thus far. Patient continues on empiric antibiotics in the form of Levaquin, Zosyn and vancomycin. On nebulized bronchodilators, Symbicort. Follow-up chest x-ray post decortication was reviewed by Dr. Garza and showed 2 right-sided chest tubes, no pneumothorax, pleural effusion is largely resolved , infiltrate remains present, and a small left pleural effusion noted. Patient is awaiting transfer to a bed in the intensive care. Patient was reevaluated today on 05/06/2018, doing well, on nasal cannula, in no distress. T-max is 98.1, vital signs are stable. WBC count is down to 15.4 hemoglobin is 9.3 electrolytes and renal profile are normal. Chest x-ray showed right sided chest tubes in position, no evidence of pneumothorax, patchy basilar infiltrates persist. Patient feels much better today compared to how she felt in the last few days. Breathing easier, and in no distress. Patient was reevaluated today on 05/07/2018, remains in the ICU, but she is hemodynamically stable, on nasal cannula, in no distress, chest x-ray showed significant improvement in her right lung expansion, no evidence of pneumothorax , no evidence of subcu emphysema, continues to have chest tubes [address], minimal amount of bloody drainage noted in the chest tubes. Labs were reviewed chest x-ray was reviewed. Electrolytes are being corrected accordingly. Patient was reevaluated today on 05/08/2018, doing well, one of the chest tubes was removed, one remains, patient is relatively asymptomatic, no cough no wheezing no shortness of breath. Cultures from the surgical specimen/pleural fluid, remains negative so far. Patient is still on antibiotics empirically. All labs including CBC and basic metabolic profile were reviewed. Reevaluated today on 05/09/2018, patient continues to do well, however her x-ray is showing bilateral pleural effusions and mild interstitial edema. Patient tells me that she is a bit depressed, would like to be discharged home as soon as possible, but clearly she is not ready for discharge at this point. Patient did have previous history of depression, hence I suggested adding Celexa 40 mg daily and this will be added today. For her chest x-ray I recommended Lasix 20 mg IV push 1, may have to consider a maintenance dose of Lasix. Remains on a high flow nasal cannula, O2 saturation is in the low 90s. CBC is relatively normal hemoglobin is 9.1 WBC count is 9.4 lites are normal renal profile is normal Reevaluated today on 05/10/2018, patient is doing better today, breathing easier , her mood is even better compared to yesterday. Patient is down to 6 L nasal cannula, and her O2 saturation is in the mid 90s. Chest x-ray continues to show bilateral pleural effusions, hence more Lasix was given today. CBC is relatively normal, basic metabolic profile is relatively normal. Patient is relatively asymptomatic. Reevaluated today on 05/11/2018, doing much better, breathing a lot easier, chest x-ray is showing improvement with diuretics given on a daily basis. CBC is relatively normal WBC count is 12.7 hemoglobin is 9 electrolytes and renal profile are normal bicarb is a bit elevated at 34. All meds were reviewed, went ahead and discontinued her vancomycin, Levaquin, and I kept her on Zosyn. Consider discharging the patient on Augmentin Objective - Vital Signs Vital signs: Vital Signs Temp 97.0 F L 05/11/18 08:00 Pulse 76 05/11/18 12:00 Resp 18 05/11/18 03:30 BP 133/66 05/11/18 12:00 Pulse Ox 100 05/11/18 12:00 Intake & Output 05/10/18 05/11/18 05/11/18 18:59 06:59 18:59 Intake Total 50 50 260 Output Total 900 Balance -850 50 260 Weight 76.1 kg 68.4 kg Intake: IV 50 50 20 NS KVO 20 Piperacillin-Tazobactam 3 50 50 .375 gm In Dextrose/Water 1 50ml.bag @ 12.5 mls/hr IVPB Q8H [facility] Rx#: [id number] Oral 240 Output: Urine 900 Other: Voiding Method Toilet Toilet # Voids 2 1 ABP, PAP, CO, CI - Last Documented Arterial Blood Pressure 105/48 - Exam GENERAL EXAM: Awake, comfortable, in no distress. HEAD: Normocephalic. Atraumatic. EYES: Normal reaction of pupils, equal size. NOSE: Clear with pink turbinates. THROAT: No erythema or exudates. NECK: No masses, no JVD. CHEST: No chest wall deformity. Both chest tubes have been removed. LUNGS: Coarse scattered rhonchi bilaterally, diminished breath sounds at the bases especially at the right base. CVS: S1 and S2 normal with no audible murmur, regular rhythm. ABDOMEN: No hepatosplenomegaly, normal bowel sounds, no guarding or rigidity. SPINE: No scoliosis or deformity SKIN: No rashes CENTRAL NERVOUS SYSTEM: No focal deficits, tone is normal in all 4 extremities. EXTREMITIES: There is no peripheral edema. No clubbing, no cyanosis. Peripheral pulses are intact Psychiatric: Normal mood, affect, and mental status examination. - Labs CBC & Chem 7: 05/10/18 04:14 05/10/18 04:14 Labs: Microbiology - Last 24 Hours (Table) 05/05/18 12:00 Gram Stain - Preliminary Lung - Right Tissue Culture - Preliminary Alpha Hemolytic Streptococcus Assessment and Plan Assessment: 1 right lung multilobar pneumonia, likely gram-negative in nature, complicated by development of parapneumonic effusion with early loculations and compressive atelectasis, patient is status post right-sided video-assisted thoracoscopy decortication, postoperative day #5 Patient status post 2 right-sided thoracentesis, would removal of a total of 900 mL of parapneumonic pleural effusion fluid, pleural fluid positive for alphahemolytic strep, patient remains on Zosyn and vancomycin as well as Levaquin. Culture from the surgical specimen is pending. 2 acute hypoxic respiratory failure secondary to above, improving 3 acute leukocytosis secondary to above, improving 4 COPD 5 urine drug screen for opiates, amphetamine and methamphetamine's 6 abnormal LFTs 7 smoker 10 bilateral pleural effusions, hence I recommended that we continue Lasix on a daily basis. 11 suspect mild component of depression, continue Celexa Plan continue present supportive care measures, discontinue most of the antibiotics continue Zosyn for now, possibly plan to discharge home the patient on Augmentin. Consider discharge planning in the next 24 hours.
[2018-05-11] MEDS ORDERED: VANCOMYCIN TROUGH DUE 1 EACH MISC MISCELLANE ONE (13:00)
--- NOTE | 2018-05-11 13:46 | P.PN ---
Subjective 57-year-old female admitted with right lower lobe multifocal pneumonia with parapneumonic effusion, possible sepsis, elevated LFTs and multiple other medical issues. Evaluated by pulmonary with recommendations noted. Drug screen positive for opiates, amphetamines and methamphetamines. Significant shakiness, denies alcohol consumption/abuse. Sodium improved. WBC up to 20, and steroids. Chest x-ray reports increasing right pleural effusion. Liver ultrasound Limited study secondary to patient's shaking, shortness of breath, reporting large pleural effusion, thickening of gallbladder wall, possible acute cholecystitis. Chest CT reporting worsening moderate right-sided pleural effusion collection/loculation with associated compressive atelectasis and/or consolidation, suspect infectious etiology, [id number] emphysematous change. Underwent right-sided thoracentesis with 450 MLS cloudy dark yellow pleural fluid removed. Tolerated procedure well. Pain improved. Maintained on vancomycin and Rocephin. 05/10/2018 Patient clinically looks better but remains on 6 L of onset which is being tapered down. Possibly of discharge in couple days. Patient is on both Zosyn and vancomycin probably both of these can be discontinued and patient can be started on Rocephin but I'll do that once I discuss with the pulmonary. 05/11/2018 Patient is presently on 5 L (to go home tomorrow. Antibiotics were discontinued as well as she received an of days of antibiotics for her lung infection. Constitutional: Denied any fatigue denied any fever. Cardio vascular: denied any chest pain, palpitations Gastrointestinal denied any nausea vomiting Pulmonary: Denied any shortness of breath cough Neurologic denied any new focal deficits Objective - Vital Signs Vital signs: Vital Signs Temp 97.0 F L 05/11/18 08:00 Pulse 81 05/11/18 13:25 Resp 18 05/11/18 03:30 BP 133/66 05/11/18 12:00 Pulse Ox 100 05/11/18 12:00 Intake & Output 05/10/18 05/11/18 05/11/18 18:59 06:59 18:59 Intake Total 50 50 260 Output Total 900 Balance -850 50 260 Weight 76.1 kg 68.4 kg Intake: IV 50 50 20 NS KVO 20 Piperacillin-Tazobactam 3 50 50 .375 gm In Dextrose/Water 1 50ml.bag @ 12.5 mls/hr IVPB Q8H [facility] Rx#: [id number] Oral 240 Output: Urine 900 Other: Voiding Method Toilet Toilet # Voids 2 1 2 ABP, PAP, CO, CI - Last Documented Arterial Blood Pressure 105/48 - Exam PHYSICAL EXAMINATION: GENERAL: The patient is alert and oriented x3, not in any acute distress. Well developed, well nourished. HEENT: Pupils are round and equally reacting to light. EOMI. No scleral icterus. No conjunctival pallor. Normocephalic, atraumatic. No pharyngeal erythema. No thyromegaly. CARDIOVASCULAR: S1 and S2 present. No murmurs, rubs, or gallops. PULMONARY: Mildly decreased air entry into bilateral lower lung crawley minimal expiratory wheezing was appreciated. ABDOMEN: Soft, nontender, nondistended, normoactive bowel sounds. No palpable organomegaly. MUSCULOSKELETAL: No joint swelling or deformity. EXTREMITIES: No cyanosis, clubbing, or pedal edema. NEUROLOGICAL: Gross neurological examination did not reveal any focal deficits. SKIN: No rashes. - Labs CBC & Chem 7: 05/10/18 04:14 05/10/18 04:14 Labs: Microbiology - Last 24 Hours (Table) 05/05/18 12:00 Gram Stain - Preliminary Lung - Right Tissue Culture - Preliminary Alpha Hemolytic Streptococcus Assessment and Plan Plan: -Sepsis secondary to right lower lobe pneumonia parapneumonic effusion loculated status post decortication procedure. For empyema. -Acute hypoxic respiratory failure secondary to assessment #1 --Acute hypoxic respiratory failure secondary to pneumonia which is improving -Drug abuse: Counseling was provided -Depression -Anemia of chronic disease
[2018-05-11] MEDS: FUROSEMIDE 20 MG TAB PO SCH (18:27)
[2018-05-12] MEDS: PIPERACILLIN-TAZOBACTAM 3.375 GM in DEXTROSE/WATER 1 50ML.BAG IVPB SCH ×3 (04:58→19:57)
[2018-05-12 06:20] LABS: Basophils # (A) 0.1 k/uL (0-0.2); Basophils % (A) 1 %; Eosinophils # (A) 0.4 k/uL (0-0.7); Eosinophils % (A) 3 %; HCT 28.6 % (34.0-46.0); Hypochromasia Slight; Lymphocytes # (A) 1.7 k/uL (1.0-4.8); Lymphocytes % (A) 14 %; MCH 29.7 pg (25.0-35.0); MCHC 31.6 g/dL (31.0-37.0); MCV 93.9 fL (80.0-100.0); Mean Platelet Volume 6.7; Monocytes # (A) 0.9 k/uL (0-1.0); Monocytes % (A) 8 %; Neutrophils # (A) 8.3 k/uL (1.3-7.7); Neutrophils % (A) 71 %; Platelet Count 498 k/uL (150-450); RBC 3.04 m/uL (3.80-5.40); RDW 13.7 % (11.5-15.5); WBC 11.7 k/uL (3.8-10.6)
[2018-05-12 06:45] LABS: Calcium 8.8 mg/dL (8.4-10.2); Potassium 3.9 mmol/L (3.5-5.1)
[2018-05-12] MEDS: PANTOPRAZOLE 40 MG TABLET PO SCH (06:54)
--- NOTE | 2018-05-12 07:17 | XR ---
EXAMINATION TYPE: XR chest 2V DATE OF EXAM: 05/12/2018 COMPARISON: 05/11/2018 HISTORY: 57-year-old female postthoracotomy TECHNIQUE: Frontal and lateral views FINDINGS: Heart normal size. Interstitial persist on the right and there is continued small to moderate right a nd small left pleural effusions with adjacent opacities. Some air density is noted anteriorly on the lateral view, minimally increased from prior. IMPRESSION: 1. Continued small to moderate right and small left pleural effusions with adjacent atelectasis and/o r consolidation. 2. Suggestion of a small anterior pneumothorax on the lateral view, minimally increased in size from 05/11/2018.
[2018-05-12] MEDS: IPRATROPIUM-ALBUTEROL 3 ML NEB INHALATION SCH ×4 (07:44→19:16)
[2018-05-12] MEDS: SYMBICORT 160-4.5 MCG INHALER INHALATION SCH ×2 (07:45→19:16)
[2018-05-12] MEDS: HEPARIN SODIUM,PORCINE 5,000 UNIT/ML 1 ML VIAL SQ SCH ×2 (09:08→19:58)
[2018-05-12] MEDS: NICOTINE 14MG/24HR PATCH TRANSDERM SCH (09:08)
[2018-05-12] MEDS: CYCLOBENZAPRINE 10 MG TAB PO SCH ×3 (09:08→19:58)
[2018-05-12] MEDS: METOPROLOL TARTRATE 25 MG TAB PO SCH ×2 (09:08→19:58)
[2018-05-12] MEDS: CITALOPRAM HYDROBROMIDE 20 MG TAB PO SCH (09:09)
[2018-05-12] MEDS: amLODIPine 5 MG TAB PO SCH (09:09)
[2018-05-12] MEDS: FUROSEMIDE 20 MG TAB PO SCH ×2 (09:09→17:02)
--- NOTE | 2018-05-12 09:37 | P.PN ---
Subjective Progress Note Date: 05/12/18 Principal diagnosis: Right-sided empyema, loculated right pleural effusion with extensive right lung multilobular pneumonia, current of tobacco dependence smokes about 1-1-1/2 packs of cigarettes per day. POD #7 right thoracotomy for total right pleural and pulmonary decortication. The patient is laying in bed with her head elevated. She is in no acute distress. She denies any complaints of shortness of breath or pain at this time. She is achieving 1000 mL with encouragement on her incentive spirometry. Reports she has been ambulating in the [address] [place] [address] with minimal assistance. Objective - Vital Signs Vital signs: Vital Signs Temp 98.0 F 05/12/18 08:00 Pulse 80 05/12/18 08:00 Resp 16 05/12/18 08:00 BP 142/70 05/12/18 08:00 Pulse Ox 95 05/12/18 08:00 Intake & Output 05/11/18 05/12/18 05/12/18 18:59 06:59 18:59 Intake Total 620 Balance 620 Weight 67.5 kg Intake: IV 20 NS KVO 20 Oral 600 Other: Voiding Method Bedside Commode Bedside Commode # Voids 2 1 ABP, PAP, CO, CI - Last Documented Arterial Blood Pressure 105/48 - Constitutional General appearance: Present: cooperative, no acute distress - Respiratory Details: Lung sounds are essentially clear to her bilateral upper lobes, diminished to her right lower lobe. Respirations are symmetrical and nonlabored. Oxygen saturation are 95% on 5 L nasal cannula. She is achieving 1000 mL on her incentive spirometry. - Cardiovascular Details: Regular rhythm and rate. S1 and S2 present, negative for S3, gallop or murmur. No edema present. Remote telemetry showing normal sinus rhythm heart rate 75. Knee-high TASHA hose and sequential compression devices in place to her bilateral lower extremities. - Gastrointestinal Gastrointestinal Comment(s): Abdomen is soft, nontender and nondistended. Active bowel sounds to all 4 abdominal quadrants. Tolerating oral intake. Last bowel movement 05/10/2018. - Genitourinary Genitourinary Comment(s): Voiding clear yellow urine. - Integumentary Integumentary Comment(s): Skin is warm and dry. No clubbing or cyanosis present. Right thoracotomy incision clean dry and approximated. No drainage or redness present. - Neurologic Neurologic: Present: CNII-XII intact - Musculoskeletal Musculoskeletal: Present: gait normal, strength equal bilaterally - Psychiatric Psychiatric: Present: A&O x's 3, appropriate affect, intact judgment & insight - Labs CBC & Chem 7: 05/12/18 05:47 05/12/18 05:47 Labs: Abnormal Lab Results - Last 24 Hours (Table) 05/12/18 05/12/18 Range/Units 05:47 05:47 WBC 11.7 H (3.8-10.6) k/uL RBC 3.04 L (3.80-5.40) m/uL Hgb 9.0 L (11.4-16.0) gm/dL Hct 28.6 L (34.0-46.0) % Plt Count 498 H (150-450) k/uL Neutrophils # 8.3 H (1.3-7.7) k/uL Carbon Dioxide 35 H (22-30) mmol/L Creatinine 1.35 H (0.52-1.04) mg/dL Glucose 107 H (74-99) mg/dL Microbiology - Last 24 Hours (Table) 05/05/18 12:00 Gram Stain - Final Lung - Right Tissue Culture - Final Alpha Hemolytic Streptococcus - Imaging and Cardiology Chest x-ray: report reviewed, image reviewed Assessment and Plan (1) COPD (chronic obstructive pulmonary disease) Current Visit: Yes Status: Chronic Code(s): J44.9 - CHRONIC OBSTRUCTIVE PULMONARY DISEASE, UNSPECIFIED SNOMED Code(s): 10071746 (2) Leukocytosis (leucocytosis) Current Visit: Yes Status: Acute Code(s): D72.829 - ELEVATED WHITE BLOOD CELL COUNT, UNSPECIFIED SNOMED Code(s): 912714598 (3) Elevated LFTs Current Visit: Yes Status: Acute Code(s): R94.5 - ABNORMAL RESULTS OF LIVER FUNCTION STUDIES SNOMED Code(s): 322729054 (4) Nicotine dependence with current use Current Visit: Yes Status: Chronic Code(s): F17.200 - NICOTINE DEPENDENCE, UNSPECIFIED, UNCOMPLICATED SNOMED Code(s): 380790122 (5) Pleural effusion, right Current Visit: Yes Status: Acute Code(s): J90 - PLEURAL EFFUSION, NOT ELSEWHERE CLASSIFIED SNOMED Code(s): 57659287 (6) Pneumonia involving right lung Current Visit: Yes Status: Acute Code(s): J18.9 - PNEUMONIA, UNSPECIFIED ORGANISM SNOMED Code(s): 618363619 (7) Chest wall pain Current Visit: No Status: Acute Code(s): R07.89 - OTHER CHEST PAIN SNOMED Code(s): 867672996 Plan: 1. Wean oxygen as tolerated. 2. Encourage use of her incentive spirometry every hour while awake. 3. Encourage smoking cessation. 4. Pain control per when necessary orders. 5. GI and DVT prophylaxis. Continue sequential compression devices. 6. Increase activity as tolerated. PT and OT following. 7. Pleural fluid and right lung showed also hemolytic streptococcus. 8. Antibiotic management per pulmonary care service. Currently on Zosyn. 9. Further recommendations to follow based on patient's clinical course. Time with Patient: Greater than 30
--- NOTE | 2018-05-12 15:23 | P.PN ---
Subjective Progress Note Date: 05/12/18 Principal diagnosis: Right lung multilobar pneumonia, likely bacterial, complicated by development of a parapneumonic effusion with early loculations and compressive atelectasis, status post right thoracentesis with drainage of 500 amount of cloudy turbid fluid, postop day 1, and status post right VATS with decortication, postop day 0 57-year-old female patient a chronic smoker who presented to [facility] department she days back. Pleuritic severe right-sided chest pain. The patient was told to have some soreness of the chest and muscle spasm and she was given ibuprofen. Subsequently she started having chills no documented temperature and she was comfortable not increased yellowish sputum. Her pain progressively got worse and started developing worsening shortness of breath. For that reason she came into the hospital and repeat chest x-ray was done that showed increased opacity in the right lower lobe in addition to multilobar pneumonia involving the right lung. There was evidence of parapneumonic effusion. No altered mentation. No signs of any septicemia. No hypotension. No signs of any respiratory failure. Based on x-ray findings, I ordered a CAT scan of the chest and I found a moderate amount of right sided pleural fluid collection which does not completely layer dependently and this suggests some degree of loculation in addition to some background mild to moderate underlying emphysematous change. The patient has some compressive atelectasis of the right lung base area. Based on all this, I performed a bedside thoracentesis and a total of 4 50 mL of turbid dark yellowish pleural fluid was aspirated without any major difficulties. The fluid was sent for analysis., This patient a combination of Rocephin and vancomycin for now. Her pain is subsided and patient is having less of a pleuritic chest pain on the right. No hemoptysis. Patient's urine drug screen is positive for opiates, amphetamine and methamphetamine. Urinalysis is negative. The white cell count is at 20.9. 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. 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 No sick contacts. As mentioned she is smoking and she does not utilize any form of respiratory medications. Mild chronic exertional dyspnea. The patient is seen again today 05/03/2018 in follow-up on the regular medical floor. She is currently resting quite comfortably in bed. She did have significant pain and shortness of breath while being up to the bathroom earlier this morning. Her pain is currently well controlled. She denies any worsening shortness of breath. Still dyspneic with minimal exertion. He is currently maintaining O2 saturations in the low 90s on 3 L/m per nasal cannula. She's been afebrile. Slightly tachycardic. Pleural fluid analysis is exudative in nature. Cultures are pending. She is currently on vancomycin and ceftriaxone. On 05/04/2018 and seeing this patient for a follow-up. The patient has an extensive right lung pneumonia with a complicated loculated parapneumonic effusion. The patient was being covered with a combination of Rocephin and vancomycin. Note that the patient was in the medical floor and overnight the patient got transferred to the ICU as the patient was becoming more short of breath, hypoxic, tachycardic and hypoxic. The patient is currently on 10 L of oxygen nasal cannula. Overnight the patient became tachycardic and she was having runs of SVT. She was placed on Cardizem drip at 5 g and hours and currently heart rate in the mid 90s. She remains in a sinus mechanism. Her chest x-ray was done yesterday and this morning and it shows extensive consolidation in addition to pleural effusion which is loculated in the right lung occupying the lower two thirds of the lung base. Based on this, the patient was brought in in terms of antibiotic coverage and the patient was placed on a combination of Zosyn and Levaquin and vancomycin. The patient had another CAT scan of the chest that showed complex loculated appearing moderate to large right-sided pleural effusion and this has slightly increased from the previous CAT scan of 05/02/2018. The right middle lobe and the right lower lobe is extensively collapse. Is a small left-sided pleural effusion in addition. The patient had a another thoracentesis and ICU and a total of 450 mL of turbid dark exudative pleural effusion was drained from the right lung. No complications. No pneumothorax. No positive cultures from the pleural fluid noted in the blood. Consultation was placed oral thoracic surgery regarding the possibility of a video-assisted thoracoscopic evaluation and decortication. Mentation is well-preserved the patient is alert and awake. Appetite is diminished. No altered mentation. No nausea or vomiting. Chest pain is subsided compared to yesterday. The patient short of breath with limited amount of activity. She is not using excessive muscle breathing at rest. On 05/05/2018 patient seen again in follow-up in the recovery room, she is status post right video-assisted thoracoscopy with decortication extensive right -sided pneumonia with parapneumonic loculated pleural effusion, postop day 0. She is somnolent, but easily arousable to verbal stimuli, she is currently on a simple mask, with FiO2 of 8 L, pulse ox of 92%, her pain is under reasonable control, and there is an epidural catheter in place. Postop patient became slightly hypotensive, and a liter of IV fluids, and Carlos-Synephrine drip is infusing at a rate of 2.6 mics per minute. Patient has 2 right-sided chest tubes to wall suction, and there is small amount of serosanguineous output, no air leak noted. Lung sounds are coarse scattered rhonchi. She denies afebrile , pleural fluid cultures are still pending, blood, sputum, and urine cultures are negative thus far. Patient continues on empiric antibiotics in the form of Levaquin, Zosyn and vancomycin. On nebulized bronchodilators, Symbicort. Follow-up chest x-ray post decortication was reviewed by Dr. Garza and showed 2 right-sided chest tubes, no pneumothorax, pleural effusion is largely resolved , infiltrate remains present, and a small left pleural effusion noted. Patient is awaiting transfer to a bed in the intensive care. Patient was reevaluated today on 05/06/2018, doing well, on nasal cannula, in no distress. T-max is 98.1, vital signs are stable. WBC count is down to 15.4 hemoglobin is 9.3 electrolytes and renal profile are normal. Chest x-ray showed right sided chest tubes in position, no evidence of pneumothorax, patchy basilar infiltrates persist. Patient feels much better today compared to how she felt in the last few days. Breathing easier, and in no distress. Patient was reevaluated today on 05/07/2018, remains in the ICU, but she is hemodynamically stable, on nasal cannula, in no distress, chest x-ray showed significant improvement in her right lung expansion, no evidence of pneumothorax , no evidence of subcu emphysema, continues to have chest tubes [address], minimal amount of bloody drainage noted in the chest tubes. Labs were reviewed chest x-ray was reviewed. Electrolytes are being corrected accordingly. Patient was reevaluated today on 05/08/2018, doing well, one of the chest tubes was removed, one remains, patient is relatively asymptomatic, no cough no wheezing no shortness of breath. Cultures from the surgical specimen/pleural fluid, remains negative so far. Patient is still on antibiotics empirically. All labs including CBC and basic metabolic profile were reviewed. Reevaluated today on 05/09/2018, patient continues to do well, however her x-ray is showing bilateral pleural effusions and mild interstitial edema. Patient tells me that she is a bit depressed, would like to be discharged home as soon as possible, but clearly she is not ready for discharge at this point. Patient did have previous history of depression, hence I suggested adding Celexa 40 mg daily and this will be added today. For her chest x-ray I recommended Lasix 20 mg IV push 1, may have to consider a maintenance dose of Lasix. Remains on a high flow nasal cannula, O2 saturation is in the low 90s. CBC is relatively normal hemoglobin is 9.1 WBC count is 9.4 lites are normal renal profile is normal Reevaluated today on 05/10/2018, patient is doing better today, breathing easier , her mood is even better compared to yesterday. Patient is down to 6 L nasal cannula, and her O2 saturation is in the mid 90s. Chest x-ray continues to show bilateral pleural effusions, hence more Lasix was given today. CBC is relatively normal, basic metabolic profile is relatively normal. Patient is relatively asymptomatic. Reevaluated today on 05/11/2018, doing much better, breathing a lot easier, chest x-ray is showing improvement with diuretics given on a daily basis. CBC is relatively normal WBC count is 12.7 hemoglobin is 9 electrolytes and renal profile are normal bicarb is a bit elevated at 34. All meds were reviewed, went ahead and discontinued her vancomycin, Levaquin, and I kept her on Zosyn. Consider discharging the patient on Augmentin On 05/12/2018 patient seen in follow-up on selective care unit. He is to improve, FiO2 is currently down to 4 L per nasal cannula, and her pulse ox is 93 %, no fever, no chills, no worsening dyspnea, no chest wall tenderness, patient is status post video-assisted thoracoscopy and decortication of the right lung, for extensive right lung multilobar pneumonia with loculated right pleural effusions. Clinically patient is doing well, she has been treated with a combination of Zosyn, Levaquin and vancomycin. Pleural fluid and right lung cultures showed alphahemolytic streptococcus. Follow-up chest x-ray from today was reviewed by Dr. Dr. Cronin, showed and/or consolidation, and a suggestion of a small anterior pneumothorax on the lateral view minimally increased in size from 05/11/2018. Overall patient is stable, and could be considered for discharge home today on oral Augmentin. Objective - Vital Signs Vital signs: Vital Signs Temp 98.0 F 05/12/18 08:00 Pulse 78 05/12/18 12:00 Resp 16 05/12/18 12:00 BP 117/58 05/12/18 12:00 Pulse Ox 93 L 05/12/18 12:00 Intake & Output 05/11/18 05/12/18 05/12/18 18:59 06:59 18:59 Intake Total 620 240 Balance 620 240 Weight 67.5 kg Intake: IV 20 NS KVO 20 Oral 600 240 Other: Voiding Method Bedside Commode Bedside Commode # Voids 2 1 2 ABP, PAP, CO, CI - Last Documented Arterial Blood Pressure 105/48 - Exam GENERAL EXAM: Somnolent, but easily arousable to verbal stimuli, currently on a simple oxygen mask, comfortable in no apparent distress. HEAD: Normocephalic. EYES: Normal reaction of pupils, equal size. NOSE: Clear with pink turbinates. THROAT: No erythema or exudates. NECK: No masses, no JVD. CHEST: No chest wall deformity. 2 right-sided chest tubes to wall suction with thin serosanguineous output, no evidence of air leak noted LUNGS: Diminished breath sounds over right posterior lower lobe, negative rhonchi, wheezes. CVS: S1 and S2 normal with no audible murmur, regular rhythm. ABDOMEN: No hepatosplenomegaly, normal bowel sounds, no guarding or rigidity. SPINE: No scoliosis or deformity SKIN: No rashes CENTRAL NERVOUS SYSTEM: No focal deficits, tone is normal in all 4 extremities. EXTREMITIES: There is no peripheral edema. No clubbing, no cyanosis. Peripheral pulses are int - Labs CBC & Chem 7: 05/12/18 05:47 07/02/18 05:47 Labs: Abnormal Lab Results - Last 24 Hours (Table) 05/12/18 05/12/18 Range/Units 05:47 05:47 WBC 11.7 H (3.8-10.6) k/uL RBC 3.04 L (3.80-5.40) m/uL Hgb 9.0 L (11.4-16.0) gm/dL Hct 28.6 L (34.0-46.0) % Plt Count 498 H (150-450) k/uL Neutrophils # 8.3 H (1.3-7.7) k/uL Carbon Dioxide 35 H (22-30) mmol/L Creatinine 1.35 H (0.52-1.04) mg/dL Glucose 107 H (74-99) mg/dL Microbiology - Last 24 Hours (Table) 05/05/18 12:00 Gram Stain - Final Lung - Right Tissue Culture - Final Alpha Hemolytic Streptococcus Assessment and Plan Plan: Assessment: 1 right lung multilobar pneumonia, likely bacterial, acute, complicated by development of parapneumonic effusion with early loculations and compressive atelectasis, patient is status post right-sided video-assisted thoracoscopy decortication, stop day 6. Patient status post 2 right-sided thoracentesis, would removal of a total of 900 mL of parapneumonic pleural effusion fluid, pleural fluid cultures were positive for alpha hemolytic strep. Patient is status post video-assisted thoracoscopy with decortication of the left lung, tissue cultures showed alphahemolytic strep. Patient was treated with a combination of Zosyn, Levaquin and vancomycin 2 acute hypoxic respiratory failure secondary to above with worsening of the oxygenation status over the past 24 hours. 3 acute leukocytosis secondary to above, improving 4 COPD 5 urine drug screen for opiates, amphetamine and methamphetamine's 6 abnormal LFTs 7 smoker 8 bilateral pleural effusions 9 mild depression, continue Celexa Plan Patient is improving, remains stable, no fever no chills, pleural fluid cultures were positive for alpha hemolytic strep, tissue cultures VATs and decortication of the left lung positive for alphahemolytic strep, and patient has been treated with combination of Zosyn, Levaquin and vancomycin, and clinically improving. No acute events overnight, FiO2 is down to 4 L per nasal cannula. Patient could be considered for discharge on oral Augmentin today. Follow-up in the office with Dr. Garza in one week. I performed a history & physical examination of the patient and discussed their management with my nurse practitioner, Marissa Smith. I reviewed the nurse practitioner's note and agree with the documented findings and plan of care. Lung sounds are decreased lung sounds over right lower lobe. The findings and the impression was discussed with the patient. I attest to the documentation by the nurse practitioner. Time with Patient: Less than 30
[2018-05-12] MEDS: ALPRAZolam 0.25 MG TAB PO PRN (20:01)
[2018-05-13] MEDS: PIPERACILLIN-TAZOBACTAM 3.375 GM in DEXTROSE/WATER 1 50ML.BAG IVPB SCH (04:51)
[2018-05-13 05:13] VITALS: RESP 17
[2018-05-13] MEDS: PANTOPRAZOLE 40 MG TABLET PO SCH (06:49)
[2018-05-13] MEDS: IPRATROPIUM-ALBUTEROL 3 ML NEB INHALATION SCH ×2 (07:16→11:07)
[2018-05-13] MEDS: SYMBICORT 160-4.5 MCG INHALER INHALATION SCH (07:18)
--- NOTE | 2018-05-13 07:48 | P.PN ---
Subjective Progress Note Date: 05/13/18 Principal diagnosis: Right-sided empyema, loculated right pleural effusion with extensive right lung multilobar pneumonia, current tobacco dependence. POD #8 right thoracotomy for total right pleural and pulmonary decortication. The patient is currently sitting up in bed in no acute distress. Denies pain, shortness of breath. Oxygen has been weaned down to 2 L nasal cannula. No new complaints. Hopeful to be discharged to home today. Objective - Vital Signs Vital signs: Vital Signs Temp 98.0 F 05/12/18 23:35 Pulse 88 05/13/18 07:31 Resp 17 05/13/18 04:10 BP 128/61 05/12/18 23:35 Pulse Ox 95 05/13/18 07:19 Intake & Output 05/12/18 05/13/18 05/13/18 18:59 06:59 18:59 Intake Total 480 470 Balance 480 470 Weight 65.9 kg Intake: IV 230 NS KVO 180 Piperacillin-Tazobactam 3 50 .375 gm In Dextrose/Water 1 50ml.bag @ 12.5 mls/hr IVPB Q8H [facility] Rx#: [id number] Oral 480 240 Other: Voiding Method Bedside Commode Bedside Commode # Voids 2 3 ABP, PAP, CO, CI - Last Documented Arterial Blood Pressure 105/48 - Constitutional General appearance: Present: cooperative, no acute distress - Respiratory Details: Lungs sounds diminished bilaterally, right greater than left. Respirations even , nonlabored. Currently on 2 L nasal cannula with oxygen saturation 95%. Able to achieve 1000 mL on her incentive spirometry. - Cardiovascular Details: S1, S2 present. Regular rate and rhythm, sinus rhythm on telemetry. Palpable peripheral pulses bilaterally. No edema present. No calf pain or tenderness noted. SCDs present. - Gastrointestinal Gastrointestinal Comment(s): Abdomen soft, nontender, nondistended. Active bowel sounds 4 quadrants. Tolerating diet. - Genitourinary Genitourinary Comment(s): Continues to void clear, yellow urine. - Integumentary Integumentary Comment(s): Skin is warm and dry with evidence of good perfusion. Right lateral chest incisions well approximated. - Neurologic Neurologic: Present: CNII-XII intact - Musculoskeletal Musculoskeletal: Present: gait normal, strength equal bilaterally - Psychiatric Psychiatric: Present: A&O x's 3, appropriate affect, intact judgment & insight - Allied health notes Allied health notes reviewed: nursing - Labs CBC & Chem 7: 05/12/18 05:47 05/12/18 05:47 Assessment and Plan (1) COPD (chronic obstructive pulmonary disease) Current Visit: Yes Status: Chronic Code(s): J44.9 - CHRONIC OBSTRUCTIVE PULMONARY DISEASE, UNSPECIFIED SNOMED Code(s): 49809830 (2) Nicotine dependence with current use Current Visit: Yes Status: Chronic Code(s): F17.200 - NICOTINE DEPENDENCE, UNSPECIFIED, UNCOMPLICATED SNOMED Code(s): 678944767 (3) Pleural effusion, right Current Visit: Yes Status: Acute Code(s): J90 - PLEURAL EFFUSION, NOT ELSEWHERE CLASSIFIED SNOMED Code(s): 87685047 (4) Pneumonia involving right lung Current Visit: Yes Status: Acute Code(s): J18.9 - PNEUMONIA, UNSPECIFIED ORGANISM SNOMED Code(s): 474691644 Plan: 1. Wean O2 as tolerated. Encourage incentive spirometry use 10 times every hour. 2. Encourage smoking cessation. 3. Pain control with ordered medications. 4. Bronchodilators, antibiotics per pulmonology. 5. GI/DVT prophylaxis. 6. Increase activity, ambulate in hallway. 7. Will continue to monitor patient's progress. Patient will need to follow- up with Dr. Kim upon discharge from hospital, with chest x-ray prior to appointment. Time with Patient: Greater than 30
[2018-05-13 08:55] VITALS: BP 148/72; TEMP 98.2
[2018-05-13] MEDS: NICOTINE 14MG/24HR PATCH TRANSDERM SCH (09:08)
[2018-05-13] MEDS: CITALOPRAM HYDROBROMIDE 20 MG TAB PO SCH (09:08)
[2018-05-13] MEDS: amLODIPine 5 MG TAB PO SCH (09:08)
[2018-05-13] MEDS: HEPARIN SODIUM,PORCINE 5,000 UNIT/ML 1 ML VIAL SQ SCH (09:09)
[2018-05-13] MEDS: METOPROLOL TARTRATE 25 MG TAB PO SCH (09:09)
[2018-05-13] MEDS: CYCLOBENZAPRINE 10 MG TAB PO SCH (09:09)
[2018-05-13] MEDS: FUROSEMIDE 20 MG TAB PO SCH (09:09)
[2018-05-13 10:09] VITALS: BMI 21.4
[2018-05-13 11:08] VITALS: PULSE 84
--- NOTE | 2018-05-13 11:24 | P.PN ---
Subjective Progress Note Date: 05/13/18 Principal diagnosis: Right lung multilobar pneumonia, likely bacterial, complicated by development of a parapneumonic effusion with early loculations and compressive atelectasis, status post right thoracentesis with drainage of 500 amount of cloudy turbid fluid, postop day 1, and status post right VATS with decortication, postop day 0 57-year-old female patient a chronic smoker who presented to [facility] department she days back. Pleuritic severe right-sided chest pain. The patient was told to have some soreness of the chest and muscle spasm and she was given ibuprofen. Subsequently she started having chills no documented temperature and she was comfortable not increased yellowish sputum. Her pain progressively got worse and started developing worsening shortness of breath. For that reason she came into the hospital and repeat chest x-ray was done that showed increased opacity in the right lower lobe in addition to multilobar pneumonia involving the right lung. There was evidence of parapneumonic effusion. No altered mentation. No signs of any septicemia. No hypotension. No signs of any respiratory failure. Based on x-ray findings, I ordered a CAT scan of the chest and I found a moderate amount of right sided pleural fluid collection which does not completely layer dependently and this suggests some degree of loculation in addition to some background mild to moderate underlying emphysematous change. The patient has some compressive atelectasis of the right lung base area. Based on all this, I performed a bedside thoracentesis and a total of 4 50 mL of turbid dark yellowish pleural fluid was aspirated without any major difficulties. The fluid was sent for analysis., This patient a combination of Rocephin and vancomycin for now. Her pain is subsided and patient is having less of a pleuritic chest pain on the right. No hemoptysis. Patient's urine drug screen is positive for opiates, amphetamine and methamphetamine. Urinalysis is negative. The white cell count is at 20.9. 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 No sick contacts. As mentioned she is smoking and she does not utilize any form of respiratory medications. Mild chronic exertional dyspnea. The patient is seen again today 05/03/2018 in follow-up on the regular medical floor. She is currently resting quite comfortably in bed. She did have significant pain and shortness of breath while being up to the bathroom earlier this morning. Her pain is currently well controlled. She denies any worsening shortness of breath. Still dyspneic with minimal exertion. He is currently maintaining O2 saturations in the low 90s on 3 L/m per nasal cannula. She's been afebrile. Slightly tachycardic. Pleural fluid analysis is exudative in nature. Cultures are pending. She is currently on vancomycin and ceftriaxone. On 05/04/2018 and seeing this patient for a follow-up. The patient has an extensive right lung pneumonia with a complicated loculated parapneumonic effusion. The patient was being covered with a combination of Rocephin and vancomycin. Note that the patient was in the medical floor and overnight the patient got transferred to the ICU as the patient was becoming more short of breath, hypoxic, tachycardic and hypoxic. The patient is currently on 10 L of oxygen nasal cannula. Overnight the patient became tachycardic and she was having runs of SVT. She was placed on Cardizem drip at 5 g and hours and currently heart rate in the mid 90s. She remains in a sinus mechanism. Her chest x-ray was done yesterday and this morning and it shows extensive consolidation in addition to pleural effusion which is loculated in the right lung occupying the lower two thirds of the lung base. Based on this, the patient was brought in in terms of antibiotic coverage and the patient was placed on a combination of Zosyn and Levaquin and vancomycin. The patient had another CAT scan of the chest that showed complex loculated appearing moderate to large right-sided pleural effusion and this has slightly increased from the previous CAT scan of 05/02/2018. The right middle lobe and the right lower lobe is extensively collapse. Is a small left-sided pleural effusion in addition. The patient had a another thoracentesis and ICU and a total of 450 mL of turbid dark exudative pleural effusion was drained from the right lung. No complications. No pneumothorax. No positive cultures from the pleural fluid noted in the blood. Consultation was placed oral thoracic surgery regarding the possibility of a video-assisted thoracoscopic evaluation and decortication. Mentation is well-preserved the patient is alert and awake. Appetite is diminished. No altered mentation. No nausea or vomiting. Chest pain is subsided compared to yesterday. The patient short of breath with limited amount of activity. She is not using excessive muscle breathing at rest. On 05/05/2018 patient seen again in follow-up in the recovery room, she is status post right video-assisted thoracoscopy with decortication extensive right -sided pneumonia with parapneumonic loculated pleural effusion, postop day 0. She is somnolent, but easily arousable to verbal stimuli, she is currently on a simple mask, with FiO2 of 8 L, pulse ox of 92%, her pain is under reasonable control, and there is an epidural catheter in place. Postop patient became slightly hypotensive, and a liter of IV fluids, and Carlos-Synephrine drip is infusing at a rate of 2.6 mics per minute. Patient has 2 right-sided chest tubes to wall suction, and there is small amount of serosanguineous output, no air leak noted. Lung sounds are coarse scattered rhonchi. She denies afebrile , pleural fluid cultures are still pending, blood, sputum, and urine cultures are negative thus far. Patient continues on empiric antibiotics in the form of Levaquin, Zosyn and vancomycin. On nebulized bronchodilators, Symbicort. Follow-up chest x-ray post decortication was reviewed by Dr. Garza and showed 2 right-sided chest tubes, no pneumothorax, pleural effusion is largely resolved , infiltrate remains present, and a small left pleural effusion noted. Patient is awaiting transfer to a bed in the intensive care. Patient was reevaluated today on 05/06/2018, doing well, on nasal cannula, in no distress. T-max is 98.1, vital signs are stable. WBC count is down to 15.4 hemoglobin is 9.3 electrolytes and renal profile are normal. Chest x-ray showed right sided chest tubes in position, no evidence of pneumothorax, patchy basilar infiltrates persist. Patient feels much better today compared to how she felt in the last few days. Breathing easier, and in no distress. Patient was reevaluated today on 05/07/2018, remains in the ICU, but she is hemodynamically stable, on nasal cannula, in no distress, chest x-ray showed significant improvement in her right lung expansion, no evidence of pneumothorax , no evidence of subcu emphysema, continues to have chest tubes [address], minimal amount of bloody drainage noted in the chest tubes. Labs were reviewed chest x-ray was reviewed. Electrolytes are being corrected accordingly. Patient was reevaluated today on 05/08/2018, doing well, one of the chest tubes was removed, one remains, patient is relatively asymptomatic, no cough no wheezing no shortness of breath. Cultures from the surgical specimen/pleural fluid, remains negative so far. Patient is still on antibiotics empirically. All labs including CBC and basic metabolic profile were reviewed. Reevaluated today on 05/09/2018, patient continues to do well, however her x-ray is showing bilateral pleural effusions and mild interstitial edema. Patient tells me that she is a bit depressed, would like to be discharged home as soon as possible, but clearly she is not ready for discharge at this point. Patient did have previous history of depression, hence I suggested adding Celexa 40 mg daily and this will be added today. For her chest x-ray I recommended Lasix 20 mg IV push 1, may have to consider a maintenance dose of Lasix. Remains on a high flow nasal cannula, O2 saturation is in the low 90s. CBC is relatively normal hemoglobin is 9.1 WBC count is 9.4 lites are normal renal profile is normal Reevaluated today on 05/10/2018, patient is doing better today, breathing easier , her mood is even better compared to yesterday. Patient is down to 6 L nasal cannula, and her O2 saturation is in the mid 90s. Chest x-ray continues to show bilateral pleural effusions, hence more Lasix was given today. CBC is relatively normal, basic metabolic profile is relatively normal. Patient is relatively asymptomatic. Reevaluated today on 05/11/2018, doing much better, breathing a lot easier, chest x-ray is showing improvement with diuretics given on a daily basis. CBC is relatively normal WBC count is 12.7 hemoglobin is 9 electrolytes and renal profile are normal bicarb is a bit elevated at 34. All meds were reviewed, went ahead and discontinued her vancomycin, Levaquin, and I kept her on Zosyn. Consider discharging the patient on Augmentin On 05/12/2018 patient seen in follow-up on [facility]. He is to improve, FiO2 is currently down to 4 L per nasal cannula, and her pulse ox is 93 %, no fever, no chills, no worsening dyspnea, no chest wall tenderness, patient is status post video-assisted thoracoscopy and decortication of the right lung, for extensive right lung multilobar pneumonia with loculated right pleural effusions. Clinically patient is doing well, she has been treated with a combination of Zosyn, Levaquin and vancomycin. Pleural fluid and right lung cultures showed alphahemolytic streptococcus. Follow-up chest x-ray from today was reviewed by Dr. Dr. Cronin, showed and/or consolidation, and a suggestion of a small anterior pneumothorax on the lateral view minimally increased in size from 05/11/2018. Overall patient is stable, and could be considered for discharge home today on oral Augmentin. On 05/13/2018 patient seen in follow-up on [facility] [place] [facility]. She is now on room air, he is calm and comfortable, denies any distress. Denies any dyspnea, lung sounds are diminished, but no rhonchi, or wheezing noted on today's exam. She is afebrile, denies any chills, denies any chest congestion, or sputum production. These labs were reviewed, WBC is down to 11.7, electrolytes are within normal limits, exception of CO2 at 35, BUN is 17, creatinine is 1.35. Pleural fluid and right lung tissue cultures showed alphahemolytic streptococcus , and patient has been treated with combination of Levaquin, Zosyn, and vancomycin, presently this was streamlined down to Zosyn. No new chest x-rays today, the patient continues to improve, and he is anticipated to be discharged home today. Objective - Vital Signs Vital signs: Vital Signs Temp 98.2 F 05/13/18 08:00 Pulse 84 05/13/18 11:08 Resp 17 05/13/18 08:00 BP 148/72 05/13/18 08:00 Pulse Ox 93 L 05/13/18 08:00 Intake & Output 05/12/18 05/13/18 05/13/18 18:59 06:59 18:59 Intake Total 480 470 120 Balance 480 470 120 Weight 65.9 kg 65.9 kg Intake: IV 230 NS KVO 180 Piperacillin-Tazobactam 3 50 .375 gm In Dextrose/Water 1 50ml.bag @ 12.5 mls/hr IVPB Q8H [facility] Rx#: [id number] Oral 480 240 120 Other: Voiding Method Bedside Commode Bedside Commode Bedside Commode # Voids 2 3 ABP, PAP, CO, CI - Last Documented Arterial Blood Pressure 105/48 - Exam GENERAL EXAM: Somnolent, but easily arousable to verbal stimuli, currently on a simple oxygen mask, comfortable in no apparent distress. HEAD: Normocephalic. EYES: Normal reaction of pupils, equal size. NOSE: Clear with pink turbinates. THROAT: No erythema or exudates. NECK: No masses, no JVD. CHEST: No chest wall deformity. LUNGS: Diminished breath sounds over right posterior lower lobe, negative rhonchi, wheezes. CVS: S1 and S2 normal with no audible murmur, regular rhythm. ABDOMEN: No hepatosplenomegaly, normal bowel sounds, no guarding or rigidity. SPINE: No scoliosis or deformity SKIN: No rashes CENTRAL NERVOUS SYSTEM: No focal deficits, tone is normal in all 4 extremities. EXTREMITIES: There is no peripheral edema. No clubbing, no cyanosis. Peripheral pulses are int - Labs CBC & Chem 7: 05/12/18 05:47 05/12/18 05:47 Assessment and Plan Plan: Assessment: 1 right lung multilobar pneumonia, likely bacterial, acute, complicated by development of parapneumonic effusion with early loculations and compressive atelectasis, patient is status post right-sided video-assisted thoracoscopy decortication, stop day 6. Patient status post 2 right-sided thoracentesis, would removal of a total of 900 mL of parapneumonic pleural effusion fluid, pleural fluid cultures were positive for alpha hemolytic strep. Patient is status post video-assisted thoracoscopy with decortication of the left lung, tissue cultures showed alphahemolytic strep. Patient was treated with a combination of Zosyn, Levaquin and vancomycin 2 acute hypoxic respiratory failure secondary to above with worsening of the oxygenation status over the past 24 hours. 3 acute leukocytosis secondary to above, improving 4 COPD 5 urine drug screen for opiates, amphetamine and methamphetamine's 6 abnormal LFTs 7 smoker 8 bilateral pleural effusions 9 mild depression, continue Celexa Plan Patient remains stable, continues to improve. Continues on IV Zosyn. No fever or chills. No worsening dyspnea. She is not on room air, tolerating ambulation. Patient is anticipated to be discharged home today on oral course of outpatient Augmentin. Follow-up with Dr. Garza in the office in one week. Smoking cessation was strongly encouraged. I performed a history & physical examination of the patient and discussed their management with my nurse practitioner, Marissa Smith. I reviewed the nurse practitioner's note and agree with the documented findings and plan of care. Lung sounds are decreased lung sounds over right lower lobe. The findings and the impression was discussed with the patient. I attest to the documentation by the nurse practitioner. Time with Patient: Less than 30
--- NOTE | 2018-05-13 16:00 | P.PN ---
Subjective 57-year-old female admitted with right lower lobe multifocal pneumonia with parapneumonic effusion, possible sepsis, elevated LFTs and multiple other medical issues. Evaluated by pulmonary with recommendations noted. Drug screen positive for opiates, amphetamines and methamphetamines. Significant shakiness, denies alcohol consumption/abuse. Sodium improved. WBC up to 20, and steroids. Chest x-ray reports increasing right pleural effusion. Liver ultrasound Limited study secondary to patient's shaking, shortness of breath, reporting large pleural effusion, thickening of gallbladder wall, possible acute cholecystitis. Chest CT reporting worsening moderate right-sided pleural effusion collection/loculation with associated compressive atelectasis and/or consolidation, suspect infectious etiology, [id number] emphysematous change. Underwent right-sided thoracentesis with 450 MLS cloudy dark yellow pleural fluid removed. Tolerated procedure well. Pain improved. Maintained on vancomycin and Rocephin. 05/10/2018 Patient clinically looks better but remains on 6 L of onset which is being tapered down. Possibly of discharge in couple days. Patient is on both Zosyn and vancomycin probably both of these can be discontinued and patient can be started on Rocephin but I'll do that once I discuss with the pulmonary. 05/11/2018 Patient is presently on 5 L (to go home tomorrow. Antibiotics were discontinued as well as she received an of days of antibiotics for her lung infection. 05/12/2018 Patient still remains on 4 L of oxygen Constitutional: Denied any fatigue denied any fever. Cardio vascular: denied any chest pain, palpitations Gastrointestinal denied any nausea vomiting Pulmonary: Denied any shortness of breath cough Neurologic denied any new focal deficits Objective - Vital Signs Vital signs: Vital Signs Temp 98.2 F 05/13/18 08:00 Pulse 84 05/13/18 11:19 Resp 17 05/13/18 08:00 BP 148/72 05/13/18 08:00 Pulse Ox 93 L 05/13/18 08:00 Intake & Output 05/12/18 05/13/18 05/13/18 18:59 06:59 18:59 Intake Total 480 470 120 Balance 480 470 120 Weight 65.9 kg 65.9 kg Intake: IV 230 NS KVO 180 Piperacillin-Tazobactam 3 50 .375 gm In Dextrose/Water 1 50ml.bag @ 12.5 mls/hr IVPB Q8H [facility] Rx#: [id number] Oral 480 240 120 Other: Voiding Method Bedside Commode Bedside Commode Bedside Commode # Voids 2 3 1 # Bowel Movements 0 ABP, PAP, CO, CI - Last Documented Arterial Blood Pressure 105/48 - Exam PHYSICAL EXAMINATION: GENERAL: The patient is alert and oriented x3, not in any acute distress. Well developed, well nourished. HEENT: Pupils are round and equally reacting to light. EOMI. No scleral icterus. No conjunctival pallor. Normocephalic, atraumatic. No pharyngeal erythema. No thyromegaly. CARDIOVASCULAR: S1 and S2 present. No murmurs, rubs, or gallops. PULMONARY: Mildly decreased air entry into bilateral lower lung crawley minimal expiratory wheezing was appreciated. ABDOMEN: Soft, nontender, nondistended, normoactive bowel sounds. No palpable organomegaly. MUSCULOSKELETAL: No joint swelling or deformity. EXTREMITIES: No cyanosis, clubbing, or pedal edema. NEUROLOGICAL: Gross neurological examination did not reveal any focal deficits. SKIN: No rashes. - Labs CBC & Chem 7: 05/12/18 05:47 05/12/18 05:47 Assessment and Plan Plan: -Sepsis secondary to right lower lobe pneumonia parapneumonic effusion loculated status post decortication procedure. For empyema. -Acute hypoxic respiratory failure secondary to assessment #1 --Acute hypoxic respiratory failure secondary to pneumonia which is improving -Drug abuse: Counseling was provided -Depression -Anemia of chronic disease
--- NOTE | 2018-05-13 16:02 | P.DS ---
Providers Date of admission: 05/01/18 19:02 Attending physician: Angelo Marina Consults: 05/01/18 19:24 Consult Physician Urgent Consulting Provider: Shyanne Kim Consult Reason/Comments: Right Lung Pneumonia; Right Pleural Do you want consulting provider notified?: Yes 05/04/18 12:51 Consult Physician Urgent Consulting Provider: Puma Kyle Consult Reason/Comments: ICU management Do you want consulting provider notified?: Already Contacted Primary care physician: Stated None Hospital Course: 57-year-old female admitted with right lower lobe multifocal pneumonia with parapneumonic effusion, possible sepsis, elevated LFTs and multiple other medical issues. Evaluated by pulmonary with recommendations noted. Drug screen positive for opiates, amphetamines and methamphetamines. Significant shakiness, denies alcohol consumption/abuse. Sodium improved. WBC up to 20, and steroids. Chest x-ray reports increasing right pleural effusion. Liver ultrasound Limited study secondary to patient's shaking, shortness of breath, reporting large pleural effusion, thickening of gallbladder wall, possible acute cholecystitis. Chest CT reporting worsening moderate right-sided pleural effusion collection/loculation with associated compressive atelectasis and/or consolidation, suspect infectious etiology, [id number] emphysematous change. Underwent right-sided thoracentesis with 450 MLS cloudy dark yellow pleural fluid removed. Tolerated procedure well. Pain improved. Maintained on vancomycin and Rocephin. 05/10/2018 Patient clinically looks better but remains on 6 L of onset which is being tapered down. Possibly of discharge in couple days. Patient is on both Zosyn and vancomycin probably both of these can be discontinued and patient can be started on Rocephin but I'll do that once I discuss with the pulmonary. 05/11/2018 Patient is presently on 5 L (to go home tomorrow. Antibiotics were discontinued as well as she received an of days of antibiotics for her lung infection. 05/12/2018 Patient still remains on 4 L of oxygen 05/13/2018 Patient is cleared by pulmonology and cardiothoracic surgery patient will be discharged on 5 more days of Augmentin patient is still requiring oxygen upon ablation patient will be discharged on oxygen hopefully we will not require long -term. PHYSICAL EXAMINATION: GENERAL: The patient is alert and oriented x3, not in any acute distress. Well developed, well nourished. HEENT: Pupils are round and equally reacting to light. EOMI. No scleral icterus. No conjunctival pallor. Normocephalic, atraumatic. No pharyngeal erythema. No thyromegaly. CARDIOVASCULAR: S1 and S2 present. No murmurs, rubs, or gallops. PULMONARY: Mildly decreased air entry into bilateral lower lung crawley no wheezing was appreciated today ABDOMEN: Soft, nontender, nondistended, normoactive bowel sounds. No palpable organomegaly. MUSCULOSKELETAL: No joint swelling or deformity. EXTREMITIES: No cyanosis, clubbing, or pedal edema. NEUROLOGICAL: Gross neurological examination did not reveal any focal deficits. SKIN: No rashes. Assessment and Plan Plan: -Sepsis secondary to right lower lobe pneumonia parapneumonic effusion loculated status post decortication procedure. Patient has a strep species completed course of antibiotic but will be discharged on 5 more days of Augmentin as recommended by pulmonology -Acute hypoxic respiratory failure secondary to assessment #1 --Acute hypoxic respiratory failure secondary to pneumonia which is improving -Drug abuse: Counseling was provided -Depression -Anemia of chronic disease Patient Condition at Discharge: Serious Plan - Discharge Summary Discharge Rx Participant: Yes New Discharge Prescriptions: New Albuterol Inhaler [Ventolin Hfa Inhaler] 1 - 2 puff INHALATION Q6HR PRN #1 inhaler PRN Reason: Shortness Of Breath Or Wheezing amLODIPine [Norvasc] 5 mg PO DAILY #30 tab Amoxic-Pot Clav 875-125Mg [Augmentin 875-125] 1 tab PO Q12HR #10 tablet Budesonide-Formot 160-4.5 Mcg [Symbicort 160-4.5 Mcg Inhaler] 2 puff INHALATION RT-BID #1 inhaler Metoprolol Tartrate [Lopressor] 25 mg PO BID #60 tab Continue Cyclobenzaprine [Flexeril] 10 mg PO TID #20 tab Discontinued Ibuprofen [Motrin] 600 mg PO Q6HR PRN #20 tab PRN Reason: For pain Discharge Medication List Cyclobenzaprine [Flexeril] 10 mg PO TID #20 tab 04/26/18 [Rx] Albuterol Inhaler [Ventolin Hfa Inhaler] 1 - 2 puff INHALATION Q6HR PRN #1 inhaler 05/13/18 [Rx] Amoxic-Pot Clav 875-125Mg [Augmentin 875-125] 1 tab PO Q12HR #10 tablet [Rx] Budesonide-Formot 160-4.5 Mcg [Symbicort 160-4.5 Mcg Inhaler] 2 puff INHALATION RT-BID #1 inhaler 05/13/18 [Rx] Metoprolol Tartrate [Lopressor] 25 mg PO BID #60 tab 05/13/18 [Rx] amLODIPine [Norvasc] 5 mg PO DAILY #30 tab 05/13/18 [Rx] Follow up Appointment(s)/Referral(s): Shyanne Kim MD [STAFF PHYSICIAN] - 05/23/18 11:30 am None,Stated [Primary Care Provider] - 1-2 days Tim Johnson MD [STAFF PHYSICIAN] - 05/19/18 10:30 am (bring insurance and drivers license) Ambulatory/Diagnostic Orders: XR chest 2V [RAD.AMB] Facility: [facility], Location: [facility] Patient Instructions/Handouts: Video Assisted Thoracoscopic Surgery (DC) Activity/Diet/Wound Care/Special Instructions: Oxygen ordered through [facility] #[phone] 1. No driving for 2 weeks, or until physician gives their ok. 2. The patient should sleep in their own bed, no medical bed needed. 3. Stairs are not an issue. If the bedroom is upstairs, it is advised that the patient go up at night and down in the morning for the first week. Go slowly, using handrail and take 1 step at a time. 4. No lifting, pushing, or pulling more than 10 pounds for 2 weeks. The physician will advise of any restriction changes. 5. Continue pain control per as needed orders. 6. Continue with incentive spirometry and splinting until otherwise directed by the physician. 7. May shower daily using liquid antibacterial soap. 8. Routine incision care. No powders, lotions, ointments on incisions. 9. Please call surgeon/[employer] for temp greater than 101 F or purulent drainage from incisions. 10. Please obtain chest x-ray prior to appointment with Dr. Kim. Discharge Disposition: HOME SELF-CARE
== END 2018-05-13 15:27 | disposition home or self-care (01) | DRG 853 ==
LOC: EC 16:48 → 4MS4W 19:02 → 6ICU 05-03 22:11 → 6SEL 05-10 21:38
PROVIDERS: ADMIT Hospitalist; ATTEND Hospitalist
PROC: 0W993ZX Drainage of Right Pleural Cavity, Percutaneous Approach, Diagnostic (ICD-10-PCS; principal; 2018-05-02)
PROC: 0BNC0ZZ Release Right Upper Lung Lobe, Open Approach (ICD-10-PCS; 2018-05-05)
PROC: 0BNF0ZZ Release Right Lower Lung Lobe, Open Approach (ICD-10-PCS; 2018-05-05)
PROC: 0BND0ZZ Release Right Middle Lung Lobe, Open Approach (ICD-10-PCS; 2018-05-05)
PROC: 0W993ZX Drainage of Right Pleural Cavity, Percutaneous Approach, Diagnostic (ICD-10-PCS; 2018-05-05)
DX: A40.9 Streptococcal sepsis, unspecified (principal); J86.9 Pyothorax without fistula; J96.01 Acute respiratory failure with hypoxia; J13 Pneumonia due to Streptococcus pneumoniae; E87.1 Hypo-osmolality and hyponatremia; J98.11 Atelectasis; J91.8 Pleural effusion in other conditions classified elsewhere; I47.1 Supraventricular tachycardia; I95.9 Hypotension, unspecified; J43.9 Emphysema, unspecified; E86.1 Hypovolemia; I45.10 Unspecified right bundle-branch block; R79.89 Other specified abnormal findings of blood chemistry; R74.8 Abnormal levels of other serum enzymes; D63.8 Anemia in other chronic diseases classified elsewhere; F32.9 Major depressive disorder, single episode, unspecified; M62.838 Other muscle spasm; F17.210 Nicotine dependence, cigarettes, uncomplicated; Z71.6 Tobacco abuse counseling; Z53.32 Thoracoscopic surgical procedure converted to open procedure; Z86.711 Personal history of pulmonary embolism; Z90.721 Acquired absence of ovaries, unilateral; Z79.899 Other long term (current) drug therapy; Z83.3 Family history of diabetes mellitus; Z82.49 Family history of ischemic heart disease and other diseases of the circulatory system; Z82.5 Family history of asthma and other chronic lower respiratory diseases; Z83.49 Family history of other endocrine, nutritional and metabolic diseases
CPT/HCPCS: 36415; 36600; 71045; 71046; 71250; 71260; 76705; 80048; 80053; 80074; 80202; 80306; 81001; 82550; 82553; 82805; 82945; 83605; 83615; 83735; 83880; 84075; 84100; 84157; 84484; 85025; 85027; 85610; 85730; 86738; 86850; 86900; 86901; 87040; 87070; 87075; 87086; 87205; 87449; 88108; 88305; 89050; 93005; 93306; 94640; 94760; 96365; 96374; 96375; 99285

== ENCOUNTER → 2018-05-22 | Outpatient (CLI) | payer BC ==
--- NOTE | 2018-05-22 11:46 | XR ---
EXAMINATION TYPE: XR chest 2V DATE OF EXAM: 05/22/2018 COMPARISON: Chest x-ray May 12, 2018 and older studies HISTORY: Post right-sided thoracotomy TECHNIQUE: Frontal and lateral views of the chest are obtained. FINDINGS: There is background chronic emphysematous change with persistent small right pleural effus ion and resolving right basilar atelectasis and/or infiltrate. No mediastinal shift is present. Left lung is clear. The cardiac silhouette size remains within normal limits. The osseous structures ar e intact. IMPRESSION: Chronic emphysematous change with persistent small right pleural effusion but resolving right basilar atelectasis and/or infiltrate.
== END | disposition home or self-care (01) ==
LOC: RADXRMAIN 11:31
PROVIDERS: ATTEND Nurse Practitioner Acute Care
DX: Z09 Encounter for follow-up examination after completed treatment for conditions other than malignant neoplasm (principal); J43.9 Emphysema, unspecified; J90 Pleural effusion, not elsewhere classified; Z98.890 Other specified postprocedural states
CPT/HCPCS: 71046

== ENCOUNTER → 2018-07-11 | Outpatient (CLI) | payer BC ==
--- NOTE | 2018-07-11 13:36 | XR ---
EXAMINATION TYPE: XR chest 2V DATE OF EXAM: 07/11/2018 COMPARISON: 05/22/2018 HISTORY: 57-year-old female cough, pneumonia due to streptococci TECHNIQUE: Frontal and lateral views FINDINGS: The cardiomediastinal silhouette, aorta, and pulmonary vasculature are within normal limits. Right ap ical pleural-parenchymal scarring. Some strandy atelectasis or scarring at the peripheral right midlu ng. Improved aeration of the right base with some residual blunting of the lateral costophrenic angle . No significant pleural effusion seen on the lateral view. IMPRESSION: Resolution of the patient's previous right pleural effusion with residual right basilar pleural paren chymal scarring.
== END | disposition home or self-care (01) ==
LOC: RADXRMAIN 09:58
PROVIDERS: ATTEND Internal Medicine Critical Care Medicine
DX: J15.4 Pneumonia due to other streptococci (principal)
CPT/HCPCS: 71046

== ENCOUNTER 2022-07-11 18:49 | Inpatient (IN) | payer BC, OTHER ==
--- NOTE | 2022-07-11 19:37 | ED ---
General Adult HPI - General Chief complaint: Neuro Symptoms/Deficit Stated complaint: numbness,poss stroke Time Seen by Provider: 07/11/22 19:14 Source: patient Mode of arrival: ambulatory Limitations: no limitations - History of Present Illness Initial comments: Dictation was produced using [employer] dictation software. please excuse any grammatical, word or spelling errors. Chief Complaint: 61-year-old female presents with strokelike symptoms starting at 9 AM History of Present Illness: This 61-year-old female she has past medical history of COPD and thoracic surgery presents to the ER with sensory deficits, right lower extremity weakness and dizziness. States her symptoms began around 9 AM however has been slowly improving. Patient complains of sensory deficit that feels a little numb to her right lower leg and right lower arm. Patient also had some dizziness per she is reporting difficulty walking. She feels like she has to really focus on lifting her right leg. Patient has any history of stroke. She has a history of COPD. The ROS documented in this emergency department record has been reviewed and confirmed by me. Those systems with pertinent positive or negative responses have been documented in the HPI. All other systems are other negative and/or noncontributory. PHYSICAL EXAM: General Impression: Alert and oriented x3, not in acute distress HEENT: Normocephalic atraumatic, extra-ocular movements intact, pupils equal and reactive to light bilaterally, mucous membranes moist. Cardiovascular: Heart regular rate and rhythm Chest: Able to complete full sentences, no retractions, no tachypnea Abdomen: abdomen soft, non-tender, non-distended, no organomegaly Musculoskeletal: Pulses present and equal in all extremities, no peripheral edema Motor: no focal deficits noted Neurological: CN II-XII grossly intact, slight gait abnormality with mild foot drop to the right foot, she does have reported sensory diminishment to light touch of the right hand and right lower leg. Skin: Intact with no visualized rashes Psych: Normal affect and mood ED course: 61-year-old female presents emergency department for strokelike symptoms. Last normal was approximately 9 AM. She does report improvement of symptoms. Patient's NIH score is 3. Last normal was around 9 AM also. Since the onset of her symptoms she reports that her symptoms are improving. Signs upon shows heart rate of 131, rest of vital signs within acceptable limits.EKG shows no onset A. fib. Patient likely having an embolic event. EKG interpretation: Ventricular rate 113, A. fib with RVR, QS 140, QTc 41. No MT prolongation, no QTC prolongation, no ST or T-wave changes noted. Overall, this EKG is unremarkable Code stroke page due to delays in imaging studies and reading. Case is discussed with Dr. Maldonado who will review the films. There is concern the patient might have a large vessel occlusion however patient not a thrombectomy candidate due to low NIH score and improving symptoms. Computed tomography scan of the brain is unremarkable. CT angios of the head and neck shows no large vessel occlusion. There does appear to be plaque formation of the carotid bifurcations. Os appears to be some stenosis at the right internal carotid artery. Patient given aspirin. Case is discussed with Dr. Cronin who agrees that patient not a candidate for heparin at this time given that she has new onset A. fib.Patient be admitted to [facility] hospitalist group. Patient started Cardizem with good rate con trol. - Related Data Home Medications Medication Instructions Recorded Confirmed No Known Home Medications 07/11/22 07/11/22 Allergies Allergy/AdvReac Type Severity Reaction Status Date / Time No Known Allergies Allergy Verified 07/11/22 20:17 Review of Systems ROS Statement: Those systems with pertinent positive or pertinent negative responses have been documented in the HPI. ROS Other: All systems not noted in ROS Statement are negative. Past Medical History Past Medical History: No Reported History, COPD History of Any Multi-Drug Resistant Organisms: None Reported Additional Past Surgical History / Comment(s): Right oophorectomy, right chest cyst removal. Past Anesthesia/Blood Transfusion Reactions: No Reported Reaction Past Psychological History: No Psychological Hx Reported Smoking Status: Current every day smoker Past Alcohol Use History: None Reported Past Drug Use History: None Reported - Past Family History Mother Family Medical History: Diabetes Mellitus, Hyperlipidemia, Hypertension, Pneumonia Additional Family Medical History / Comment(s): Past week at age 74 from complications from pneumonia Father Family Medical History: Diabetes Mellitus, Myocardial Infarction ([place]) (Past weight age 45 from a myocardial infarction.) Son(s) Family Medical History: Pulmonary Embolus (Past awake at age 26 from pulmonary embolus) General Exam Limitations: no limitations Course Vital Signs 07/11/22 07/11/22 19:08 22:03 Temperature 97.5 F L Pulse Rate 131 H 116 H Respiratory 16 16 Rate Blood Pressure 165/112 139/109 O2 Sat by Pulse 98 96 Oximetry Medical Decision Making - Lab Data Result diagrams: 07/11/22 20:05 Lab Results 07/11/22 07/11/22 Range/Units 20:05 20:05 PT 10.5 (9.0-12.0) sec INR 1.0 (<1.2) APTT 24.6 (22.0-30.0) sec Sodium 140 (137-145) mmol/L Potassium 4.7 (3.5-5.1) mmol/L Chloride 103 (98-107) mmol/L Carbon Dioxide 22 (22-30) mmol/L Anion Gap 15 mmol/L BUN 25 H (7-17) mg/dL Creatinine 0.84 (0.52-1.04) mg/dL Est GFR (CKD-EPI)AfAm 86 (>60 ml/min/1.73 sqM) Est GFR (CKD-EPI)NonAf 74 (>60 ml/min/1.73 sqM) Glucose 87 (74-99) mg/dL Calcium 9.6 (8.4-10.2) mg/dL Total Bilirubin 0.5 (0.2-1.3) mg/dL AST 35 (14-36) U/L ALT 32 (4-34) U/L Alkaline Phosphatase 75 (38-126) U/L Total Protein 7.5 (6.3-8.2) g/dL Albumin 4.7 (3.5-5.0) g/dL Critical Care Time Critical Care Time: Yes Total Critical Care Time: 33 Disposition Clinical Impression: Cerebrovascular accident (CVA), New onset a-fib Disposition: ADMITTED IP TO THIS [facility] Condition: Serious Referrals: None,Stated [Primary Care Provider] - 1-2 days Decision Time: 22:45
--- NOTE | 2022-07-11 21:16 | XR ---
EXAMINATION TYPE: XR chest 1V portable DATE OF EXAM: 07/11/2022 COMPARISON: 07/11/2018 HISTORY: Right-sided sensory deficit TECHNIQUE: Single view FINDINGS: There is no heart failure or confluent pneumonic infiltrate is mild pulmonary hyperinflatio n. There are no hilar masses. Bony thorax is intact. There is minimal blunting right costophrenic ang le. IMPRESSION: Minimal pleural reaction lateral right lung base is improved compared to old exam. There is probably COPD. No pulmonary consolidation
[2022-07-11 21:57] LABS: Partial Thromboplastin Time 24.6 sec (22.0-30.0); Prothrombin Time 10.5 sec (9.0-12.0)
--- NOTE | 2022-07-11 21:57 | CT ---
EXAMINATION TYPE: CT brain wo con DATE OF EXAM: 07/11/2022 COMPARISON: None HISTORY: Right sided sensory deficit. CT DLP: 1084.4 mGycm Automated exposure control for dose reduction was used. Ventricles have normal size. There is no mass effect nor midline shift. No evidence of intracranial h emorrhage. The calvarium is intact. No evidence of cerebral edema. Skull base is intact. Sella turcic a appears normal. IMPRESSION: Negative CT scan of the brain.
[2022-07-11 22:14] LABS: Albumin 4.7 g/dL (3.5-5.0); Calcium 9.6 mg/dL (8.4-10.2); Potassium 4.7 mmol/L (3.5-5.1); Total Bilirubin 0.5 mg/dL (0.2-1.3); Total Protein 7.5 g/dL (6.3-8.2)
[2022-07-11] MEDS ORDERED: DILTIAZEM 125 MG in SODIUM CHLORIDE 0.9% 100 ML IV SCH (22:30)
--- NOTE | 2022-07-11 22:36 | CT ---
EXAMINATION TYPE: CT angio head neck DATE OF EXAM: 07/11/2022 COMPARISON: None HISTORY: neuro deficit CT DLP: 424 mGycm Automated exposure control for dose reduction was used. CONTRAST: Performed with IV Contrast, patient injected with 65 mL of Isovue 370. Images obtained from the aortic arch to the vertex of the brain with IV contrast. There are Three-D p ostprocessed images. There is normal branching pattern of the great vessels of the aortic arch. There is bilateral arteria l flow in the subclavian arteries. There is arterial flow in the common internal and external cord ar teries bilaterally. There is significant irregular plaque at the left carotid artery bifurcation with approximate 50% stenosis at the origin of the left internal carotid artery. There is plaque formatio n on the medial wall right internal carotid artery and estimated 25% stenosis. There is arterial flow in both vertebral arteries. There is arterial flow in the vertebrobasilar artery system. Left verteb ral artery is larger than the right. There is no evidence of carotid or vertebral artery aneurysm or dissection. There is arterial flow in the anterior middle and posterior cerebral arteries bilaterally. No mass ef fect. No evidence of intracranial arterial stenosis. There is normal enhancement of the venous sinuse s. No evidence of intracranial aneurysm or neovascularity. IMPRESSION: Negative CT angiogram of the brain. Plaque formation at the carotid bifurcations with 50% stenosis or igin left internal carotid artery and 25% stenosis origin of the right internal carotid artery.
[2022-07-11] MEDS ORDERED: ACETAMINOPHEN TAB 325 MG TAB PO PRN (22:39)
[2022-07-11] MEDS ORDERED: ASPIRIN 81 MG PO STA (22:39)
[2022-07-11] MEDS ORDERED: NALOXONE 0.4 MG/ML 1 ML VIAL IV PRN (22:39)
[2022-07-12] MEDS: SODIUM CHLORIDE 0.9% 1,000 ML IV SCH ×2 (02:22→19:40)
[2022-07-12 07:50] LABS: Basophils # (A) 0.1 k/uL (0-0.2); Basophils % (A) 1 %; Eosinophils # (A) 0.2 k/uL (0-0.7); Eosinophils % (A) 2 %; HCT 52.4 % (34.0-46.0); HGB 17.1 gm/dL (11.4-16.0); Lymphocytes # (A) 2.5 k/uL (1.0-4.8); Lymphocytes % (A) 33 %; MCH 31.5 pg (25.0-35.0); MCHC 32.6 g/dL (31.0-37.0); MCV 96.5 fL (80.0-100.0); Mean Platelet Volume 7.8; Monocytes # (A) 0.4 k/uL (0-1.0); Monocytes % (A) 6 %; Neutrophils # (A) 4.2 k/uL (1.3-7.7); Neutrophils % (A) 57 %; Platelet Count 227 k/uL (150-450); RBC 5.42 m/uL (3.80-5.40); RDW 12.8 % (11.5-15.5); WBC 7.5 k/uL (3.8-10.6)
--- NOTE | 2022-07-12 08:10 | P.HPIM ---
History of Present Illness This is a pleasant 61 years old female with no significant past medical history. She is not on medication at home. Patient yesterday she was working with her grandchildren on the sidewalk getting into the house when she felt short of breath could not see in her right eye and she become dizzy which lasted for about 15 minutes. Patient describes the dizziness as nonspecific. After that episode she was feeling weakness in her ri ght leg and the lesser extent in the right arm with some numbness. This morning she woke up feeling fine with no more weakness in the right arm or leg may be very mild numbness or weakness which could not be appreciated on exam. Patient had a headache yesterday which is resolved now. Her vision is back to baseline and normal. No slurred speech. No more episodes of thickness. Left side looks fine. Her PCP is Dr. garcia which is retired and she does not follow up with PCP. She denies GI or urinary symptoms. No chest pain or dyspnea or coughing. She smokes about half pack per day and she was counseled to quit and she agrees and she was a nicotine patch. No alcohol or illicit drugs Vitals are stable. Blood pressure is 171/82. showing INR is 1.0, BMP is unremarkable with normal electrolytes and creatinine at 0.8. Liver enzymes not elevated. Chest x-ray: Minimal pleural reaction that her right lung base is improved compared to old exam. That is probably COPD. No pulmonary consultation CT of the brain: Negative computed tomography scan of the brain. CT of the head and neck: Negative CT and Gram of the brain plaque formation at the bifurcation of the carotids with 50% stenosis of the origin of the left internal carotid artery and 25% stenosis in the origin of the right internal carotid artery EKG: Atrial fibrillation's with RVR at a rate of 130. QTC is 401. With right bundle branch block iin the emergency room patient was given aspirin and Cardizem drip with consult to farmer cash grain and neurologist Review of Systems Review of systems CONSTITUTIONAL: No fever, no malaise, no fatigue. HEENT: No recent visual problems or hearing problems. Denied any sore throat. CARDIOVASCULAR: No orthopnea, PND, no palpitations, no syncope. PULMONARY: No shortness of breath, no cough, no hemoptysis. GASTROINTESTINAL: No diarrhea, no nausea, no vomiting, no abdominal pain. Normoactive bowel sounds. NEUROLOGICAL: No headaches, no weakness, no numbness. HEMATOLOGICAL: Denies any bleeding or petechiae. GENITOURINARY: Denies any burning micturition, frequency, or urgency. MUSCULOSKELETAL/RHEUMATOLOGICAL: Denies any joint pain, swelling, or any muscle pain. ENDOCRINE: Denies any polyuria or polydipsia. Past Medical History Past Medical History: COPD History of Any Multi-Drug Resistant Organisms: None Reported Additional Past Surgical History / Comment(s): Right oophorectomy, right chest cyst removal. Past Anesthesia/Blood Transfusion Reactions: No Reported Reaction Past Psychological History: No Psychological Hx Reported Smoking Status: Current every day smoker Past Alcohol Use History: None Reported Past Drug Use History: None Reported - Past Family History Mother Family Medical History: Diabetes Mellitus, Hyperlipidemia, Hypertension, Pneumonia Additional Family Medical History / Comment(s): Past week at age 74 from complications from pneumonia Father Family Medical History: Diabetes Mellitus, Myocardial Infarction ([place]) Son(s) Family Medical History: Pulmonary Embolus Medications and Allergies Home Medications Medication Instructions Recorded Confirmed Type No Known Home Medications 07/11/22 07/11/22 History Allergies Allergy/AdvReac Type Severity Reaction Status Date / Time No Known Allergies Allergy Verified 07/11/22 20:17 Physical Exam Vitals: Vital Signs Temp Pulse Pulse Resp BP BP Pulse Ox 07/12/22 04:00 62 18 171/82 96 07/12/22 02:09 98 F 76 18 139/90 95 07/12/22 01:25 85 16 134/95 98 07/12/22 00:30 85 16 145/101 95 07/12/22 00:00 107 H 16 114/104 95 07/11/22 23:00 101 H 18 171/101 95 07/11/22 22:03 116 H 16 139/109 96 07/11/22 22:00 93 16 159/104 95 07/11/22 19:08 97.5 F L 131 H 16 165/112 98 Intake and Output 07/11/22 07/11/22 07/12/22 14:59 22:59 06:59 Other: Voiding Method Toilet # Voids 1 Weight 65.771 kg 65.771 kg GENERAL: The patient is alert and oriented x3, not in any acute distress. Well developed, well nourished. HEENT: Pupils are round and equally reacting to light. EOMI. No scleral icterus. No conjunctival pallor. Normocephalic, atraumatic. No pharyngeal erythema. No thyromegaly. CARDIOVASCULAR: S1 and S2 present. No murmurs, rubs, or gallops. PULMONARY: Chest is clear to auscultation, no wheezing or crackles. ABDOMEN: Soft, nontender, nondistended, normoactive bowel sounds. No palpable organomegaly. MUSCULOSKELETAL: No joint swelling or deformity. EXTREMITIES: No cyanosis, clubbing, or pedal edema. NEUROLOGICAL: Gross neurological examination did not reveal any focal deficits. SKIN: No rashes. no petechiae. Results CBC & Chem 7: 07/12/22 07:19 07/11/22 20:05 Labs: Abnormal Lab Results - Last 24 Hours (Table) 07/11/22 Range/Units 20:05 BUN 25 H (7-17) mg/dL Thrombosis Risk Factor Assmnt - Choose All That Apply Any of the Below Risk Factors Present?: Yes Each Factor Represents 1 point: Abnormal pulmonary function (COPD) Each Risk Factor Represents 2 Points: Age 61-74 years Thrombosis Risk Factor Assessment Total Risk Factor Score: 3 Thrombosis Risk Factor Assessment Level: Moderate Risk Assessment and Plan Assessment: Rule out acute stroke. Symptomatic atrial fibrillation with RVR. Mild bilateral carotid artery stenosis, 25% on the right side and 50% on the left side. COPD, not an active issue Plan: This is a pleasant 61 years old female who presents with possible acute stroke and A. fib Continue with aspirin Check echocardiogram Neurology consult Check MRI of the brain Continue with Cardirafael stacey Cardiology consult Labs and medication were reviewed.. Continue same treatment. Continue with symptomatic treatment. Resume home medication. Monitor lytes and vitals. DVT and GI prophylaxis. Further recommendations as per clinical course of the patient DVT prophylaxis: Subcutaneous heparin GI Prophylaxis: Pepcid PT/OT: Pending Prognosis is guarded
[2022-07-12] MEDS: ASPIRIN 325 MG TAB PO SCH (09:10)
[2022-07-12] MEDS: HEPARIN SODIUM,PORCINE/PF 5,000 UNIT/0.5 ML SYRINGE SQ SCH ×2 (09:10→17:43)
[2022-07-12] MEDS: CLOPIDOGREL 75 MG TAB PO SCH (09:10)
--- NOTE | 2022-07-12 10:41 | P.CNNES ---
History of Present Illness Consult date: 07/12/22 Requesting physician: Blanco Garcia Reason for Consult: CVA History of Present Illness: This is a 61-year-old woman who presented emergency department on 07/11/2022 for right lower extremity weakness, dizziness and numbness in the right lower extremity as well as arm, blurry vision. She felt her symptoms began yesterday around 9 AM. She felt both eyes were blurry, felt light headed and dizzy. She also felt nauseous. She feels her symptoms are improving. She has some slight numbness over the right sided. She denies any history of stroke in the past. She is not on any antiplatelet or statin use. She smokes about 1/2PPD. Denies alcohol use or illicit drug use. Some other workup in the ED consisted of: CT of brain is reported as negative. I personally reviewed the CT of the head and there is no acute subacute ischemic stroke and there is no intra-protocol hemorrhage. CT angiography of the head and neck was reported as plaque formation of the carotid bifurcation with 50% stenosis origin left ICA and 25% origin of the right ICA. EKG is reported as age are fibrillation with rapid ventricular response. Right axis deviation. Right bundle branch block. Septal myocardial infarction of indeterminate age. Patient hemoglobin 17.1 and a normal value supposed to be in the range of 11.4- 16 TSH is 1.370. Otherwise rest of the chemistry panel is unremarkable Code stroke pager was activated and the ED spoke with the the stroke attending (Dr. Hill) since there is a concern the patient might have large vessel occlusion however the patient is not a thrombectomy candidate due to low NIH and is improving per ED note She did not get IV TPA because of risk outweigh benefit. Review of Systems Review of system: The 12 point system was reviewed and apparent positive and negative per HPI. Past Medical History Past Medical History: COPD History of Any Multi-Drug Resistant Organisms: None Reported Additional Past Surgical History / Comment(s): Right oophorectomy, right chest cyst removal. Past Anesthesia/Blood Transfusion Reactions: No Reported Reaction Past Psychological History: No Psychological Hx Reported Smoking Status: Current every day smoker Past Alcohol Use History: None Reported Past Drug Use History: None Reported - Past Family History Mother Family Medical History: Diabetes Mellitus, Hyperlipidemia, Hypertension, Pneumonia Additional Family Medical History / Comment(s): Past week at age 74 from complications from pneumonia Father Family Medical History: Diabetes Mellitus, Myocardial Infarction ([place]) Son(s) Family Medical History: Pulmonary Embolus Medications and Allergies Home Medications Medication Instructions Recorded Confirmed Type No Known Home Medications 07/11/22 07/11/22 History Allergies Allergy/AdvReac Type Severity Reaction Status Date / Time No Known Allergies Allergy Verified 07/11/22 20:17 Physical Examination - Vital Signs Vital Signs: Vital Signs Temp Pulse Pulse Resp BP BP Pulse Ox 07/12/22 08:00 95.9 F L 73 16 138/84 93 L 07/12/22 04:00 62 18 171/82 96 07/12/22 02:09 98 F 76 18 139/90 95 07/12/22 01:25 85 16 134/95 98 07/12/22 00:30 85 16 145/101 95 07/12/22 00:00 107 H 16 114/104 95 07/11/22 23:00 101 H 18 171/101 95 07/11/22 22:03 116 H 16 139/109 96 07/11/22 22:00 93 16 159/104 95 07/11/22 19:08 97.5 F L 131 H 16 165/112 98 Intake and Output 07/11/22 07/12/22 07/12/22 22:59 06:59 14:59 Other: Voiding Method Toilet # Voids 1 Weight 65.771 kg 65.771 kg GENERAL: The patient is lying in bed and is not in acute distress. CHEST: The heart rate is regular rate rhythm. No murmurs to auscultation. LUNG: Clear to auscultation bilaterally no wheezing noted throughout. Not labored breathing. ABDOMEN/GI: Bowel sounds present in all 4 quadrants. No tenderness to palpation throughout. NEUROLOGICAL: Higher mental function: The patient is awake, alert, oriented to self, place and time. Patient is following commands. No aphasia and no neglect. Cranial nerves: The pupils are round, equal and reactive to light and accommodation. Visual crawley: right homonymous lower field defect to confrontation. Extraocular movement is intact no nystagmus is noted. Facial sensation is inconsistent but has some numbness over V1 but not V2 or V3 to touch. The facial strength is normal throughout. Hearing is normal bilaterally to hand rub. Tongue is midline and moved [id number] without any difficulty. No dysarthria is noted. Shoulder shrug is normal bilaterally. Motor: The strength is 5 over 5 throughout. Normal tone and bulk. Cerebellum: Normal finger to nose heel to donis bilaterally. Sensation: Sensation is inconsistent but at times has loss of sensation to touch over the right upper hand. Otherwise normal to touch throughout. Reflexes (right/left): 2+ throughout. Plantars are downgoing bilaterally. Results - Laboratory Findings CBC and BMP: 07/12/22 07:19 07/11/22 20:05 Abnormal Lab Findings: Abnormal Labs 07/11/22 07/12/22 20:05 07:19 RBC 5.42 H Hgb 17.1 H Hct 52.4 H BUN 25 H Assessment and Plan Assessment: Acute ischemic stroke (presented with right lower extremity weakness, numbness over the right side, dizziness, blurry vision. On examination has right homonymous lower field defect and continues to have some subjective numbness on right) . Has new onset atrial fibrillation New onset atrial fibrillation History of COPD Tobacco use Plan: I ordered MRI of the brain, carotid duplex and lipid panel The patient was given aspirin 324 mg once in the ED. I started the patient on aspirin 325 daily as well as Plavix 75 mg daily. Will avoid heparin drip or anticoagulation for now because of risk of hemorraghic conversion from stroke until we get the MRI of the brain to assess the size of stroke then we'll determine the the start of anticoagulation. I started the patient on Lipitor 40 mg daily at bedtime or secondary stroke prophylaxis 2-D echo and Hemoglobin A1c are ordered by the primary team. PT, OT are consulted Continue neuro checks On Cardiac monitoring Primary team consulted cardiology team for the atrial fibrillation Patient was counseled on tobacco cessation. We'll defer the rest of the medical management to primary For DVT prophylaxis I start the patient on subcu heparin 5000 units every 8 hours Thank you for the consultation. Abraham Cronin M.D. Neuro-hospitalist Time with Patient: Greater than 30
[2022-07-12] MEDS: METOPROLOL TARTRATE 50 MG TAB PO SCH ×2 (11:42→19:40)
[2022-07-12] MEDS: NICOTINE 21MG/24HR PATCH TRANSDERM SCH (11:42)
[2022-07-12] MEDS: ALPRAZolam 0.5 MG TAB PO PRN (11:43)
--- NOTE | 2022-07-12 12:13 | P.CRDCN ---
History of Present Illness History of present illness: HISTORY OF PRESENTING ILLNESS This is a pleasant 61-year-old female past medical history significant for hypertension, not on medication, chronic tobacco use. 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 We have been asked to see in consultation for new onset atrial fibrillation. Patient presents to the ER with episode yesterday of right lower extremity weakness, dizziness, right lower extremity numbness, right upper extremity numbness, changes in vision. She states yesterday morning she was seen her daughter, and had acute onset of "not feeling right". She states she could not see well. She had difficulty walking and change in vision in her right eye. Her right arm and right leg had sensory changes, some weakness and numbness. She did feel faint. She was brought to the emergency room for further evaluation. She denies any chest pain, shortness of breath, palpitations. She did not have syncope or loss of consciousness. She is feeling better today, however, still have vision defect in her right eye lateral vision. She denies any history of CAD, AR, prior stroke, diabetes, dyslipidemia. She states that she has started her blood pressure be elevated but she is not on medications. She is a current every day smoker. Denies any alcohol use or illicit drug use. On admission. Patient was found to be in atrial fibrillation with rapid ventricular response, and was started on IV Cardizem drip. DIAGNOSTICS * EKG reveals atrial fibrillation with rapid ventricular response, heart rate 113, right bundle-branch block * Telemetry tracings indicate atrial fibrillation with controlled ventricular rates, heart rates in the 70s80s * Brain CT reported no evidence of intracranial hemorrhage, no mass effect, no midline shift. * CT angiography of head and neck reported 50% stenosis left internal carotid artery and 25% stenosis right internal carotid artery * Chest xray no acute cardiopulmonary process.. * Laboratory reviewed, WBC 7.5, hemoglobin 17.1, platelets 227, TSH within nor mal limits, sodium 140, potassium 4.7, BUN 25, serum creatinine 0.8, hemoglobin A1c 5.9, magnesium 2.0 * Current home medications include none * Echocardiogram in 2018 revealed an EF of 5055 %, trace to mild mitral regurgitation, trace tricuspid regurgitation REVIEW OF SYSTEMS At the time of my exam: CONSTITUTIONAL: Denies fever or chills. CARDIOVASCULAR: Denies chest pain, shortness of breath, orthopnea, PND or palpitations. RESPIRATORY: Denies cough. GASTROINTESTINAL: Denies abdominal pain, diarrhea, constipation, nausea or vomiting. MUSCULOSKELETAL: Denies myalgias. NEUROLOGIC: + numbness, +tingling, Denies headacbe +weakness. +changes in vision ENDOCRINE: Denies fatigue, weight change, polydipsia or polyurina. GENITOURINARY: Denies burning, hematuria or urgency with micturation. HEMATOLOGIC: Denies history of anemia or bleeding. PHYSICAL EXAMINATION Vitals reviewed: Blood pressure 130/84, heart rate 73, afebrile, oxygen saturation 96% on room air CONSTITUTIONAL: No apparent distress. HEENT: Head is normocephalic. Pupils are equal, round. Sclerae anicteric. Mucous membranes of the mouth are moist. No JVD. No carotid bruit. CHEST EXAMINATION: Lungs are clear to auscultation. No chest wall tenderness is noted on palpation or with deep breathing. HEART EXAMINATION: Regular rate and rhythm. S1, S2 heard. No murmurs, gallops or rub. ABDOMEN: Soft, nontender. Positive bowel sounds. EXTREMITIES: 2+ peripheral pulses, no lower extremity edema and no calf tenderness. NEUROLOGIC EXAMINATION: Patient is awake, alert and oriented x3. Lateral right eye vision changes ASSESSMENT Paroxysmal atrial fibrillation with RVR, newly detected, [id number] score 4 Acute right lower extremity weakness, right sided numbness, changes in vision Carotid artery stenosis with 50% stenosis left internal carotid artery and 25% stenosis right internal carotid artery noted on CT Hypertension Chronic tobacco use PLAN Start metoprolol tartrate 50mg BID Monitor blood pressure, possible start ACEI/ARB tomorrow Neurology following plan for MRI brain Obtain 2D echocardiogram and doppler study to assess cardiac structure and function. Monitor on telemetry Lipid panel Further recommendations based on clinical course Nurse practitioner note has been reviewed by physician. Signing provider agrees with the documented findings, assessment, and plan of care. Past Medical History Past Medical History: COPD History of Any Multi-Drug Resistant Organisms: None Reported Additional Past Surgical History / Comment(s): Right oophorectomy, right chest cyst removal. Past Anesthesia/Blood Transfusion Reactions: No Reported Reaction Past Psychological History: No Psychological Hx Reported Smoking Status: Current every day smoker Past Alcohol Use History: None Reported Past Drug Use History: None Reported - Past Family History Mother Family Medical History: Diabetes Mellitus, Hyperlipidemia, Hypertension, Pneumonia Additional Family Medical History / Comment(s): Past week at age 74 from c omplications from pneumonia Father Family Medical History: Diabetes Mellitus, Myocardial Infarction ([place]) Son(s) Family Medical History: Pulmonary Embolus Medications and Allergies Home Medications Medication Instructions Recorded Confirmed Type No Known Home Medications 07/11/22 07/11/22 History Allergies Allergy/AdvReac Type Severity Reaction Status Date / Time No Known Allergies Allergy Verified 07/11/22 20:17 Physical Exam Vitals: Vital Signs Temp Pulse Pulse Resp BP BP Pulse Ox 07/12/22 04:00 62 18 171/82 96 07/12/22 02:09 98 F 76 18 139/90 95 07/12/22 01:25 85 16 134/95 98 07/12/22 00:30 85 16 145/101 95 07/12/22 00:00 107 H 16 114/104 95 07/11/22 23:00 101 H 18 171/101 95 07/11/22 22:03 116 H 16 139/109 96 07/11/22 22:00 93 16 159/104 95 07/11/22 19:08 97.5 F L 131 H 16 165/112 98 Intake and Output 07/11/22 07/12/22 07/12/22 22:59 06:59 14:59 Other: Voiding Method Toilet # Voids 1 Weight 65.771 kg 65.771 kg Results 07/12/22 07:19 07/11/22 20:05 Cardiac Enzymes 07/11/22 Range/Units 20:05 AST 35 (14-36) U/L Coagulation 07/11/22 Range/Units 20:05 PT 10.5 (9.0-12.0) sec APTT 24.6 (22.0-30.0) sec Comprehensive Metabolic Panel 07/11/22 Range/Units 20:05 Sodium 140 (137-145) mmol/L Potassium 4.7 (3.5-5.1) mmol/L Chloride 103 (98-107) mmol/L Carbon Dioxide 22 (22-30) mmol/L BUN 25 H (7-17) mg/dL Creatinine 0.84 (0.52-1.04) mg/dL Glucose 87 (74-99) mg/dL Calcium 9.6 (8.4-10.2) mg/dL AST 35 (14-36) U/L ALT 32 (4-34) U/L Alkaline Phosphatase 75 (38-126) U/L Total Protein 7.5 (6.3-8.2) g/dL Albumin 4.7 (3.5-5.0) g/dL Current Medications Generic Name Dose Route Start Last Admin Trade Name Freq PRN Reason Stop Dose Admin Acetaminophen 650 mg 07/11/22 22:39 Acetaminophen Tab 325 Mg Tab PO Q6HR PRN Mild Pain or Fever > 100.5 Diltiazem HCl 125 mg/ Sodium 125 mls @ 10 mls/hr 07/11/22 22:30 07/11/22 22:57 Chloride IV 5 mg/hr .[id number] CHRISTINE 5 mls/hr Administration 10 MG/HR Sodium Chloride 1,000 mls @ 20 mls/hr 07/11/22 22:45 07/12/22 02:22 Saline 0.9% IV 20 mls/hr .Q24H CHRISTINE Administration Naloxone HCl 0.2 mg 07/11/22 22:39 Naloxone 0.4 Mg/Ml 1 Ml Vial IV Q2M PRN Opioid Reversal Intake and Output 07/11/22 07/12/22 07/12/22 22:59 06:59 14:59 Other: Voiding Method Toilet # Voids 1 Weight 65.771 kg 65.771 kg 07/11/22 20:05
--- NOTE | 2022-07-12 12:31 | CA ---
Transthoracic Echo Report Name: Mercy Smith Age: 61 Gender: F : 1960 Exam Date: 07/12/2022 10:10 Exam Location: [facility] Ht (in): 69 Wt (lb): 145 Ordering Physician: Deion Pérez MD Attending/Referring Phys: [id number], [facility] Physical Therapist Center Manager Darcy [place] RDCS Procedure CPT: Indications: Rule out heart disease. Patient has possible CVA Cardiac Hx: Technical Quality: Fair Contrast 1: Total Dose (mL): Contrast 2: Total Dose (mL): MEASUREMENTS (Male / Female) Normal Values 2D ECHO LV Diastolic Diameter PLAX 4.1 cm 4.2 - 5.9 / 3.9 - 5.3 cm LV Systolic Diameter PLAX 3.4 cm IVS Diastolic Thickness 1.5 cm 0.6 - 1.0 / 0.6 - 0.9 cm LVPW Diastolic Thickness 1.5 cm 0.6 - 1.0 / 0.6 - 0.9 cm LV Relative Wall Thickness 0.7 RV Internal Dim ED PLAX 3.2 cm LA Volume 82.7 cm??? 18 - 58 / 22 - 52 cm??? M-MODE Aortic Root Diameter MM 2.8 cm LA Systolic Diameter MM 4.6 cm LA Ao Ratio MM 1.6 AV Cusp Separation MM 2.0 cm DOPPLER AV Peak Velocity 83.8 cm/s AV Peak Gradient 2.8 mmHg LVOT Peak Velocity 76.9 cm/s LVOT Peak Gradient 2.4 mmHg MV E' Velocity 7.4 cm/s FINDINGS Left Ventricle Moderately increased left ventricular wall thickness. Left ventricular ejection fraction is estimated at 50%. There is inferior and inferolateral hypokinesis. Right Ventricle Normal right ventricular size and function. Right ventricular systolic pressure within normal limits. Right Atrium Normal right atrial size. Negative agitated saline bubble study for right to left shunt. Left Atrium Moderate left atrial dilatation. No evidence for an atrial septal defect. Mitral Valve Mild mitral annular calcification. Moderate mitral regurgitation. Aortic Valve Trileaflet aortic valve. Aortic valve sclerosis. Thickened aortic valve without stenosis. No aortic regurgitation. Tricuspid Valve Structurally normal tricuspid valve. Mild tricuspid regurgitation. Pulmonic Valve Trace pulmonic regurgitation. Pericardium No pericardial effusion. Aorta Normal size aortic root and proximal ascending aorta. CONCLUSIONS Left ventricular EF 50% with inferior and inferolateral hypokinesis. Negative bubble study Moderately dilated left atrium Aortic sclerosis without significant aortic stenosis Mild tricuspid regurgitation Previewed by: Dr. Tyler Gillette DO (Electronically Signed) Final Date: 12 July 2022 12:30
--- NOTE | 2022-07-12 14:45 | US ---
EXAMINATION TYPE: US carotid duplex BILAT DATE OF EXAM: 07/12/2022 COMPARISON: CTA neck from yesterday CLINICAL HISTORY: carotid stenosis. stenosis TECHNIQUE: Carotid duplex ultrasound examination. Indirect Doppler criteria was utilized. FINDINGS: EXAM MEASUREMENTS: RIGHT: Peak Systolic Velocity (PSV) cm/sec ----- Right CCA: 49.3 ----- Right ICA: 84.2 ----- Right ECA: 53.6 ICA/CCA ratio: 1.7 RIGHT: End Diastole cm/sec ----- Right CCA: 14.4 ----- Right ICA: 17.3 ----- Right ECA: 5.7 LEFT: Peak Systolic Velocity (PSV) cm/sec ----- Left CCA: 49.3 ----- Left ICA: 113.6 ----- Left ECA: 72.3 ICA/CCA ratio: 2.3 LEFT: End Diastole cm/sec ----- Left CCA: 10 ----- Left ICA: 0 ----- Left ECA: 0 VERTEBRALS (direction of flow): Right Vertebral: Antegrade Left Vertebral: Antegrade Rhythm: Normal SUPERVISOR DOCK NOTES: No significant stenosis seen IMPRESSION: No hemodynamically significant stenosis in either internal carotid artery. Findings raciel elate with CTA neck study one day earlier Criteria for Assigning % of Stenosis / Diameter reduction (Estimation based on the indirect measurements of the internal carotid artery velocities (ICA PSV). 1. Normal (no stenosis)=ICA PSV < 125 cm/s: ratio < 2.0: ICA EDV<40 cm/s. 2. Less than 50% stenosis=ICA PSV < 125 cm/s: ratio < 2.0: ICA EDV<40 cm/s. 3. 50 to 69% stenosis=ICA PSV of 125 to 230 cm/s: ration 2.0 ? 4.0: ICA EDV 40-100 cm/s. 4. Greater than 70% stenosis to near occlusion= ICA PSV > 230 cm/s: ratio > 4.0: ICA EDV > 100 cm/s. 5. Near occlusion= ICA PSV velocities may be low or undetectable: variable ratio and ICA EDV. 6. Total occlusion=unable to detect flow.
[2022-07-12 15:23] LABS: Chol/HDL Ratio 3.02 Ratio; LDL Cholesterol,Calculated 103.2 mg/dL (0.0-131.0)
--- NOTE | 2022-07-12 17:26 | MR ---
MRI OF THE BRAIN WO History: Follow-up stroke COMPARISON: CT 07/11/2022 TECHNIQUE: Multiplanar multisequence MR imaging of the brain was obtained without the use of IV cont rast. FINDINGS: There is moderate restricted diffusion in the left posterior thalamus and left medial occipital lobe consistent with acute infarct.No acute intracranial hemorrhage or abnormal extra-axial fluid collecti on are noted.There is no midline shift or mass effect. There is moderate white matter T2 FLAIR hyperi ntensities in keeping with chronic microvascular ischemic changes. There is moderate parenchymal volu me loss. Visualized vascular flow voids are unremarkable. Visualized paranasal sinuses and mastoid air cells are patent and aerated. IMPRESSION: Acute infarct involving the left thalamus and left occipital lobe. No intracranial hemorrhage. Chronic bilateral vascular ischemic changes.
[2022-07-12] MEDS ORDERED: ATORVASTATIN 40 MG TAB PO SCH (21:00)
[2022-07-13] MEDS: HEPARIN SODIUM,PORCINE/PF 5,000 UNIT/0.5 ML SYRINGE SQ SCH ×3 (00:37→17:21)
--- NOTE | 2022-07-13 09:27 | P.PN ---
Subjective Progress Note Date: 07/13/22 The patient is seen at bedside and feels better today. She feels her vision is improving. Objective - Vital Signs Vital signs: Vital Signs Temp 97.4 F L 07/13/22 07:43 Pulse 79 07/13/22 07:44 Resp 18 07/13/22 07:44 BP 138/91 07/13/22 07:43 Pulse Ox 96 07/13/22 07:43 FiO2 Intake & Output 07/12/22 07/13/22 07/13/22 18:59 06:59 18:59 Intake Total 360 Balance 360 Intake: Oral 360 Other: Voiding Method Toilet Toilet Toilet # Voids 2 2 - Exam GENERAL: The patient is lying in bed and is not in acute distress. NEUROLOGICAL: Higher mental function: The patient is awake, alert, oriented to self, place and time. Patient is following commands. No aphasia and no neglect. Cranial nerves: The pupils are round, equal and reactive to light and accommodation. Visual crawley: right homonymous lower field defect to c onfrontation. Extraocular movement is intact no nystagmus is noted. Facial sensation is inconsistent but has some numbness over V1 but not V2 or V3 to touch. The facial strength is normal throughout. Hearing is normal bilaterally to hand rub. Tongue is midline and moved [id number] without any difficulty. No dysarthria is noted. Shoulder shrug is normal bilaterally. Motor: The strength is 5 over 5 throughout. Normal tone and bulk. Cerebellum: Normal finger to nose heel to donis bilaterally. Sensation: Sensation is inconsistent but at times has loss of sensation to touch over the right upper hand. Otherwise normal to touch throughout. Reflexes (right/left): 2+ throughout. Plantars are downgoing bilaterally. Some other workup in the ED consisted of: Lipid panel: T, Cholestrol 184, LDL 103, HDL 61 TSH: 1.70 Folate >20 Vitamin B12: 553 HbA1c: 5.9 CT of brain is reported as negative. I personally reviewed the CT of the head and there is no acute subacute ischemic stroke and there is no intra-protocol hemorrhage. CT angiography of the head and neck was reported as plaque formation of the carotid bifurcation with 50% stenosis origin left ICA and 25% origin of the right ICA. MRI Brain is reported Acute infarct involving the left thalamus and left occipit al lobe. No intracranial hemorrhage. EKG is reported as age are fibrillation with rapid ventricular response. Right axis deviation. Right bundle branch block. Septal myocardial infarction of indeterminate age. Carotid duplex: No hemodynamically significant stenosis in either internal carotid artery. Finding correlate with CTA neck study one day earlier. 2D echo: Reported as Left ventricular EF 50% with inferior and inferolateral hypokinesis. Negative bubble study. Moderate dilated left atrium. Aortic sclerosis without significant aortic stenosis. - Labs CBC & Chem 7: 07/12/22 07:19 07/11/22 20:05 Labs: Abnormal Lab Results - Last 24 Hours (Table) 07/12/22 Range/Units 07:19 HDL Cholesterol 61.00 H (40.00-60.00) mg/dL Assessment and Plan Assessment: Acute ischemic stroke. On MRI positive for stroke over left thalamus and left occipital lobe. (presented with right lower extremity weakness, numbness over the right side, dizziness, blurry vision. On examination has right homonymous lower field defect and continues to have some subjective numbness on right) . Etiology is cardioembolic (new onset atrial fibrillation) New onset atrial fibrillation History of COPD Tobacco use Plan: Recommend start on anticoagulation two days from now to avoid hemorrhagic conversion. In the mean time patient is on aspirin 325 daily as well as Plavix 75 mg daily. Once on anticoagulation avoid any antiplatelets from neurological perspective (since was not on any antiplatelets prior and to avoid risk of bleed). Decreased Lipitor from 40 mg to 20 daily at bedtime or secondary stro ke prophylaxis PT, OT are consulted Continue neuro checks On Cardiac monitoring Primary team consulted cardiology team for the atrial fibrillation Patient was counseled on tobacco cessation. We'll defer the rest of the medical management to primary For DVT prophylaxis On subcu heparin 5000 units every 8 hours Patient needs to follow-up with neurologist as outpatient within 1-2 weeks. Otherwise no additional work-up. Patient is clear for discharge from neurological perspective. Abraham Cronin M.D. Neuro-hospitalist Time with Patient: Less than 30
[2022-07-13] MEDS: ASPIRIN 325 MG TAB PO SCH (11:20)
[2022-07-13] MEDS: ALPRAZolam 0.5 MG TAB PO PRN (11:20)
[2022-07-13] MEDS: METOPROLOL TARTRATE 50 MG TAB PO SCH ×2 (11:20→20:31)
[2022-07-13] MEDS: CLOPIDOGREL 75 MG TAB PO SCH (11:20)
[2022-07-13] MEDS: NICOTINE 21MG/24HR PATCH TRANSDERM SCH (11:20)
--- NOTE | 2022-07-13 11:43 | P.PN ---
Subjective This is a pleasant 61-year-old female past medical history significant for hypertension, not on medication, chronic tobacco use. 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 We have been asked to see in consultation for new onset atrial fibrillation. Patient presents to the ER with episode yesterday of right lower extremity weakness, dizziness, right lower extremity numbness, right upper extremity numbness, changes in vision. She states yesterday morning she was seen her daughter, and had acute onset of "not feeling right". She states she could not see well. She had difficulty walking and change in vision in her right eye. Her right arm and right leg had sensory changes, some weakness and numbness. She did feel faint. She was brought to the emergency room for further evaluation On admission, Patient was found to be in atrial fibrillation with rapid ventricular response, and was started on IV Cardizem drip. DIAGNOSTICS * MRI brain revealed acute infarct involving the left thalamus and left occipital lobe. Chronic bilateral vascular ischemic changes. * Brain CT reported no evidence of intracranial hemorrhage, no mass effect, no midline shift. * CT angiography of head and neck reported 50% stenosis left internal carotid artery and 25% stenosis right internal carotid artery * Carotid Dopplers revealed no hemodynamic significant stenosis in either internal carotid artery. * Echocardiogram revealed an EF of 50%, inferior inferolateral hypokinesis, negative bubble study, aortic sclerosis without significant aortic stenosis. 07/13 Patient seen and examined at bedside, no acute distress. She denies any chest pain, palpitations, lightheadedness, dizziness, weakness. She states her vision is improving. She is currently maintained on aspirin 325 mg daily and Plavix 75mg daily per neurology. She continues to be in atrial fibrillation with controlled ventricular rates. PHYSICAL EXAMINATION Vitals reviewed CONSTITUTIONAL: No apparent distress. HEENT: Neck Supple. No JVD. CHEST EXAMINATION: Lungs are clear to auscultation. No chest wall tenderness is noted on palpation or with deep breathing. HEART EXAMINATION: Irregular rate and rhythm. S1, S2 heard. ABDOMEN: Soft, nontender. Positive bowel sounds. EXTREMITIES: no lower extremity edema and no calf tenderness. NEUROLOGIC EXAMINATION: Patient is awake, alert and oriented x3. Lateral right eye vision changes ASSESSMENT Acute left thalamus and left occipital lobe infarct Paroxysmal atrial fibrillation with RVR, newly detected, [id number] score 4 Acute right lower extremity weakness, right sided numbness, changes in vision Carotid artery stenosis with 50% stenosis left internal carotid artery and 25% stenosis right internal carotid artery noted on CT Hypertension Chronic tobacco use PLAN Continue metoprolol tartrate 50mg BID Monitor blood pressure, possible start ACEI/ARB Neurology following, recommend starting anticoagulation in two days to avoid hemorrhagic conversion and discontinue antiplatelets. Eliquis sent to pharmacy, case management consulted for eliquis coverage Monitor on telemetry Further recommendations based on clinical course Nurse practitioner note has been reviewed by physician. Signing provider agrees with the documented findings, assessment, and plan of care. Objective - Vital Signs Vital signs: Vital Signs Temp 97.4 F L 07/13/22 07:43 Pulse 79 07/13/22 07:44 Resp 18 07/13/22 07:44 BP 138/91 07/13/22 07:43 Pulse Ox 96 07/13/22 07:43 FiO2 Intake & Output 07/12/22 07/13/22 07/13/22 18:59 06:59 18:59 Intake Total 360 Balance 360 Intake: Oral 360 Other: Voiding Method Toilet Toilet Toilet # Voids 2 2 - Labs CBC & Chem 7: 07/12/22 07:19 07/11/22 20:05 Labs: Abnormal Lab Results - Last 24 Hours (Table) 07/12/22 Range/Units 07:19 HDL Cholesterol 61.00 H (40.00-60.00) mg/dL
[2022-07-13] MEDS ORDERED: ATORVASTATIN 20 MG TAB PO SCH (21:00)
[2022-07-14] MEDS: SODIUM CHLORIDE 0.9% 1,000 ML IV SCH (00:09)
[2022-07-14] MEDS: HEPARIN SODIUM,PORCINE/PF 5,000 UNIT/0.5 ML SYRINGE SQ SCH ×2 (00:15→08:08)
[2022-07-14 04:29] VITALS: TEMP 98.1
[2022-07-14] MEDS: METOPROLOL TARTRATE 50 MG TAB PO SCH (08:08)
[2022-07-14] MEDS: ASPIRIN 325 MG TAB PO SCH (08:08)
[2022-07-14] MEDS: CLOPIDOGREL 75 MG TAB PO SCH (08:08)
[2022-07-14] MEDS: NICOTINE 21MG/24HR PATCH TRANSDERM SCH (08:08)
[2022-07-14 08:14] VITALS: RESP 16
--- NOTE | 2022-07-14 10:55 | P.PN ---
Subjective Progress Note Date: 07/14/22 The patient is a 61-year-old female who is currently admitted to the hospital with new onset of atrial fibrillation and CVA. The patient was interviewed and examined sitting up in the recliner chair. She states she is feeling well and is eager to be discharged. She states her visual disturbances have since resolved. She has not had any dizziness or lightheadedness. GENERAL: Well-appearing, well-nourished and in no acute distress. NECK: Supple without JVD or thyromegaly. LUNGS: Breath sounds clear to auscultation bilaterally. Respiration equal and unlabored. No wheezes, rales or rhonchi. HEART: Regular rate and rhythm without murmurs, rubs or gallops. S1 and S2 heard. EXTREMITIES: Normal range of motion, no edema. No clubbing or cyanosis. Peripheral pulses intact and strong. VITALS: Blood pressure 143/86, pulse 69, respiratory rate 16, SpO2 96% on room air TELEMETRY: Sinus rhythm overnight IMPRESSION: Acute left thalamus and left occipital lobe infarct Paroxysmal atrial fibrillation with RVR, newly onset Acute right lower extremity weakness, right sided numbness, changes in vision Carotid artery stenosis with 50% stenosis left internal carotid artery and 25% stenosis right internal carotid artery noted on CT Hypertension Chronic tobacco use PLAN: Start novel anticoagulation as Stop dual antiplatelet therapy Patient may be discharged from the cardiac standpoint I am dictating on behalf of Dr Jayme Marcum's history/physical and assessment/plan. Objective - Vital Signs Vital signs: Vital Signs Temp 98.1 F 07/14/22 08:00 Pulse 69 07/14/22 08:00 Resp 16 07/14/22 08:00 BP 143/86 07/14/22 08:00 Pulse Ox 96 07/14/22 08:00 FiO2 Intake & Output 07/13/22 07/14/22 07/14/22 18:59 06:59 18:59 Intake Total 1150 118 Balance 1150 118 Intake: Oral 1150 118 Other: Voiding Method Toilet Toilet Toilet # Voids 1 4 - Labs CBC & Chem 7: 07/12/22 07:19 07/11/22 20:05
[2022-07-14 11:35] VITALS: BP 127/72; PULSE 65
--- NOTE | 2022-07-14 12:24 | P.PN ---
Subjective Progress Note Date: 07/13/22 Principal diagnosis: Acute ischemic stroke 61 years old female with no significant past medical history. She is not on medication at home. Patient yesterday she was working with her grandchildren on the sidewalk getting into the house when she felt short of breath could not see in her right eye and she become dizzy which lasted for about 15 minutes. Patient describes the diz ziness as nonspecific. After that episode she was feeling weakness in her right leg and the lesser extent in the right arm with some numbness. This morning she woke up feeling fine with no more weakness in the right arm or leg may be very mild numbness or weakness which could not be appreciated on exam. Patient had a headache yesterday which is resolved now. Her vision is back to baseline and normal. No slurred speech. No more episodes of thickness. Left side looks fine. Her PCP is Dr. garcia which is retired and she does not follow up with PCP. She denies GI or urinary symptoms. No chest pain or dyspnea or coughing. She smokes about half pack per day and she was counseled to quit and she agrees and she was a nicotine patch. No alcohol or illicit drugs Vitals are stable. Blood pressure is 171/82. showing INR is 1.0, BMP is unremarkable with normal electrolytes and creatinine at 0.8. Liver enzymes not elevated. Chest x-ray: Minimal pleural reaction that her right lung base is improved compared to old exam. That is probably COPD. No pulmonary consultation CT of the brain: Negative computed tomography scan of the brain. CT of the head and neck: Negative CT and Gram of the brain plaque formation at the bifurcation of the carotids with 50% stenosis of the origin of the left internal carotid artery and 25% stenosis in the origin of the right internal carotid artery EKG: Atrial fibrillation's with RVR at a rate of 130. QTC is 401. With right bundle branch block iin the emergency room patient was given aspirin and Cardizem drip with consult to interior design professor and neurologist Objective - Vital Signs Vital signs: Vital Signs Temp 97.4 F L 07/13/22 07:43 Pulse 79 07/13/22 07:44 Resp 18 07/13/22 07:44 BP 138/91 07/13/22 07:43 Pulse Ox 96 07/13/22 07:43 FiO2 Intake & Output 09/12/0207/13/22 07/13/22 18:59 06:59 18:59 Intake Total 360 Balance 360 Intake: Oral 360 Other: Voiding Method Toilet Toilet Toilet # Voids 2 2 - Exam GENERAL: The patient is alert and oriented x3, not in any acute distress. Well developed, well nourished. HEENT: Pupils are round and equally reacting to light. EOMI. No scleral icterus. No conjunctival pallor. Normocephalic, atraumatic. No pharyngeal erythema. No thyromegaly. CARDIOVASCULAR: S1 and S2 present. No murmurs, rubs, or gallops. PULMONARY: Chest is clear to auscultation, no wheezing or crackles. ABDOMEN: Soft, nontender, nondistended, normoactive bowel sounds. No palpable organomegaly. MUSCULOSKELETAL: No joint swelling or deformity. EXTREMITIES: No cyanosis, clubbing, or pedal edema. NEUROLOGICAL: Gross neurological examination did not reveal any focal deficits. SKIN: No rashes. no petechiae. - Labs CBC & Chem 7: 07/12/22 07:19 07/11/22 20:05 Labs: Abnormal Lab Results - Last 24 Hours (Table) 07/12/22 Range/Units 07:19 HDL Cholesterol 61.00 H (40.00-60.00) mg/dL Assessment and Plan Assessment: Rule out acute stroke. Symptomatic atrial fibrillation with RVR. Mild bilateral carotid artery stenosis, 25% on the right side and 50% on the left side. COPD, not an active issue Plan: This is a pleasant 61 years old female who presents with possible acute stroke and A. fib Continue with aspirin Check echocardiogram Neurology consult Check MRI of the brain Continue with Cardizem stacey Cardiology consult Labs and medication were reviewed.. Continue same treatment. Continue with sy mptomatic treatment. Resume home medication. Monitor lytes and vitals. DVT and GI prophylaxis. Further recommendations as per clinical course of the patient DVT prophylaxis: Subcutaneous heparin GI Prophylaxis: Pepcid PT/OT: Pending Prognosis is guarded
[2022-07-14] MEDS ORDERED: APIXABAN 5 MG TAB PO SCH (21:00)
== END 2022-07-14 13:15 | disposition home or self-care (01) | DRG 65 ==
LOC: EC 18:49 → 3SCARD 22:39
PROVIDERS: ADMIT Hospitalist; ATTEND Hospitalist
DX: I63.89 Other cerebral infarction (principal); G81.91 Hemiplegia, unspecified affecting right dominant side; F17.210 Nicotine dependence, cigarettes, uncomplicated; Z71.6 Tobacco abuse counseling; I10 Essential (primary) hypertension; I45.10 Unspecified right bundle-branch block; I48.0 Paroxysmal atrial fibrillation; I65.23 Occlusion and stenosis of bilateral carotid arteries; I70.0 Atherosclerosis of aorta; J44.9 Chronic obstructive pulmonary disease, unspecified; R29.703 NIHSS score 3; I08.1 Rheumatic disorders of both mitral and tricuspid valves; H53.8 Other visual disturbances; R26.2 Difficulty in walking, not elsewhere classified; Z79.02 Long term (current) use of antithrombotics/antiplatelets; Z79.82 Long term (current) use of aspirin; Z82.49 Family history of ischemic heart disease and other diseases of the circulatory system; Z83.3 Family history of diabetes mellitus; Z28.310 Unvaccinated for COVID-19; Z28.21 Immunization not carried out because of patient refusal; Z83.2 Family history of diseases of the blood and blood-forming organs and certain disorders involving the immune mechanism; I25.2 Old myocardial infarction
CPT/HCPCS: 36415; 70450; 70496; 70498; 70551; 71045; 80053; 80061; 82607; 82746; 83036; 83735; 84443; 85025; 85610; 85730; 93005; 93306; 93880; 96365; 99285

== ENCOUNTER 2022-11-13 09:29 | Day surgery (SDC) | payer OTHER ==
[~2022-11-13 09:29] MED LIST: LACTATED RINGERS 1,000 ML IV SCH; SODIUM CHLORIDE 0.9% 1,000 ML IV SCH
[2022-11-13] MEDS ORDERED: SODIUM CHLORIDE 0.9% 500 ML 500 ML IV ONE (09:39)
[2022-11-13 09:52] VITALS: RESP 16; TEMP 97.7
[2022-11-13] MEDS ORDERED: PROPOFOL 10 MG/ML 20 ML VIAL IV ONE (11:53)
--- NOTE | 2022-11-13 12:19 | P.HPCAR ---
History of Present Illness This is Dr. Marcum dictating an H/P on this patient The patient was interviewed and examined IMPRESSION / ASSESSMENT: Persistent atrial fibrillation with shortness of breath on exertion History of CVA left thalamus and left occipital in the past Now on anticoagulation Hypertension Current smoker Normal stress test 2-D echo initially has suggested inferior and anterolateral hypokinesis Chronic kidney disease creatinine 1.5, potassium 5.0 PLAN: Electrical cardioversion today Reassess LV function and wall motion abnormalities thereafter Decision regarding antiarrhythmic drug therapy HPI Patient continues to complain of shortness of breath on exertion. She occasionally complains of positional dizziness Her ventricular rates are controlled now on medical treatment No syncope in the last few weeks She is currently on atorvastatin 20 mg daily. Aspirin 81 mg daily and lupus 5 mg twice daily and metoprolol 75 mg in the morning and 50 mrem in the evening ROS: No fever chills or rigors, no cough, phlegm or expectoration, no nausea, vomiting or diarrhea, no hematuria, dysuria, no musculoskeletal complaints, no strokes or seizures, no skin lesions. EXAMINATION: Afebrile 97.7F, pulse rate in the 70s irregular atrial fibrillation Blood pressure 174-95 Breath sounds are reduced bilaterally with bilateral rhonchi Heart sounds soft no murmurs irregular Abdomen soft No lower extremity edema REVIEW OF LABS, ECG & MEDICAL DATA White count 7.3, hemoglobin 14.9, platelet count 220,000 BUN 36, creatinine 1.5, GFR 39 Sodium 140, potassium 5.0 Physical Exam Vitals: Vital Signs Temp Pulse Resp BP Pulse Ox 11/13/22 09:46 97.7 F 77 16 174/85 94 L Intake and Output 11/12/22 11/13/22 11/13/22 22:59 06:59 14:59 Intake Total 200 Balance 200 Intake: IV 200 Other: Weight 65.8 kg Past Medical History Past Medical History: COPD History of Any Multi-Drug Resistant Organisms: None Reported Additional Past Surgical History / Comment(s): Right oophorectomy, right chest cyst removal. Past Anesthesia/Blood Transfusion Reactions: No Reported Reaction Past Psychological History: No Psychological Hx Reported Smoking Status: Current every day smoker Past Alcohol Use History: None Reported Past Drug Use History: None Reported - Past Family History Mother Family Medical History: Diabetes Mellitus, Hyperlipidemia, Hypertension, Pneumonia Additional Family Medical History / Comment(s): Past week at age 74 from complications from pneumonia Father Family Medical History: Diabetes Mellitus, Myocardial Infarction (CT) Son(s) Family Medical History: Pulmonary Embolus Physical Examination Vital Signs Temp Pulse Resp BP Pulse Ox 11/13/22 09:46 97.7 F 77 16 174/85 94 L Intake and Output 11/12/22 11/13/22 11/13/22 22:59 06:59 14:59 Intake Total 200 Balance 200 Intake: IV 200 Other: Weight 65.8 kg Results Current Medications Generic Name Dose Route Start Last Admin Trade Name Freq PRN Reason Stop Dose Admin Sodium Chloride 1,000 mls @ 50 mls/hr 11/13/22 06:29 Saline 0.9% IV 12/13/22 06:30 .Q20H CHRISTINE Lactated Ringer's 1,000 mls @ 20 mls/hr 11/13/22 06:29 Lactated Ringers IV 12/13/22 06:30 .Q24H CHRISTINE Intake and Output 11/12/22 11/13/22 11/13/22 22:59 06:59 14:59 Intake Total 200 Balance 200 Intake: IV 200 Other: Weight 65.8 kg Patient Weight 11/14/22 06:59 Weight 65.8 kg
--- NOTE | 2022-11-13 12:34 | P.EPPROC ---
- EP Procedure Note Electrophysiology Procedure Note: Procedure Electrical cardioversion Diagnosis Persistent atrial fibrillation, history of CVA Currently the patient is on flecainide 50 mg twice daily QRS fractionation on twelve-lead EKG in the inferior leads and the septal leads Abnormal 2-D echo with preserved systolic function inferior wall hypokinesis Procedure Successful electrical cardioversion with a 200 J biphasic shock in the AP configuration to sinus rhythm Postprocedure 12-lead EKG Sinus rhythm normal [place] interval right bundle branch block pattern with Q waves in lead V1 and QRS fractionation in the inferior leads and in leads V1 through V3 Limited 2-D echo performed in sinus rhythm Left ventricle systolic function of about 50% Inferior basal hypokinesis and mild septal hypokinesis consistent with the abnormalities on the EKG Suggest Avoid class I and treated with drugs Stop flecainide Continue metoprolol 50 mrem twice daily Continue anticoagulation LEONARDO VASC was high patient has had a history of CVA After 4-6 weeks consider coronary angiography to evaluate for chronic coronary artery disease resulting in inferior wall and septal hypokinesis Abnormal EKG, abnormal echo during sinus rhythm I would hold ELIQUIS for no more than 2 doses prior to cardiac catheterization If her coronary arteries are normal then consider cardiac MRI in the future
--- NOTE | 2022-11-13 12:37 | P.PRLE ---
RE: Mercy Smith Dear Areli Mrs. Jacob underwent electrical cardioversion to sinus rhythm successfully I tried to use flecainide 50 mrem twice daily which is a low dose but post cardioversion EKG abnormalities became even more prominent with a QRS fractionation in the inferior leads and the septal precordial leads In addition during sinus rhythm while ejection fraction is at 50% she does have an inferior wall hypokinesis and septal hypokinesis corresponding to the EKG abnormalities Therefore at this time I would simply continue beta blockers and anticoagulation since she's had a history of CVA I would avoid all antiarrhythmic drug therapy for now specifically class 1 antiarrhythmic drugs After 4 weeks I may consider coronary angiography to evaluate for possible c hronic coronary artery disease especially in the inferior and septal territories I will keep you posted regarding any future developments Thank you for entrusting me with the care of the patient Warm regards Sincerely Jayme Marcum
[2022-11-13 14:02] VITALS: BP 146/82; PULSE 76
== END 2022-11-13 13:16 | disposition home or self-care (01) ==
LOC: CATHEP 09:29
PROVIDERS: ATTEND Internal Medicine Clinical Cardiac Electrophysiology
DX: I48.19 Other persistent atrial fibrillation (principal); I45.10 Unspecified right bundle-branch block; Z86.73 Personal history of transient ischemic attack (TIA), and cerebral infarction without residual deficits; I10 Essential (primary) hypertension; Z79.02 Long term (current) use of antithrombotics/antiplatelets; Z79.891 Long term (current) use of opiate analgesic; E78.5 Hyperlipidemia, unspecified; I73.9 Peripheral vascular disease, unspecified; J44.9 Chronic obstructive pulmonary disease, unspecified; F17.210 Nicotine dependence, cigarettes, uncomplicated; Z79.1 Long term (current) use of non-steroidal anti-inflammatories (NSAID); Z79.01 Long term (current) use of anticoagulants; Z79.82 Long term (current) use of aspirin; Z98.890 Other specified postprocedural states; I65.29 Occlusion and stenosis of unspecified carotid artery; Z82.49 Family history of ischemic heart disease and other diseases of the circulatory system
CPT/HCPCS: 93308; 92960; J2704

== ENCOUNTER 2023-04-29 20:59 | Emergency (ER) | payer OTHER ==
[2023-04-29 21:15] VITALS: RESP 18
[2023-04-29] MEDS ORDERED: LIDOCAINE 1% INJ 10MG/ML (30 ML VIAL-PF) SQ ONE (21:43)
--- NOTE | 2023-04-29 21:46 | ED ---
General Adult HPI - General Chief complaint: Wound/Laceration Stated complaint: Cut on right hand Time Seen by Provider: 04/29/23 21:23 Source: patient, RN notes reviewed Mode of arrival: ambulatory Limitations: no limitations - History of Present Illness Initial comments: 62-year-old female presents to the emergency department with chief complaint of right hand laceration. Patient states that she was working with a bed frame when it fell over on her hand and cut her. She reports normal range of motion in her hand or fingers. She states her last tetanus shot was within the last few months. Past medical history includes A. fib, COPD. - Related Data Home Medications Medication Instructions Recorded Confirmed Metoprolol Tartrate [Lopressor] 50 mg PO HS 11/13/22 11/13/22 RX: Metoprolol Tartrate [Lopressor] 75 mg PO DAILY 11/13/22 11/13/22 Previous Rx's Medication Instructions Recorded Apixaban [Eliquis] 5 mg PO BID #60 tab 07/13/22 RX: Atorvastatin [Lipitor] 20 mg PO HS 30 Days #30 tab 07/14/22 RX: Aspirin 81 mg PO DAILY #90 tab 11/13/22 Cephalexin [Keflex] 500 mg PO Q6HR #20 cap 04/29/23 Allergies Allergy/AdvReac Type Severity Reaction Status Date / Time No Known Allergies Allergy Verified 04/29/23 21:15 Review of Systems ROS Statement: Those systems with pertinent positive or pertinent negative responses have been documented in the HPI. ROS Other: All systems not noted in ROS Statement are negative. Past Medical History Past Medical History: COPD, CVA/TIA, Hypertension History of Any Multi-Drug Resistant Organisms: None Reported Additional Past Surgical History / Comment(s): Right oophorectomy, right chest cyst removal. Past Anesthesia/Blood Transfusion Reactions: No Reported Reaction Past Psychological History: No Psychological Hx Reported Smoking Status: Current every day smoker Past Alcohol Use History: None Reported Past Drug Use History: None Reported - Past Family History Mother Family Medical History: Diabetes Mellitus, Hyperlipidemia, Hypertension, Pneumonia Additional Family Medical History / Comment(s): Past week at age 74 from complications from pneumonia Father Family Medical History: Diabetes Mellitus, Myocardial Infarction ([place]) Son(s) Family Medical History: Pulmonary Embolus General Exam Limitations: no limitations General appearance: alert, in no apparent distress Head exam: Present: atraumatic, normocephalic, normal inspection Eye exam: Present: normal appearance, PERRL, EOMI. Absent: scleral icterus, conjunctival injection, periorbital swelling ENT exam: Present: normal exam, mucous membranes moist Neck exam: Present: normal inspection. Absent: tenderness, meningismus, lymphad enopathy Respiratory exam: Present: wheezes (mild). Absent: respiratory distress, rales, rhonchi, stridor, chest wall tenderness, accessory muscle use, decreased breath sounds, prolonged expiratory Cardiovascular Exam: Present: regular rate, irregular rhythm (hx afib) Extremities exam: Present: normal inspection, full ROM, normal capillary refill, other (laceration to dorsal medial right hand ). Absent: tenderness, pedal edema, joint swelling, calf tenderness Back exam: Present: normal inspection Neurological exam: Present: alert, oriented X3 Psychiatric exam: Present: normal affect, normal mood Skin exam: Present: warm, dry, normal color, other (2cm laceration to dorsal medial right hand ). Absent: rash Course Vital Signs 04/29/23 04/29/23 21:13 23:38 Temperature 98 F 97.5 F L Pulse Rate 84 83 Respiratory 18 18 Rate Blood Pressure 156/84 151/92 O2 Sat by Pulse 97 99 Oximetry Procedures - Laceration Laceration #1 Consent Obtained: verbal consent Indication: laceration Site: hand Size (cm): 2 Description: linear Depth: simple, single layer Anesthetic Used: lidocaine 1% Anesthesia Technique: local infiltration Pre-repair: wound explored, irrigated extensively Type of Sutures: other (monofilament) Size of Sutures: 5-0 Number of Sutures: 6 Technique: simple, interrupted Patient Tolerated Procedure: well, no complications Medical Decision Making - Medical Decision Making Was pt. sent in by a medical professional or institution (, PA, CHEMICAL INSTRUMENTATION OFFICER, urgent care, hospital, or usp...) When possible be specific @ -No Did you speak to anyone other than the patient for history (EMS, parent, family, police, friend...)? What history was obtained from this source @ -No Did you review nursing and triage notes (agree or disagree)? Why? @ -I reviewed and agree with nursing and triage notes Were old charts reviewed (outside hosp., previous admission, EMS record, old EKG, old radiological studies, urgent care reports/EKG's, usp records)? Report findings @ -No old charts were reviewed Differential Diagnosis (chest pain, altered mental status, abdominal pain women, abdominal pain men, vaginal bleeding, weakness, fever, dyspnea, syncope, headache, dizziness, GI bleed, back pain, seizure, CVA, palpatations, mental health, musculoskeletal)? @ -Differential Musculoskeletal Muscular strain, contusion, ligament sprain, fracture, arthritis, septic arthritis, bursitis, cellulitis, muscle spasm, nerve compression, DVT, arterial occlusion, herpes zoster, electrolyte abnormality, tumor.... This is not meant to be in all inclusive list EKG interpreted by me (3pts min.). @ -None X-rays interpreted by me (1pt min.). @ -X-ray of the right hand showed no evidence for acute fracture or foreign body CT interpreted by me (1pt min.). @ -None done U/S interpreted by me (1pt. min.). @ -None done What testing was considered but not performed or refused? (CT, X-rays, U/S, labs)? Why? @ -None What meds were considered but not given or refused? Why? @ -None Did you discuss the management of the patient with other professionals (prof essionals i.e. , PA, CHEMICAL INSTRUMENTATION OFFICER, lab, RT, psych nurse, school social worker, professional development manager, teacher, agricultural extension officer, returned case inspector)? Give summary @ -No Was smoking cessation discussed for >3mins.? @ -No Was critical care preformed (if so, how long)? @ -No Were there social determinants of health that impacted care today? How? (Homelessness, low income, unemployed, alcoholism, drug addiction, transportation, low edu. Level, literacy, decrease access to med. care, penitentiary, rehab)? @ -No Was there de-escalation of care discussed even if they declined (Discuss DNR or withdrawal of care, Hospice)? DNR status @ -No What co-morbidities impacted this encounter? (DM, HTN, Smoking, COPD, CAD, Cancer, CVA, ARF, Chemo, Hep., AIDS, mental health diagnosis, sleep apnea, morbid obesity)? @ -None Was patient admitted / discharged? Hospital course, mention meds given and route, prescriptions, significant lab abnormalities, going to OR and other pertinent info. @ -Discharged. Patient presented to the emergency department for chief complaint of hand laceration from a bed frame. Patient reports that she is up to date on her tetanus vaccination and has had it within the year. Patient has 2cm laceration to dorsal medial right hand which was irrigated and visualized. XR showed no evidence for fracture or foreign body. 6 simple interrupted sutures were placed. Keflex sent to patients pharmacy. Patient discharged in stable condition. Case discussed with my attending, Dr. Gregory Undiagnosed new problem with uncertain prognosis? @ -No Drug Therapy requiring intensive monitoring for toxicity (Heparin, Nitro, Insulin, Cardizem)? @ -No Were any procedures done? @ -yes laceration repair with 6 simple interrupted sutures Diagnosis/symptom? @ -laceration Acute, or Chronic, or Acute on Chronic? @ -acute Uncomplicated (without systemic symptoms) or Complicated (systemic symptoms)? @ -Uncomplicated Side effects of treatment? @ -No Exacerbation, Progression, or Severe Exacerbation? @ -No Poses a threat to life or bodily function? How? (Chest pain, [place], [place], pneumonia, PE, COPD, DKA, ARF, appy, cholecystitis, CVA, Diverticulitis, Homicidal, Suicidal, threat to staff... and all critical care pts) @ -No Disposition Clinical Impression: Laceration Disposition: HOME SELF-CARE Condition: Stable Instructions (If sedation given, give patient instructions): Care For Your Stitches (ED) Additional Instructions: Have stitches removed in around 5 days. Keep wound clean and dry. Please return to the emergency department for new or worsening symptoms. Prescriptions: Cephalexin [Keflex] 500 mg PO Q6HR #20 cap Is patient prescribed a controlled substance at d/c from ED?: No Referrals: Areli Szymanski [Primary Care Provider] - 1-2 days Time of Disposition: 23:29
--- NOTE | 2023-04-29 22:09 | XR ---
EXAMINATION TYPE: XR hand complete RT DATE OF EXAM: 04/29/2023 9:56 PM INDICATION: Patient age:Female; 62 years old; Reason for study: lac; COMPARISON: None TECHNIQUE: Frontal, lateral and oblique views of the right hand were obtained. FINDINGS: Normal alignment of the visualized joints. No acute osseous pathology is identified. No e vidence of soft tissue swelling. No radiopaque foreign body. IMPRESSION: 1. No acute osseous pathology. 2. No radiopaque foreign body.
[2023-04-29 23:40] VITALS: BP 151/92; PULSE 83; TEMP 97.5
== END 2023-04-29 23:39 | disposition home or self-care (01) ==
LOC: EC 20:59
DX: S61.411A Laceration without foreign body of right hand, initial encounter (principal); J44.9 Chronic obstructive pulmonary disease, unspecified; I10 Essential (primary) hypertension; Z86.73 Personal history of transient ischemic attack (TIA), and cerebral infarction without residual deficits; F17.200 Nicotine dependence, unspecified, uncomplicated; W20.8XXA Other cause of strike by thrown, projected or falling object, initial encounter
CPT/HCPCS: 99283 ×2; 12001 ×2; 73130; J2001

== ENCOUNTER → 2023-08-22 | Outpatient (CLI) | payer MEDICARE, OTHER ==
[2023-08-22 13:28] VITALS: BP 127/79; PULSE 85; RESP 16; TEMP 97.8
--- NOTE | 2023-08-22 13:44 | P.PN ---
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 She tolerated the procedure without difficulty. The pathology was benign fibrocystic change for both sites. Objective - Vital Signs Vital signs: Vital Signs Temp 97.8 F 08/22/23 13:14 Pulse 85 08/22/23 13:14 Resp 16 08/22/23 13:14 BP 127/79 08/22/23 13:14 Pulse Ox 97 08/22/23 13:14 FiO2 Intake & Output 08/21/23 08/22/23 08/22/23 18:59 06:59 18:59 Weight 70.307 kg - Constitutional General appearance: Present: cooperative - EENT Eyes: Present: EOMI ENT: Present: hearing grossly normal - Neck Neck: Present: normal ROM - Respiratory Details: Wheezing at the right base, otherwise clear - Cardiovascular Heart sounds: normal: S1, S2 - Integumentary Integumentary Comment(s): Biopsy site clean and dry - Musculoskeletal Musculoskeletal: Present: gait normal - Psychiatric Psychiatric: Present: A&O x's 3, appropriate affect, intact judgment & insight Assessment and Plan Assessment: Impression: Biopsy site left breast 2 sites benign concordant Plan: Repeat left breast mammogram in 6 months with physician exam at that time CC: Dr. Szymanski
== END ==
LOC: WWCWWP 12:53
PROVIDERS: ATTEND Surgery
DX: N60.19 Diffuse cystic mastopathy of unspecified breast (principal); F17.200 Nicotine dependence, unspecified, uncomplicated

== ENCOUNTER → 2024-02-24 | Outpatient (CLI) | payer MEDICARE, OTHER ==
--- NOTE | 2024-02-24 08:09 | MM ---
Reason for Exam: Follow-up at short interval from prior study. Last screening mammogram was performed 11 month(s) ago. Patient History: Menarche at age 15. First Full-Term at age 19. 08/08/2023, MG stereo VAD BX addl LT on the Left side. 08/08/2023, Benign MG stereo VAD BX LT on the left side. Risk Values: Karina 5 year model risk: 2.0%. NCI Lifetime model risk: 7.6%. Prior Study Comparison: 01/02/2007 Bilateral Diagnostic Mammogram, [facility]. 03/28/2023 Bilateral MG screening mammo w CAD - 2, [facility]. 04/01/2023 Bilateral MG work up mamm w CAD BILAT, [facility]. Tissue Density: Left: The breasts are heterogeneously dense, which may obscure small masses. Findings: Analyzed By CAD. Pattern appears stable. 2 core markers are within the left breast. Multiple scattered benign-appearing calcifications are present. A stable oval circumscribed hyperdensity remains in the posterior medial left breast. There are some stable appearing calcifications upper outer aspect left breast. These appear similar to the previous biopsy calcifications. Short-term follow-up is recommended, Diagnostic left breast mammography with magnification views. No suspicious groups of microcalcifications, spiculated or lobular masses, architectural distortion or other secondary signs of malignancy are mammographically apparent. Overall Assessment: Probably benign, BI-RAD 3 Management: Diagnostic Mammogram of the left breast in 6 months. A negative mammogram report should not preclude additional follow up of suspicious palpable abnormalities. Patient should continue monthly self breast exam. A clinical breast exam by your physician is recommended on an annual basis and results should be correlated with mammographic findings. Electronically signed and approved by: Igor Solano D.O. Radiologis
== END | disposition home or self-care (01) ==
LOC: RADMAMWWP 07:10
PROVIDERS: ATTEND Surgery
DX: R92.332 Mammographic heterogeneous density, left breast (principal); R92.1 Mammographic calcification found on diagnostic imaging of breast
CPT/HCPCS: 77065; G0279; 77061

== ENCOUNTER → 2024-03-06 | Outpatient (CLI) | payer MEDICARE ==
--- NOTE | 2024-03-06 11:29 | P.PN ---
Subjective Progress Note Date: 03/06/24 Microcalcifications of concern left breast Mercy is a 63-year-old white female seen in consultation for regarding microcalcifications of concern in the left breast. She underwent a bilateral mammogram on . This revealed a circumscribed round mass within the left breast as well as calcifications of concern. This subsequently led to an ultrasound of the left breast and bilateral diagnostic mammograms. On the diagnostic mammogram at least one suspicious group of heterogeneous calcifications in the left breast were identified, no lesions of concern were identified in the right breast for targeting. The ultrasound revealed that the circumscribed mass was consistent with a simple cyst in the left breast. The radiographs were reviewed with Dr. Craig and he felt the 2 areas of concern of calcifications were noted in the left breast no lesions warranting biopsy were identified in the right breast. The patient does not feel any new lumps masses or nodules of concern in either breast. This was found on a routine screening mammogram. The patient in 2006 did have an open biopsy on the right breast which was benign. The patient is not complaining of any recent trauma or infection of the breast. She had two site left stero biopsy on 08-22-23 which was benign concordant. She had a repeat left breast mammogram on 02-24-24 which was BIRAD 3 personally reviewed. She will have a repeat bilateral mammogram in July 2024. She is not complaining of any lesion of concern in either breast. Caffeine: 2 cups/day nicotine: used to smoke 2 packs/day now down to 10/day started at 13 chocolate: occasional BCP: used for 10 years hormones: none Family history: paternal grandfather: lung cancer brother: bladder cancer (smoker) brother: bladder cancer (smoker) paternal uncle: throat cancer Hormonal History: menarche: 15 , breast fed: no, age at first : 19 menopause: 40's Surgical History: Empyema of the lung Right breast biopsy Medical History: CVA: on eliquis, and aspirin; no residual AFib COPD HTN Social history: nicotine: as above alcohol: none drugs: none - Constitutional Constitutional: Denies chills, Denies fever - EENT Eyes: denies blurred vision, denies pain Ears: deny: decreased hearing, tinnitus Ears, nose, mouth and throat: Denies headache, Denies sore throat - Breasts Breasts: bilateral: as per HPI - Cardiovascular Comment: A fib, COPD Cardiovascular: Reports shortness of breath - Respiratory Respiratory: Reports as per HPI, Reports cough - Gastrointestinal Gastrointestinal: Denies abdominal pain, Denies diarrhea, Denies nausea, Denies vomiting - Genitourinary (Female) Genitourinary: Denies dysuria, Denies hematuria - Menstruation Menstruation: Reports postmenopausal - Musculoskeletal Musculoskeletal: Denies myalgias - Integumentary Integumentary: Denies pruritus, Denies rash - Neurological Neurological: Denies numbness, Denies weakness - Psychiatric Psychiatric: Denies anxiety, Denies depression - Endocrine Endocrine: Denies fatigue, Denies weight change - Hematologic/Lymphatic Comment: on aspirin and eloquis secondary to A Fib and CVA Hematologic/Lymphatic: Reports as per HPI - Allergic/Immunologic Allergic/Immunologic: Reports seasonal allergies Past Medical History Past Medical History: COPD, CVA/TIA, Hyperlipidemia, Hypertension, Pneumonia History of Any Multi-Drug Resistant Organisms: None Reported Additional Past Surgical History / Comment(s): Right oophorectomy, right chest cyst removal. Past Anesthesia/Blood Transfusion Reactions: No Reported Reaction Past Psychological History: Depression Smoking Status: Current every day smoker Past Alcohol Use History: None Reported Past Drug Use History: None Reported - Past Family History Mother Family Medical History: Diabetes Mellitus, Hyperlipidemia, Hypertension, Pneumonia Additional Family Medical History / Comment(s): Past week at age 74 from complications from pneumonia Father Family Medical History: Diabetes Mellitus, Myocardial Infarction ([place]) Son(s) Family Medical History: Pulmonary Embolus Medications and Allergies Home Medications Medication Instructions Recorded Confirmed Type Apixaban [Eliquis] 5 mg PO BID #60 tab 07/13/22 08/08/23 Rx Atorvastatin [Lipitor] 20 mg PO HS 30 Days #30 tab 07/14/22 08/08/23 Rx Aspirin 81 mg PO DAILY #90 tab 11/13/22 08/08/23 Rx Metoprolol Tartrate [Lopressor] 50 mg PO HS 11/13/22 08/08/23 History Metoprolol Tartrate [Lopressor] 100 mg PO DAILY 11/13/22 08/08/23 History amLODIPine [Norvasc] 5 mg PO HS 09/20/23 09/28/23 History Allergies Allergy/AdvReac Type Severity Reaction Status Date / Time No Known Allergies Allergy Verified 08/08/23 07:41 Objective - Vital Signs Vital signs: Vital Signs Temp 97.5 F L 03/06/24 11:12 Pulse 72 03/06/24 11:12 Resp 16 03/06/24 11:12 BP 182/100 03/06/24 11:12 Pulse Ox 95 03/06/24 11:12 FiO2 Intake & Output 03/05/24 03/06/24 03/06/24 18:59 06:59 18:59 Weight 65.771 kg - Constitutional General appearance: Present: cooperative - EENT Eyes: Present: EOMI ENT: Present: hearing grossly normal - Neck Neck: Present: normal ROM - Respiratory Respiratory: bilateral: CTA - Cardiovascular Rhythm: regular Heart sounds: normal: S1, S2 - Integumentary Integumentary: Present: normal turgor - Musculoskeletal Musculoskeletal: Present: gait normal - Psychiatric Psychiatric: Present: A&O x's 3, appropriate affect, intact judgment & insight - Additional findings Additional findings: Breast Exam: BRA: 36B Inspection: Well-healed scar right breast from prior surgery, bilateral grade 1/2 ptosis Palpation: Right breast: Multi-positional exam fibrocystic changes, dense breasts, no d ominant masses or nodules of concern Right axilla: No adenopathy of concern Left breast: Multiple positional exam fibrocystic changes, dense breasts, no dominant masses or nodules of concern Left axilla: No adenopathy of concern Assessment and Plan Assessment: Impression: COPD Hypertension Prior CVA Atrial fibrillation Nicotine dependence Patient on eliquis and aspirin left breast mammogram 02-24-24 BIRAD 3 Plan: bilateral mammogram Jul 2024 with appointment at that time CC: DR. Szymanski
[2024-03-06 11:59] VITALS: BP 182/100; PULSE 72; RESP 16; TEMP 97.5
== END ==
LOC: WWCWWP 10:55
PROVIDERS: ATTEND Surgery
DX: R92.8 Other abnormal and inconclusive findings on diagnostic imaging of breast (principal); R92.0 Mammographic microcalcification found on diagnostic imaging of breast; J44.9 Chronic obstructive pulmonary disease, unspecified; F17.210 Nicotine dependence, cigarettes, uncomplicated; N63.20 Unspecified lump in the left breast, unspecified quadrant; I10 Essential (primary) hypertension; I48.91 Unspecified atrial fibrillation; Z79.01 Long term (current) use of anticoagulants; Z86.73 Personal history of transient ischemic attack (TIA), and cerebral infarction without residual deficits; Z79.899 Other long term (current) drug therapy

== ENCOUNTER 2024-07-06 06:09 | Day surgery (SDC) | payer MEDICARE ==
[2024-07-06] MEDS: SODIUM CHLORIDE 0.9% 1,000 ML IV ONE (06:40)
[2024-07-06 06:59] LABS: Basophils # (A) 0.1 k/uL (0-0.2); Basophils % (A) 1 %; Eosinophils # (A) 0.4 k/uL (0-0.7); Eosinophils % (A) 5 %; HCT 47.9 % (34.0-46.0); HGB 15.5 gm/dL (11.4-16.0); Lymphocytes % (A) 37 %; MCH 32.3 pg (25.0-35.0); MCHC 32.5 g/dL (31.0-37.0); MCV 99.4 fL (80.0-100.0); Mean Platelet Volume 8.3; Monocytes # (A) 0.6 k/uL (0-1.0); Monocytes % (A) 7 %; Neutrophils % (A) 48 %; Platelet Count 243 k/uL (150-450); RBC 4.82 m/uL (3.80-5.40); RDW 12.8 % (11.5-15.5); WBC 8.2 k/uL (3.8-10.6)
[2024-07-06 07:10] LABS: ALT 34 U/L (4-34); AST 33 U/L (14-36); African American GFR (CKD) 60 (>60 ml/min/1.73 sqM); Alkaline Phosphatase 61 U/L (38-126); Anion Gap 6 mmol/L; Blood Urea Nitrogen 21 mg/dL (7-17); Calcium 9.8 mg/dL (8.4-10.2); Carbon Dioxide 29 mmol/L (22-30); Chloride 107 mmol/L (98-107); Glucose 80 mg/dL (74-99); Non-African American GFR(CKD) 52 (>60 ml/min/1.73 sqM); Sodium 142 mmol/L (137-145); Total Bilirubin 0.5 mg/dL (0.2-1.3); Total Protein 6.6 g/dL (6.3-8.2)
[2024-07-06] MEDS ORDERED: LIDOCAINE 1% INJ 10MG/ML (20 ML MDV) ONE (07:48)
--- NOTE | 2024-07-06 08:01 | P.HPCAR ---
History of Present Illness This is Dr. Marcum dictating an H/P on this patient The patient was interviewed and examined IMPRESSION / ASSESSMENT: History of atrial fibrillation, persistent, failed therapy Symptomatic with shortness of breath on exertion Hypertension Carotid atherosclerosis History of smoking Past history of CVA left thalamic and left occipital in the past PLAN: A-fib ablation for persistent atrial fibrillation, symptomatic that has been refractory to antiarrhythmic therapy and cardioversion Continue anticoagulation with Eliquis Patient took Eliquis this morning HPI Patient continues to be short of breath with exertion. She has failed maintenance of sinus rhythm with antiarrhythmic drug therapy and electrical cardioversion This is despite rate control of A-fib She denies any fever chills cough expectoration syncope chest pain in the last 1 to 2 weeks ROS: No fever chills or rigors, no cough, phlegm or expectoration, no nausea, vomiting or diarrhea, no hematuria, dysuria, no musculoskeletal complaints, no strokes or seizures, no skin lesions. EXAMINATION: Blood pressure 137/90 mmHg pulse rate in the 70s afebrile Breath sounds are clear no rhonchi no crackles Heart sounds S1-S2 are normal but irregular, no murmurs Abdomen is soft nontender Clear lungs decreased breath sounds no rhonchi no crackles No lower extremity edema No JVD REVIEW OF LABS, ECG & MEDICAL DATA Normal white count 8.2 thousand, hemoglobin 15.5 Platelet count 243,000 Normal electrolytes BUN 21 creatinine 1.1 Normal TSH of 3.8 Normal liver function Physical Exam Vitals: Vital Signs Temp Pulse Resp BP BP Pulse Ox 07/06/24 06:39 97.7 F 77 16 137/90 153/93 97 Intake and Output 07/05/24 07/06/24 07/06/24 22:59 06:59 14:59 Intake Total 50 0 Balance 50 0 Intake: IV 50 0 Other: Weight 0 g 69.6 kg Past Medical History Past Medical History: COPD, CVA/TIA, Hyperlipidemia, Hypertension, Pneumonia Additional Past Medical History / Comment(s): Right CVA , no residual effects. Pneumonia 2019?? History of Any Multi-Drug Resistant Organisms: None Reported Additional Past Surgical History / Comment(s): Right oophorectomy, right chest cyst removal. Past Anesthesia/Blood Transfusion Reactions: No Reported Reaction Past Psychological History: Depression Additional Psychological History / Comment(s): Hx of depression, not current Smoking Status: Current every day smoker Past Alcohol Use History: None Reported Additional Past Alcohol Use History / Comment(s): 10 cigs daily Past Drug Use History: None Reported - Past Family History Mother Family Medical History: Diabetes Mellitus, Hyperlipidemia, Hypertension, Pneumonia Additional Family Medical History / Comment(s): Past week at age 74 from complications from pneumonia Father Family Medical History: Diabetes Mellitus, Myocardial Infarction ([place]) Son(s) Family Medical History: Pulmonary Embolus Physical Examination Vital Signs Temp Pulse Resp BP BP Pulse Ox 07/06/24 06:39 97.7 F 77 16 137/90 153/93 97 Intake and Output 07/05/24 07/06/24 07/06/24 22:59 06:59 14:59 Intake Total 50 0 Balance 50 0 Intake: IV 50 0 Other: Weight 0 g 69.6 kg Results 07/06/24 06:30 07/06/24 06:30 Cardiac Enzymes 07/06/24 Range/Units 06:30 AST 33 (14-36) U/L CBC 07/06/24 Range/Units 06:30 WBC 8.2 (3.8-10.6) k/uL RBC 4.82 (3.80-5.40) m/uL Hgb 15.5 (11.4-16.0) gm/dL Hct 47.9 H (34.0-46.0) % Plt Count 243 (150-450) k/uL Comprehensive Metabolic Panel 07/06/24 Range/Units 06:30 Sodium 142 (137-145) mmol/L Potassium 4.0 (3.5-5.1) mmol/L Chloride 107 (98-107) mmol/L Carbon Dioxide 29 (22-30) mmol/L BUN 21 H (7-17) mg/dL Creatinine 1.12 H (0.52-1.04) mg/dL Glucose 80 (74-99) mg/dL Calcium 9.8 (8.4-10.2) mg/dL AST 33 (14-36) U/L ALT 34 (4-34) U/L Alkaline Phosphatase 61 (38-126) U/L Total Protein 6.6 (6.3-8.2) g/dL Albumin 4.0 (3.5-5.0) g/dL Current Medications Generic Name Dose Route Start Last Admin Trade Name Freq PRN Reason Stop Dose Admin Sodium Chloride 1,000 mls @ 20 mls/hr 07/05/24 16:00 Saline 0.9% IV 08/04/24 15:59 .Q24H CHRISTINE Intake and Output 07/05/24 07/06/24 07/06/24 22:59 06:59 14:59 Intake Total 50 0 Balance 50 0 Intake: IV 50 0 Other: Weight 0 g 69.6 kg 07/06/24 06:30 07/06/24 06:30
[2024-07-06] MEDS: HEPARIN SOD,PORK IN 0.45% NACL 25,000 UNIT in 0.45% NACL 1 250ML.BAG IV ONE (08:13)
[2024-07-06] MEDS: LIDOCAINE 1% INJ 10MG/ML (20 ML MDV) SQ ONE (08:15)
[2024-07-06] MEDS: IOPAMIDOL-370 100ML BTL INJ ONE (09:49)
[2024-07-06] MEDS: HEPARIN SODIUM,PORCINE 10,000 UNIT in SODIUM CHLORIDE 0.9% 1,000 ML IRRIGATION ONE (09:49)
[2024-07-06] MEDS: HEPARIN SODIUM,PORCINE (1 ML) 2,500 UNIT in SODIUM CHLORIDE 0.9% 250 ML IRRIGATION ONE (09:50)
[2024-07-06] MEDS: LACTATED RINGERS 1,000 ML IV ONE (11:02)
--- NOTE | 2024-07-06 11:23 | P.EPPROC ---
- EP Procedure Note Electrophysiology Procedure Note: PROCEDURE A. fib ablation with pulmonary vein isolation, left atrial septal ablation and left atrial roof ablation DIAGNOSIS Persistent atrial fibrillation, symptomatic, refractory to therapy RESULT No left atrial appendage mass seen on intracardiac echo Successful A. fib ablation/pulmonary vein isolation of all veins using cryo- ablation Complete entrance block in all 4 veins confirmed No evidence for phrenic nerve injury Esophageal deflection YES Electrical cardioversion with a synchronized shock across the chest YES PROCEDURE DETAILS Written informed consent prior to procedure. Patient brought to the EP lab. General anesthesia given. Heparin administered. A city maintained above 300 seconds Both groins prepped and draped per protocol and venous sheaths placed. Esophagus intubated, circa catheter for temperature monitoring an endoscope for possible esophageal deflection. Phrenic nerve monitoring performed. Esophageal temperature monitoring performed. Esophageal deflection performed if circa catheter overlapping with the balloon or circa temperature less than 27.5C Intracardiac echocardiography performed. Pericardium evaluated. Left atrial appendage evaluated. Left atrium evaluated along with pulmonary veins Transseptal catheterization performed under fluoroscopic guidance and intracardiac echo guidance Cryoablation sheath exchanged, balloon catheter along with achieve catheter placed in the left atrium. Pulmonary veins isolated in the following sequence: Left superior pulmonary vein followed by left inferior pulmonary vein, followed by right inferior pulmonary vein and lastly right superior pulmonary vein. Phrenic nerve stimulation along with capture thresholds within the SVC and right superior pulmonary vein to identify the phrenic nerve proximity to the cryo- balloon. Pulmonary veins isolated and confirmed with entrance and exit block. Phrenic nerve integrity confirmed at the end of the procedure Ablation of the left atrial roof performed with sequential lesions from the left superior to the right superior pulmonary veins. Ablation of the electrograms confirmed Ablation of the left atrial septum performed with cannulation of the superior branch of the right inferior to achieve ablation of the posterior septum of the left atrium. Ablation of electrograms confirmed Electrical cardioversion performed for persistence of atrial fibrillation despite successful ablation. Diagnostic catheters for the high right atrium, His bundle, coronary sinus placed. LA and RA pressures recorded RA pressure: 9/2/6 LA pressure: 14/5/10 Diagnostic EP study with coronary sinus pacing and recording Baseline measurements: AH 82 and HV 61 ms after restoring sinus rhythm CT interval 178 ms, QRS 90 ms and QT interval 444 ms Sinus cycle length 920 ms Venous sheaths were removed and hemostasis assured with a closure device. Patient extubated and transferred to recovery Increase procedural time During ablation multiple attempts had to be made to move the esophagus a safe distance of the from the pulmonary vein draining cryoablation, to avoid excessive thermal cooling of the esophagus This took extra time and effort to keep the esophagus a safe distance away from the cryoablation balloon. Multiple cryo ablation lesions needed for successful cryoablation isolation of the right superior pulmonary vein on account of its size Multiple cryo ablations required to perform complete isolation of common left pulmonary vein, large PROCEDURES PERFORMED Diagnostic EP study CS pacing and recording Left and right transseptal catheterization Catheter the mapping of the tachycardia Intracardiac echocardiography Pulmonary vein isolation with transseptal and comprehensive EPS, 33374 Extended procedure duration Left atrial roof line, +90094 Linear ablation, left atrium, +11341 Electrical cardioversion with a synchronized shock across the chest [id number]
[2024-07-06] MEDS ORDERED: ACETAMINOPHEN TAB 325 MG TAB PO PRN (11:25)
[2024-07-06] MEDS: ACETAMINOPHEN IV (For NPO) 1,000 MG in EMPTY BAG 1 BAG IVPB ONE (12:36)
[2024-07-06] MEDS: MAGNESIUM SULFATE-D5W PMX 1 GM in DEXTROSE/WATER 1 100ML.BAG IVPB SCH (13:28)
[2024-07-06] MEDS: FLECAINIDE 50 MG TAB PO SCH (14:17)
[2024-07-06] MEDS: METOPROLOL TARTRATE 50 MG TAB PO SCH (14:20)
[2024-07-06] MEDS: SODIUM CHLORIDE 0.9% 1,000 ML IV SCH (18:24)
[2024-07-06] MEDS: APIXABAN 5 MG TAB PO SCH (20:51)
[2024-07-06] MEDS: ATORVASTATIN 20 MG TAB PO SCH (20:52)
[2024-07-07] MEDS: ASPIRIN 81 MG PO SCH (08:20)
[2024-07-07] MEDS: lisinopriL 20 MG TAB PO SCH (08:20)
[2024-07-07 15:43] VITALS: BP 119/78; PULSE 119; RESP 16; TEMP 98.4
--- NOTE | 2024-07-07 16:32 | P.DS ---
Providers Attending physician: Jayme Marcum Primary care physician: [facility] Hospital Course: Patient underwent successful A-fib ablation with pulmonary vein isolation, left atrial septal ablation and left atrial roof ablation Postprocedure however she went into A-fib with RVR and flecainide was started. Her rates are better controlled in a less than 110 beats a minute on beta- blockers plus flecainide However she remains in atrial fibrillation She is also appropriately anticoagulated On examination heart rate is between 110-120 beats a minute Blood pressure 119/78 mmHg afebrile Breath sounds are reduced bilaterally Heart sounds no murmurs Impression Persistent atrial fibrillation status post PVI and linear ablation of the left atrial roof and ablation of the left atrial septum Status post electrical cardioversion at the end of the procedure Hypertension Dyslipidemia with calcific atherosclerosis Continues to have paroxysms of A-fib with RVR Plan continue flecainide 100 mg twice daily Increase metoprolol dose to 50 mg twice daily Continue lisinopril and atorvastatin Continue Eliquis and a baby aspirin Follow-up in the office in 1 week Holter monitor for 7 days. If she has persistent A-fib then electrical cardioversion will be performed on flecainide Uninterrupted anticoagulation Plan - Discharge Summary New Discharge Prescriptions: New Metoprolol Tartrate 25 mg PO BID #180 tab Flecainide [Tambocor] 100 mg PO Q12HR #180 tablet Discontinued Metoprolol Tartrate [Lopressor] 100 mg PO DAILY Metoprolol Tartrate [Lopressor] 50 mg PO HS No Action lisinopriL [Prinivil] 20 mg PO DAILY Apixaban [Eliquis] 5 mg PO BID #60 tab Atorvastatin [Lipitor] 20 mg PO HS 30 Days #30 tab Aspirin 81 mg PO DAILY #90 tab Discharge Medication List Apixaban [Eliquis] 5 mg PO BID #60 tab 07/13/22 [Rx] Atorvastatin [Lipitor] 20 mg PO HS 30 Days #30 tab 07/14/22 [Rx] Aspirin 81 mg PO DAILY #90 tab 11/13/22 [Rx] Flecainide [Tambocor] 100 mg PO Q12HR #180 tablet 07/06/24 [Rx] Metoprolol Tartrate 25 mg PO BID #180 tab 07/06/24 [Rx] lisinopriL [Prinivil] 20 mg PO DAILY 07/06/24 [History] Follow up Appointment(s)/Referral(s): Jayme Marcum MD [STAFF PHYSICIAN] - 07/14/24 10:15 am (see Mariia in 7-10 days) Patient Instructions/Handouts: A-fib (Atrial Fibrillation) (DC), Cardiac Ablation (DC) Activity/Diet/Wound Care/Special Instructions: Post EP study - Ablation instructions 1. Keep access sites dry for 2 days. 2. No heavy lifting or straining for 2 days. 3. Avoid bending the hips repeatedly for 2 days. 4. You may go up and down stairs slowly Call if the following is noted 1. Bleeding, increasing swelling or pain at the access sites. 2. Increasing chest discomfort, especially upon taking a deep breath. 3. Increasing shortness of breath, at rest or with exertion. 4. Undue cough / phlegm 5. Difficulty or pain while swallowing. 6. Pain or change in color in the extremities. 7. Fever, chills, rigors. 8. Increasing headache or neurologic symptoms. 9. Dizziness, fainting, palpitations New medication Flecainide 100 mg twice daily for 6 to 8 weeks Discharge Disposition: HOME SELF-CARE
== END 2024-07-07 15:50 | disposition home or self-care (01) ==
LOC: CATHEP 06:09 → 6NMEDSUR 12:34 → CATHEP 07-07 15:50
PROVIDERS: ATTEND Internal Medicine Clinical Cardiac Electrophysiology
CPT/HCPCS: 80053; 84443; 85025; 86850; 86900; 86901; 92960; 93005; 93656; 93657

== ENCOUNTER 2025-02-18 14:28 | Emergency (ER) | payer MEDICARE, OTHER ==
[2025-02-18 14:50] VITALS: TEMP 98.1
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
[2025-02-18 17:02] VITALS: BP 150/80; PULSE 94; RESP 18
== END 2025-02-18 17:03 | disposition home or self-care (01) ==
LOC: EC 14:28
DX: S09.90XA Unspecified injury of head, initial encounter (principal); R07.89 Other chest pain; F17.200 Nicotine dependence, unspecified, uncomplicated; Z79.01 Long term (current) use of anticoagulants; V89.2XXA Person injured in unspecified motor-vehicle accident, traffic, initial encounter; Y92.410 Unspecified street and highway as the place of occurrence of the external cause
CPT/HCPCS: 70450; 72125; 99284